=== PATIENT | female | born 1960 | race Caucasian/White ===

== ENCOUNTER 2018-05-05 14:32 | Emergency (ER) | payer OTHER, SELFPAY ==
[2018-05-05] MEDS ORDERED: Bacitracin Zinc 1 Packet ONE (14:53)
== END 2018-05-05 15:02 | disposition home or self-care (01) ==
LOC: SCSER 14:32
DX: T23.222A Burn of second degree of single left finger (nail) except thumb, initial encounter (principal); F17.210 Nicotine dependence, cigarettes, uncomplicated; X15.8XXA Contact with other hot household appliances, initial encounter
CPT/HCPCS: 16020

== ENCOUNTER 2018-07-17 22:34 | Inpatient (IN) | payer SELFPAY ==
[2018-07-17] MEDS ORDERED: Ketorolac Tromethamine 30 MG/ML VIAL ONE (23:26)
[2018-07-17 23:51] LABS: #Basophils 0.2 thou/uL (0.0-0.2); #Eosinphils 0.2 thou/uL (0.0-0.7); #Lymphocytes 5.1 thou/uL (1.20-3.40); #Monocytes 0.6 thou/uL (0.11-0.59); %Basophils 1.1 % (0.0-1.0); %Eosinophils 1.4 % (0.0-10.0); %Lymphocytes 33.7 % (21.0-51.0); %Neutrophils 59.8 % (42.0-75.0); Hemoglobin 13.2 g/dL (12.0-16.0); Mean Corpuscular HGB CONC 33.7 g/dL (32.0-36.0); Mean Corpuscular Hemoglobin 30.3 pg (27.0-31.0); Mean Corpuscular Volume 89.8 fL (78.0-98.0); Mean Platelet Volume 5.6 fL (7.4-10.4); Platelet Count 516 thou/uL (130-400); RBC Distribution Width 12.9 % (11.5-14.5); Red Blood Cell (RBC) Count 4.37 mill/uL (4.20-5.40); White Blood Cell (WBC) Count 15.1 thou/uL (4.8-10.8)
[2018-07-18 00:01] LABS: ALT (SGPT) 22 U/L (8-55); AST (SGOT) 19 U/L (5-34); Albumin 4.2 g/dL (3.5-5.0); Alkaline Phosphatase 151 U/L (40-150); Anion Gap 15 mmol/L (10-20); BUN (Urea Nitrogen) 18 mg/dL (9.8-20.1); Bilirubin, Total 0.3 mg/dL (0.2-1.2); Calc. Creatinine Clearance 0 mL/min (70-130); Calcium 9.6 mg/dL (7.8-10.44); Carbon Dioxide 24 mmol/L (22-29); Chloride 107 mmol/L (98-107); Estimated GFR-MDRD 68; Globulin 3.2 g/dL (2.4-3.5); Glucose 129 mg/dL (70-105); Potassium 3.8 mmol/L (3.5-5.1); Protein, Total 7.4 g/dL (6.0-8.3); Sodium 142 mmol/L (136-145)
[2018-07-18] MEDS ORDERED: Morphine 4 MG/ML Carpuject ONE (01:09)
[2018-07-18] MEDS ORDERED: Nicotine 21 MG PATCH TOP SCH (03:15)
[2018-07-18 04:41] VITALS: BMI 33.1
[2018-07-18] MEDS ORDERED: Acetaminophen 325 MG TAB PO PRN (07:07)
[2018-07-18] MEDS ORDERED: Loperamide HCl 2 MG CAP PO PRN (07:07)
[2018-07-18] MEDS ORDERED: Milk Of Magnesia 30 ML UDCUP PO PRN (07:07)
[2018-07-18] MEDS ORDERED: Ondansetron ODT 4 MG TAB PO PRN (07:07)
[2018-07-18] MEDS ORDERED: Senokot 8.6 MG TAB PO PRN (07:07)
[2018-07-18] MEDS ORDERED: Ondansetron HCl/PF 4 MG/2 ML Vial IVP PRN (07:07)
[2018-07-18] MEDS ORDERED: Mag-Al 1200 mg/1200 mg/30 ML UDCUP PO PRN (07:07)
--- NOTE | 2018-07-18 07:11 | PDOC.EVN ---
Event Note - Event Note Event Note: Patient seen and examined. will dictate H & P later left index finger cellulitis see orders
--- NOTE | 2018-07-18 07:33 | RAD ---
3 VIEWS SECOND DIGIT LEFT HAND: Date: 07/17/18 HISTORY: Patient with left finger infection, swelling for several days. FINDINGS: AP, lateral, and oblique views second digit left hand obtained. No evidence of acute fractures, sublu xations, or bony lesions seen. IMPRESSION: Normal 3 views second digit left hand. POS: [facility]
[2018-07-18] MEDS: cefTRIAXone\\ROCEPHIN 2 GM in Sodium Chloride 0.9% 100 ML IVPB SCH (08:00)
[2018-07-18] MEDS: Famotidine 20 MG TAB PO SCH ×2 (09:26→20:28)
[2018-07-18] MEDS: Enoxaparin Sodium 40 MG/0.4 ML SYRINGE SC SCH (09:26)
[2018-07-18] MEDS: Saccharomyces boulardii 250 MG CAP PO SCH (09:26)
[2018-07-18] MEDS ORDERED: Vancomycin HCl 0.75 GM in Sodium Chloride 0.9% 250 ML 250 ML IVPB SCH (12:00)
[2018-07-18] MEDS: HYDROcodone/Acetaminophen 10/325 mg Tablet PO PRN ×2 (12:04→21:15)
[2018-07-18] MEDS: Vancomycin HCl 750 MG in Sodium Chloride 0.9% 250 ML 250 ML IVPB SCH ×2 (12:26→23:56)
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
[2018-07-18] MEDS: Ketorolac Tromethamine 30 MG/ML VIAL IVP PRN ×2 (16:39→23:56)
[2018-07-18] MEDS: Zolpidem Tartrate 5 MG TAB PO PRN (23:57)
[2018-07-19] MEDS: HYDROcodone/Acetaminophen 10/325 mg Tablet PO PRN (05:11)
[2018-07-19 05:13] LABS: #Basophils 0.1 thou/uL (0.0-0.2); #Eosinphils 0.2 thou/uL (0.0-0.7); #Lymphocytes 3.6 thou/uL (1.20-3.40); #Monocytes 0.8 thou/uL (0.11-0.59); #Neutrophils 6.9 thou/uL (1.40-6.50); %Basophils 0.9 % (0.0-1.0); %Eosinophils 1.9 % (0.0-10.0); %Lymphocytes 30.7 % (21.0-51.0); %Monocytes 6.7 % (0.0-10.0); %Neutrophils 59.7 % (42.0-75.0); Hemoglobin 12.8 g/dL (12.0-16.0); Mean Corpuscular HGB CONC 33.5 g/dL (32.0-36.0); Mean Corpuscular Hemoglobin 32.3 pg (27.0-31.0); Mean Corpuscular Volume 96.4 fL (78.0-98.0); Platelet Count 508 thou/uL (130-400); RBC Distribution Width 13.1 % (11.5-14.5); Red Blood Cell (RBC) Count 3.97 mill/uL (4.20-5.40); White Blood Cell (WBC) Count 11.6 thou/uL (4.8-10.8)
[2018-07-19 05:41] LABS: Anion Gap 15 mmol/L (10-20); BUN (Urea Nitrogen) 16 mg/dL (9.8-20.1); Calc. Creatinine Clearance 101 mL/min (70-130); Calcium 9.1 mg/dL (7.8-10.44); Carbon Dioxide 20 mmol/L (22-29); Chloride 108 mmol/L (98-107); Estimated GFR-MDRD 81; Glucose 114 mg/dL (70-105); Potassium 4.1 mmol/L (3.5-5.1); Sodium 139 mmol/L (136-145)
[2018-07-19] MEDS: cefTRIAXone\\ROCEPHIN 2 GM in Sodium Chloride 0.9% 100 ML IVPB SCH (06:42)
[2018-07-19] MEDS: Enoxaparin Sodium 40 MG/0.4 ML SYRINGE SC SCH (08:57)
[2018-07-19] MEDS: Famotidine 20 MG TAB PO SCH ×2 (08:57→20:15)
[2018-07-19] MEDS: Saccharomyces boulardii 250 MG CAP PO SCH (08:57)
[2018-07-19] MEDS: Ketorolac Tromethamine 30 MG/ML VIAL IVP PRN ×2 (08:58→16:59)
--- NOTE | 2018-07-19 11:20 | PDOC.PN ---
- Subjective Encounter Start Date: 07/19/18 Encounter Start Time: 07:00 Patient seen and examined. No new complaints. No overnight events still has left index finger pain - Objective Resuscitation Status: Resuscitation Status FULL:Full Resuscitation MAR Reviewed: Yes Vital Signs & Weight: Vital Signs (12 hours) Temp Pulse Resp BP Pulse Ox 07/19/18 07:32 98.2 F 90 18 124/74 94 L 07/19/18 05:10 94 L 07/19/18 00:03 98.1 F Weight Weight 169 lb 14.211 oz Result Diagrams: 07/19/18 04:55 07/19/18 04:55 Phys Exam - Physical Examination Constitutional: NAD HEENT: PERRLA, moist MMs, sclera anicteric Neck: no JVD, supple Respiratory: no wheezing, no rales, no rhonchi Cardiovascular: RRR, no rub SM+ Gastrointestinal: soft, non-tender, no distention, positive bowel sounds Musculoskeletal: no edema, pulses present left index finger tenderness, erythema noted Neurological: non-focal, normal sensation, moves all 4 limbs Psychiatric: normal affect, A&O x 3 Skin: no rash, normal turgor Dx/Plan (1) Cellulitis of left index finger Code(s): L03.012 - CELLULITIS OF LEFT FINGER Status: Acute (2) COPD (chronic obstructive pulmonary disease) Status: Chronic Qualifiers: (3) Chronic systolic heart failure, ACC/AHA stage C Code(s): I50.22 - CHRONIC SYSTOLIC (CONGESTIVE) HEART FAILURE Status: Chronic (4) HTN (hypertension) Code(s): I10 - ESSENTIAL (PRIMARY) HYPERTENSION Status: Chronic Qualifiers: (5) Non-ischemic cardiomyopathy Code(s): I42.8 - OTHER CARDIOMYOPATHIES Status: Chronic (6) Obesity (BMI 30.0-34.9) Code(s): E66.9 - OBESITY, UNSPECIFIED Status: Chronic (7) Severe mitral regurgitation by prior echocardiogram Code(s): I34.0 - NONRHEUMATIC MITRAL (VALVE) INSUFFICIENCY Status: Chronic (8) Severe tricuspid regurgitation by prior echocardiogram Code(s): I07.1 - RHEUMATIC TRICUSPID INSUFFICIENCY Status: Chronic (9) Tobacco abuse Code(s): Z72.0 - TOBACCO USE Status: Chronic - Plan cont current plan of care, continue antibiotics * continue vancomycmycin and rocephin as below * pain is controlled * tomorrow surgeon will decide if any surgical intervention needed or not, will keep NPO after midnight * medication reviewed as below * symptomatic treatment. Review of Systems - Review of Systems Eyes: negative: Pain, Vision Change, Conjunctivae Inflammation, Eyelid Inflammation, Redness, Other ENT: negative: Ear Pain, Ear Discharge, Nose Pain, Nose Discharge, Nose Congestion, Mouth Pain, Mouth Swelling, Throat Pain, Throat Swelling, Other Respiratory: negative: Cough, Dry, Shortness of Breath, Hemoptysis, SOB with Excertion, Pleuritic Pain, Sputum, Wheezing Cardiovascular: negative: chest pain, palpitations, orthopnea, paroxysmal nocturnal dyspnea, edema, light headedness, other Gastrointestinal: negative: Nausea, Vomiting, Abdominal Pain, Diarrhea, Constipation, Melena, Hematochezia, Other Genitourinary: negative: Dysuria, Frequency, Incontinence, Hematuria, Retention , Other Musculoskeletal: Hand Pain. negative: Neck Pain, Shoulder Pain, Arm Pain, Back Pain, Leg Pain, Foot Pain, Other Skin: negative: Rash, Lesions, Emanuel, Bruising, Other - Medications/Allergies Allergies/Adverse Reactions: Allergies Allergy/AdvReac Type Severity Reaction Status Date / Time No Known Allergies Allergy Verified 07/18/18 02:46 Medications: Current Medications Acetaminophen (Tylenol) 650 mg PO Q4H PRN PRN Reason: Headache/Fever or Pain Hydrocodone Bitart/Acetaminophen ([place] 10/325) 1 tab PO Q4H PRN PRN Reason: Moderate Pain (4-6) Last Admin: 07/19/18 05:11 Dose: 1 tab Al Hydroxide/Mg Hydroxide (Maalox) 30 ml PO Q6H PRN PRN Reason: Heartburn or Indigestion Enoxaparin Sodium (Lovenox) 40 mg SC 0900 [facility] Last Admin: 07/19/18 08:57 Dose: 40 mg Famotidine (Pepcid) 20 mg PO BID [facility] Last Admin: 07/19/18 08:57 Dose: 20 mg Ceftriaxone Sodium 2 gm/ (Sodium Chloride) 100 mls @ 200 mls/hr IVPB Q24HR [facility] Last Admin: 07/19/18 06:42 Dose: 100 mls Vancomycin HCl 750 mg/ Sodium (Chloride) 250 mls @ 250 mls/hr IVPB 1200,2359 [facility] Last Admin: 07/18/18 23:56 Dose: 250 mls Ketorolac Tromethamine (Toradol) 15 mg IVP Q6H PRN PRN Reason: Pain Stop: 07/23/18 07:10 Last Admin: 07/19/18 08:58 Dose: 15 mg Loperamide HCl (Imodium) 2 mg PO PRN PRN PRN Reason: Diarrhea/Loose Stools Magnesium Hydroxide (Milk Of Magnesium) 30 ml PO DAILYPRN PRN PRN Reason: Constipation Morphine Sulfate (Morphine) 2 mg SLOW IVP Q4H PRN PRN Reason: FINGER PAIN Last Admin: 07/18/18 19:22 Dose: 2 mg Ondansetron HCl (Zofran Odt) 4 mg PO Q6H PRN PRN Reason: Nausea/Vomiting Ondansetron HCl (Zofran) 4 mg IVP Q6H PRN PRN Reason: Nausea/Vomiting Saccharomyces Boulardii (Florastor) 250 mg PO DAILY [facility] Last Admin: 07/19/18 08:57 Dose: 250 mg Senna (Senokot) 2 tab PO HSPRN PRN PRN Reason: Constipation Zolpidem Tartrate (Ambien) 5 mg PO HSPRN PRN PRN Reason: Insomnia Last Admin: 07/18/18 23:57 Dose: 5 mg
[2018-07-19] MEDS: Vancomycin HCl 750 MG in Sodium Chloride 0.9% 250 ML 250 ML IVPB SCH ×2 (11:40→23:54)
[2018-07-19 12:28] LABS: Vancomycin, Trough 20.1 ug/mL
[2018-07-19] MEDS: Zolpidem Tartrate 5 MG TAB PO PRN (20:15)
[2018-07-20] MEDS: Ketorolac Tromethamine 30 MG/ML VIAL IVP PRN ×3 (01:31→20:46)
[2018-07-20] MEDS: cefTRIAXone\\ROCEPHIN 2 GM in Sodium Chloride 0.9% 100 ML IVPB SCH (07:54)
[2018-07-20] MEDS: Enoxaparin Sodium 40 MG/0.4 ML SYRINGE SC SCH (08:05)
[2018-07-20] MEDS: Famotidine 20 MG TAB PO SCH ×2 (08:38→20:28)
[2018-07-20] MEDS: Saccharomyces boulardii 250 MG CAP PO SCH (08:38)
[2018-07-20] MEDS: Nicotine 21 MG PATCH TOP SCH (08:39)
[2018-07-20 11:17] LABS: Vancomycin, Trough 12.2 ug/mL
[2018-07-20] MEDS: Vancomycin HCl 1 GM in Premix Bag 1 BAG IVPB SCH ×2 (11:37→23:35)
[2018-07-20] MEDS ORDERED: PROPOFOL 200 MG/20 ML VIAL ONE (12:08)
[2018-07-20] MEDS ORDERED: PHENYLEPHRINE-NS 100 MCG/ML 10 ML SYRINGE ONE (12:08)
[2018-07-20] MEDS ORDERED: Lidocaine 1% PF 5 ML VIAL ONE (12:08)
--- NOTE | 2018-07-20 12:34 | PDOC.PN ---
- Subjective Encounter Start Date: 07/20/18 Encounter Start Time: 09:00 Patient seen and examined. No new complaints. No overnight events does not have any improvement in swelling of left index finger - Objective Resuscitation Status: Resuscitation Status FULL:Full Resuscitation MAR Reviewed: Yes Vital Signs & Weight: Vital Signs (12 hours) Temp Pulse Resp BP Pulse Ox 07/20/18 08:07 89 L 07/20/18 07:45 97.3 F L 101 H 18 137/83 93 L 07/20/18 05:13 91 L Weight Weight 169 lb 14.211 oz I&O: 07/19/18 07/20/18 07/21/18 06:59 06:59 06:59 Intake Total 480 Balance 480 Result Diagrams: 07/19/18 04:55 07/19/18 04:55 Phys Exam - Physical Examination Constitutional: NAD HEENT: PERRLA, moist MMs, sclera anicteric Neck: no JVD, supple Respiratory: no wheezing, no rales, no rhonchi Cardiovascular: RRR, no significant murmur, no rub Gastrointestinal: soft, non-tender, no distention, positive bowel sounds Musculoskeletal: no edema, pulses present left index finger is swollon and tender Neurological: non-focal, normal sensation, moves all 4 limbs Lymphatic: no nodes Psychiatric: normal affect, A&O x 3 Skin: no rash, normal turgor Dx/Plan (1) Cellulitis of left index finger Code(s): L03.012 - CELLULITIS OF LEFT FINGER Status: Acute (2) COPD (chronic obstructive pulmonary disease) Status: Chronic Qualifiers: (3) Chronic systolic heart failure, ACC/AHA stage C Code(s): I50.22 - CHRONIC SYSTOLIC (CONGESTIVE) HEART FAILURE Status: Chronic (4) HTN (hypertension) Code(s): I10 - ESSENTIAL (PRIMARY) HYPERTENSION Status: Chronic Qualifiers: (5) Non-ischemic cardiomyopathy Code(s): I42.8 - OTHER CARDIOMYOPATHIES Status: Chronic (6) Obesity (BMI 30.0-34.9) Code(s): E66.9 - OBESITY, UNSPECIFIED Status: Chronic (7) Severe mitral regurgitation by prior echocardiogram Code(s): I34.0 - NONRHEUMATIC MITRAL (VALVE) INSUFFICIENCY Status: Chronic (8) Severe tricuspid regurgitation by prior echocardiogram Code(s): I07.1 - RHEUMATIC TRICUSPID INSUFFICIENCY Status: Chronic (9) Tobacco abuse Code(s): Z72.0 - TOBACCO USE Status: Chronic - Plan cont current plan of care, continue antibiotics * continue vancomycin and rocephin * today plan for I & D * pain controlled * nicotin patch added * medication reviewed as below * symptomatic treatment. Review of Systems - Review of Systems Constitutional: negative: fever, chills, sweats, weakness, malaise, other Eyes: negative: Pain, Vision Change, Conjunctivae Inflammation, Eyelid Inflammation, Redness, Other ENT: negative: Ear Pain, Ear Discharge, Nose Pain, Nose Discharge, Nose Congestion, Mouth Pain, Mouth Swelling, Throat Pain, Throat Swelling, Other Respiratory: negative: Cough, Dry, Shortness of Breath, Hemoptysis, SOB with Excertion, Pleuritic Pain, Sputum, Wheezing Cardiovascular: negative: chest pain, palpitations, orthopnea, paroxysmal nocturnal dyspnea, edema, light headedness, other Gastrointestinal: negative: Nausea, Vomiting, Abdominal Pain, Diarrhea, Constipation, Melena, Hematochezia, Other Genitourinary: negative: Dysuria, Frequency, Incontinence, Hematuria, Retention , Other Musculoskeletal: Hand Pain. negative: Neck Pain, Shoulder Pain, Arm Pain, Back Pain, Leg Pain, Foot Pain, Other - Medications/Allergies Allergies/Adverse Reactions: Allergies Allergy/AdvReac Type Severity Reaction Status Date / Time No Known Allergies Allergy Verified 07/18/18 02:46 Medications: Current Medications Acetaminophen (Tylenol) 650 mg PO Q4H PRN PRN Reason: Headache/Fever or Pain Hydrocodone Bitart/Acetaminophen ([place] 10/325) 1 tab PO Q4H PRN PRN Reason: Moderate Pain (4-6) Last Admin: 07/19/18 05:11 Dose: 1 tab Al Hydroxide/Mg Hydroxide (Maalox) 30 ml PO Q6H PRN PRN Reason: Heartburn or Indigestion Enoxaparin Sodium (Lovenox) 40 mg SC 0900 [facility] Last Admin: 07/20/18 08:05 Dose: Not Given Famotidine (Pepcid) 20 mg PO BID [facility] Last Admin: 07/20/18 08:38 Dose: 20 mg Ceftriaxone Sodium 2 gm/ (Sodium Chloride) 100 mls @ 200 mls/hr IVPB Q24HR [facility] Last Admin: 07/20/18 07:54 Dose: 100 mls Vancomycin HCl 1 gm/ Device 200 mls @ 200 mls/hr IVPB 1200,2359 [facility] Last Admin: 07/20/18 11:37 Dose: 200 mls Ketorolac Tromethamine (Toradol) 15 mg IVP Q6H PRN PRN Reason: Pain Stop: 07/23/18 07:10 Last Admin: 07/20/18 07:53 Dose: 15 mg Loperamide HCl (Imodium) 2 mg PO PRN PRN PRN Reason: Diarrhea/Loose Stools Magnesium Hydroxide (Milk Of Magnesium) 30 ml PO DAILYPRN PRN PRN Reason: Constipation Morphine Sulfate (Morphine) 2 mg SLOW IVP Q4H PRN PRN Reason: FINGER PAIN Last Admin: 07/20/18 11:22 Dose: 2 mg Nicotine (Nicoderm Patch) 21 mg TOP Q24HR [facility] Last Admin: 07/20/18 08:39 Dose: 21 mg Ondansetron HCl (Zofran Odt) 4 mg PO Q6H PRN PRN Reason: Nausea/Vomiting Ondansetron HCl (Zofran) 4 mg IVP Q6H PRN PRN Reason: Nausea/Vomiting Saccharomyces Boulardii (Florastor) 250 mg PO DAILY [facility] Last Admin: 07/20/18 08:38 Dose: 250 mg Senna (Senokot) 2 tab PO HSPRN PRN PRN Reason: Constipation Zolpidem Tartrate (Ambien) 5 mg PO HSPRN PRN PRN Reason: Insomnia Last Admin: 07/19/18 20:15 Dose: 5 mg
[2018-07-20] MEDS ORDERED: Fentanyl 100 MCG/2 ML VIAL ONE ×3 (16:43→19:52)
[2018-07-20] MEDS ORDERED: Sodium Chloride 0.9% 10 ML ONE (17:57)
[2018-07-20] MEDS ORDERED: Bupivacaine PF 0.5% 30 ML VIAL ONE (17:57)
[2018-07-20] MEDS ORDERED: Promethazine HCl 25 MG/ML VIAL SLOW IVP PRN (19:36)
[2018-07-20] MEDS ORDERED: Ondansetron HCl/PF 4 MG/2 ML Vial IVP PRN (19:36)
[2018-07-20] MEDS ORDERED: Promethazine HCl 25 MG/ML VIAL IM PRN (19:36)
[2018-07-21] MEDS: Ketorolac Tromethamine 30 MG/ML VIAL IVP PRN ×2 (03:47→15:07)
[2018-07-21] MEDS: cefTRIAXone\\ROCEPHIN 2 GM in Sodium Chloride 0.9% 100 ML IVPB SCH (08:25)
[2018-07-21 08:58] LABS: #Basophils 0.1 thou/uL (0.0-0.2); #Eosinphils 0.3 thou/uL (0.0-0.7); #Lymphocytes 3.9 thou/uL (1.20-3.40); #Monocytes 1.1 thou/uL (0.11-0.59); #Neutrophils 7.6 thou/uL (1.40-6.50); %Basophils 0.4 % (0.0-1.0); %Eosinophils 2.2 % (0.0-10.0); %Lymphocytes 29.9 % (21.0-51.0); %Monocytes 8.2 % (0.0-10.0); %Neutrophils 59.3 % (42.0-75.0); Hemoglobin 12.6 g/dL (12.0-16.0); Mean Corpuscular HGB CONC 32.8 g/dL (32.0-36.0); Mean Corpuscular Hemoglobin 30.9 pg (27.0-31.0); Mean Corpuscular Volume 94.1 fL (78.0-98.0); Mean Platelet Volume 6.5 fL (7.4-10.4); Platelet Count 484 thou/uL (130-400); RBC Distribution Width 12.9 % (11.5-14.5); Red Blood Cell (RBC) Count 4.07 mill/uL (4.20-5.40); White Blood Cell (WBC) Count 12.9 thou/uL (4.8-10.8)
[2018-07-21 09:21] LABS: Anion Gap 15 mmol/L (10-20); BUN (Urea Nitrogen) 16 mg/dL (9.8-20.1); CRP (Inflammatory) 3.25 mg/dL (= or < 0.5); Calc. Creatinine Clearance 104 mL/min (70-130); Carbon Dioxide 21 mmol/L (22-29); Chloride 107 mmol/L (98-107); Estimated GFR-MDRD 83; Glucose 96 mg/dL (70-105); Sodium 139 mmol/L (136-145)
[2018-07-21] MEDS: Saccharomyces boulardii 250 MG CAP PO SCH (09:22)
[2018-07-21] MEDS: Enoxaparin Sodium 40 MG/0.4 ML SYRINGE SC SCH (09:22)
[2018-07-21] MEDS: Famotidine 20 MG TAB PO SCH ×2 (09:22→20:01)
[2018-07-21] MEDS: Nicotine 21 MG PATCH TOP SCH (09:23)
--- NOTE | 2018-07-21 12:14 | PDOC.PN ---
- Subjective Encounter Start Date: 07/21/18 Encounter Start Time: 07:00 pt had I & D yesterday, her pain is ok with current pain meds, no fever - Objective Resuscitation Status: Resuscitation Status FULL:Full Resuscitation MAR Reviewed: Yes Vital Signs & Weight: Vital Signs (12 hours) Temp Pulse Resp BP BP Pulse Ox 07/21/18 08:45 98.1 F 95 20 93 L 07/21/18 07:50 98.1 F 95 20 137/75 93 L 07/21/18 03:00 98.6 F 92 18 139/69 96 07/21/18 02:00 101 H 20 152/75 H 96 07/21/18 01:00 104 H 16 148/70 H Weight Weight 169 lb 14.211 oz I&O: 07/20/18 07/21/18 07/22/18 06:59 06:59 06:59 Intake Total 1000 Balance 1000 Result Diagrams: 07/21/18 08:20 07/21/18 08:20 Phys Exam - Physical Examination Constitutional: NAD HEENT: PERRLA, moist MMs, sclera anicteric Neck: no JVD, supple Respiratory: no wheezing, no rales, no rhonchi Cardiovascular: RRR, no significant murmur, no rub Gastrointestinal: soft, non-tender, no distention, positive bowel sounds Musculoskeletal: no edema, pulses present left hand with dressing Neurological: non-focal, normal sensation, moves all 4 limbs Psychiatric: normal affect, A&O x 3 Skin: no rash, normal turgor Dx/Plan (1) Cellulitis of left index finger Code(s): L03.012 - CELLULITIS OF LEFT FINGER Status: Acute (2) COPD (chronic obstructive pulmonary disease) Status: Chronic Qualifiers: (3) Chronic systolic heart failure, ACC/AHA stage C Code(s): I50.22 - CHRONIC SYSTOLIC (CONGESTIVE) HEART FAILURE Status: Chronic (4) HTN (hypertension) Code(s): I10 - ESSENTIAL (PRIMARY) HYPERTENSION Status: Chronic Qualifiers: (5) Non-ischemic cardiomyopathy Code(s): I42.8 - OTHER CARDIOMYOPATHIES Status: Chronic (6) Obesity (BMI 30.0-34.9) Code(s): E66.9 - OBESITY, UNSPECIFIED Status: Chronic (7) Severe mitral regurgitation by prior echocardiogram Code(s): I34.0 - NONRHEUMATIC MITRAL (VALVE) INSUFFICIENCY Status: Chronic (8) Severe tricuspid regurgitation by prior echocardiogram Code(s): I07.1 - RHEUMATIC TRICUSPID INSUFFICIENCY Status: Chronic (9) Tobacco abuse Code(s): Z72.0 - TOBACCO USE Status: Chronic - Plan cont current plan of care, continue antibiotics * pain control with morphin, toradol, norco as needed * continue vancomycin and rocephin * medication reviewed as below * symptomatic treatment. * post surgical wound care * follow culture Review of Systems - Review of Systems Constitutional: negative: fever, chills, sweats, weakness, malaise, other Eyes: negative: Pain, Vision Change, Conjunctivae Inflammation, Eyelid Inflammation, Redness, Other ENT: negative: Ear Pain, Ear Discharge, Nose Pain, Nose Discharge, Nose Congestion, Mouth Pain, Mouth Swelling, Throat Pain, Throat Swelling, Other Respiratory: negative: Cough, Dry, Shortness of Breath, Hemoptysis, SOB with Excertion, Pleuritic Pain, Sputum, Wheezing Cardiovascular: negative: chest pain, palpitations, orthopnea, paroxysmal nocturnal dyspnea, edema, light headedness, other Gastrointestinal: negative: Nausea, Vomiting, Abdominal Pain, Diarrhea, Constipation, Melena, Hematochezia, Other Genitourinary: negative: Dysuria, Frequency, Incontinence, Hematuria, Retention , Other Musculoskeletal: Hand Pain. negative: Neck Pain, Shoulder Pain, Arm Pain, Back Pain, Leg Pain, Foot Pain, Other Skin: negative: Rash, Lesions, Emanuel, Bruising, Other - Medications/Allergies Allergies/Adverse Reactions: Allergies Allergy/AdvReac Type Severity Reaction Status Date / Time No Known Allergies Allergy Verified 07/18/18 02:46 Medications: Current Medications Acetaminophen (Tylenol) 650 mg PO Q4H PRN PRN Reason: Headache/Fever or Pain Hydrocodone Bitart/Acetaminophen ([place] 10/325) 1 tab PO Q4H PRN PRN Reason: Moderate Pain (4-6) Last Admin: 07/19/18 05:11 Dose: 1 tab Al Hydroxide/Mg Hydroxide (Maalox) 30 ml PO Q6H PRN PRN Reason: Heartburn or Indigestion Enoxaparin Sodium (Lovenox) 40 mg SC 0900 [facility] Last Admin: 07/21/18 09:22 Dose: 40 mg Famotidine (Pepcid) 20 mg PO BID [facility] Last Admin: 07/21/18 09:22 Dose: 20 mg Ceftriaxone Sodium 2 gm/ (Sodium Chloride) 100 mls @ 200 mls/hr IVPB Q24HR [facility] Last Admin: 07/21/18 08:25 Dose: 100 mls Vancomycin HCl 1 gm/ Device 200 mls @ 200 mls/hr IVPB 1200,2359 [facility] Last Admin: 07/20/18 23:35 Dose: 200 mls Ketorolac Tromethamine (Toradol) 15 mg IVP Q6H PRN PRN Reason: Pain Stop: 07/23/18 07:10 Last Admin: 07/21/18 03:47 Dose: 15 mg Loperamide HCl (Imodium) 2 mg PO PRN PRN PRN Reason: Diarrhea/Loose Stools Magnesium Hydroxide (Milk Of Magnesium) 30 ml PO DAILYPRN PRN PRN Reason: Constipation Morphine Sulfate (Morphine) 2 mg SLOW IVP Q4H PRN PRN Reason: FINGER PAIN Last Admin: 07/21/18 08:21 Dose: 2 mg Nicotine (Nicoderm Patch) 21 mg TOP Q24HR [facility] Last Admin: 07/21/18 09:23 Dose: 21 mg Ondansetron HCl (Zofran Odt) 4 mg PO Q6H PRN PRN Reason: Nausea/Vomiting Ondansetron HCl (Zofran) 4 mg IVP Q6H PRN PRN Reason: Nausea/Vomiting Saccharomyces Boulardii (Florastor) 250 mg PO DAILY [facility] Last Admin: 07/21/18 09:22 Dose: 250 mg Senna (Senokot) 2 tab PO HSPRN PRN PRN Reason: Constipation Sodium Chloride (Flush - Normal Saline) 10 ml IVF PRN PRN PRN Reason: Saline Flush Last Admin: 07/21/18 08:21 Dose: 10 ml Zolpidem Tartrate (Ambien) 5 mg PO HSPRN PRN PRN Reason: Insomnia Last Admin: 07/19/18 20:15 Dose: 5 mg
[2018-07-21] MEDS: Vancomycin HCl 1 GM in Premix Bag 1 BAG IVPB SCH (12:45)
[2018-07-21] MEDS: HYDROcodone/Acetaminophen 10/325 mg Tablet PO PRN (20:00)
[2018-07-21 23:33] LABS: Vancomycin, Trough 13.9 ug/mL
[2018-07-22] MEDS: HYDROcodone/Acetaminophen 10/325 mg Tablet PO PRN ×6 (00:04→22:00)
[2018-07-22] MEDS: Vancomycin HCl 1 GM in Premix Bag 1 BAG IVPB SCH ×2 (00:07→14:13)
[2018-07-22] MEDS: Ketorolac Tromethamine 30 MG/ML VIAL IVP PRN ×3 (02:46→20:02)
--- NOTE | 2018-07-22 08:19 | OP ---
DATE OF SURGERY: 07/20/2018 PREOPERATIVE DIAGNOSES: Left index finger dorsal, proximal, distal interphalangeal joint abscess. FINDINGS: 1. Distal interphalangeal joint abscess. 2. Flexor sheath and dorsal middle and distal phalanx abscess with propagation to the level between A3 and A2 radha, but not further proximally and not into the sheath proximal to the A1 or into the o ther digits. PROCEDURES PERFORMED: 1. Arthrotomy via midlateral approach, distal interphalangeal joint for drainage of infection/mucopu rulent abscess, left index finger distal interphalangeal joint. 2. Left index finger flexor sheath abscess debridement and drainage, purulence found to the level of the interspace between A3 and A2 pulleys, but not proximal to A1. COMPLICATIONS: None. ESTIMATED BLOOD LOSS: 10 mL. ANESTHESIA: General LMA technique augmented by 15 mL of 0.5% Marcaine block in metacarpophalangeal j oint level; 5 given before the procedure and 10 afterwards. INDICATIONS: The patient was admitted to the hospital with elevated white count, edema in the dorsal digits of the distal interphalangeal and proximal interphalangeal joint region, but no palm abnormal ity. DESCRIPTION OF PROCEDURE: After successful general LMA technique, limb was prepped and draped. The patient had the limb exsanguinated, tourniquet inflated to 250 mmHg pressure. Initial 5 mL of 0.5% M arcaine was given. 10 more will be given after the debridement process is was done. Then, we perfor med time-out appropriately, exsanguinated the limb, inflated the tourniquet to 250 mmHg pressure. We then were able to establish mid lateral position going slightly dorsal from the distal one-third of the distal interphalangeal joint to just proximal to the nail bed itself in the ulnar plane. Then, w e opened the joint from the midlateral plane ulnarly and we found that there was marked mucopurulence from the joint and escaping proximally along the tendon sheath, which we opened in the midlateral pl ane in ulnar aspect just at the distal interphalangeal joint distally. We then felt that the flexor sheath might be compromised, so we made an incision 1 cm over it in Mike fashion to expose the flex or sheath, and there were some mucopurulence escaping just at the level of A3, but none proximal enou gh to reach A2. Final incision was then made proximal to the A1 radha, lifted up the radha, no purulence seen with 12 cycles of index finger flexion, but we did also irrigate this area as well. This was done with th e same catheter. The patient then had the open wound over the joint irrigated with 1 liter normal saline under Pulsava c pressure with antibiotics inside. Tourniquet was deflated. Hemostasis was obtained. Digit was pi nk. All 3 incisions had normal saline soaked 4 x 4 sterilely applied underneath a Kerlix, underneath 2 Timur wraps. The patient left the operating room without evidence of anesthetic or operative compli cation.
[2018-07-22] MEDS: Enoxaparin Sodium 40 MG/0.4 ML SYRINGE SC SCH (08:46)
[2018-07-22] MEDS: Famotidine 20 MG TAB PO SCH ×2 (08:46→20:02)
[2018-07-22] MEDS: Saccharomyces boulardii 250 MG CAP PO SCH (08:46)
[2018-07-22] MEDS: Nicotine 21 MG PATCH TOP SCH (08:47)
[2018-07-22] MEDS: cefTRIAXone\\ROCEPHIN 2 GM in Sodium Chloride 0.9% 100 ML IVPB SCH (08:51)
--- NOTE | 2018-07-22 10:30 | CON ---
DATE OF CONSULTATION: 07/22/2018 REASON FOR CONSULTATION: Left hand infection. HISTORY OF PRESENT ILLNESS: This is a 57-year-old patient, who has a history of chronic smoking and a recent episode of dyspnea, for which she was admitted last year in July. The evaluation demonstr ated a nonischemic cardiomyopathy with CHF and an EF around 10%-15%. She had cardiac catheterization , which showed minimal coronary disease at that time. CT angio showed no evidence of pulmonary embol ism. She had evidence of fatty liver, but blood cultures were negative. Urine drug screen was posit [place] for methamphetamine. Patient was discharged on lisinopril, spironolactone, Coreg. She has not h ad a followup since. Has not had problems with dyspnea, but developed inflammatory process, left rob d index finger. She ended up with surgical debridement day before yesterday by Dr. Crook. The op erative report was reviewed and it showed distal interphalangeal joint infection with mucopurulence n oted. There was propagation to the level between A3 and A2 radha, but not proximally. There was so me mucopurulence noted in the flexor tendon sheath as well. The patient is currently on Rocephin and vancomycin. REVIEW OF SYSTEMS: Denies any headaches, visual symptoms, sore throat, odynophagia, dysphagia, no ch est pain, no back pain, no joint symptoms outside the area of involvement. No abdominal pain or diar joaquin. No genitourinary symptoms. PAST MEDICAL HISTORY: Nonischemic cardiomyopathy with normal angiogram, 2017; history of methampheta mine use; chronic smoking. ALLERGY HISTORY: Negative. FAMILY HISTORY: Noncontributory. 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 She is disabled. Chronic smoking. Paulina iniguez occasionally. She has a history of methamphetamine use in the past, although she did not acknowle dge that this is from the previous H and P notes in the record. CURRENT MEDICATIONS: Include the antibiotics, Rocephin, vancomycin, and p.r.n. medications. She is on enoxaparin prophylaxis and Nicoderm. PHYSICAL EXAMINATION: VITAL SIGNS: With a T-max 99.1, blood pressure 130/70, pulse 95, respirations 20, O2 sat 92%. SKIN EXAM: Shows the area of surgical intervention, left hand. I did not remove the dressing at thi s time. The patient does not have Munoz catheter, has a peripheral IV access. No lymphadenopathy. HEENT EXAM: Remarkable for absence of [place] teeth. Oral mucosa normal. NECK: Supple, no jugular vein distention. LUNGS: With symmetric clear breath sounds. HEART: S1 and S2, regular rate without murmurs. ABDOMEN: Soft, not distended or tender. No ascites. No bladder distention. EXTREMITIES: No joint inflammatory activity outside the involved area. Pulses 1+ in dorsalis pedis. NEUROLOGIC EXAMINATION: Nonfocal including cognitive function. LABORATORY DATA: White cell count is 15,000, down to 12.9; hemoglobin 12, MCV 94, platelets 44 with a normal differential. Creatinine 0.72. Liver profile, elevated alkaline phosphatase. Albumin 4.2. Hepatitis C serology negative last year. Microbiology with pending cultures. Gram stain did not s how any organisms. Blood culture negative 48 hours. ASSESSMENT: History of nonischemic cardiomyopathy in 2017, now with distal interphalangeal joint inf lammatory arthropathy, left hand, presumably infectious in nature, although noninfectious inflammator y arthropathy is also conceivable Wait on culture results and then determine the need for antimicrob ial therapy and the type and duration. Most likely, she will have to be treated with antimicrobials, and hopefully, we will be able to transition to oral regimen for discharge planning. If Staphylococ cus aureus or methicillin-resistant Staphylococcus aureus is retrieved or resistant gram-negative margarito , then we will have to place a PICC line and treat with IV therapy for 3-4 weeks. The possibility of dissemination from a another source or site such as endocardium is also possible, but we will follow up blood cultures; if negative, then this possibility would be less likely.
--- NOTE | 2018-07-22 11:42 | PDOC.PN ---
- Subjective Encounter Start Date: 07/22/18 Encounter Start Time: 07:00 Patient seen and examined. No new complaints. No overnight events - Objective Resuscitation Status: Resuscitation Status FULL:Full Resuscitation MAR Reviewed: Yes Vital Signs & Weight: Vital Signs (12 hours) Temp Pulse Resp BP Pulse Ox 07/22/18 08:00 98.8 F 89 20 96 07/22/18 07:05 98.8 F 89 20 131/70 96 Weight Weight 169 lb 14.211 oz I&O: 07/21/18 07/22/18 07/23/18 06:59 06:59 06:59 Intake Total 1000 3010 300 Balance 1000 3010 300 Result Diagrams: 07/21/18 08:20 07/21/18 08:20 Phys Exam - Physical Examination Constitutional: NAD HEENT: PERRLA, moist MMs, sclera anicteric Neck: no JVD, supple Respiratory: no wheezing, no rales, no rhonchi Cardiovascular: RRR, no significant murmur, no rub Gastrointestinal: soft, non-tender, no distention, positive bowel sounds Musculoskeletal: no edema, pulses present right hand is with dressing Neurological: non-focal, normal sensation, moves all 4 limbs Psychiatric: normal affect, A&O x 3 Skin: no rash, normal turgor Dx/Plan (1) Cellulitis of left index finger Code(s): L03.012 - CELLULITIS OF LEFT FINGER Status: Acute (2) COPD (chronic obstructive pulmonary disease) Status: Chronic Qualifiers: (3) Chronic systolic heart failure, ACC/AHA stage C Code(s): I50.22 - CHRONIC SYSTOLIC (CONGESTIVE) HEART FAILURE Status: Chronic (4) HTN (hypertension) Code(s): I10 - ESSENTIAL (PRIMARY) HYPERTENSION Status: Chronic Qualifiers: (5) Non-ischemic cardiomyopathy Code(s): I42.8 - OTHER CARDIOMYOPATHIES Status: Chronic (6) Obesity (BMI 30.0-34.9) Code(s): E66.9 - OBESITY, UNSPECIFIED Status: Chronic (7) Severe mitral regurgitation by prior echocardiogram Code(s): I34.0 - NONRHEUMATIC MITRAL (VALVE) INSUFFICIENCY Status: Chronic (8) Severe tricuspid regurgitation by prior echocardiogram Code(s): I07.1 - RHEUMATIC TRICUSPID INSUFFICIENCY Status: Chronic (9) Tobacco abuse Code(s): Z72.0 - TOBACCO USE Status: Chronic - Plan cont current plan of care, continue antibiotics * dr wilson consulted and his recommendation noted, * today wound culture grew staph aureus, will wait for sensitivity result * if MRSA, then pt will need IV antibiotics and will need picc line * meanwhile will continue vancomycin and rocephin * medication reviewed as below * symptomatic treatment * pain controlled * expecting discharge tomorrow Review of Systems - Review of Systems Eyes: negative: Pain, Vision Change, Conjunctivae Inflammation, Eyelid Inflammation, Redness, Other ENT: negative: Ear Pain, Ear Discharge, Nose Pain, Nose Discharge, Nose Congestion, Mouth Pain, Mouth Swelling, Throat Pain, Throat Swelling, Other Respiratory: negative: Cough, Dry, Shortness of Breath, Hemoptysis, SOB with Excertion, Pleuritic Pain, Sputum, Wheezing Cardiovascular: negative: chest pain, palpitations, orthopnea, paroxysmal nocturnal dyspnea, edema, light headedness, other Gastrointestinal: negative: Nausea, Vomiting, Abdominal Pain, Diarrhea, Constipation, Melena, Hematochezia, Other Genitourinary: negative: Dysuria, Frequency, Incontinence, Hematuria, Retention , Other Musculoskeletal: Hand Pain. negative: Neck Pain, Shoulder Pain, Arm Pain, Back Pain, Leg Pain, Foot Pain, Other Skin: negative: Rash, Lesions, Emanuel, Bruising, Other - Medications/Allergies Allergies/Adverse Reactions: Allergies Allergy/AdvReac Type Severity Reaction Status Date / Time No Known Allergies Allergy Verified 07/18/18 02:46 Medications: Current Medications Acetaminophen (Tylenol) 650 mg PO Q4H PRN PRN Reason: Headache/Fever or Pain Hydrocodone Bitart/Acetaminophen ([place] 10/325) 1 tab PO Q4H PRN PRN Reason: Moderate Pain (4-6) Last Admin: 07/22/18 09:19 Dose: 1 tab Al Hydroxide/Mg Hydroxide (Maalox) 30 ml PO Q6H PRN PRN Reason: Heartburn or Indigestion Enoxaparin Sodium (Lovenox) 40 mg SC 0900 [facility] Last Admin: 07/22/18 08:46 Dose: 40 mg Famotidine (Pepcid) 20 mg PO BID [facility] Last Admin: 07/22/18 08:46 Dose: 20 mg Vancomycin HCl 1 gm/ Device 200 mls @ 200 mls/hr IVPB 1200,2359 [facility] Last Admin: 07/22/18 00:07 Dose: 200 mls Ceftriaxone Sodium 2 gm/ (Sodium Chloride) 100 mls @ 200 mls/hr IVPB Q24HR [facility] Last Admin: 07/22/18 08:51 Dose: 100 mls Ketorolac Tromethamine (Toradol) 15 mg IVP Q6H PRN PRN Reason: Pain Stop: 07/23/18 07:10 Last Admin: 07/22/18 02:46 Dose: 15 mg Loperamide HCl (Imodium) 2 mg PO PRN PRN PRN Reason: Diarrhea/Loose Stools Magnesium Hydroxide (Milk Of Magnesium) 30 ml PO DAILYPRN PRN PRN Reason: Constipation Morphine Sulfate (Morphine) 2 mg SLOW IVP Q4H PRN PRN Reason: FINGER PAIN Last Admin: 07/21/18 18:10 Dose: 2 mg Nicotine (Nicoderm Patch) 21 mg TOP Q24HR [facility] Last Admin: 07/22/18 08:47 Dose: 21 mg Ondansetron HCl (Zofran Odt) 4 mg PO Q6H PRN PRN Reason: Nausea/Vomiting Ondansetron HCl (Zofran) 4 mg IVP Q6H PRN PRN Reason: Nausea/Vomiting Saccharomyces Boulardii (Florastor) 250 mg PO DAILY [facility] Last Admin: 07/22/18 08:46 Dose: 250 mg Senna (Senokot) 2 tab PO HSPRN PRN PRN Reason: Constipation Sodium Chloride (Flush - Normal Saline) 10 ml IVF PRN PRN PRN Reason: Saline Flush Last Admin: 07/22/18 08:52 Dose: 10 ml Zolpidem Tartrate (Ambien) 5 mg PO HSPRN PRN PRN Reason: Insomnia Last Admin: 07/19/18 20:15 Dose: 5 mg
[2018-07-23 00:32] LABS: Vancomycin, Trough 18.1 ug/mL
[2018-07-23] MEDS: Vancomycin HCl 1 GM in Premix Bag 1 BAG IVPB SCH ×2 (00:35→12:33)
[2018-07-23] MEDS: HYDROcodone/Acetaminophen 10/325 mg Tablet PO PRN ×5 (02:12→20:38)
[2018-07-23] MEDS: Ketorolac Tromethamine 30 MG/ML VIAL IVP PRN (05:41)
[2018-07-23] MEDS: Enoxaparin Sodium 40 MG/0.4 ML SYRINGE SC SCH (08:36)
[2018-07-23] MEDS: Nicotine 21 MG PATCH TOP SCH (08:36)
[2018-07-23] MEDS: cefTRIAXone\\ROCEPHIN 2 GM in Sodium Chloride 0.9% 100 ML IVPB SCH (08:36)
[2018-07-23] MEDS: Famotidine 20 MG TAB PO SCH ×2 (08:36→20:40)
[2018-07-23] MEDS: Saccharomyces boulardii 250 MG CAP PO SCH (08:36)
--- NOTE | 2018-07-23 09:59 | PDOC.PN ---
- Subjective Encounter Start Date: 07/23/18 Encounter Start Time: 07:00 Patient seen and examined. No new complaints. No overnight events - Objective Resuscitation Status: Resuscitation Status FULL:Full Resuscitation MAR Reviewed: Yes Vital Signs & Weight: Vital Signs (12 hours) Temp Pulse Resp BP Pulse Ox 07/23/18 07:33 98.4 F 82 20 127/75 93 L Weight Weight 169 lb 14.211 oz I&O: 07/22/18 07/23/18 07/24/18 06:59 06:59 06:59 Intake Total 3010 1400 240 Balance 3010 1400 240 Result Diagrams: 07/21/18 08:20 07/21/18 08:20 Phys Exam - Physical Examination Constitutional: NAD HEENT: PERRLA, moist MMs, sclera anicteric Neck: no JVD, supple Respiratory: no wheezing, no rales, no rhonchi Cardiovascular: RRR, no significant murmur, no rub Gastrointestinal: soft, non-tender, no distention, positive bowel sounds Musculoskeletal: no edema, pulses present right hand with dressing Neurological: non-focal, normal sensation, moves all 4 limbs Psychiatric: normal affect, A&O x 3 Skin: no rash, normal turgor Dx/Plan (1) Cellulitis of left index finger Code(s): L03.012 - CELLULITIS OF LEFT FINGER Status: Acute (2) COPD (chronic obstructive pulmonary disease) Status: Chronic Qualifiers: (3) Chronic systolic heart failure, ACC/AHA stage C Code(s): I50.22 - CHRONIC SYSTOLIC (CONGESTIVE) HEART FAILURE Status: Chronic (4) HTN (hypertension) Code(s): I10 - ESSENTIAL (PRIMARY) HYPERTENSION Status: Chronic Qualifiers: (5) Non-ischemic cardiomyopathy Code(s): I42.8 - OTHER CARDIOMYOPATHIES Status: Chronic (6) Obesity (BMI 30.0-34.9) Code(s): E66.9 - OBESITY, UNSPECIFIED Status: Chronic (7) Severe mitral regurgitation by prior echocardiogram Code(s): I34.0 - NONRHEUMATIC MITRAL (VALVE) INSUFFICIENCY Status: Chronic (8) Severe tricuspid regurgitation by prior echocardiogram Code(s): I07.1 - RHEUMATIC TRICUSPID INSUFFICIENCY Status: Chronic (9) Tobacco abuse Code(s): Z72.0 - TOBACCO USE Status: Chronic - Plan cont current plan of care, continue antibiotics * continue vancomycin and rocephin * will wait for sensitivity result to decide final antibiotics as per dr wilson recommendation * medication reviewed as below * symptomatic treatment. Review of Systems - Review of Systems Eyes: negative: Pain, Vision Change, Conjunctivae Inflammation, Eyelid Inflammation, Redness, Other ENT: negative: Ear Pain, Ear Discharge, Nose Pain, Nose Discharge, Nose Congestion, Mouth Pain, Mouth Swelling, Throat Pain, Throat Swelling, Other Respiratory: negative: Cough, Dry, Shortness of Breath, Hemoptysis, SOB with Excertion, Pleuritic Pain, Sputum, Wheezing Cardiovascular: negative: chest pain, palpitations, orthopnea, paroxysmal nocturnal dyspnea, edema, light headedness, other Gastrointestinal: negative: Nausea, Vomiting, Abdominal Pain, Diarrhea, Constipation, Melena, Hematochezia, Other Genitourinary: negative: Dysuria, Frequency, Incontinence, Hematuria, Retention , Other Musculoskeletal: negative: Neck Pain, Shoulder Pain, Arm Pain, Back Pain, Hand Pain, Leg Pain, Foot Pain, Other Skin: negative: Rash, Lesions, Emanuel, Bruising, Other - Medications/Allergies Allergies/Adverse Reactions: Allergies Allergy/AdvReac Type Severity Reaction Status Date / Time No Known Allergies Allergy Verified 07/18/18 02:46 Medications: Current Medications Acetaminophen (Tylenol) 650 mg PO Q4H PRN PRN Reason: Headache/Fever or Pain Hydrocodone Bitart/Acetaminophen ([place] 10/325) 1 tab PO Q4H PRN PRN Reason: Moderate Pain (4-6) Last Admin: 07/23/18 07:38 Dose: 1 tab Al Hydroxide/Mg Hydroxide (Maalox) 30 ml PO Q6H PRN PRN Reason: Heartburn or Indigestion Enoxaparin Sodium (Lovenox) 40 mg SC 0900 [facility] Last Admin: 07/23/18 08:36 Dose: 40 mg Famotidine (Pepcid) 20 mg PO BID [facility] Last Admin: 07/23/18 08:36 Dose: 20 mg Vancomycin HCl 1 gm/ Device 200 mls @ 200 mls/hr IVPB 1200,2359 [facility] Last Admin: 07/23/18 00:35 Dose: 200 mls Ceftriaxone Sodium 2 gm/ (Sodium Chloride) 100 mls @ 200 mls/hr IVPB Q24HR [facility] Last Admin: 07/23/18 08:36 Dose: 100 mls Loperamide HCl (Imodium) 2 mg PO PRN PRN PRN Reason: Diarrhea/Loose Stools Magnesium Hydroxide (Milk Of Magnesium) 30 ml PO DAILYPRN PRN PRN Reason: Constipation Morphine Sulfate (Morphine) 2 mg SLOW IVP Q4H PRN PRN Reason: FINGER PAIN Last Admin: 07/21/18 18:10 Dose: 2 mg Nicotine (Nicoderm Patch) 21 mg TOP Q24HR [facility] Last Admin: 07/23/18 08:36 Dose: 21 mg Ondansetron HCl (Zofran Odt) 4 mg PO Q6H PRN PRN Reason: Nausea/Vomiting Ondansetron HCl (Zofran) 4 mg IVP Q6H PRN PRN Reason: Nausea/Vomiting Saccharomyces Boulardii (Florastor) 250 mg PO DAILY [facility] Last Admin: 07/23/18 08:36 Dose: 250 mg Senna (Senokot) 2 tab PO HSPRN PRN PRN Reason: Constipation Sodium Chloride (Flush - Normal Saline) 10 ml IVF PRN PRN PRN Reason: Saline Flush Last Admin: 07/23/18 08:37 Dose: 10 ml Zolpidem Tartrate (Ambien) 5 mg PO HSPRN PRN PRN Reason: Insomnia Last Admin: 07/19/18 20:15 Dose: 5 mg
[2018-07-23] MEDS: Zolpidem Tartrate 5 MG TAB PO PRN (20:40)
[2018-07-23] MEDS: Linezolid 600 MG TAB PO SCH (20:40)
--- NOTE | 2018-07-23 22:30 | PRG ---
DATE OF SERVICE: 07/23/2018 SUBJECTIVE: Still with moderate pain in the left hand. No headaches. No sore throat, odynophagia, or dysphagia. No dyspnea, no abdominal pain or diarrhea. PHYSICAL EXAMINATION: VITAL SIGNS: Temperature normal. LUNGS: Clear. CARDIOVASCULAR: S1, S2, regular rate. EXTREMITIES: Left hand with a splint. LABORATORY DATA: White cell count 12.9, hemoglobin 12.6. Microbiology with Staph aureus with pending susceptibility results. PLAN: Our plan will be to switch her to oral Zyvox, looks like she lost IV access, other than that the only option would be to place a PICC line, since she is unfunded she would have to come to the hospital once a day. She cannot come to the hospital after 7:00 in the morning and 5:00 in the evening, so that would pretty much rule out that possibility. So we will try the Zyvox option twice daily for at least 3 weeks, patient will need a weekly CBC to monitor for toxicity from the Zyvox. GI side effects is also a potential complication. She will need weekly fu in the clinic to verify resolution of process. [email or web address]
--- NOTE | 2018-07-23 22:30 | PRG ---
DATE OF SERVICE: 07/23/2018 SUBJECTIVE: Ms. Anguiano is having mild pain at the site. No respiratory symptoms or abdominal pain. No diarrhea. PHYSICAL EXAMINATION: VITAL SIGNS: Normal. LUNGS: Clear. HEART: S1, S2, regular rate. ABDOMEN: Soft. MUSCULOSKELETAL: Index finger dressed. Dressing not removed. LABORATORY DATA: White cell count 12.9, hemoglobin 12.6, platelets 484,000, this is from two days ago. Microbiology with Staph aureus with pending susceptibility studies. ASSESSMENT AND DISCUSSION: Nonischemic cardiomyopathy in 2017 now with DIP infection of left hand index finger secondary to Staphylococcus aureus with pending susceptibilities. Patient had some element of tenosynovitis as well. We will need IV therapy. We will wait for the final results and order PICC line placement. Probably will be either vancomycin, daptomycin or Rocephin depending on susceptibility results.An alternate approach would be PO Zyvox in view of her difficulty in coming to the infusion area daily for treatment. The problem with Zyvox is the likelihood of GI and bone marrow adverse reactions and she will have to be monitored weekly with CBC and close clinical follow up. ANGEL
[2018-07-24] MEDS: HYDROcodone/Acetaminophen 10/325 mg Tablet PO PRN ×4 (01:07→17:36)
[2018-07-24 07:05] VITALS: BP 129/79; TEMP 98.1
[2018-07-24] MEDS: Linezolid 600 MG TAB PO SCH ×2 (08:09→18:48)
[2018-07-24] MEDS: Famotidine 20 MG TAB PO SCH (08:09)
[2018-07-24] MEDS: Saccharomyces boulardii 250 MG CAP PO SCH (08:09)
[2018-07-24] MEDS: Enoxaparin Sodium 40 MG/0.4 ML SYRINGE SC SCH (08:11)
[2018-07-24] MEDS: Nicotine 21 MG PATCH TOP SCH (08:12)
--- NOTE | 2018-07-24 11:18 | PDOC.PN ---
- Subjective Encounter Start Date: 07/24/18 Encounter Start Time: 11:16 Ms. Anguiano was seen today in follow-up. She does not have any new complaints. - Objective Resuscitation Status: Resuscitation Status FULL:Full Resuscitation MAR Reviewed: Yes Vital Signs & Weight: Vital Signs (12 hours) Temp Pulse Resp BP Pulse Ox 07/24/18 07:02 98.1 F 88 16 129/79 95 Weight Weight 169 lb 14.211 oz I&O: 07/23/18 07/24/18 07/25/18 06:59 06:59 06:59 Intake Total 1400 1910 Balance 1400 1910 Result Diagrams: 07/21/18 08:20 07/21/18 08:20 Phys Exam - Physical Examination HEENT: PERRLA Respiratory: no wheezing, no rales, no rhonchi, clear to auscultation bilateral Cardiovascular: RRR, no significant murmur, no rub Gastrointestinal: soft, non-tender, positive bowel sounds Musculoskeletal: no edema Dx/Plan (1) Cellulitis of left index finger Code(s): L03.012 - CELLULITIS OF LEFT FINGER Status: Acute (2) COPD (chronic obstructive pulmonary disease) Status: Chronic Qualifiers: (3) HTN (hypertension) Code(s): I10 - ESSENTIAL (PRIMARY) HYPERTENSION Status: Chronic Qualifiers: (4) Obesity (BMI 30.0-34.9) Code(s): E66.9 - OBESITY, UNSPECIFIED Status: Chronic - Plan * Cellulitis of the left index finger- she will be discharged home on Zyvox for 4 weeks * Outpatient arrangements are being made * HTN- blood pressure. * COPD- stable
--- NOTE | 2018-07-24 12:46 | DIS ---
PRIMARY CARE PHYSICIAN: The patient does not have a primary care physician. DATE OF ADMISSION: 07/18/2018 DATE OF DISHCHARGE: 07/24/2018 DISCHARGE DISPOSITION: Home. PRIMARY DISCHARGE DIAGNOSES: 1. Cellulitis of the left index finger due to Staph aureus, which was methicillin sensitive. 2. Obesity with a BMI of 33.2. DISCHARGE MEDICATIONS: Zyvox 600 mg twice a day for 4 weeks as well as Ultracet 2 tablets q.6h. as n eeded for pain. CODE STATUS: Full code. ALLERGIES: No known drug allergies. HOSPITAL COURSE: Ms. Anguiano is a pleasant 57-year-old female that presented to the emergency room complaining of severe pain of the left index finger. She was found to have cellulitis and abscess f ormation of the finger. She was seen by both Orthopedic Surgery and Hand Surgery and ultimately unde rwent debridement of the finger by Dr. Crook. She was also seen by Dr. Mora, who recommended Zyv ox after the culture results were obtained. The patient was growing Staph aureus from the finger abs cess and he originally wanted to place her on IV antibiotics; however, due to financial constraints, she decided on the second option which would be to place her on [facility]. [facility] and also follow up will be arranged with Dr. Mora in his office. She is to follow up with Dr. Crook as instructed. Otherwise, the patient will be discharged home today in a stabl e condition on 07/24/2018.
[2018-07-24 17:14] LABS: Fungus Stain Final report (.)
[2018-07-24 17:14] LABS: Fungus Stain Final report (.)
--- NOTE | 2018-07-29 13:07 | EKG ---
Test Reason : TACHY Blood Pressure : / mmHG Vent. Rate : 106 BPM Atrial Rate : 106 BPM P-R Int : 156 ms QRS Dur : 078 ms QT Int : 370 ms P-R-T Axes : 067 017 058 degrees QTc Int : 491 ms Sinus tachycardia Otherwise normal ECG Confirmed by MICHEL HERNÁNDEZ DO ([id number]), editor farm journal KELVIN MEDRANO ([id number]) on 07/29/2018 1:07:14 PM Referred By: Confirmed By:MICHEL HERNÁNDEZ DO
== END 2018-07-24 20:01 | disposition home or self-care (01) | DRG 506 ==
LOC: SCSER 22:34 → ONC 07-18 02:18
PROVIDERS: ADMIT Hospitalist; ATTEND Hospitalist
PROC: 0R9X0ZZ Drainage of Left Finger Phalangeal Joint, Open Approach (ICD-10-PCS; principal; 2018-07-20)
PROC: 0L980ZZ Drainage of Left Hand Tendon, Open Approach (ICD-10-PCS; 2018-07-20)
DX: M00.9 Pyogenic arthritis, unspecified (principal); I42.9 Cardiomyopathy, unspecified; I50.22 Chronic systolic (congestive) heart failure; L03.012 Cellulitis of left finger; M65.042 Abscess of tendon sheath, left hand; B95.61 Methicillin susceptible Staphylococcus aureus infection as the cause of diseases classified elsewhere; E66.9 Obesity, unspecified; Z68.32 Body mass index [BMI] 32.0-32.9, adult; J44.9 Chronic obstructive pulmonary disease, unspecified; I11.0 Hypertensive heart disease with heart failure; I08.1 Rheumatic disorders of both mitral and tricuspid valves; F17.210 Nicotine dependence, cigarettes, uncomplicated
CPT/HCPCS: 36415; 80048; 80053; 80202; 83605; 85025; 86140; 87040; 87070; 87077; 87102; 87186; 87205; 87206; 93005; 96365; 96375; A4216; C1758; J0696; J1650; J1885; J2001; J2270; J2704; J3010; J3370; J3490; J7050; S0020

== ENCOUNTER 2019-12-26 15:39 | Inpatient (IN) | payer MEDICARE, SELFPAY ==
[~2019-12-26 15:39] MED LIST: Iopamidol-370 76% 500 ML 1 ML ONE
--- NOTE | 2019-12-26 16:14 | RAD ---
EXAM: Single view of the chest HISTORY: Shortness of breath COMPARISON: 07/07/2017 FINDINGS: Single view of the chest shows an enlarged but stable cardiomediastinal silhouette. There i s no evidence of consolidation, mass, or pleural effusion. The bones are unremarkable. IMPRESSION: No evidence of acute cardiopulmonary disease
[2019-12-26 16:25] LABS: Hemoglobin 13.5 g/dL (12.0-16.0); Mean Corpuscular HGB CONC 31.9 g/dL (32.0-36.0); Mean Corpuscular Hemoglobin 30.1 pg (27.0-31.0); Mean Corpuscular Volume 94.2 fL (78.0-98.0); Mean Platelet Volume 7.7 fL (7.4-10.4); Platelet Count 580 thou/uL (130-400); RBC Distribution Width 13.9 % (11.5-14.5); White Blood Cell (WBC) Count 16.9 thou/uL (4.8-10.8)
[2019-12-26 16:43] LABS: ALT (SGPT) 88 U/L (8-55); AST (SGOT) 68 U/L (5-34); Alkaline Phosphatase 234 U/L (40-110); Anion Gap 18 mmol/L (10-20); BUN (Urea Nitrogen) 35 mg/dL (9.8-20.1); Bilirubin, Total 1.7 mg/dL (0.2-1.2); Calc. Creatinine Clearance 0 mL/min (70-130); Carbon Dioxide 18 mmol/L (22-29); Chloride 103 mmol/L (98-107); Estimated GFR-MDRD 55; Glucose 157 mg/dL (70-105); Potassium 4.4 mmol/L (3.5-5.1); Sodium 135 mmol/L (136-145)
[2019-12-26 16:48] LABS: Band 4 % (5-11); Lymphocytes 28 % (21-51); MDiff Complete? YES; Monocytes 3 % (0-10); Neutrophil 64 % (42-75); Platelet Morphology Comment Appears Increased; Polychromasia SLIGHT = 2-3 cells (100X) (0-2/hpf)
[2019-12-26] MEDS ORDERED: cefTRIAXone\\ROCEPHIN 2 GM VIAL ONE (16:54)
[2019-12-26 18:06] LABS: CKMB 3.2 ng/mL (0-6.6)
--- NOTE | 2019-12-26 18:46 | CT ---
CT ANGIOGRAM THORAX WITH IV CONTRAST AND 3D RECONSTRUCTIONS: HISTORY: Shortness of breath with onset of symptoms one week ago, which have gotten worse. COMPARISON: 07/07/2017 FINDINGS: The pulmonary arteries are well opacified. There are no filling defects seen in the pulmonary arterie s to suggest a pulmonary embolus. The thoracic aorta is not opacified on this exam, as this study was tailored for evaluation of the pu lmonary arteries, however the thoracic aorta is normal in caliber. Vascular calcifications are seen i n the thoracic aorta as well as in the visualized upper abdominal aorta. Small right and tiny left pleural effusions are seen with associated passive atelectasis. Emphysematous changes are again seen within the lungs bilaterally, also noted on prior exam. No conso lidation, pulmonary nodule or mass is seen in the lungs bilaterally. The heart is enlarged. Mildly prominent mediastinal lymph nodes are seen but these lymph nodes do jj ear overall stable when compared to the prior study in 2017. The upper abdomen demonstrates a grossly normal nonenhanced CT appearance. Mild degenerative changes are noted in the spine. IMPRESSION: 1. No CT evidence of pulmonary embolus. 2. Small right and tiny left pleural effusions. 3. Mild cardiomegaly. 4. Evidence of chronic obstructive pulmonary disease. 5. Remote right sided rib fractures. POS: [facility]
[2019-12-26 19:01] LABS: Bacteria/HPF None Seen HPF (None Seen); Bilirubin Negative (Negative); Blood, Urine Negative (Negative); Clarity Clear (Clear); Glucose, Urine (Dipstick) Normal (Negative); Leukocyte Negative Leu/uL (Negative); Nitrite Negative (Negative); Protein, Urine (Dipstick) 30 mg/dL (Neg-Trace); Squamous Epithelial 0-3 HPF (0-3); Urobilinogen 3 mg/dL (Less than 2); WBC/HPF 0-3 HPF (0-3)
[2019-12-26 19:28] LABS: Lactic Acid 2.3 mmol/L (0.5-2.2)
[2019-12-26] MEDS ORDERED: Furosemide 40 MG/4 ML VIAL ONE (19:34)
[2019-12-26] MEDS ORDERED: methylPREDNISolone Sod Succ/PF 125 MG/2 ML VIAL ONE (19:39)
[2019-12-26] MEDS ORDERED: Aspirin Chewable 81 MG TAB ONE (19:39)
[2019-12-26] MEDS ORDERED: Nicotine 14 MG PATCH TOP SCH (19:45)
[2019-12-26 21:40] LABS: Troponin I 0.039 ng/mL (< 0.028)
[2019-12-26] MEDS ORDERED: Nicotine 14 MG PATCH ONE (22:24)
[2019-12-27] MEDS ORDERED: Furosemide 40 MG/4 ML VIAL SLOW IVP SCH ×2 (09:00→14:00)
[2019-12-27] MEDS ORDERED: Acetaminophen 325 MG TAB PO PRN (09:38)
[2019-12-27] MEDS ORDERED: Bisacodyl 5 MG TAB PO PRN (09:38)
[2019-12-27] MEDS ORDERED: traMADol HCl 50 MG TAB PO PRN (09:45)
[2019-12-27] MEDS ORDERED: Nicotine 14 MG PATCH TD SCH (10:00)
[2019-12-27] MEDS: traMADol HCl 50 MG TAB PO PRN ×2 (10:41→16:58)
[2019-12-27] MEDS ORDERED: Azithromycin 500 MG in Sodium Chloride 0.9% 250 ML 250 ML IVPB SCH (11:00)
[2019-12-27] MEDS ORDERED: methylPREDNISolone Sod Succ 40 MG VIAL IVP SCH ×3 (12:00→18:00)
[2019-12-27] MEDS ORDERED: Pantoprazole 40 MG VIAL IVP SCH (12:45)
--- NOTE | 2019-12-27 13:03 | HP ---
PRIMARY CARE PROVIDER: None. CHIEF COMPLAINT: Shortness of breath. HISTORY OF PRESENT ILLNESS: Ms. Anguiano is a pleasant 59-year-old lady, who was seen at [facility] on December 27, 2019. She reports that she was diagnosed with COPD and congestive heart failure in the past. She does not take any medications at home. She reports having flu-like symptoms approximately a week ago. She did not seek medical attention at that time. She vomited once four days ago. She has been short of breath over the last week. She reports shortness of breath on exertion. She denies any leg swelling. She also reports generalized weakness. She denies any chest pain. She denies any fevers. She denies any weight gain or leg swelling. REVIEW OF SYSTEMS: All systems were reviewed and found to be negative except for the pertinent positives mentioned above. PAST MEDICAL HISTORY: chronic obstructive pulmonary disease and suspected congestive heart failure. PAST SURGICAL HISTORY: Ovarian surgery for cyst removal. SOCIAL HISTORY: The patient smokes half pack of cigarettes a day. She denies any recreational drug use. She reports rare alcohol use. FAMILY HISTORY: Significant for diabetes mellitus. ALLERGIES: NO KNOWN DRUG ALLERGIES. CURRENT MEDICATIONS: None. PHYSICAL EXAMINATION: GENERAL: On examination, Ms. Anguiano is awake and alert, not in acute distress. VITAL SIGNS: She is afebrile. Pulse is 107, respiratory rate 24, and oxygen saturation 99% on room air. Blood pressure is 167/95. EYES: Scleral icterus, no conjunctival pallor. ENT: Moist mucosal membranes. No oropharyngeal erythema or exudates. NECK: Supple, nontender, trachea is midline. RESPIRATORY: Accessory muscles of breathing are not active. Chest wall movements are symmetric bilaterally. She has occasional expiratory wheeze. CARDIOVASCULAR: S1 and S2 are heard, tachycardic and regular. ABDOMEN: Soft, nontender, and bowel sounds are heard. NEUROLOGIC: Cranial nerves II through XII are intact. MUSCULOSKELETAL: Power is 5/5 in all 4 extremities. SKIN: No rashes or subcutaneous nodules. LYMPHATIC: No cervical lymphadenopathy. PSYCHIATRIC: Normal mood, normal affect, the patient is oriented to person, place, and time. LABORATORY DATA: Ms. Anguiano' labs and investigations were reviewed. I reviewed her electrocardiogram, which shows sinus tachycardia, no ST changes to suggest an acute coronary syndrome. I also reviewed her chest x-ray, which does not show any pulmonary infiltrates. She also had CT angiogram of the chest, which did not show any evidence of pulmonary embolism. She had small right and tiny left pleural effusions, mild cardiomegaly, evidence of chronic obstructive pulmonary disease and remote right-sided rib fractures. She has leukocytosis with 16,900 white cells, of which 64% are neutrophils. Hemoglobin is normal. Platelet count is elevated at 580,000. D-dimer is elevated at 1.64. Sodium is decreased at 135. Potassium is normal. Creatinine is normal. Blood urea nitrogen is elevated at 35. Lactic acid is elevated at 2.3. Total bilirubin is elevated at 1.7, AST elevated at 68, ALT elevated at 88, and alkaline phosphatase elevated at 234. Troponin I is indeterminate at 0.040. BNP is elevated at 2800. Urinalysis is negative for nitrite and leukocyte esterase. ASSESSMENT AND PLAN: Ms. Anguiano is a pleasant 59-year-old lady, who was seen at [facility] on December 27, 2019. Her problem list includes: 1. Chronic obstructive pulmonary disease exacerbation: Ms. Anguiano is presenting with chronic obstructive pulmonary disease exacerbation. Her presentation actually is positive for systemic inflammatory response syndrome, but there is no suspected source of infection. She will be admitted to the hospital and treated for chronic obstructive pulmonary disease exacerbation with antibiotics, bronchodilators, and steroids. 2. Congestive heart failure exacerbation: Her shortness of breath also appears to have a component of congestive heart failure exacerbation. She will be treated with diuretics. We will check 2D echocardiogram. It is unclear if she actually had a history of congestive heart failure. We will consult Cardiology Service for opinion and help with management. 3. Hyponatremia: Mild, likely asymptomatic, we will recheck. 4. Abnormal LFTs: She had abnormal LFTs in the past as well. We will trend LFTs and if worsening, will investigate further. Abnormal LFTs could be secondary to hepatic congestion from congestive heart failure as well. 5. Tobacco abuse: The patient has been counseled regarding tobacco cessation. We will start her on nicotine replacement therapy. 6. Thrombocythemia: She had thrombocythemia in 2018 as well. We will need workup as outpatient. LEVEL OF COMPLEXITY: High. LEVEL OF COMPLEXITY: High. Job ID: [id number]
[2019-12-27] MEDS ORDERED: Morphine 4 MG/ML VIAL SLOW IVP SCH (13:15)
[2019-12-27] MEDS ORDERED: Iopamidol-370 76% 500 ML 1 ML ONE (13:24)
[2019-12-27] MEDS ORDERED: cefTRIAXone\\ROCEPHIN 1 GM in Sodium Chloride 0.9% 100 ML IVPB SCH (15:00)
[2019-12-27] MEDS: Piperacillin/Tazobactam 4.5 GM in Sodium Chloride 0.9% 100 ML IVPB SCH ×2 (15:24→21:47)
[2019-12-27 15:26] LABS: Hemoglobin 13.8 g/dL (12.0-16.0); Mean Corpuscular HGB CONC 30.4 g/dL (32.0-36.0); Mean Corpuscular Hemoglobin 29.1 pg (27.0-31.0); Mean Corpuscular Volume 95.7 fL (78.0-98.0); Mean Platelet Volume 7.4 fL (7.4-10.4); Platelet Count 516 thou/uL (130-400); Red Blood Cell (RBC) Count 4.73 mill/uL (4.20-5.40); White Blood Cell (WBC) Count 23.1 thou/uL (4.8-10.8)
[2019-12-27 15:33] LABS: ALT (SGPT) 95 U/L (8-55); AST (SGOT) 66 U/L (5-34); Albumin 3.9 g/dL (3.5-5.0); Alkaline Phosphatase 279 U/L (40-110); Anion Gap 21 mmol/L (10-20); BUN (Urea Nitrogen) 34 mg/dL (9.8-20.1); Bilirubin, Total 1.4 mg/dL (0.2-1.2); Calc. Creatinine Clearance 46 mL/min (70-130); Calcium 8.8 mg/dL (7.8-10.44); Carbon Dioxide 16 mmol/L (22-29); Chloride 103 mmol/L (98-107); Estimated GFR-MDRD 39; Globulin 2.8 g/dL (2.4-3.5); Glucose 302 mg/dL (70-105); Lipase 23 U/L (8-78); Potassium 4.3 mmol/L (3.5-5.1); Protein, Total 6.7 g/dL (6.0-8.3); Sodium 136 mmol/L (136-145)
[2019-12-27 15:54] LABS: Band 10 % (5-11); Lymphocytes 14 % (21-51); MDiff Complete? YES; Monocytes 6 % (0-10); Neutrophil 70 % (42-75); Platelet Morphology Comment Appears Adequate; RBC Morphology Normal
[2019-12-27] MEDS: Vancomycin HCl 1 GM in Premix Bag 1 BAG IVPB SCH (16:54)
[2019-12-27] MEDS: Nicotine 14 MG PATCH TD SCH (16:54)
[2019-12-27] MEDS: Morphine 2 MG/ML SYRINGE SLOW IVP PRN (19:09)
--- NOTE | 2019-12-27 19:21 | PDOC.EVN ---
Event Note - Event Note Event Note: Pt seen at various times today re: abdo pain. c/o severe epigastric pain. Had this pain on and off in the recent past. Unable to tolerate oral intake. Pt is in distress, afebrile, VSS. Dry mucosae. S1, S2, reg. Lungs CTA. Epigastric tenderness+ but no guarding or rigiditry. Pt awaiting CT abdo/pelvis to r/o intraabdominal pathology. Is on empiric vanc/ Zosyn. Pt not having significant oral intake, will give gentle hydration.
[2019-12-27] MEDS ORDERED: Sodium Chloride 0.9% 1,000 ML IV SCH (19:30)
--- NOTE | 2019-12-27 20:13 | CT ---
CT OF ABDOMEN AND PELVIS PERFORMED WITH CONTRAST ENHANCEMENT: History: Sudden severe abdominal pain, more severe to the lower abdomen. Comparison: CT angio of the chest performed yesterday. FINDINGS: The lung bases show some ground glass opacity which could indicate some element of edema. There is al so evidence for airtrapping. The effusions noted on the prior exam have resolved. There is now a smal l amount of ascites noted along the liver margin tracking slightly into the right paracolic gutter re gion. The visualized liver parenchyma shows no focal findings. The liver measures 17 cm in length. Th e spleen is small. There is some fat stranding around the pancreas. Changes are fairly minimal and in volve more of the pancreatic head region. There is fluid tracking into the left pericolic gutter. The re is ascites adjacent to the liver and extending slightly into the right pericolic gutter region. Th ere is some fluid in the region of the gallbladder fossa but there is suggestion that there may also be some gallbladder wall thickening. Right and left adrenal glands and right and left kidneys are normal in size. Kidneys are not obstruct ed. No significant periaortic or mesenteric adenopathy. There is a small amount of fluid within some of the more distal small bowel loops with moderate amount of stool within the right colon. Fairly pro nounced diverticulosis of the descending and sigmoid colon. There is some free fluid seen within the pelvis. The appendix is normal. IMPRESSION: 1. Suggestion of some gallbladder wall thickening. Consideration for ultrasound. 2. Some ascites is now noted, more along the liver and right pericolic gutter region. 3. Some mild peripancreatic fat stranding raises the possibility of early pancreatitis fat change. Cl inical correlation would be recommended. 4. Moderate diverticulosis of the descending and sigmoid colon without any definite signs of divertic ulitis. 5.Some fluid within the region of the gallbladder is difficult to assess. There may be some gallbladd er wall thickening. If patient has gallbladder type symptoms, then ultrasound would be suggested. POS: [facility]
[2019-12-27] MEDS ORDERED: HYDROcodone/Acetaminophen 5/325 mg Tablet PO PRN (21:29)
[2019-12-27] MEDS: HYDROcodone/Acetaminophen 5/325 mg Tablet PO PRN (21:52)
--- NOTE | 2019-12-27 22:12 | RAD ---
XR Chest 1 View Portable HISTORY: Epigastric pain. COMPARISON: 12/26/2019 exam. FINDINGS: Heart size appears enlarged pulmonary vessels and interstitial lung changes are slightly mo re prominent than the prior exam. IMPRESSION: Cardiomegaly with findings suggesting some developing pulmonary edema changes superimpose d on chronic lung change.
[2019-12-27 22:13] LABS: Lactic Acid 4.9 mmol/L (0.5-2.2)
[2019-12-27 23:21] LABS: Anion Gap 23 mmol/L (10-20); Calcium 8.7 mg/dL (7.8-10.44); Chloride 107 mmol/L (98-107); Potassium 5.3 mmol/L (3.5-5.1); Sodium 134 mmol/L (136-145)
[2019-12-27 23:24] LABS: Carbon Dioxide 8 mmol/L (22-29)
[2019-12-27 23:25] LABS: Glucose 115 mg/dL (70-105)
[2019-12-27 23:28] LABS: Calc. Creatinine Clearance 49 mL/min (70-130); Estimated GFR-MDRD 41
[2019-12-27 23:29] LABS: BUN (Urea Nitrogen) 40 mg/dL (9.8-20.1)
[2019-12-27] MEDS ORDERED: Dextrose 5% in Water 1,000 ML IV SCH (23:45)
[2019-12-27] MEDS ORDERED: Sodium Bicarb 50 MEQ/50 ML VIAL IVP SCH (23:45)
--- NOTE | 2019-12-28 | ULT ---
US Gallbladder RUQ HISTORY: Right upper quadrant pain. COMPARISON: CT examination done earlier today. FINDINGS: Real-time imaging of the right upper quadrant shows a thickened gallbladder wall with eithe r edema within the wall or some adjacent pericholecystic fluid. A nonshadowing 5 mm echogenic focus along the gallbladder wall appears to represent a polyp. The visualized liver parenchyma shows no foc al findings. Right kidney is normal in size and not obstructed. The pancreas is obscured. IMPRESSION: Thickened gallbladder wall with possible gallbladder wall edema versus pericholecystic fl uid. Small gallbladder polyp incidentally noted.
[2019-12-28] MEDS ORDERED: Ondansetron PF 4 MG/2 ML Vial IVP SCH (00:15)
[2019-12-28] MEDS: Sodium Bicarbonate 150 MEQ in Dextrose 5% in Water 1,000 ML IV SCH ×2 (00:28→17:21)
[2019-12-28] MEDS: HYDROcodone/Acetaminophen 5/325 mg Tablet PO PRN ×2 (02:02→06:42)
[2019-12-28] MEDS: Vancomycin HCl 1 GM in Premix Bag 1 BAG IVPB SCH (02:34)
[2019-12-28 04:17] LABS: Lactic Acid 3.5 mmol/L (0.5-2.2)
[2019-12-28 04:24] LABS: ALT (SGPT) 133 U/L (8-55); AST (SGOT) 121 U/L (5-34); Albumin 3.6 g/dL (3.5-5.0); Alkaline Phosphatase 238 U/L (40-110); Anion Gap 21 mmol/L (10-20); BUN (Urea Nitrogen) 42 mg/dL (9.8-20.1); Bilirubin, Total 1.5 mg/dL (0.2-1.2); Calc. Creatinine Clearance 43 mL/min (70-130); Calcium 8.1 mg/dL (7.8-10.44); Carbon Dioxide 17 mmol/L (22-29); Chloride 99 mmol/L (98-107); Estimated GFR-MDRD 36; Globulin 2.6 g/dL (2.4-3.5); Glucose 171 mg/dL (70-105); Lipase 30 U/L (8-78); Magnesium 2.1 mg/dL (1.6-2.6); Potassium 4.1 mmol/L (3.5-5.1); Protein, Total 6.2 g/dL (6.0-8.3); Sodium 133 mmol/L (136-145)
[2019-12-28 04:38] LABS: Band 4 % (5-11); Hemoglobin 13.8 g/dL (12.0-16.0); Lymphocytes 8 % (21-51); MDiff Complete? YES; Mean Corpuscular HGB CONC 30.9 g/dL (32.0-36.0); Mean Corpuscular Hemoglobin 29.2 pg (27.0-31.0); Mean Corpuscular Volume 94.5 fL (78.0-98.0); Mean Platelet Volume 7.7 fL (7.4-10.4); Monocytes 1 % (0-10); Neutrophil 87 % (42-75); Platelet Count 504 thou/uL (130-400); Platelet Morphology Comment Appears Increased; RBC Morphology Normal; Red Blood Cell (RBC) Count 4.73 mill/uL (4.20-5.40); White Blood Cell (WBC) Count 21.8 thou/uL (4.8-10.8)
[2019-12-28] MEDS: Piperacillin/Tazobactam 4.5 GM in Sodium Chloride 0.9% 100 ML IVPB SCH ×3 (05:17→21:43)
[2019-12-28] MEDS: Budesonide 0.5 MG/2 ML NEB INH SCH ×2 (07:41→18:31)
[2019-12-28] MEDS ORDERED: Acetaminophen 500 MG TAB PO SCH (08:45)
[2019-12-28] MEDS ORDERED: Magnesium Citrate 300 ML BOT PO SCH (08:45)
[2019-12-28] MEDS ORDERED: Enoxaparin Sodium 40 MG/0.4 ML SYRINGE SC SCH (09:00)
[2019-12-28] MEDS: Pantoprazole 40 MG VIAL IVP SCH (09:15)
[2019-12-28] MEDS: Nicotine 14 MG PATCH TD SCH (09:47)
--- NOTE | 2019-12-28 09:47 | PDOC.HOSPP ---
- Subjective Encounter Date: 12/28/19 Encounter Time: 09:46 Subjective: Ms. Anguiano was seen today in follow-up of COPD exacerbation and abdominal pain. She says the pain is better today, she notes it in the right lower quadrant. She does not abdominal pain after eating for the past few weeks. - Objective Vital Signs & Weight: Vital Signs (12 hours) Temp Pulse Resp BP Pulse Ox 12/28/19 08:00 97 12/28/19 07:40 92 19 12/28/19 07:21 96.2 F L 12/28/19 04:00 109 H 18 155/100 H 97 12/28/19 03:44 97.2 F L 12/28/19 00:30 108 H 22 H 12/28/19 00:00 97.5 F L 110 H 20 130/61 93 L 12/27/19 23:30 93 L 12/27/19 23:10 96.8 F L 108 H 20 135/94 H 93 L 12/27/19 22:30 108 H 28 H 142/97 H Weight Weight 154 lb 1.6 oz Most Recent Monitor Data Heart Rate from ECG 103 NIBP 131/88 NIBP BP-Mean 102 Respiration from ECG 18 SpO2 99 I&O: 12/27/19 12/28/19 12/29/19 06:59 06:59 06:59 Intake Total 950 Output Total 790 Balance 160 Result Diagrams: 12/28/19 03:42 12/28/19 03:42 Hospitalist ROS - Medication Medications: Active Medications Generic Name Dose Route Start Last Admin Trade Name Freq PRN Reason Stop Dose Admin Acetaminophen 1,000 mg 12/28/19 08:45 12/28/19 09:15 Tylenol PO 12/28/19 10:45 1,000 mg NOW FRANNY Administration Albuterol/Ipratropium 3 ml 12/27/19 13:00 12/28/19 07:40 Duoneb NEB 3 ml [id number] FRANNY Administration Budesonide 0.5 mg 12/28/19 06:30 12/28/19 07:41 Pulmicort Neb Solution INH 0.5 mg BID-RT FRANNY Administration Vancomycin HCl 1 gm/ Device 200 mls @ 200 mls/hr 12/27/19 14:00 12/28/19 02: 34 IVPB 200 mls Q12H FRANNY Administration Piperacillin Sod/Tazobactam 100 mls @ 200 mls/hr 12/27/19 13:00 12/28/19 05: 17 Sod 4.5 gm/ Sodium Chloride IVPB 100 mls Q8H FRANNY Administration Sodium Bicarbonate 150 meq/ 1,150 mls @ 75 mls/hr 12/27/19 23:58 12/28/19 00: 28 Dextrose/Water IV 1,150 mls .[id number] FRANNY Administration Morphine Sulfate 2 mg 12/27/19 18:52 12/27/19 19:09 Morphine SLOW IVP 2 mg Q4H PRN Administration Severe Pain (7-10) Nicotine 14 mg 12/27/19 18:00 12/27/19 16:54 Nicoderm Patch TD 14 mg 1800 FRANNY Administration Pantoprazole Sodium 40 mg 12/28/19 09:00 12/28/19 09:15 Protonix IVP 40 mg DAILY FRANNY Administration Sodium Chloride 10 ml 12/27/19 21:00 12/28/19 09:15 Flush - Normal Saline IVF 10 ml Q12HR FRANNY Administration Sodium Chloride 10 ml 12/27/19 09:25 12/28/19 05:17 Flush - Normal Saline IVF 10 ml PRN PRN Administration Saline Flush - Exam Eye: PERRL Heart: RRR, no murmur, no gallops, no rubs, normal peripheral pulses Respiratory: rhonchi, wheezes Gastrointestinal: soft, non-distended, normal bowel sounds, tender to palpation (+ mild tenderness in the right lower quadrant, no rebound or guarding) Extremities: no cyanosis (+ livedo reticularis of the abdomen), no clubbing, no edema Hosp A/P (1) Acute on chronic respiratory failure with hypoxemia Code(s): J96.21 - ACUTE AND CHRONIC RESPIRATORY FAILURE WITH HYPOXIA Status: Acute (2) COPD exacerbation Code(s): J44.1 - CHRONIC OBSTRUCTIVE PULMONARY DISEASE W (ACUTE) EXACERBATION Status: Acute (3) Abdominal pain, RLQ Code(s): R10.31 - RIGHT LOWER QUADRANT PAIN Status: Acute (4) Tobacco abuse Code(s): Z72.0 - TOBACCO USE Status: Chronic (5) Chronic systolic heart failure, ACC/AHA stage C Code(s): I50.22 - CHRONIC SYSTOLIC (CONGESTIVE) HEART FAILURE Status: Chronic (6) Non-ischemic cardiomyopathy Code(s): I42.8 - OTHER CARDIOMYOPATHIES Status: Chronic (7) Acute kidney injury Code(s): N17.9 - ACUTE KIDNEY FAILURE, UNSPECIFIED Status: Acute - Plan * Acute on chronic respiratory failure- due to COPD exacerbation- Continue Duonebs * Abdominal pain- ? etiology- she notes it after eating for the past few weeks. She had considerable acidosis, especially yesterday. She also has risk factors for vascular disease, ( she is at risk for ischemic bowel) will consult GI for evaluation. * HIDA scan is pending * Chronic systolic heart failure- compensated * Sepsis- ? etiology- ? GI source- will discontinue Vancomycin, but continue Zosyn for now * Acute kidney injury- this may be related to sepsis, or antibiotic related- will monitor, and if it worsens consider Nephrology evaluation
--- NOTE | 2019-12-28 09:54 | CON ---
DATE OF CONSULTATION: HISTORY OF PRESENT ILLNESS: Sophia Anguiano is a 59-year-old female, admitted by the hospitalist on 12/26/2019 for complaints of dyspnea. The patient smokes a pack a day. She does not take any medications at home, but has been in the past, diagnosed with COPD and congestive heart failure. She saw manager of drilling in [facility] two years ago. Reports having had an echocardiogram there, told she had congestive heart failure, but did not have financial means to follow up and did not follow up with them. She denies any chest pain. She has never had a colonoscopy. She was admitted to the hospital, was felt to have a COPD exacerbation and congestive heart failure. Echocardiogram here revealed 15% to 20% ejection fraction. Cardiology consult has been ordered, but not yet delivered. On admission, her bilirubin was 1.4, it is 1.5 this morning. Transaminases elevated, alkaline phosphatase was elevated, and lipase was normal. The patient reports acute onset of lower abdominal pain yesterday. Since being admitted, she underwent from the emergency room a CT scan of chest and abdomen. CTA, negative PE and negative dissection. 12/27/2019, CAT scan of the abdomen and pelvis at 12:55 p.m. was obtained for abdominal pain. There was some suggestion of gallbladder wall thickening, some ascites along the liver and in the gutters and some fat stranding. Personal review of this CAT scan reveals significant amount of constipation in the right colon and sigmoid colon. As noted above, she complained of lower abdominal pain. At 2241 hours last night, ultrasound of the gallbladder obtained, revealing absence of any stones or sludge. There was some question of a thickened gallbladder wall with possible gallbladder wall edema versus pericholecystic fluid, but again as noted on the CAT scan, she does have ascites, which makes this determination useless. Again, the patient complained of lower abdominal pain, not upper abdominal pain. Of note is that on admission, her CO2 was 16 and last night during the severe episode of abdominal pain at 2300 hours, her CO2 was 8 and this morning, it is 17. Her BUN and creatinine are slightly deteriorated at 34 and 1.39 on admission and 42 and 1.47 this morning. ALLERGIES: NONE. SOCIAL HISTORY: Tobacco, a pack or more a day. Alcohol, none. The patient is , lives with her son. MEDICATIONS: None on admission. Currently on: 1. Hydrocodone, which I will discontinue due to her constipation. 2. P.R.N. morphine. 3. Nicoderm patch. 4. Protonix. 5. Zosyn. 6. Bicarbonate. 7. Doubt be on vancomycin. PAST SURGICAL HISTORY: She had an ovarian cystectomy for a baseball size ovarian cyst that was benign. Otherwise, no surgery. She has never had a colonoscopy. PAST MEDICAL HISTORY: Congestive heart failure, COPD, and tobacco abuse. REVIEW OF SYSTEMS: Ten-point noncontributory. She has not had any past history of biliary colic or pain, though she has suggest chronic gallbladder disease. PHYSICAL EXAMINATION: VITAL SIGNS: Height 5 feet tall, 154 pounds, and 30 BMI. 96.2, 131/88, and respiratory rate 18. LUNGS: Clear to auscultation. No wheezing. No rhonchi. CARDIAC: Regular rate and rhythm. ABDOMEN: Soft, mild tenderness without peritoneal signs. Bowel sounds present. EXTREMITIES: Unremarkable. GENERAL: The patient appears older than stated age. LABORATORY DATA: Sodium 133, potassium 4.1, carbon dioxide 17, BUN 42, creatinine 1.47, bilirubin 1.5, AST and ALT 121 and 133 respectively, alkaline phosphatase 238, and lipase 30. White count 21,000 and hemoglobin 13. ASSESSMENT AND PLAN: 1. Abdominal pain. She did have significant amount of constipation, right colon stool and sigmoid stool. She feels better since having bowel movements. She has never had a colonoscopy. I am not sure that is indicated at this time, but should be considered in the future as an outpatient. At this point, her abdominal pain is improved after bowel movements. I would give her laxatives, Mag citrate one dose, MiraLAX twice daily, and follow her basic metabolic, CO2, and white count for leukocytosis. I would discontinue her oral narcotics as this will aggravate her constipation. I would start her on full liquids at this time. The patient has not experienced weight loss and does not have postprandial pain on routine basis and there is no past history of intestinal angina. She is at risk for arteriosclerotic complications from tobacco abuse. We will follow her serially on exam and clinically and further recommendations based on future studies. Considering her elevated liver function tests and the findings on ultrasound, we will obtain a HIDA scan without ejection fraction. Most likely, her elevated liver function test is due to hepatic congestion and uncompensated congestive heart failure. 2. Tobacco abuse. 3. Constipation. 4. Congestive heart failure, previously seen at [facility] manager of drilling, but not followed up. 5. The patient states she will be on Medicare as she has recently obtained disability from her chronic lumbar pain. She has never had injections or imaging of her lumbar spine, but has been told that she has a chronic disk problem with nerve impingement. She denies radicular pain, just chronic low back pain. She states her disability will take effect in January. I have encouraged her to stay in the hospital to have these above problems evaluated, worked up, and medically addressed. I will start her on full liquids and see how she does clinically. 6. The patient is on vancomycin, azithromycin, and Zosyn. I am not sure what we are treating, probably sepsis protocol, but in my opinion, these antibiotics can be discontinued. Especially, in light of her acute kidney injury and her congestive heart failure, I would recommend discontinuing the vancomycin. It is probably not indicated for any intra-abdominal pathology. Job ID: [id number]
[2019-12-28] MEDS: Acetaminophen 500 MG TAB PO PRN (14:55)
[2019-12-28] MEDS: hydrALAZINE 25 MG TAB PO SCH ×2 (14:55→21:38)
[2019-12-28] MEDS: Isosorbide Dinitrate 5 MG TAB PO SCH ×2 (14:55→21:37)
[2019-12-28 15:06] LABS: Anion Gap 22 mmol/L (10-20); BUN (Urea Nitrogen) 41 mg/dL (9.8-20.1); Calc. Creatinine Clearance 45 mL/min (70-130); Calcium 8.1 mg/dL (7.8-10.44); Carbon Dioxide 22 mmol/L (22-29); Chloride 95 mmol/L (98-107); Estimated GFR-MDRD 36; Glucose 124 mg/dL (70-105); Potassium 4.5 mmol/L (3.5-5.1); Sodium 134 mmol/L (136-145)
--- NOTE | 2019-12-28 15:10 | CON ---
DATE OF CONSULTATION: 12/28/2019 HISTORY OF PRESENT ILLNESS: Sophia Anguiano is a 59-year-old, unemployed, female, who has no primary care physician. Smokes a pack a day. She has been sick off and on for the last week. Shortness of breath, cough, eventually got some GI issues, nausea, vomiting, and abdominal pain, could not go to the bathroom, came to the ER. The patient has been here since the , consulted today on the regarding her pulmonary status. She is in the MICU area. She says about a month ago, she could walk a mile with the dogs. She takes no chronic medication, anything she takes is [id number] medication. PAST MEDICAL HISTORY: Apparently, chronic lung disease and COPD. PAST SURGICAL HISTORY: Previous surgeries, cyst removed. MEDICATIONS: Chronic medication none. SOCIAL HISTORY: Alcohol, minimal. Tobacco, pack a day. ALLERGIES: NONE. SOCIAL AND FAMILY HISTORY: Otherwise unremarkable. She is to be readdressed at one time. PHYSICAL EXAMINATION: GENERAL: On examination, she is awake, alert, and responsive, no distress. VITAL SIGNS: Temperature 97, , saturations are 98% on room air, , blood pressure 130/80. CHEST: Decreased breath sounds. No wheezing. CARDIAC: Normal S1 and S2. No gallops. ABDOMEN: No masses. LABORATORY DATA: White count 21,000, H and H 13 and 41, and platelet count is 504. Creatinine is 1.4 and BUN is 42. BNP abnormal. Liver function abnormal. Ultrasound shows she has presence of gallstones. CT abdomen and pelvis is noted. Chest x-ray shows otherwise no acute changes, some chronic changes. IMPRESSION: Congestive heart failure, echo 30%. Tobacco abuse, chronic obstructive pulmonary disease, abnormal liver function, and cholecystitis. Agree with neb treatments. She is on Zosyn, antibiotic, and vancomycin. Input from Cardiology. Pulmonary follow while in the MICU. She is told to refrain from smoking. Consultation note, 70 minutes, 50% direct patient care. Job ID: [id number]
--- NOTE | 2019-12-28 15:53 | CON ---
DATE OF CONSULTATION: HISTORY OF PRESENT ILLNESS: The patient is a 59-year-old woman, who presents with increasing dyspnea. The patient has a long history of nonischemic cardiomyopathy. She was seen in July of 2017 with congestive heart failure. She underwent a cardiac catheterization. She was found to have a severe decrease in left ventricular systolic function with an estimated ejection fraction of 25% to 30% . The left anterior descending and left circumflex artery were free of significant disease. The right coronary artery had a 30% proximal stenosis and a 20% mid stenosis. The patient has not seen anyone for followup and not been taking any medications, who presented with increasing dyspnea. The patient denies having any chest discomfort. PAST MEDICAL HISTORY: 1. Congestive heart failure. 2. Atrial fibrillation. PAST SURGICAL HISTORY: ovarian surgery. SOCIAL HISTORY: Long history of continued tobacco abuse. FAMILY HISTORY: No strong family history of heart disease. ALLERGIES: NO KNOWN DRUG ALLERGIES. MEDICATIONS: None. REVIEW OF SYSTEMS: Ten-point system is otherwise unremarkable. PHYSICAL EXAMINATION: GENERAL: Ill-appearing woman, in mild distress. VITAL SIGNS: Blood pressure 139/102. NECK: Showed no jugular venous distention. LUNGS: Clear to auscultation. HEART: Regular rate and rhythm. Normal S1 and S2. 2/6 holosystolic murmur ABDOMEN: Nondistended. EXTREMITIES: Show no edema. LABORATORY DATA: Sodium 133, potassium 4.1, chloride 99, bicarbonate 21, BUN 42 , creatinine 1.47, and her ALT was 233. Her white blood count 21.8, hemoglobin 13.8, hematocrit 44.7, and platelets 504. EKG revealed sinus tachycardia with occasional premature ventricular contractions. Chest x-ray revealed cardiomegaly with small possible effusions. Echocardiogram severe decreased left ventricular systolic function with severe mitral regurgitation. IMPRESSION AND PLAN: 1. Congestive heart failure. 2. Severe cardiomyopathy. 3. Severe mitral regurgitation. 4. Chronic obstructive pulmonary disease. 5. Hypertension. This patient presents with CHF and has a history of nonischemic cardiomyopathy. She has been noncompliant with her followup and medications. From a cardiac standpoint, she should be on aspirin. We would try the patient on low-dose Coreg after she recovers from her chronic obstructive pulmonary disease exacerbation. We will start the patient on IV diuretics. The patient has renal insufficiency as well as evidence of shock liver. We will start the patient on afterload reduction with hydralazine and Isordil. We will follow this patient with you through her hospitalization. Job ID: [id number] [facility]
--- NOTE | 2019-12-28 16:32 | NM ---
EXAM: Nuclear medicine hepatobiliary scan HISTORY: Right upper quadrant abdominal pain and elevated LFTs TECHNIQUE: A nuclear medicine hepatobiliary scan was performed after administration of 4.5 mCi of josé miguel hnetium 99m mebrofenin. COMPARISON: None FINDINGS: Prompt uptake of the radiopharmaceutical by the liver is seen. No photopenic liver defects are seen. Biliary activity is seen within 21 minutes. Gallbladder activity is seen within 23 minutes. Bowel activity is seen within 4 hours. A gallbladder ejection fraction was not performed. IMPRESSION: No evidence of acute cholecystitis
[2019-12-28] MEDS: Polyethylene Glycol 3350 17 GM Packet PO SCH ×2 (17:20→21:39)
[2019-12-28] MEDS: Morphine 2 MG/ML SYRINGE SLOW IVP PRN ×2 (17:21→22:56)
[2019-12-28 20:08] LABS: Lactic Acid 3.8 mmol/L (0.5-2.2)
--- NOTE | 2019-12-29 01:15 | CON ---
DATE OF CONSULTATION: 12/28/2019 REASON FOR CONSULTATION: Abdominal pain, elevated LFTs. CONSULTING PROVIDER: Дмитрий Otero MD HISTORY OF PRESENT ILLNESS: The patient is a 59-year-old female with past medical history of COPD, congestive heart failure, chronic lower back pain, on narcotics, atrial fibrillation, and hypertension, presenting with complaints of shortness of breath. Initially, the patient presented to the hospital with increased shortness of breath that she experienced both at exertion and at rest. This significantly limited her ability to carry out activities of daily living with worsening of her shortness of breath that then prompted her to seek healthcare assistance at the [facility] ER for further evaluation. During the course of this evaluation, she was felt to have a COPD exacerbation in addition to an acute on chronic exacerbation of her congestive heart failure with an echocardiogram obtained here showing any ejection fraction of 15% to 20%. She was ultimately admitted to the hospital for further evaluation and management for this particular condition. However, the patient also states that she had been having increased suprapubic abdominal pain that has been present for years. However, over the last 3 to 4 days that had increased in severity and characterized as a contraction/cramping type pain, was nonradiating, intermittent, with periods of pain relief in between and reaching a severity of 10/10. She stated the pain was worse with eating (no specific foods) with the onset of pain approximately 30 minutes after she ate and not having a bowel movement. The pain was significantly better with having a bowel movement. Prior to admission, she was having approximately 1 bowel movement daily, but was considered small volume with only some "rocks and rocío" and was associated with increased straining in order to facilitate defecation. As part of workup for this particular abdominal pain, the patient did undergo a CT scan of the abdomen and pelvis, a right upper quadrant ultrasound and a HIDA scan, which showed a moderate amount of stool contained within the right colon as well as diverticulosis of the descending and sigmoid colons; however, it also noted thickening of the gallbladder wall and possible pericholecystic fluid on the right upper quadrant ultrasound that was then refuted by a negative HIDA scan. With the higher likelihood of constipation, the patient was placed on a bowel regimen including MiraLAX and senna and after having a larger bowel movement, her abdominal pain has significantly improved. Currently, she denies any fevers, chills, hematemesis, melena, hematochezia, dysphagia, odynophagia, or weight loss. REVIEW OF SYSTEMS: A 10-category review of systems was obtained with all responses negative except for the pertinent positives as listed in HPI. PAST MEDICAL HISTORY: As per HPI. PAST SURGICAL HISTORY: Ovarian cystectomy. FAMILY HISTORY: Denies any GI malignancies. SOCIAL HISTORY: Smokes approximately 1.5 packs per day (tobacco). Denies any alcohol or illicit drug use. OUTPATIENT MEDICATIONS: None. ALLERGIES: NO KNOWN DRUG ALLERGIES. PHYSICAL EXAMINATION: VITAL SIGNS: Temperature 98.3, pulse 94, blood pressure 131/92, respiratory rate 25, saturating 97% on 2 L nasal cannula. GENERAL: The patient was lying in bed, in no acute distress. Alert and oriented x4. HEENT: Normocephalic, atraumatic. NECK: Supple. No scleral icterus noted. CARDIOVASCULAR: Irregularly irregular rhythm with no discernible murmurs, gallops, or rubs. RESPIRATORY: Clear to auscultation bilaterally in the upper lung daniel, but did exhibit some mild resistance to air flow in the lower lung daniel and possible crackles. ABDOMEN: Normoactive bowel sounds, soft, nondistended, tenderness to palpation in all four abdominal quadrants and most especially in the right upper quadrant and right lower quadrant. EXTREMITIES: No cyanosis, clubbing, or edema. LABORATORY DATA: CBC with a white blood cell count of 21.8, hemoglobin 13.8, hematocrit 44.7, platelets 504. Chemistry with a sodium of 134, potassium 4.5, chloride 95, CO2 of 22, BUN 41, creatinine 1.47, glucose 124. AST 121, ALT 133, alkaline phosphatase 238, total bilirubin 1.5. CRP 3.15, lipase 30. Of note, the patient had a CHF exacerbation in July 2017 that showed a similar elevation in her LFTs at that time as well. IMAGING DATA: CT of the abdomen and pelvis was obtained on December 27, 2019, which showed a small amount of perihepatic ascites, but did show a normal size liver with normal liver contour, small spleen, possible fat stranding around the pancreas, a moderate amount of stool contained within the right colon as well as significant diverticulosis of the descending and sigmoid colons. Right upper quadrant ultrasound obtained on December 27, 2019, showed thickened gallbladder wall with possible pericholecystic fluid as well as incidental finding of a small gallbladder polyp. Lastly, a HIDA scan was obtained on December 27, 2019, which showed no evidence of acute or chronic cholecystitis. ASSESSMENT AND PLAN: The patient is a 59-year-old female with past medical history of chronic obstructive pulmonary disease, congestive heart failure, chronic lower back pain, atrial fibrillation, and hypertension, presenting with an acute on chronic exacerbation of her congestive heart failure, transaminitis, and lower abdominal pain, most likely secondary to constipation. Constipation/abdominal pain. The patient is presenting with a history of having approximately 1 bowel movement per day, but with smaller volume and harder consistency, characterized as a [place] stool 1-2 with increased straining in order to facilitate defecation. On CT scan during this admission, she was noted to have a significant amount of retained stool within the right colon again consistent with constipation. Lastly, with placing the patient on an aggressive bowel regimen and having further bowel movements, she has had a significant reduction in her abdominal pain, making retained colonic contents/stool, the most likely etiology for her abdominal pain; however, differential diagnosis could include stercoral colitis, diverticular disease, IBS and/or GI neoplasm (less likely). Recommendations: 1. I would continue with the aggressive bowel regimen as you are doing with both MiraLAX twice daily and Bisacodyl twice daily. However, the use of prokinetic's might generate some increased abdominal pain in the meantime and should be used more sparingly. 2. We would avoid any narcotic administration given the worsening of constipation with administration. 3. We would ultimately place the patient on a higher fiber diet to facilitate influx of water into stool form. 4. Pain control per primary team. Transaminitis/elevated LFTs. The patient is presenting with increased shortness of breath and what appears to be an exacerbation of either chronic obstructive pulmonary disease, or congestive heart failure, or both. At this time, she has been evaluated by Cardiology and was noted to have a significantly reduced ejection fraction, making the likelihood of a congestive heart failure exacerbation more likely. Upon review of her records, she did have a congestive heart failure exacerbation in July 2017 and during that admission showed a very similar pattern of elevated transaminitis compared to now. At this point, the most likely reason for her elevated LFTs would be congestive hepatopathy related to the acute exacerbation of her congestive heart failure. With the CT scan and the right upper quadrant ultrasound, neither mentioned anything about dilation of either the intra or extrahepatic biliary tree that might suggest an obstructive process contributing to the current elevation. Recommendations: 1. We would continue to optimize cardiac status with diuretic management. 2. We would continue to trend her LFTs daily to monitor progress as part of treatment. If she continues to have up trending LFTs despite adequate treatment of her CHF, I would then consider magnetic resonance cholangiopancreatography for further evaluation. 3. We would avoid any potentially hepatotoxic medications. 4. If the LFTs continue to rise, I would then perform a full liver workup for further evaluation. We will continue to follow. Please call with any questions. Job ID: [id number]
[2019-12-29 04:31] LABS: ALT (SGPT) 123 U/L (8-55); AST (SGOT) 74 U/L (5-34); Albumin 3.3 g/dL (3.5-5.0); Alkaline Phosphatase 168 U/L (40-110); Anion Gap 17 mmol/L (10-20); BUN (Urea Nitrogen) 37 mg/dL (9.8-20.1); Bilirubin, Total 1.1 mg/dL (0.2-1.2); Calc. Creatinine Clearance 46 mL/min (70-130); Calcium 8.3 mg/dL (7.8-10.44); Carbon Dioxide 30 mmol/L (22-29); Chloride 92 mmol/L (98-107); Estimated GFR-MDRD 37; Globulin 2.6 g/dL (2.4-3.5); Glucose 127 mg/dL (70-105); Potassium 3.8 mmol/L (3.5-5.1); Protein, Total 5.9 g/dL (6.0-8.3); Sodium 135 mmol/L (136-145)
[2019-12-29 04:32] LABS: Band 2 % (5-11); Hemoglobin 12.5 g/dL (12.0-16.0); Lymphocytes 15 % (21-51); MDiff Complete? YES; Mean Corpuscular HGB CONC 30.5 g/dL (32.0-36.0); Mean Corpuscular Hemoglobin 28.9 pg (27.0-31.0); Mean Corpuscular Volume 94.6 fL (78.0-98.0); Mean Platelet Volume 7.6 fL (7.4-10.4); Monocytes 7 % (0-10); Neutrophil 76 % (42-75); Platelet Count 423 thou/uL (130-400); Platelet Morphology Comment Appears Increased; RBC Distribution Width 13.9 % (11.5-14.5); Red Blood Cell (RBC) Count 4.33 mill/uL (4.20-5.40); White Blood Cell (WBC) Count 17.8 thou/uL (4.8-10.8)
[2019-12-29] MEDS: Sodium Bicarbonate 150 MEQ in Dextrose 5% in Water 1,000 ML IV SCH (05:48)
[2019-12-29] MEDS: Piperacillin/Tazobactam 4.5 GM in Sodium Chloride 0.9% 100 ML IVPB SCH ×3 (05:48→20:20)
[2019-12-29] MEDS: Budesonide 0.5 MG/2 ML NEB INH SCH ×2 (06:38→18:29)
[2019-12-29] MEDS: Morphine 2 MG/ML SYRINGE SLOW IVP PRN (07:13)
[2019-12-29] MEDS: Aspirin 81 mg Enteric Coated Tablet PO SCH (08:40)
[2019-12-29] MEDS: hydrALAZINE 25 MG TAB PO SCH ×3 (08:40→20:19)
[2019-12-29] MEDS: Isosorbide Dinitrate 5 MG TAB PO SCH ×3 (08:40→20:19)
[2019-12-29] MEDS: Pantoprazole 40 MG VIAL IVP SCH (08:40)
[2019-12-29] MEDS: Polyethylene Glycol 3350 17 GM Packet PO SCH (08:40)
--- NOTE | 2019-12-29 10:32 | PRG ---
DATE OF SERVICE: 12/29/2019 SUBJECTIVE: Sophia Anguiano is a 59-year-old female. This morning, she is awake, alert, and responsive. Less short of breath. OBJECTIVE: VITAL SIGNS: Temperature 97, saturations are 97% on 2 L, blood pressure 112/74, and respiratory rate 18. CHEST: No wheezing or crackles. CARDIAC: Normal S1 and S2. No gallops. ABDOMEN: No masses. LABORATORY DATA: Creatinine is 1.45. White count 17,000. BNP is 1585. AST is elevated 123. IMPRESSION: 1. Abnormal liver profile. Negative HIDA scan. Though, she did have gallstones. 2. Congestive heart failure, ejection fraction 30%. 3. Chronic obstructive pulmonary disease. 4. Tobacco abuse. At this stage, she wants a nicotine patch, which she has. Continue neb treatment and supportive care. We will follow. Job ID: [id number]
--- NOTE | 2019-12-29 11:06 | RAD ---
KUB INDICATION: Abdominal pain COMPARISON: None FINDINGS: Bowel gas: r There are mildly dilated gas-filled loops of small bowel within the right upper quadrant of the abdomen and the central abdomen. This appears similar to the comparison CT dated 12/27/2019. Gas is present within the region of the rectum. Lung bases: Not visualized Additional findings: No suspicious calcification demonstrated. Osseous structures: No acute osseous abnormality is demonstrated. IMPRESSION: 1. Persistent mildly dilated gas-filled loops of small bowel within the right upper quadrant abdomen and right central abdomen raises suspicion for ileus or mild partial small bowel obstruction. This appears similar to the comparison CT dated 12/27/2019. Supine and upright views of the abdomen may be helpful for further characterization.
[2019-12-29] MEDS ORDERED: Furosemide 40 MG/4 ML VIAL SLOW IVP SCH ×2 (11:15→12:45)
[2019-12-29] MEDS ORDERED: Spironolactone 25 MG TAB PO SCH ×2 (11:15→12:45)
[2019-12-29] MEDS ORDERED: Magnesium Citrate 300 ML BOT PO SCH (12:00)
[2019-12-29] MEDS: Nicotine 14 MG PATCH TD SCH (12:43)
[2019-12-29] MEDS: Digoxin 0.25 MG TAB PO SCH ×3 (12:43→19:52)
[2019-12-29] MEDS: Ondansetron PF 4 MG/2 ML Vial IVP PRN (17:29)
--- NOTE | 2019-12-29 18:16 | PRG ---
DATE OF SERVICE: 12/29/2019 SUBJECTIVE: Sophia Anguiano is doing well today. She is having less pain, but still has persistent lower abdominal pain. HIDA scan was normal with normal visualization of the gallbladder into the GI tract. The patient felt much better yesterday after having bowel movements. She was given more laxatives yesterday, but has not had another bowel movement since. I will order plain abdominal x-rays today to see if there is any degree of constipation that account for her pain. Single-view abdominal x-ray reveals some gas in the sigmoid colon. She does not have a significant amount of retained stool. I do not think laxatives are worthwhile or are accounting for her pain at this point. OBJECTIVE: VITAL SIGNS: Temperature 97.4 degrees, heart rate 98, blood pressure 124/89. LABORATORY DATA: The patient wants . White count has fallen to 17.8, hemoglobin 12.5. There is no left shift. Mild neutrophilia present. Her CO2 has risen from 8 to 22 yesterday and 30 today. Sodium 135, BUN and creatinine improved to 37 and 1.45. ASSESSMENT AND PLAN: Abdominal pain of uncertain etiology. At this point, I do not think surgery is indicated. She has decompensated congestive heart failure, noncompliant on medications. The patient has had a cardiac cath and has a nonischemic cardiomyopathy. She is followed by Cardiology and medically being treated for congestive heart failure. Her liver functions testing has improved. Her liver function test elevated probably because of liver congestion and congestive failure. At this point, we will continue to follow, but no surgical intervention is warranted at this time. She has never had a colonoscopy, probably would benefit from a colonoscopy in the future when she is more stable. We will leave that to Dr. Cortes and Dr. Oh, GI, who has seen her. Job ID: [id number]
--- NOTE | 2019-12-29 18:47 | PRG ---
DATE OF SERVICE: 12/29/2019 REASON FOR CONSULTATION: Abdominal pain, elevated LFTs. SUBJECTIVE: The patient continued to have the administration of MiraLAX and bisacodyl this morning, but developed sudden onset of nausea and vomiting with bilious emesis with the administration of MiraLAX. Since yesterday, she has not had any further bowel movements and states that she continues to have lower abdominal soreness. This seems to be worsening during the course of today. Otherwise, the patient denies any fevers, chills, hematemesis, melena, hematochezia, dysphagia, or odynophagia. OBJECTIVE: VITAL SIGNS: Temperature 97.4, pulse 98, blood pressure 124/89, respiratory rate 14, saturating 92% on room air. GENERAL: The patient was lying in bed, in no acute distress. Alert and oriented x4. CARDIOVASCULAR: Irregularly irregular rhythm. RESPIRATORY: Clear to auscultation bilaterally in the upper lung daniel, but some mild resistance air flow in the bilateral lower lung daniel. ABDOMEN: Normoactive bowel sounds. Soft, nondistended. Tenderness to palpation in all abdominal quadrants with continued pain on the right side of her abdomen and left lower quadrant. EXTREMITIES: No cyanosis, clubbing, or edema. LABORATORY DATA: CBC with a white blood cell count of 17.8, hemoglobin 12.5, hematocrit 41, platelets 423. Chemistry with a sodium of 135, potassium 3.8, chloride 92, CO2 is 30, BUN 37, creatinine 1.45, glucose 127. AST 74, ALT 123, alkaline phosphatase 168, total bilirubin 1.1. IMAGING DATA: Abdominal x-ray was obtained on December 29, 2019, which showed persistent mildly dilated gas-filled loops of small bowel within the right upper quadrant and right central abdomen raising concern for possible ileus or mild partial small-bowel obstruction. This is unchanged when compared to CT obtained on December 27, 2019. ASSESSMENT AND PLAN: The patient is a 59-year-old female with past medical history of chronic obstructive pulmonary disease, congestive heart failure, chronic lower back pain, atrial fibrillation, and hypertension, presenting with an [id number] exacerbation of her congestive heart failure, transaminitis, and lower abdominal pain most likely secondary to constipation. 1. Constipation/abdominal pain. The patient is presenting with a history of having approximately 1 bowel movement per day, but with small volume and harder consistencies prior to admission. On CT scan during this admission, she was also noted to have a significant amount of retained stool within the right colon consistent with constipation. With the administration of MiraLAX and magnesium citrate on December 28, 2019, she had a large bowel movement with a significant reduction in her abdominal pain, making intraluminal pressure/constipation more likely diagnosis. Recommendations;. a. We will continue with the aggressive bowel regimen including bisacodyl and magnesium citrate. However, I would hold the MiraLAX for now, given increased nausea and vomiting associated with administration of this medication. b. We will attempt to avoid any narcotic administration due to exacerbation of constipation with administration. c. We will ultimately place the patient on a higher fiber diet to facilitate influx of water to her stool. d. Pain control per primary team. 2. Transaminitis/elevated LFTs. The patient initially presented with increased shortness of breath, and initial imaging and laboratory studies are more consistent with exacerbation of her congestive heart failure. With this worsening of her heart failure and decreased cardiac output, it seems to have generated mild ischemic injury within the liver related to congestive hepatopathy. However, with diuretic management thus far, her LFTs are currently downtrending, again lending credence toward a congestive hepatopathy picture. Recommendations;. a. We will continue to optimize cardiac status with diuretic management. b. We will continue to trend her LFTs daily. c. We will avoid any potentially hepatotoxic medications. We will continue to follow. Please call with any questions. Job ID: [id number]
[2019-12-29] MEDS: Acetaminophen 500 MG TAB PO PRN (20:19)
[2019-12-30] MEDS: Ondansetron PF 4 MG/2 ML Vial IVP PRN (01:59)
[2019-12-30] MEDS ORDERED: Promethazine HCl 12.5 MG in Sodium Chloride 0.9% 50 ML IVPB PRN (03:31)
[2019-12-30 03:51] LABS: #Lymphocytes 2.3 thou/uL (1.20-3.40); #Monocytes 1.1 thou/uL (0.11-0.59); #Neutrophils 13.2 thou/uL (1.40-6.50); %Basophils 0.2 % (0.0-1.0); %Eosinophils 0.1 % (0.0-10.0); %Lymphocytes 13.7 % (21.0-51.0); %Monocytes 6.6 % (0.0-10.0); %Neutrophils 79.4 % (42.0-75.0); Hemoglobin 13.9 g/dL (12.0-16.0); Mean Corpuscular HGB CONC 31.4 g/dL (32.0-36.0); Mean Corpuscular Hemoglobin 29.7 pg (27.0-31.0); Mean Corpuscular Volume 94.6 fL (78.0-98.0); Mean Platelet Volume 7.5 fL (7.4-10.4); Platelet Count 456 thou/uL (130-400); RBC Distribution Width 13.7 % (11.5-14.5); Red Blood Cell (RBC) Count 4.66 mill/uL (4.20-5.40); White Blood Cell (WBC) Count 16.6 thou/uL (4.8-10.8)
[2019-12-30 04:21] LABS: ALT (SGPT) 92 U/L (8-55); AST (SGOT) 41 U/L (5-34); Albumin 3.5 g/dL (3.5-5.0); Alkaline Phosphatase 154 U/L (40-110); Anion Gap 15 mmol/L (10-20); BUN (Urea Nitrogen) 23 mg/dL (9.8-20.1); Bilirubin, Total 1.3 mg/dL (0.2-1.2); Calc. Creatinine Clearance 50 mL/min (70-130); Calcium 8.4 mg/dL (7.8-10.44); Carbon Dioxide 36 mmol/L (22-29); Chloride 88 mmol/L (98-107); Estimated GFR-MDRD 40; Globulin 2.7 g/dL (2.4-3.5); Glucose 96 mg/dL (70-105); Potassium 3.5 mmol/L (3.5-5.1); Protein, Total 6.2 g/dL (6.0-8.3); Sodium 135 mmol/L (136-145)
[2019-12-30] MEDS: Piperacillin/Tazobactam 4.5 GM in Sodium Chloride 0.9% 100 ML IVPB SCH ×3 (05:57→22:20)
[2019-12-30] MEDS: Budesonide 0.5 MG/2 ML NEB INH SCH ×2 (07:42→18:46)
[2019-12-30] MEDS ORDERED: Citrucel 500 MG TAB PO SCH (09:00)
--- NOTE | 2019-12-30 09:29 | PRG ---
DATE OF SERVICE: 12/30/2019 OBJECTIVE: VITAL SIGNS: Temperature 97, pulse 78,, respiratory rate20 _BP 120\76 . GENERAL: She is awake, alert, and responsive. Denies pain or discomfort. CHEST: Crackles. CARDIAC: Normal S1, S2. No gallops. ABDOMEN: No masses. IMPRESSION: Congestive cardiomyopathy, renal failure, nausea, vomiting, gallstones. Pulmonary [place], continue present neb treatments, supportive care. She is a smoker, probably has underlying COPD. We will follow on the MICU. Job ID: [id number] MTDD
[2019-12-30] MEDS: Digoxin 0.25 MG TAB PO SCH (10:15)
[2019-12-30] MEDS: Spironolactone 25 MG TAB PO SCH (10:15)
[2019-12-30] MEDS: Aspirin 81 mg Enteric Coated Tablet PO SCH (10:15)
[2019-12-30] MEDS: Isosorbide Dinitrate 5 MG TAB PO SCH ×3 (10:16→22:23)
[2019-12-30] MEDS: Furosemide 40 MG/4 ML VIAL SLOW IVP SCH (10:16)
[2019-12-30] MEDS: hydrALAZINE 25 MG TAB PO SCH ×3 (10:16→22:21)
[2019-12-30] MEDS: Pantoprazole 40 MG VIAL IVP SCH (10:16)
--- NOTE | 2019-12-30 12:07 | PDOC.HOSPP ---
- Subjective Encounter Date: 12/30/19 Encounter Time: 12:05 Subjective: Ms. Anguiano was seen today in follow-up of abdominal pain and COPD exacerbation, and CHF exacerbation. She appears more comfortable, and she says her breathing is better. - Objective Vital Signs & Weight: Vital Signs (12 hours) Temp Pulse Resp Pulse Ox 12/30/19 12:00 98.7 F 12/30/19 10:16 103 H 12/30/19 10:15 103 H 12/30/19 07:42 102 H 22 H 100 12/30/19 07:35 97.1 F L 12/30/19 07:27 100 12/30/19 03:26 98.2 F Weight Weight 149 lb 14.4 oz Most Recent Monitor Data Heart Rate from ECG 100 NIBP 119/86 NIBP BP-Mean 97 Respiration from ECG 18 SpO2 90 I&O: 12/29/19 12/30/19 12/31/19 06:59 06:59 06:59 Intake Total 2775 1750 Output Total 1100 4600 Balance 1675 -2850 Result Diagrams: 12/30/19 03:26 12/30/19 03:26 Hospitalist ROS - Medication Medications: Active Medications Generic Name Dose Route Start Last Admin Trade Name Freq PRN Reason Stop Dose Admin Acetaminophen 1,000 mg 12/28/19 14:30 12/29/19 20:19 Tylenol PO 1,000 mg Q6H PRN Administration Moderate to Severe Pain (6-10) Albuterol/Ipratropium 3 ml 12/27/19 13:00 12/30/19 07:42 Duoneb NEB 3 ml [id number] FRANNY Administration Aspirin 81 mg 12/29/19 09:00 12/30/19 10:15 Ecotrin PO 81 mg DAILY FRANNY Administration Bisacodyl 10 mg 12/27/19 09:38 12/29/19 08:51 Dulcolax PO 10 mg DAILYPRN PRN Administration Constipation Budesonide 0.5 mg 12/28/19 06:30 12/30/19 07:42 Pulmicort Neb Solution INH 0.5 mg BID-RT FRANNY Administration Digoxin 0.25 mg 12/30/19 09:00 12/30/19 10:15 Lanoxin PO 0.25 mg QAM FRANNY Administration Furosemide 40 mg 12/30/19 09:00 12/30/19 10:16 Lasix SLOW IVP 40 mg QAM FRANNY Administration Hydralazine HCl 25 mg 12/28/19 15:00 12/30/19 10:16 Apresoline PO 25 mg TID FRANNY Administration Piperacillin Sod/Tazobactam 100 mls @ 200 mls/hr 12/27/19 13:00 12/30/19 05: 57 Sod 4.5 gm/ Sodium Chloride IVPB 100 mls Q8H FRANNY Administration Isosorbide Dinitrate 10 mg 12/28/19 15:00 12/30/19 10:16 Isordil PO 10 mg TID FRANNY Administration Methylcellulose 500 mg 12/30/19 09:00 12/30/19 10:40 Citrucel PO Not Given BID [facility] Morphine Sulfate 2 mg 12/27/19 18:52 12/29/19 07:13 Morphine SLOW IVP 2 mg Q4H PRN Administration Severe Pain (7-10) Nicotine 14 mg 12/27/19 18:00 12/29/19 12:43 Nicoderm Patch TD 14 mg 1800 FRANNY Administration Ondansetron HCl 4 mg 12/29/19 16:35 12/30/19 01:59 Zofran IVP 4 mg Q6H PRN Administration Nausea/Vomiting Pantoprazole Sodium 40 mg 12/28/19 09:00 12/30/19 10:16 Protonix IVP 40 mg DAILY FRANNY Administration Sodium Chloride 10 ml 12/27/19 21:00 12/30/19 10:16 Flush - Normal Saline IVF 10 ml Q12HR FRANNY Administration Sodium Chloride 10 ml 12/27/19 09:25 12/28/19 05:17 Flush - Normal Saline IVF 10 ml PRN PRN Administration Saline Flush Spironolactone 25 mg 12/30/19 08:00 12/30/19 10:15 Aldactone PO 25 mg QAM-WM FRANNY Administration - Exam Eye: PERRL Heart: RRR, no murmur, no gallops, no rubs, normal peripheral pulses Respiratory: CTAB (+ occasional wheeze and coarse breath sounds) Gastrointestinal: soft, non-tender, non-distended, normal bowel sounds, no palpable masses Extremities: 1+ LE edema Hosp A/P (1) Acute on chronic respiratory failure with hypoxemia Code(s): J96.21 - ACUTE AND CHRONIC RESPIRATORY FAILURE WITH HYPOXIA Status: Acute (2) COPD exacerbation Code(s): J44.1 - CHRONIC OBSTRUCTIVE PULMONARY DISEASE W (ACUTE) EXACERBATION Status: Acute (3) Abdominal pain, RLQ Code(s): R10.31 - RIGHT LOWER QUADRANT PAIN Status: Acute (4) Tobacco abuse Code(s): Z72.0 - TOBACCO USE Status: Chronic (5) Chronic systolic heart failure, ACC/AHA stage C Code(s): I50.22 - CHRONIC SYSTOLIC (CONGESTIVE) HEART FAILURE Status: Chronic (6) Non-ischemic cardiomyopathy Code(s): I42.8 - OTHER CARDIOMYOPATHIES Status: Chronic (7) Acute kidney injury Code(s): N17.9 - ACUTE KIDNEY FAILURE, UNSPECIFIED Status: Acute - Plan * Acute on chronic respiratory failure- due to COPD exacerbation- Continue Duonebs * Abdominal pain- GI and General Surgeon evaluations noted- pain is likely from constipation- continue bowel regimen to relieve this. She also has NG tube placed for decompression * Elevated LFT's- due to passive congestion of the liver from CHF- continue to monage her heart failure * Chronic systolic heart failure- she may be a bit decompensated- will continue IV lasix * Sepsis?- blood cultures are negative, will consider scaling back his antibiotics * Acute kidney injury- renal function has stabilized
[2019-12-30] MEDS ORDERED: Iopamidol 370 76% 50 ML VIAL FS ONE (14:49)
--- NOTE | 2019-12-30 17:20 | PRG ---
DATE OF SERVICE: 12/30/2019 SUBJECTIVE: Sophia Anguiano is doing well. She reports diminished abdominal pain. However, yesterday evening she was having nausea and vomiting. NG tube was placed this morning and she has had more than 600 mL of feculent output by the time I saw her this afternoon. OBJECTIVE: VITAL SIGNS: Temperature 97.4 degrees, blood pressure 127/71, heart rate 103. LUNGS: Clear to auscultation. CARDIAC: Regular rate and rhythm without murmur or gallop. ABDOMEN: Soft, mild tympany, much less tender than yesterday. No peritoneal signs. LABORATORY DATA: White count down to 16,000, hemoglobin 13.9. Basic metabolic profile; sodium 135, carbon dioxide 36, bilirubin is 1.3. The patient is having stools. Abdominal x-ray yesterday did not reveal any significant stool or constipation, but she did have some dilated fluid-filled loops of bowel in the right upper quadrant. ASSESSMENT AND PLAN: Abdominal pain of uncertain etiology. She had an episode of severe acidosis and pain. I was concerned at that time about ischemic bowel, however, this pain improved rapidly and her acidosis improved rapidly, which is inconsistent with ischemic bowel and her pain is improved. She has had an operation in the past for oophorectomy. I cannot assure that she does not have a bowel obstruction, although she is having liquid stool. At this point, she is having feculent output from NG tube. I would recommend repeating her CAT scan with oral contrast per NG tube tonight. I would avoid IV contrast due to her kidney disease. We will await the studies. Job ID: [id number]
[2019-12-30] MEDS: Nicotine 14 MG PATCH TD SCH (17:40)
--- NOTE | 2019-12-30 20:33 | PRG ---
DATE OF SERVICE: 12/30/2019 REASON FOR CONSULTATION: Abdominal pain, elevated LFTs. Overnight, the patient exhibits increased nausea and vomiting and subsequently had an NG tube placed. With the placement of the NG tube, she has had approximately 1 L to 1.5 L of darker-colored material returned. However, with the suction of all this material, she has had significant improvement in her abdominal pain with no further episodes of nausea and vomiting. With the administration of bowel regimen, she is also continued to have smaller volume semi-solid liquid bowel movements. Otherwise, the patient denies any fevers, chills, hematemesis, melena, hematochezia, dysphagia, or odynophagia. OBJECTIVE: VITAL SIGNS: Temperature 97.4, pulse 106, blood pressure 127/76, respiratory rate 16, and saturating 100% on 2 L nasal cannula. GENERAL: The patient was lying in bed, in no acute distress. Alert and oriented x4. CARDIOVASCULAR: Irregularly irregular rhythm. RESPIRATORY: Clear to auscultation bilaterally with some mild resistance to air flow in the bilateral lower lung daniel. ABDOMEN: Normoactive bowel sounds. Soft, nondistended, mild tenderness to palpation in the left lower quadrant only. EXTREMITIES: No cyanosis, clubbing, or edema. LABORATORY DATA: CBC with a white blood cell count of 16.6, hemoglobin 13.9, hematocrit 44.1, platelets 456. Chemistry with a sodium of 135, potassium 3.5, chloride 88, CO2 of 36, BUN 23, creatinine 1.35, glucose 96. AST 41, ALT 92, alkaline phosphatase 154, and total bilirubin 1.3. IMAGING DATA: No current GI imaging is available for review. ASSESSMENT AND PLAN: The patient is a 59-year-old female with past medical history of chronic obstructive pulmonary disease, congestive heart failure, chronic lower back pain, atrial fibrillation, and hypertension, presenting with an acute on chronic exacerbation of her heart failure, transaminitis, and increased lower abdominal pain. Lower abdominal pain. The patient initially presented with a history of having approximately 1 bowel movement per day characterized with the passage of smaller volume and harder stools prior to admission. However, on admission, the patient was noted to have significantly elevated lactic acid as well as acidosis indicated by a profoundly decreased bicarb, which was concerning for the presence of bowel ischemia. Subsequently, she responded very quickly to more conservative management with imaging not consistent with this diagnosis, but showing dilated loops of small bowel in a nonspecific pattern. Initially with the administration of MiraLAX and magnesium citrate, she had a significant reduction in her abdominal pain, but slowly recurred over the next 24 to 48 hours. However, with placement of an NG tube and obtaining approximately 1 to 1.5 L of feculent appearing material, the patient has had almost complete resolution of her abdominal pain. At this point, it is unclear if the patient experience a transient ischemic episode of the small bowel, which generated the initial labs in addition to what appears to be an ileus at this point, but currently responding with more conservative management for an ileus type picture. Differential could include a possible small-bowel obstruction, but less likely given the current imaging available (although, a repeat CT scan is planned for later tonight). Recommendations: 1. Agree with obtaining a repeat CT scan with oral contrast for further delineation of the small and large bowels. 2. Continue with the current bowel regimen. 3. We would attempt to avoid any narcotic administration due to exacerbation of constipation or ileus. 4. We would continue to maintain normal electrolytes. 5. Pain control per primary team. Transaminitis/elevated LFTs. The patient initially presented with increased shortness of breath in association with imaging and laboratory studies consistent with an exacerbation of her congestive heart failure. She also had some mildly elevated AST, ALT, and alkaline phosphatase without evidence of biliary obstruction. However, given her worsening heart failure and the current LFT pattern, it seems more indicative of congestive hepatopathy and with optimization of her cardiac function during this admission, her LFTs have been downtrending ever since. Recommendations: 1. Continue to optimize cardiac status with diuretic management. 2. We would continue to trend her LFTs daily until close to resolution. 3. We would avoid any potentially hepatotoxic medications. Given the patient's ileus and concern for ischemic colitis as well as downtrending LFTs, there is nothing further we can offer recommend. We will continue to follow peripherally for now. Please call with any questions. Job ID: [id number]
--- NOTE | 2019-12-30 21:35 | CT ---
CT ABDOMEN AND PELVIS PERFORMED WITHOUT CONTRAST ENHANCEMENT: 12/30/19 HISTORY: Abdominal pain. Evaluation for small bowel obstruction. COMPARISON: A 12/29/19 KUB and 12/27/19 CT examination which was performed with contrast enhancement. There is worsening bibasilar atelectatic lung changes seen. An NG tube is present within the stomach. The liver and spleen show no focal abnormalities. Pancreas is somewhat atrophic. There is suggestio n of some fat stranding around the pancreas on the prior exam. No longer seen on this study. The gall bladder is contracted. Right and left adrenal glands and right and left kidneys are normal in appeara nce. There is no significant periaortic or mesenteric adenopathy. Oral contrast is only passed into t he jejunum at the time of this study. There is increased distention to some fluid filled distended sm all bowel loops as compared to the prior exam. The transition area is at the level of the very distal ileum with only a short segment of nondilated terminal ileum. The colon is less distended than on e prior exam. I do not see a cause for the distention or for the dilatation. There is some minimal fa t stranding within the mesenteric fat in the region of the distal ileum. The appendix appears unremar kable. Diverticulosis of the colon is again demonstrated. In addition to the fluid adjacent to liver, there is also free fluid within the pelvis slightly increased as compared to the prior exam. IMPRESSION: 1. Worsening bibasilar atelectasis. 2. Increasing small bowel distention. There is a transition to a nondilated segment of the very distal ileum. I do not see a cause for the obstruction, but changes would suggest that this represent s an obstructive process rather than an ileus given the nondistention of the distal ileum. There is a lso decreased fat. Stool and air are present within the colon. There is some ascites noted. No pneuma tosis is demonstrated. Some minimal fat stranding seen in the mesenteric fat. 3. Contracted gallbladder. POS: [facility]
[2019-12-31] MEDS ORDERED: Lidocaine 5% Patch TD SCH (01:45)
[2019-12-31] MEDS: Piperacillin/Tazobactam 4.5 GM in Sodium Chloride 0.9% 100 ML IVPB SCH ×3 (05:40→22:16)
[2019-12-31] MEDS: Budesonide 0.5 MG/2 ML NEB INH SCH ×2 (07:50→18:31)
[2019-12-31 08:42] LABS: Anion Gap 14 mmol/L (10-20); BUN (Urea Nitrogen) 14 mg/dL (9.8-20.1); Calc. Creatinine Clearance 53 mL/min (70-130); Calcium 8.1 mg/dL (7.8-10.44); Carbon Dioxide 34 mmol/L (22-29); Chloride 92 mmol/L (98-107); Estimated GFR-MDRD 48; Glucose 78 mg/dL (70-105); Potassium 3.4 mmol/L (3.5-5.1); Sodium 137 mmol/L (136-145)
--- NOTE | 2019-12-31 09:05 | PRG ---
DATE OF SERVICE: 12/31/2019 SUBJECTIVE: This morning, she is awake, alert, and responsive. OBJECTIVE: VITAL SIGNS: Temperature 97, pulse 102, respirations 17, saturations 97% on room air, blood pressure 120/80. GENERAL: Denies any pain or discomfort. I's and O's are negative. CHEST: Decreased breath sounds. No wheezing. CARDIAC: Normal S1 and S2. No gallops. ABDOMEN: No masses. ASSESSMENT: Abnormal LFT, congestive heart failure, and chronic obstructive pulmonary disease. PLAN: If her cultures are negative, I may consider discontinuing antibiotics. Discontinue NG tube. PT and supportive care. Continue neb treatments. Job ID: [id number]
[2019-12-31] MEDS: Isosorbide Dinitrate 5 MG TAB PO SCH ×3 (09:17→22:14)
[2019-12-31] MEDS: Aspirin 81 mg Enteric Coated Tablet PO SCH (09:17)
[2019-12-31] MEDS: Digoxin 0.25 MG TAB PO SCH (09:17)
[2019-12-31] MEDS: Furosemide 40 MG/4 ML VIAL SLOW IVP SCH (09:17)
[2019-12-31] MEDS: hydrALAZINE 25 MG TAB PO SCH ×3 (09:18→22:13)
[2019-12-31] MEDS: Spironolactone 25 MG TAB PO SCH (09:18)
[2019-12-31] MEDS: Pantoprazole 40 MG VIAL IVP SCH (09:18)
[2019-12-31 09:19] LABS: Band 13 % (5-11); Eosinophils 1 % (0-10); Hemoglobin 14.2 g/dL (12.0-16.0); Lymphocytes 21 % (21-51); MDiff Complete? YES; Mean Corpuscular HGB CONC 31.3 g/dL (32.0-36.0); Mean Corpuscular Hemoglobin 29.7 pg (27.0-31.0); Mean Corpuscular Volume 94.9 fL (78.0-98.0); Mean Platelet Volume 7.1 fL (7.4-10.4); Monocytes 5 % (0-10); Neutrophil 60 % (42-75); Platelet Count 493 thou/uL (130-400); Platelet Morphology Comment Appears Adequate; RBC Distribution Width 13.6 % (11.5-14.5); RBC Morphology Normal; Red Blood Cell (RBC) Count 4.78 mill/uL (4.20-5.40); White Blood Cell (WBC) Count 12.1 thou/uL (4.8-10.8)
[2019-12-31] MEDS ORDERED: PROPOFOL 200 MG/20 ML VIAL ONE (09:39)
[2019-12-31] MEDS ORDERED: Succinylcholine Chloride 20 MG/ML 10 ml SYRINGE FS ONE (09:39)
[2019-12-31] MEDS ORDERED: Dexamethasone 20 MG/5 ML VIAL ONE (09:39)
[2019-12-31] MEDS ORDERED: Bupivacaine HCl 0.5%/Epinephrine 1:200,000/PF 30 ml Vial ONE (09:39)
[2019-12-31] MEDS ORDERED: Rocuronium Bromide 10 MG/ML (10ML VIAL) ONE (09:39)
[2019-12-31] MEDS ORDERED: Ketorolac Tromethamine 30 MG/ML VIAL ONE (09:39)
[2019-12-31] MEDS ORDERED: Midazolam HCl 2 mg/2 ml Vial ONE ×2 (11:05→11:39)
[2019-12-31] MEDS ORDERED: Fentanyl 100 MCG/2 ML VIAL ONE (11:05)
[2019-12-31] MEDS ORDERED: Lidocaine 1% w/Epinephrine 1:100K 20 ML VIAL ONE (11:20)
[2019-12-31] MEDS ORDERED: Bupivacaine PF 0.5% 30 ML VIAL ONE (11:20)
[2019-12-31] MEDS ORDERED: Sodium Chloride 0.9% 20 ML ONE (11:25)
[2019-12-31] MEDS ORDERED: Fentanyl 250 MCG/5 ML VIAL ONE (11:39)
[2019-12-31] MEDS ORDERED: SUGAMMADEX SODIUM 200 MG/2 ML VIAL ONE (12:26)
--- NOTE | 2019-12-31 12:33 | PDOC.HOSPP ---
- Subjective Encounter Date: 12/31/19 Encounter Time: 12:30 Subjective: Ms. Anguiano was seen today in follow-up of abdominal pain and COPD. Today she does not have much in the way of complaints. She denies abdominal pain, but admits to some nausea. It is noted that she has some dark fecal material in the NG tube. - Objective Vital Signs & Weight: Vital Signs (12 hours) Temp Pulse Resp BP Pulse Ox 12/31/19 09:18 102 H 151/77 H 12/31/19 09:17 102 H 12/31/19 07:50 102 H 17 96 12/31/19 07:26 97.5 F L 12/31/19 04:00 97.9 F Weight Weight 144 lb 8 oz Most Recent Monitor Data Heart Rate from ECG 99 NIBP 128/80 NIBP BP-Mean 96 Respiration from ECG 17 SpO2 93 I&O: 12/30/19 12/31/19 01/01/20 06:59 06:59 06:59 Intake Total 1750 890 Output Total 4600 1900 400 Balance -2850 -1010 -400 Result Diagrams: 12/31/19 08:04 12/31/19 08:04 Hospitalist ROS - Medication Medications: Active Medications Generic Name Dose Route Start Last Admin Trade Name Freq PRN Reason Stop Dose Admin Albuterol/Ipratropium 3 ml 12/27/19 13:00 12/31/19 07:50 Duoneb NEB 3 ml [id number] FRANNY Administration Aspirin 81 mg 12/29/19 09:00 12/31/19 09:17 Ecotrin PO 81 mg DAILY FRANNY Administration Budesonide 0.5 mg 12/28/19 06:30 12/31/19 07:50 Pulmicort Neb Solution INH 0.5 mg BID-RT FRANNY Administration Digoxin 0.25 mg 12/30/19 09:00 12/31/19 09:17 Lanoxin PO 0.25 mg QAM FRANNY Administration Furosemide 40 mg 12/30/19 09:00 12/31/19 09:17 Lasix SLOW IVP 40 mg QAM FRANNY Administration Hydralazine HCl 25 mg 12/28/19 15:00 12/31/19 09:18 Apresoline PO 25 mg TID FRANNY Administration Piperacillin Sod/Tazobactam 100 mls @ 200 mls/hr 12/27/19 13:00 12/31/19 05: 40 Sod 4.5 gm/ Sodium Chloride IVPB 100 mls Q8H FRANNY Administration Isosorbide Dinitrate 10 mg 12/28/19 15:00 12/31/19 09:17 Isordil PO 10 mg TID FRANNY Administration Morphine Sulfate 2 mg 12/27/19 18:52 12/29/19 07:13 Morphine SLOW IVP 2 mg Q4H PRN Administration Severe Pain (7-10) Nicotine 14 mg 12/27/19 18:00 12/30/19 17:40 Nicoderm Patch TD 14 mg 1800 FRANNY Administration Ondansetron HCl 4 mg 12/29/19 16:35 12/30/19 01:59 Zofran IVP 4 mg Q6H PRN Administration Nausea/Vomiting Pantoprazole Sodium 40 mg 12/28/19 09:00 12/31/19 09:18 Protonix IVP 40 mg DAILY FRANNY Administration Sodium Chloride 10 ml 12/27/19 21:00 12/31/19 09:17 Flush - Normal Saline IVF 10 ml Q12HR FRANNY Administration Sodium Chloride 10 ml 12/27/19 09:25 12/28/19 05:17 Flush - Normal Saline IVF 10 ml PRN PRN Administration Saline Flush Spironolactone 25 mg 12/30/19 08:00 12/31/19 09:18 Aldactone PO 25 mg QAM-WM FRANNY Administration - Exam Eye: PERRL Heart: RRR, no murmur, no gallops, no rubs, normal peripheral pulses Respiratory: CTAB, no wheezes, no rales, no ronchi, normal chest expansion Gastrointestinal: soft, non-distended (bowel sounds are a bit hypoactive) Extremities: no cyanosis, no clubbing, no edema Hosp A/P (1) Acute on chronic respiratory failure with hypoxemia Code(s): J96.21 - ACUTE AND CHRONIC RESPIRATORY FAILURE WITH HYPOXIA Status: Acute (2) COPD exacerbation Code(s): J44.1 - CHRONIC OBSTRUCTIVE PULMONARY DISEASE W (ACUTE) EXACERBATION Status: Acute (3) Abdominal pain, RLQ Code(s): R10.31 - RIGHT LOWER QUADRANT PAIN Status: Acute (4) Tobacco abuse Code(s): Z72.0 - TOBACCO USE Status: Chronic (5) Chronic systolic heart failure, ACC/AHA stage C Code(s): I50.22 - CHRONIC SYSTOLIC (CONGESTIVE) HEART FAILURE Status: Chronic (6) Non-ischemic cardiomyopathy Code(s): I42.8 - OTHER CARDIOMYOPATHIES Status: Chronic (7) Acute kidney injury Code(s): N17.9 - ACUTE KIDNEY FAILURE, UNSPECIFIED Status: Acute - Plan * Acute on chronic respiratory failure- due to COPD exacerbation- Continue Duonebs * Abdominal pain- GI and General Surgeon evaluations noted- CT scan results notes, there is evidence for a possible bowel obstruction- Discussed with Dr. Beltran- plan is for exploratory lap today * Elevated LFT's- due to passive congestion of the liver from CHF- * Chronic systolic heart failure- continue Lasix IV and management as per Cardiology * Sepsis?- blood cultures are negative, will consider scaling back the antibiotics depending on the exploratory lap findings * Acute kidney injury- improved
[2019-12-31] MEDS ORDERED: hydrALAZINE 20 MG/ML VIAL ONE (12:39)
[2019-12-31] MEDS ORDERED: Promethazine HCl 25 MG/ML VIAL IM PRN (12:54)
[2019-12-31] MEDS ORDERED: Promethazine HCl 25 MG/ML VIAL SLOW IVP PRN (12:54)
[2019-12-31] MEDS ORDERED: Ondansetron HCl/PF 4 MG/2 ML Vial IVP PRN (12:54)
[2019-12-31] MEDS ORDERED: Ondansetron PF 4 MG/2 ML Vial ONE (12:55)
[2019-12-31] MEDS ORDERED: Lidocaine Patch Removal TOP SCH (13:00)
--- NOTE | 2019-12-31 13:23 | PRG ---
DATE OF SERVICE: 12/31/2019 SUBJECTIVE: Sophia Anguiano has had NG tube placed. She is having copious output thickened in appearance. CAT scan suggests an obstruction last night. Abdominal films have not been obtained. She is having a few loose stools. OBJECTIVE: LUNGS: Clear to auscultation. CARDIAC: Regular rate and rhythm without murmur or gallop. ABDOMEN: Slightly protuberant, obese, slightly tympanitic and minimal tenderness without significant guarding. EXTREMITIES: Unremarkable. LABORATORY DATA: As noted. 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 Otero. Plan is for diagnostic laparoscopy, possible open. She understands risks, benefits, and consents. Job ID: [id number]
[2019-12-31] MEDS ORDERED: Ondansetron ODT 4 MG TAB SL PRN (13:33)
--- NOTE | 2019-12-31 13:42 | RAD ---
Portable frontal chest radiograph: 12/31/2019 COMPARISON: 12/27/2019 HISTORY: Central line placement FINDINGS: Left-sided vascular catheter present with distal tip overlying the region of the cavoatrial junction. Nasogastric tube extends into the left upper quadrant. No pneumothorax or pleural fluid. No focal consolidation or alveolar edema. Mild increased linear density in the lung bases noted which may signify scar, volume loss, or less likely, infiltrate. IMPRESSION: Left-sided vascular catheter with no evidence for pneumothorax. Mild linear density in th e lung bases.
--- NOTE | 2019-12-31 14:25 | OP ---
DATE OF PROCEDURE: 12/31/2019 PREOPERATIVE DIAGNOSES: Abdominal pain, chronic obstructive pulmonary disease , congestive heart failure, episodes of acidosis. CAT scan suggested bowel obstruction. History of prior left oophorectomy, salpingectomy for benign ovarian tumor, large. POSTOPERATIVE DIAGNOSES: Abdominal pain, chronic obstructive pulmonary disease , congestive heart failure, episodes of acidosis. CAT scan suggested bowel obstruction. History of prior left oophorectomy, salpingectomy for benign ovarian tumor, large. Adhesions of omentum to the abdominal wall, adhesions of liver and gallbladder to the abdominal wall, but no evidence of bowel obstruction. Entire bowel run. PROCEDURE: Diagnostic laparoscopy, adhesiolysis. ANESTHESIA: General, tap block, left subclavian vein central line placed. DESCRIPTION OF PROCEDURE: The patient was taken to the operating room where under general anesthesia, Seldinger technique, used to place a left subclavian vein central line using ChloraPrep and securing the line with 3-0 nylon and sterile dressing applied. Each port aspirated of blood and flushed with saline solution. Abdomen prepared with ChloraPrep and draped in routine fashion. Munoz catheter placed at the beginning of the procedure, removed at the end. Left lateral subcostal incision made, pneumoperitoneum to 15 mmHg obtained with a Veress needle, replaced with a 5 port. Laparoscope inserted. Left lateral mid abdominal incision made, left lower quadrant lateral incision made, and 5 ports placed. The patient had omental adhesions to the anterior abdominal wall, taken down with LigaSure, freeing the omentum and reflecting it cephalad. There were no adhesions to the small bowel. Small bowel was dilated and there were some ascites fluid. Cecum, right colon identified. Terminal ileum identified. It was relatively decompressed. Evaluated the bowel from the ileocecal valve to the ligament of Treitz and there was no mechanical obstruction and no evidence of ischemic bowel. There was a moderate amount of ascites reflective of patient's congestive heart failure and mild renal dysfunction. Abdominal cavity irrigated. Right colon, transverse colon, left colon inspected grossly and no obvious abnormalities noted. Liver appeared to be normal. Pelvis appeared to be normal. Sigmoid colon appeared to be normal. Irrigant and pneumoperitoneum evacuated. All instruments were removed, and all skin incisions were approximated with interrupted subdermal 4-0 Monocryl and Elverta glue applied. Job ID: [id number]
[2019-12-31] MEDS: Nicotine 14 MG PATCH TD SCH (17:05)
[2019-12-31] MEDS: Lidocaine 5% Patch TD SCH (22:14)
[2020-01-01] MEDS ORDERED: Melatonin 3 MG TAB PO SCH (03:00)
[2020-01-01 04:14] LABS: #Lymphocytes 1.1 thou/uL (1.20-3.40); #Neutrophils 10.9 thou/uL (1.40-6.50); %Basophils 0.3 % (0.0-1.0); %Eosinophils 0.2 % (0.0-10.0); %Lymphocytes 8.2 % (21.0-51.0); %Neutrophils 83.4 % (42.0-75.0); Hemoglobin 12.8 g/dL (12.0-16.0); Mean Corpuscular HGB CONC 31.5 g/dL (32.0-36.0); Mean Corpuscular Volume 95.1 fL (78.0-98.0); Platelet Count 477 thou/uL (130-400); RBC Distribution Width 13.6 % (11.5-14.5); Red Blood Cell (RBC) Count 4.27 mill/uL (4.20-5.40); White Blood Cell (WBC) Count 13.1 thou/uL (4.8-10.8)
[2020-01-01 04:35] LABS: ALT (SGPT) 46 U/L (8-55); AST (SGOT) 24 U/L (5-34); Albumin 3.4 g/dL (3.5-5.0); Alkaline Phosphatase 133 U/L (40-110); Anion Gap 16 mmol/L (10-20); BUN (Urea Nitrogen) 16 mg/dL (9.8-20.1); Calc. Creatinine Clearance 48 mL/min (70-130); Calcium 8.1 mg/dL (7.8-10.44); Carbon Dioxide 33 mmol/L (22-29); Chloride 93 mmol/L (98-107); Estimated GFR-MDRD 42; Globulin 2.6 g/dL (2.4-3.5); Glucose 77 mg/dL (70-105); Potassium 3.4 mmol/L (3.5-5.1); Sodium 139 mmol/L (136-145)
[2020-01-01] MEDS: Piperacillin/Tazobactam 4.5 GM in Sodium Chloride 0.9% 100 ML IVPB SCH ×3 (05:48→21:15)
[2020-01-01] MEDS: Budesonide 0.5 MG/2 ML NEB INH SCH ×2 (07:25→18:52)
[2020-01-01] MEDS: Digoxin 0.25 MG TAB PO SCH (08:39)
[2020-01-01] MEDS: hydrALAZINE 25 MG TAB PO SCH ×3 (08:40→21:13)
[2020-01-01] MEDS: Furosemide 40 MG/4 ML VIAL SLOW IVP SCH (08:40)
[2020-01-01] MEDS: Aspirin 81 mg Enteric Coated Tablet PO SCH (08:40)
[2020-01-01] MEDS: Spironolactone 25 MG TAB PO SCH (08:40)
[2020-01-01] MEDS: Pantoprazole 40 MG VIAL IVP SCH (08:41)
[2020-01-01] MEDS: Isosorbide Dinitrate 5 MG TAB PO SCH ×3 (08:44→22:39)
[2020-01-01] MEDS ORDERED: Potassium Chloride 20 MEQ TAB PO SCH ×2 (08:45→16:45)
[2020-01-01] MEDS: Lidocaine Patch Removal TOP SCH (09:07)
[2020-01-01] MEDS: Morphine 2 MG/ML SYRINGE SLOW IVP PRN (09:56)
--- NOTE | 2020-01-01 10:08 | RAD ---
CHEST ONE VIEW: ABDOMEN TWO VIEWS: HISTORY: Follow up ileus. COMPARISON: CT abdomen from 12/30/2019. FINDINGS: Monitor leads overly and somewhat obscure the chest. NG tube in place. Left central line in place. Mi ld bilateral increased vascular markings with some subsegmental atelectasis in the basis but no confl uent pneumonia or overt edema. In the abdomen there are persistently dilated loops of small bowel with air-fluid levels with some sc attered colon gas and fluid. IMPRESSION: 1. Minimal bibasilar parenchymal changes in the lung bases, probably subsegmental atelectasis. 2. Persistent abnormally dilated small bowel loop with air and fluid with little change from the 12/03 study. POS: BRENDON
[2020-01-01] MEDS: Ketorolac Tromethamine 30 MG/ML VIAL IVP PRN ×2 (10:49→21:14)
[2020-01-01] MEDS: Morphine 4 MG/ML VIAL SLOW IVP PRN (12:52)
--- NOTE | 2020-01-01 16:40 | PDOC.GSPN ---
Surgery Progress Note: Subj - Subjective Patient reports: no new complaints (Seems to be doing well. Denies abdominal pain or nausea. Endorses BM and flatus.) Surgery Progress Note: Obj - Vital signs Vital signs: Vital Signs - Most Recent Temp Pulse Resp BP Pulse Ox 97.4 F L 93 23 H 117/69 100 01/01/20 16:00 01/01/20 14:39 01/01/20 12:54 01/01/20 14:39 01/01/20 12:54 - Physical Exam General: no distress ENT: other (NGT in place with minimal bilious output) Cardiovascular: regular rate and rhythm Respiratory: normal expansion, normal respiratory effort Abdomen: soft, non tender, nondistended Surgery Progress Note: Results - Labs Result Diagrams: 01/01/20 03:28 01/01/20 03:28 Surgery Progress Note: A/P - Problem (1) Abdominal pain, RLQ Current Visit: Yes Code(s): R10.31 - RIGHT LOWER QUADRANT PAIN Status: Acute - Plan Plan: Minimal NGT output overnight (175cc), but remains bilious. NGT clamped. Continue clamped NGT and remove if patient continues to pass flatus and BM without emesis. Okay to initiate clears. Will follow.
--- NOTE | 2020-01-01 16:59 | PRG ---
DATE OF SERVICE: 01/01/2020 SERVICE: Pulmonary Medicine. INTERVAL HISTORY: The patient is doing fine from respiratory standpoint. She is currently on room air. No complaints of chest discomfort, nausea, or vomiting. Otherwise, there has been no interval change to her condition. PHYSICAL EXAMINATION: VITAL SIGNS: Afebrile, pulse 93, blood pressure 117/69, respirations 19, and saturation 96% on room air. GENERAL: The patient is awake and alert, in no apparent distress. LUNGS: Good air entry bilaterally. No prolonged expiratory phase or wheezing appreciated. HEART: Normal rate, regular. ABDOMEN: Soft, nontender, and nondistended. Bowel sounds are positive. MUSCULOSKELETAL: No cyanosis or clubbing. No pitting edema. There is minimal skin tenting. NEUROLOGIC: Grossly nonfocal. LABORATORY DATA: WBC 13.1, hemoglobin 12.8, and platelets 477,000. INR 1.64. Creatinine 1.29 and gently uptrending, bicarb 33, and potassium 3.4. Liver function studies are otherwise unremarkable. Respiratory virus panel is unremarkable. Urine culture, blood cultures x2, and influenza A and B are all negative. IMAGING STUDIES: 1. Acute abdominal series demonstrates minimal bibasilar parenchymal changes of the lung bases, consistent with atelectasis. Persistent minimally dilated small bowel loops and air-fluid levels with no significant interval change compared to prior. 2. Chest x-ray demonstrates left-sided subclavian central venous catheter terminates in good position. The left diaphragm is elevated relative to the right. This probably accentuates her cardiac silhouette. Bibasilar atelectasis is noted. ASSESSMENT: 1. Chronic obstructive pulmonary disease without current exacerbation. 2. Chronic systolic heart failure, currently euvolemic. 3. Mitral regurgitation, severe. 4. Small-bowel obstruction, status post laparoscopic lysis of adhesions, postoperative day #1. DISCUSSION AND PLAN: The patient is doing fine from respiratory standpoint. If anything, I find her to be on the dry side. She has been without significant fluids for the last 2 days. Lasix will be interrupted, and I will introduce a very low dose of half-normal saline until she can better tolerate p.o. Critical Care will follow. Job ID: [id number] [facility]
[2020-01-01] MEDS: Nicotine 14 MG PATCH TD SCH (17:38)
[2020-01-01] MEDS: Sodium Chloride 0.45% 1,000 ML IV SCH (17:42)
--- NOTE | 2020-01-01 20:13 | PDOC.HOSPP ---
- Subjective Encounter Date: 01/01/20 Encounter Time: 09:30 Subjective: The patient states she had three bowel movements today but did not pass much gas. No abdominal pain, nausea or vomiting. SHe wants her diet to be advanced, hasn't eaten in three days. Abd Xray unchanged She had laparotomy yesterday with some adhesiolysis. She also complains of cough that started this morning - Objective Vital Signs & Weight: Vital Signs (12 hours) Temp Pulse Resp BP Pulse Ox 01/01/20 19:22 98.2 F 01/01/20 18:51 97 18 95 01/01/20 16:00 97.4 F L 01/01/20 14:39 93 117/69 01/01/20 12:54 93 23 H 100 01/01/20 11:12 98.3 F 01/01/20 09:36 100 01/01/20 08:40 95 128/72 01/01/20 08:39 95 Weight Weight 144 lb 14.4 oz Most Recent Monitor Data Heart Rate from ECG 95 NIBP 118/60 NIBP BP-Mean 79 Respiration from ECG 12 SpO2 100 I&O: 12/31/19 01/01/20 01/02/20 06:59 06:59 06:59 Intake Total 285 190 1585 Output Total 1900 1075 1125 Balance -1010 -186 375 Result Diagrams: 01/01/20 03:28 01/01/20 03:28 Hospitalist ROS - Review of Systems Constitutional: denies: fever, chills - Medication Medications: Active Medications Generic Name Dose Route Start Last Admin Trade Name Freq PRN Reason Stop Dose Admin Albuterol/Ipratropium 3 ml 12/27/19 13:00 01/01/20 18:51 Duoneb NEB 3 ml [id number] FRANNY Administration Aspirin 81 mg 12/29/19 09:00 01/01/20 08:40 Ecotrin PO 81 mg DAILY FRANNY Administration Budesonide 0.5 mg 12/28/19 06:30 01/01/20 18:52 Pulmicort Neb Solution INH 0.5 mg BID-RT FRANNY Administration Digoxin 0.25 mg 12/30/19 09:00 01/01/20 08:39 Lanoxin PO 0.25 mg QAM FRANNY Administration Hydralazine HCl 25 mg 12/28/19 15:00 01/01/20 14:39 Apresoline PO 25 mg TID FRANNY Administration Piperacillin Sod/Tazobactam 100 mls @ 200 mls/hr 12/27/19 13:00 01/01/20 12: 51 Sod 4.5 gm/ Sodium Chloride IVPB 100 mls Q8H FRANNY Administration Sodium Chloride 1,000 mls @ 50 mls/hr 01/01/20 17:00 01/01/20 17:42 1/2 Normal Saline IV 1,000 mls .Q20H FRANNY Administration Isosorbide Dinitrate 10 mg 12/28/19 15:00 01/01/20 14:40 Isordil PO 10 mg TID FRANNY Administration Ketorolac Tromethamine 15 mg 12/31/19 13:33 01/01/20 10:49 Toradol IVP 01/05/20 13:34 15 mg Q6H PRN Administration Pain Lidocaine 1 patch 12/31/19 21:00 12/31/19 22:14 Lidoderm 5% Patch TD 1 patch 2100 FRANNY Administration Miscellaneous Medication 1 each 01/01/20 09:00 01/01/20 09:07 Lidocaine Patch Removal TOP 1 each 0900 FRANNY Administration Morphine Sulfate 4 mg 12/31/19 13:32 01/01/20 12:52 Morphine SLOW IVP 4 mg Q2H PRN Administration Pain Morphine Sulfate 2 mg 12/31/19 13:35 01/01/20 09:56 Morphine SLOW IVP 2 mg Q2H PRN Administration Severe Pain (7-10) Nicotine 14 mg 12/27/19 18:00 01/01/20 17:38 Nicoderm Patch TD 14 mg 1800 FRANNY Administration Ondansetron HCl 4 mg 12/29/19 16:35 12/30/19 01:59 Zofran IVP 4 mg Q6H PRN Administration Nausea/Vomiting Pantoprazole Sodium 40 mg 12/28/19 09:00 01/01/20 08:41 Protonix IVP 40 mg DAILY FRANNY Administration Sodium Chloride 10 ml 12/27/19 21:00 01/01/20 08:41 Flush - Normal Saline IVF 10 ml Q12HR FRANNY Administration Sodium Chloride 10 ml 12/27/19 09:25 12/28/19 05:17 Flush - Normal Saline IVF 10 ml PRN PRN Administration Saline Flush Spironolactone 25 mg 12/30/19 08:00 01/01/20 08:40 Aldactone PO 25 mg QAM-WM FRANNY Administration - Exam General Appearance: NAD, awake alert Eye: PERRL, anicteric sclera ENT: normocephalic atraumatic, no oropharyngeal lesions Neck: supple, symmetric, no JVD, no carotid bruit Heart: RRR, no murmur, no gallops, no rubs Respiratory - other findings: diffuse rhonchi Gastrointestinal: soft Gastrointestinal - other findings: mild distension but bowel sounds heard Extremities: no cyanosis, no clubbing, no edema Hosp A/P - Plan CXR 12/27: cardiomegaly with pulmonary edema CTA thorax 12/27: mild cardiomegaly, small right and tiny left pleural effusions. Right sided rib fractures, remote RUQ US 12/27: thickened GB wall with GB wall edema versus pericholecystic fluid. GB polyp noted CT abdomen 12/27: ascites, mild peripancreatic fat stranding with early pancreatitis. Moderate diverticulosis. GB wall thickening Abd X ray 12/30: minimal bibasilar parenchymal changes in lung bases. Persistently abnormal dilated SBO with air and fluid with little change from prior dstudy. HIDA 12/28: no acute cholecystitis Abdominal X ray 12/29: dilated gas filled loops of small bowel within the right upper quadrant abdomen suspicious for ileus or partial SBO CT abdomen 12/30: increasing small bowel distension. Contracted GB. Worsening atelectasis Abd pain secondary to ileus - had 175 overnight. Started clears due to patient request and NGT was clamped. Surgery following. S/p laparoxospmy - had GB wall edema on ultrasound, ascites and possibly pancreatitis on CT. - laparoscopy 12/31 unremarkable except for some small adhesions. Continue zosyn empirically post op for few more days Systolic CHF- - ECHo showed EF 25-30% with severe MR and moderate AR - held lasix due to decreased urine output today. Was give nfor pulmonary edema - continue digoxin - continue spironolactone Cough - will repeat chest X ray today. CTA thorax on 12/27 showed some cardiomegaly with pleural effusions COPD - continue pulmicort - duoneb prn
--- NOTE | 2020-01-01 20:28 | RAD ---
Chest AP view INDICATION: 59-year-old female with cough COMPARISON: 01/01/2028 acute abdominal series FINDINGS: Lungs:Stable mild left basilar atelectasis. Cardiac silhouette:Stable mild cardiomegaly. Stable left subclavian central venous catheter. Pulmonary vasculature:Normal Pleural spaces:No pleural effusion or pneumothorax is demonstrated. Upper abdomen:Stable gastric catheter. Osseous structures: No acute osseous abnormality. Additional findings:None. IMPRESSION: Stable mild left basilar atelectasis. Stable tubes and lines.
[2020-01-01] MEDS: Lidocaine 5% Patch TD SCH (21:14)
[2020-01-02] MEDS: Piperacillin/Tazobactam 4.5 GM in Sodium Chloride 0.9% 100 ML IVPB SCH ×3 (05:18→20:47)
[2020-01-02 06:04] LABS: ALT (SGPT) 34 U/L (8-55); AST (SGOT) 23 U/L (5-34); Albumin 3.3 g/dL (3.5-5.0); Alkaline Phosphatase 118 U/L (40-110); Anion Gap 10 mmol/L (10-20); BUN (Urea Nitrogen) 13 mg/dL (9.8-20.1); Bilirubin, Total 0.9 mg/dL (0.2-1.2); Calc. Creatinine Clearance 49 mL/min (70-130); Calcium 8.1 mg/dL (7.8-10.44); Carbon Dioxide 35 mmol/L (22-29); Chloride 94 mmol/L (98-107); Estimated GFR-MDRD 43; Globulin 2.3 g/dL (2.4-3.5); Glucose 86 mg/dL (70-105); Potassium 3.8 mmol/L (3.5-5.1); Protein, Total 5.6 g/dL (6.0-8.3); Sodium 135 mmol/L (136-145)
[2020-01-02 06:21] LABS: Band 13 % (5-11); Eosinophils 1 % (0-10); Hemoglobin 12.8 g/dL (12.0-16.0); Lymphocytes 24 % (21-51); MDiff Complete? YES; Mean Corpuscular HGB CONC 30.2 g/dL (32.0-36.0); Mean Corpuscular Hemoglobin 28.6 pg (27.0-31.0); Mean Corpuscular Volume 94.9 fL (78.0-98.0); Mean Platelet Volume 6.9 fL (7.4-10.4); Monocytes 17 % (0-10); Myelocyte 1 % (0-0); Neutrophil 39 % (42-75); Platelet Count 472 thou/uL (130-400); Platelet Morphology Comment Appears Increased; RBC Distribution Width 13.7 % (11.5-14.5); Reactive Lymphocytes 5 % (0-10); Red Blood Cell (RBC) Count 4.47 mill/uL (4.20-5.40); White Blood Cell (WBC) Count 12.1 thou/uL (4.8-10.8)
[2020-01-02] MEDS: Budesonide 0.5 MG/2 ML NEB INH SCH ×2 (07:10→18:18)
[2020-01-02] MEDS: Spironolactone 25 MG TAB PO SCH (08:09)
[2020-01-02] MEDS: Aspirin 81 mg Enteric Coated Tablet PO SCH (08:09)
[2020-01-02] MEDS: hydrALAZINE 25 MG TAB PO SCH ×3 (08:10→20:43)
[2020-01-02] MEDS: Pantoprazole 40 MG VIAL IVP SCH (08:10)
[2020-01-02] MEDS: Digoxin 0.25 MG TAB PO SCH (08:10)
[2020-01-02] MEDS: Isosorbide Dinitrate 5 MG TAB PO SCH ×3 (08:10→20:42)
[2020-01-02] MEDS ORDERED: Furosemide 20 MG TAB PO SCH (09:00)
[2020-01-02] MEDS: Ketorolac Tromethamine 30 MG/ML VIAL IVP PRN (10:19)
[2020-01-02] MEDS: Lidocaine Patch Removal TOP SCH (11:04)
--- NOTE | 2020-01-02 13:03 | PDOC.BPN ---
- Brief Progress Note States she is feeling better. Denies N/V with clears and clamped NGT. Multiple small bowel movements and endorses flatus. EXAM: A/O, NAD Normal Respirations ABD S/NT/ND. Incisions clean without evidence of infection. Minimal NGT output yesterday Vital Signs (12 hours) Temp Pulse Resp BP 01/02/20 12:39 99 15 01/02/20 11:30 98.6 F 01/02/20 10:17 118/63 01/02/20 08:10 105 H 01/02/20 07:37 96.8 F L 01/02/20 03:57 98.8 F Weight Weight 144 lb Most Recent Monitor Data Heart Rate from ECG 96 NIBP 118/63 NIBP BP-Mean 81 Respiration from ECG 20 SpO2 96 Laboratory Results - last 24 hr 01/02/20 05:22: WBC 12.1 H, RBC 4.47, Hgb 12.8, Hct 42.4, MCV 94.9, MCH 28.6, MCHC 30.2 L, RDW 13.7, Plt Count 472 H, MPV 6.9 L, Neutrophils % (Manual) 39 L, Band Neuts % (Manual) 13 H, Lymphocytes % (Manual) 24, Reactive Lymphs % 5, Monocytes % (Manual) 17 H, Eosinophils % (Manual) 1, Myelocytes % 1 H, Plt Morphology Comment Appears Increased H 01/02/20 05:22: Sodium 135 L, Potassium 3.8, Chloride 94 L, Carbon Dioxide 35 H , Anion Gap 10, BUN 13, Creatinine 1.26 H, Estimated GFR (MDRD) 43, Glucose 86, Calcium 8.1, Total Bilirubin 0.9, AST 23, ALT 34, Alkaline Phosphatase 118 H, Serum Total Protein 5.6 L, Albumin 3.3 L, Globulin 2.3 L, Albumin/Globulin Ratio 1.4 Plan: Recommend d/c NGT and advance diet as tolerated. Consider scheduled Miralax or other bowel regimen
[2020-01-02] MEDS: Sodium Chloride 0.45% 1,000 ML IV SCH (15:03)
--- NOTE | 2020-01-02 17:09 | PDOC.HOSPP ---
- Subjective Encounter Date: 01/02/20 Encounter Time: 17:08 Subjective: The patient has no abdominal pain today. SHe had three bowel movements. She is passing gas. No nausea or vomiting. No cough. She was advanced to full liquid this afternoon. Per nurse she tolerated two ice creams. Patient is demanding solid food. However per nurse patient seems to have poor insight and in previous days was asking for solid food even when she was vomiting. - Objective Vital Signs & Weight: Vital Signs (12 hours) Temp Pulse Resp BP 01/02/20 15:54 96.6 F L 01/02/20 15:03 99 01/02/20 12:39 99 15 01/02/20 11:30 98.6 F 01/02/20 10:17 118/63 01/02/20 08:10 105 H 01/02/20 07:37 96.8 F L Weight Weight 144 lb Most Recent Monitor Data Heart Rate from ECG 93 NIBP 136/63 NIBP BP-Mean 87 Respiration from ECG 20 SpO2 96 I&O: 01/01/20 01/02/20 01/03/20 06:59 06:59 06:59 Intake Total 440 2633 Output Total 1072 3185 600 Balance -635 958 -600 Result Diagrams: 01/02/20 05:22 01/02/20 05:22 Hospitalist ROS - Review of Systems Constitutional: denies: fever, chills - Medication Medications: Active Medications Generic Name Dose Route Start Last Admin Trade Name Freq PRN Reason Stop Dose Admin Albuterol/Ipratropium 3 ml 12/27/19 13:00 01/02/20 12:39 Duoneb NEB 3 ml [id number] FRANNY Administration Aspirin 81 mg 12/29/19 09:00 01/02/20 08:09 Ecotrin PO 81 mg DAILY FRANNY Administration Budesonide 0.5 mg 12/28/19 06:30 01/02/20 07:10 Pulmicort Neb Solution INH 0.5 mg BID-RT FRANNY Administration Digoxin 0.25 mg 12/30/19 09:00 01/02/20 08:10 Lanoxin PO 0.25 mg QAM FRANNY Administration Hydralazine HCl 25 mg 12/28/19 15:00 01/02/20 15:03 Apresoline PO 25 mg TID FRANNY Administration Piperacillin Sod/Tazobactam 100 mls @ 200 mls/hr 12/27/19 13:00 01/02/20 15: 02 Sod 4.5 gm/ Sodium Chloride IVPB 100 mls Q8H FRANNY Administration Sodium Chloride 1,000 mls @ 50 mls/hr 01/01/20 17:00 01/02/20 15:03 1/2 Normal Saline IV 1,000 mls .Q20H FRANNY Administration Isosorbide Dinitrate 10 mg 12/28/19 15:00 01/02/20 15:03 Isordil PO 10 mg TID FRANNY Administration Ketorolac Tromethamine 15 mg 12/31/19 13:33 01/02/20 10:19 Toradol IVP 01/05/20 13:34 15 mg Q6H PRN Administration Pain Lidocaine 1 patch 12/31/19 21:00 01/01/20 21:14 Lidoderm 5% Patch TD 1 patch 2100 FRNANY Administration Miscellaneous Medication 1 each 01/01/20 09:00 01/02/20 11:04 Lidocaine Patch Removal TOP Not Given 0900 FRANNY Morphine Sulfate 4 mg 12/31/19 13:32 01/01/20 12:52 Morphine SLOW IVP 4 mg Q2H PRN Administration Pain Morphine Sulfate 2 mg 12/31/19 13:35 01/01/20 09:56 Morphine SLOW IVP 2 mg Q2H PRN Administration Severe Pain (7-10) Nicotine 14 mg 12/27/19 18:00 01/01/20 17:38 Nicoderm Patch TD 14 mg 1800 FRANNY Administration Ondansetron HCl 4 mg 12/29/19 16:35 12/30/19 01:59 Zofran IVP 4 mg Q6H PRN Administration Nausea/Vomiting Pantoprazole Sodium 40 mg 12/28/19 09:00 01/02/20 08:10 Protonix IVP 40 mg DAILY FRANNY Administration Sodium Chloride 10 ml 12/27/19 21:00 01/02/20 08:19 Flush - Normal Saline IVF 10 ml Q12HR FRANNY Administration Sodium Chloride 10 ml 12/27/19 09:25 12/28/19 05:17 Flush - Normal Saline IVF 10 ml PRN PRN Administration Saline Flush Spironolactone 25 mg 12/30/19 08:00 01/02/20 08:09 Aldactone PO 25 mg QAM-WM FRANNY Administration - Exam General Appearance: NAD, awake alert Eye: PERRL, anicteric sclera ENT: normocephalic atraumatic, no oropharyngeal lesions Neck: supple, symmetric, no JVD Heart: RRR, no murmur, no gallops, no rubs Respiratory: CTAB, no wheezes, no rales, no ronchi Gastrointestinal: soft, non-tender, non-distended, normal bowel sounds Extremities: no cyanosis, no clubbing, no edema Hosp A/P - Plan CXR 12/27: cardiomegaly with pulmonary edema CTA thorax 12/27: mild cardiomegaly, small right and tiny left pleural effusions. Right sided rib fractures, remote RUQ US 12/27: thickened GB wall with GB wall edema versus pericholecystic fluid. GB polyp noted CT abdomen 12/27: ascites, mild peripancreatic fat stranding with early pancreatitis. Moderate diverticulosis. GB wall thickening Abd X ray 12/30: minimal bibasilar parenchymal changes in lung bases. Persistently abnormal dilated SBO with air and fluid with little change from prior dstudy. HIDA 12/28: no acute cholecystitis Abdominal X ray 12/29: dilated gas filled loops of small bowel within the right upper quadrant abdomen suspicious for ileus or partial SBO CT abdomen 12/30: increasing small bowel distension. Contracted GB. Worsening atelectasis This is a 59 year old female who presented to the emergency room with abdominal pain, admitted for ileus vs partial SBO s/p laparotomy Abd pain secondary to ileus -NG tube removed. Patient tolerated clears yesterday, will advance to full liquid. - had GB wall edema on ultrasound, ascites and possibly pancreatitis on CT. HIDA scan showed no acute alicja - laparoscopy 12/31 unremarkable except for some small adhesions. Continue zosyn empirically post op for few more days Systolic CHF- - ECHo showed EF 25-30% with severe MR and moderate AR - held lasix due to decreased urine output today. Was give nfor pulmonary edema - continue digoxin - continue spironolactone Cough- likely from atelectasis - chest X ray unremarkable - needs to get out of bed COPD - continue pulmicort - duoneb prn Disposition: will transfer to the floor
[2020-01-02] MEDS: Nicotine 14 MG PATCH TD SCH (17:53)
[2020-01-02] MEDS: Lidocaine 5% Patch TD SCH (20:42)
[2020-01-03] MEDS: Piperacillin/Tazobactam 4.5 GM in Sodium Chloride 0.9% 100 ML IVPB SCH ×3 (04:21→20:41)
[2020-01-03 06:26] LABS: ALT (SGPT) 30 U/L (8-55); AST (SGOT) 23 U/L (5-34); Albumin 3.3 g/dL (3.5-5.0); Alkaline Phosphatase 134 U/L (40-110); Anion Gap 16 mmol/L (10-20); BUN (Urea Nitrogen) 8 mg/dL (9.8-20.1); Bilirubin, Total 0.9 mg/dL (0.2-1.2); Calc. Creatinine Clearance 64 mL/min (70-130); Calcium 8.5 mg/dL (7.8-10.44); Carbon Dioxide 21 mmol/L (22-29); Chloride 101 mmol/L (98-107); Estimated GFR-MDRD 57; Globulin 2.7 g/dL (2.4-3.5); Glucose 91 mg/dL (70-105); Potassium 4.1 mmol/L (3.5-5.1); Sodium 134 mmol/L (136-145)
[2020-01-03 06:48] LABS: Band 34 % (5-11); Eosinophils 1 % (0-10); Hemoglobin 13.8 g/dL (12.0-16.0); Lymphocytes 30 % (21-51); MDiff Complete? YES; Mean Corpuscular HGB CONC 30.4 g/dL (32.0-36.0); Mean Corpuscular Hemoglobin 28.2 pg (27.0-31.0); Mean Corpuscular Volume 92.9 fL (78.0-98.0); Mean Platelet Volume 6.9 fL (7.4-10.4); Monocytes 15 % (0-10); Neutrophil 19 % (42-75); Platelet Count 491 thou/uL (130-400); RBC Distribution Width 13.8 % (11.5-14.5); Reactive Lymphocytes 1 % (0-10)
[2020-01-03] MEDS: Budesonide 0.5 MG/2 ML NEB INH SCH ×2 (07:33→19:40)
[2020-01-03] MEDS: Aspirin 81 mg Enteric Coated Tablet PO SCH (08:36)
[2020-01-03] MEDS: hydrALAZINE 25 MG TAB PO SCH (08:36)
[2020-01-03] MEDS: Spironolactone 25 MG TAB PO SCH (08:36)
[2020-01-03] MEDS: Isosorbide Dinitrate 5 MG TAB PO SCH (08:36)
[2020-01-03] MEDS: Digoxin 0.25 MG TAB PO SCH (08:36)
[2020-01-03] MEDS: Lidocaine Patch Removal TOP SCH (08:37)
[2020-01-03] MEDS: Pantoprazole 40 MG VIAL IVP SCH (08:37)
--- NOTE | 2020-01-03 09:31 | PRG ---
DATE OF SERVICE: 01/03/2020 SUBJECTIVE: Ms. Anguiano is postoperative day #3 from exploratory laparoscopy per Dr. Beltran. He performed this for evaluation of potential obstructive issue. There was none found. The patient apparently had an unremarkable weekend. Her nasogastric tube was clamped and subsequently removed. She has been in a foul mood according to the staff here and she is quite rude upon initial visit with myself as well. She is demanding solid food. She apparently had one episode of emesis yesterday, but she tells me this was a gagging response to a bad smells from a bowel movement and tells me that she has had no problems with nausea and that she has been having bowel movements. She denies abdominal pain other than incisional issues. PHYSICAL EXAMINATION: VITAL SIGNS: She is afebrile with a temperature of 98.0. Her pulse is 106, blood pressure 115/70. LUNGS: Clear to auscultation anteriorly. CARDIAC: Regular rate and rhythm. ABDOMEN: Soft and nondistended. She has substantial bruising around her incisions, but tenderness. Bowel sounds are present, but appear to be quite hypoactive this morning. LABORATORY EVALUATION: Reveals that her CO2 has dropped from yesterday when it was 35 down to 21 today. Her renal function is normal with a creatinine of 0.99. Her bilirubin, which had been elevated somewhat previously is back down to normal at 0.9. Her CBC shows an elevation of her white blood cell count from 12 yesterday up to 14 today and she has a bandemia of 34%. ASSESSMENT: Her examination is entirely unremarkable and she tells me she is hungry and is demanding solid food. A regular diet has already been written for by hospitalist, but I agree with this. She needs to increase her activity and ambulate on the floor several times per day. We will continue to follow her to make sure that there is no problem that is foreshadowed by her laboratory abnormalities. As of now, I cannot discern any significant abnormality, however. Dr. Beltran will return to resume her care tomorrow. Job ID: [id number]
--- NOTE | 2020-01-03 10:54 | PRG ---
DATE OF SERVICE: 01/03/2020 SUBJECTIVE: Sophia Anguiano is day 4 postop exploratory laparoscopy with Dr. Beltran, bowel obstruction. This morning, she is better, less short of breath. Pulmonary was seeing her for COPD issues. OBJECTIVE: VITAL SIGNS: Temperature 98, pulse 106, blood pressure 150/70, and respiratory rate 18. CHEST: Decreased breath sounds. No wheezing. CARDIAC: Normal S1 and S2. No gallops. ABDOMEN: No masses. LABORATORY DATA: Lytes are normal. ASSESSMENT: Chronic obstructive pulmonary disease, stable. congestive heart failure, stable. Status post lap. PLAN: Continue PT and supportive care. Disposition as per Surgery. Job ID: [id number]
[2020-01-03] MEDS: Sodium Chloride 0.45% 1,000 ML IV SCH (11:52)
[2020-01-03] MEDS: Nicotine 14 MG PATCH TD SCH (17:46)
--- NOTE | 2020-01-03 18:28 | PDOC.HOSPP ---
- Subjective Encounter Date: 01/03/20 Encounter Time: 10:30 Subjective: The patient is doing well today. She had no abdominal pain, nausea or vomiting. She ambulated yesterday with no difficulty. Demanding on eating solid food. She is scheduled for life vest placement today by cardiology. She has no cough - Objective Vital Signs & Weight: Vital Signs (12 hours) Temp Pulse Resp BP BP BP Pulse Ox 01/03/20 17:53 95 01/03/20 16:02 98.7 F 104 H 16 106/52 L 95 01/03/20 12:29 111 H 20 97 01/03/20 11:46 99.0 F 104 H 20 110/68 96 01/03/20 08:36 106 H 115/70 01/03/20 08:35 92 L 01/03/20 08:00 98.0 F 106 H 20 115/70 92 L 01/03/20 07:34 96 01/03/20 07:30 102 H 20 96 Weight Weight 147 lb 6.4 oz Most Recent Monitor Data Heart Rate from ECG 97 NIBP 125/61 NIBP BP-Mean 82 Respiration from ECG 21 SpO2 95 I&O: 01/02/20 01/03/20 01/04/20 06:59 06:59 06:59 Intake Total 2633 1500 Output Total 1675 1200 Balance 958 300 Result Diagrams: 01/03/20 05:14 01/03/20 05:14 Additional Labs: Accuchecks 12/31/19 12:11 POC Glucose 94 Hospitalist ROS - Review of Systems Constitutional: denies: fever, chills - Medication Medications: Active Medications Generic Name Dose Route Start Last Admin Trade Name Viviane PRN Reason Stop Dose Admin Albuterol/Ipratropium 3 ml 12/27/19 13:00 01/03/20 12:29 Duoneb NEB 3 ml [id number] FRANNY Administration Aspirin 81 mg 12/29/19 09:00 01/03/20 08:36 Ecotrin PO 81 mg DAILY FRANNY Administration Budesonide 0.5 mg 12/28/19 06:30 01/03/20 07:33 Pulmicort Neb Solution INH 0.5 mg BID-RT FRANNY Administration Digoxin 0.25 mg 12/30/19 09:00 01/03/20 08:36 Lanoxin PO 0.25 mg QAM FRANNY Administration Piperacillin Sod/Tazobactam 100 mls @ 200 mls/hr 12/27/19 13:00 01/03/20 12: 29 Sod 4.5 gm/ Sodium Chloride IVPB 100 mls Q8H FRANNY Administration Sodium Chloride 1,000 mls @ 50 mls/hr 01/01/20 17:00 01/03/20 11:52 1/2 Normal Saline IV 1,000 mls .Q20H FRANNY Administration Ketorolac Tromethamine 15 mg 12/31/19 13:33 01/02/20 10:19 Toradol IVP 01/05/20 13:34 15 mg Q6H PRN Administration Pain Lidocaine 1 patch 12/31/19 21:00 01/02/20 20:42 Lidoderm 5% Patch TD 1 patch 2100 FRANNY Administration Miscellaneous Medication 1 each 01/01/20 09:00 01/03/20 08:37 Lidocaine Patch Removal TOP Not Given 0900 FRANNY Morphine Sulfate 4 mg 12/31/19 13:32 01/01/20 12:52 Morphine SLOW IVP 4 mg Q2H PRN Administration Pain Morphine Sulfate 2 mg 12/31/19 13:35 01/01/20 09:56 Morphine SLOW IVP 2 mg Q2H PRN Administration Severe Pain (7-10) Nicotine 14 mg 12/27/19 18:00 01/03/20 17:46 Nicoderm Patch TD 14 mg 1800 FRANNY Administration Ondansetron HCl 4 mg 12/29/19 16:35 12/30/19 01:59 Zofran IVP 4 mg Q6H PRN Administration Nausea/Vomiting Pantoprazole Sodium 40 mg 12/28/19 09:00 01/03/20 08:37 Protonix IVP 40 mg DAILY FRANNY Administration Sodium Chloride 10 ml 12/27/19 21:00 01/03/20 11:51 Flush - Normal Saline IVF 10 ml Q12HR FRANNY Administration Sodium Chloride 10 ml 12/27/19 09:25 12/28/19 05:17 Flush - Normal Saline IVF 10 ml PRN PRN Administration Saline Flush Spironolactone 25 mg 12/30/19 08:00 01/03/20 08:36 Aldactone PO 25 mg QAM-WM FRANNY Administration - Exam General Appearance: NAD, awake alert Heart: RRR, no murmur, no gallops, no rubs Respiratory: CTAB, no wheezes, no rales Gastrointestinal: soft, non-tender, non-distended, normal bowel sounds Extremities: no cyanosis, no clubbing, no edema Hosp A/P - Plan CXR 12/27: cardiomegaly with pulmonary edema CTA thorax 12/27: mild cardiomegaly, small right and tiny left pleural effusions. Right sided rib fractures, remote RUQ US 12/27: thickened GB wall with GB wall edema versus pericholecystic fluid. GB polyp noted CT abdomen 12/27: ascites, mild peripancreatic fat stranding with early pancreatitis. Moderate diverticulosis. GB wall thickening Abd X ray 12/30: minimal bibasilar parenchymal changes in lung bases. Persistently abnormal dilated SBO with air and fluid with little change from prior dstudy. HIDA 12/28: no acute cholecystitis Abdominal X ray 12/29: dilated gas filled loops of small bowel within the right upper quadrant abdomen suspicious for ileus or partial SBO CT abdomen 12/30: increasing small bowel distension. Contracted GB. Worsening atelectasis This is a 59 year old female who presented to the emergency room with abdominal pain, admitted for ileus vs partial SBO s/p laparotomy Abd pain secondary to ileus -NG tube removed. Advanced to regular diet - had GB wall edema on ultrasound, ascites and possibly pancreatitis on CT. HIDA scan showed no acute alicja - laparoscopy 12/31 unremarkable except for some small adhesions. Continue zosyn empirically post op for few more days Systolic CHF- - ECHo showed EF 25-30% with severe MR and moderate AR - lasix on hold due to decreased oral intake. Cardiology plans to do a life= vest - continue digoxin - continue spironolactone Cough- likely from atelectasis - chest X ray unremarkable - needs to get out of bed COPD - continue pulmicort - duoneb prn Disposition: will transfer to telemetry
[2020-01-03] MEDS: Lidocaine 5% Patch TD SCH (20:40)
[2020-01-04 04:31] LABS: #Basophils 0.1 thou/uL (0.0-0.2); #Eosinphils 0.1 thou/uL (0.0-0.7); #Lymphocytes 3.5 thou/uL (1.20-3.40); #Monocytes 1.3 thou/uL (0.11-0.59); #Neutrophils 9.1 thou/uL (1.40-6.50); %Basophils 0.4 % (0.0-1.0); %Lymphocytes 24.6 % (21.0-51.0); %Monocytes 9.5 % (0.0-10.0); %Neutrophils 64.6 % (42.0-75.0); Hemoglobin 13.2 g/dL (12.0-16.0); Mean Corpuscular HGB CONC 31.4 g/dL (32.0-36.0); Mean Corpuscular Hemoglobin 29.3 pg (27.0-31.0); Mean Corpuscular Volume 93.4 fL (78.0-98.0); Mean Platelet Volume 6.8 fL (7.4-10.4); Platelet Count 499 thou/uL (130-400); RBC Distribution Width 13.9 % (11.5-14.5); White Blood Cell (WBC) Count 14.1 thou/uL (4.8-10.8)
[2020-01-04 04:34] LABS: ALT (SGPT) 23 U/L (8-55); AST (SGOT) 14 U/L (5-34); Albumin 3.1 g/dL (3.5-5.0); Alkaline Phosphatase 113 U/L (40-110); Anion Gap 14 mmol/L (10-20); BUN (Urea Nitrogen) 8 mg/dL (9.8-20.1); Bilirubin, Total 0.6 mg/dL (0.2-1.2); Calc. Creatinine Clearance 73 mL/min (70-130); Calcium 8.1 mg/dL (7.8-10.44); Carbon Dioxide 19 mmol/L (22-29); Chloride 105 mmol/L (98-107); Estimated GFR-MDRD 67; Globulin 2.6 g/dL (2.4-3.5); Glucose 111 mg/dL (70-105); Potassium 3.8 mmol/L (3.5-5.1); Protein, Total 5.7 g/dL (6.0-8.3); Sodium 134 mmol/L (136-145)
[2020-01-04] MEDS: Piperacillin/Tazobactam 4.5 GM in Sodium Chloride 0.9% 100 ML IVPB SCH ×3 (05:27→19:58)
[2020-01-04] MEDS: Budesonide 0.5 MG/2 ML NEB INH SCH ×2 (07:30→19:11)
[2020-01-04] MEDS: Morphine 2 MG/ML SYRINGE SLOW IVP PRN ×2 (07:36→13:13)
[2020-01-04] MEDS: Sodium Chloride 0.45% 1,000 ML IV SCH (07:44)
--- NOTE | 2020-01-04 09:49 | PRG ---
DATE OF SERVICE: 01/04/2020 SUBJECTIVE: This morning, she is having a little discomfort, abdominal pain, but no shortness of breath. OBJECTIVE: VITAL SIGNS: Temperature 97, respiratory rate 20, o2 sats 94%, blood pressure 108/70. CHEST: No wheezing or crackles. CARDIAC: Normal S1 and S2. No gallops. ABDOMEN: No masses. LABORATORY DATA: Labs are unremarkable. Lytes are normal. IMPRESSION AND PLAN: Status post exploratory laparotomy for adhesions, congestive heart failure, chronic obstructive pulmonary disease, and deconditioning. Pulmonary [place], she is stable enough for transfer to rehab. Job ID: [id number] [facility]
[2020-01-04] MEDS: Ketorolac Tromethamine 30 MG/ML VIAL IVP PRN (10:10)
[2020-01-04] MEDS: Aspirin 81 mg Enteric Coated Tablet PO SCH (10:11)
[2020-01-04] MEDS: Digoxin 0.25 MG TAB PO SCH (10:11)
[2020-01-04] MEDS: Lidocaine Patch Removal TOP SCH (10:12)
[2020-01-04] MEDS: Pantoprazole 40 MG VIAL IVP SCH (10:12)
[2020-01-04] MEDS: Spironolactone 25 MG TAB PO SCH (10:12)
[2020-01-04] MEDS ORDERED: Fentanyl 100 MCG/2 ML VIAL SLOW IVP PRN (11:21)
[2020-01-04] MEDS ORDERED: Iopamidol 370 76% 100 ML VIAL ONE (14:46)
--- NOTE | 2020-01-04 14:54 | ULT ---
TRANSABDOMINAL PELVIC ULTRASOUND: HISTORY: Severe lower abdominal pain. Vaginal pain. TECHNIQUE: Transabdominal imaging of the pelvis is performed. Right ovary is interrogated with grayscale, color flow, Doppler imaging and spectral waveform analysis. FINDINGS: Uterus is identified, measuring 6.5 x 2.2 x 3.8 cm. Suboptimal evaluation of the endometrium. Visualized endometrium is 0.3 cm. Left ovary is not appreciated and has been reported by alterations supervisor to have been surgically removed. T here is no free fluid in the left adnexa. Right ovary has a normal echotexture, measuring 2.8 x 1.5 x 1.8 cm. No free fluid in the right adnexa . Ovarian Doppler: Vascular flow to the right ovary. IMPRESSION: Unremarkable pelvic ultrasound, which is limited due to patient's age and patient's refusal to underg o endovaginal imaging. Transcribed Date/Time: 01/04/2020 2:59 PM
--- NOTE | 2020-01-04 15:01 | CT ---
CT ABDOMEN AND PELVIS WITH IV CONTRAST 01/04/2020 CLINICAL INFORMATION: Severe abdominal pain post laparotomy bruising to left side of abdomen. COMPARISON: 12/27/2019 and 12/30/2019 Technique: Multiple contiguous axial CT images are obtained through the abdomen and pelvis with IV contrast. Cor onal reformatted images are provided. FINDINGS: Lower Chest: Bibasilar atelectasis. Vessels: Vascular calcifications in the abdominal aorta and involving the iliac arteries. Abdomen: Portal vein:Patent Gallbladder: Within normal limits for CT imaging. Liver: within normal limits. Spleen: within normal limits. Pancreas: within normal limits. Adrenals: within normal limits. Kidneys: within normal limits. Bowel: Again noted are dilated loops of small bowel seen throughout the abdomen measuring up to 3.5 c m in diameter with normal caliber distal ileum. These findings were also seen on study of 12/30/2019. Normal caliber distal ileum with dilated loops of small bowel more proximally suggests a p artial small bowel obstruction. Appendix: The appendix is visualized and normal in caliber. Peritoneum: There is free intraperitoneal gas seen within the abdomen and pelvis with small amount of free fluid seen within the central mesentery and in the paracolic gutters as well as in the pelvis. Free intraperitoneal gas within the abdomen could be related to recent surgery. No fluid pushpa ection is seen to suggest an abscess. Mesentery and Retroperitoneum: No enlarged mesenteric or retroperitoneal lymph nodes. Abdominal Wall: There is mild subcutaneous edema seen involving the left anterolateral abdomen. No adam bcutaneous fluid collection is identified. There is a soft tissue defect seen in the left lower quadrant as well as in the left upper quadrant which may be sites of prior port placement. Pelvis: Reproductive Organs: No pelvic masses. Pelvis within normal limits. Bladder: within normal limits. Bones: Degenerative changes are again seen in the spine. IMPRESSION: 1. Findings again worrisome for a partial small bowel obstruction with transition to more normal phong larry distal ileum. Exact etiology for partial small bowel obstruction is uncertain based on this exam. Findings are overall similar to the study on 12/30/2019. 2. Free intraperitoneal gas as well as small amount of free fluid and minimal mesenteric edema in the abdomen and pelvis which may be related to recent surgery. Clinical correlation is recommended. 3. Above findings discussed with Cortney, nurse in charge of the patient's hospital care on the [facility] floor on 01/04/2020 at 1449 hours.
[2020-01-04] MEDS: Morphine 4 MG/ML VIAL SLOW IVP PRN ×3 (15:22→19:57)
[2020-01-04] MEDS: Nicotine 14 MG PATCH TD SCH (17:47)
--- NOTE | 2020-01-04 18:04 | PDOC.HOSPP ---
- Subjective Encounter Date: 01/04/20 Encounter Time: 18:03 Subjective: The patient reports 10/10 pain that started this morning. Started in vaginal area and radiated upwards. No relief with morphine and toradol. Patient is asking for something to put her to sleep because she can't stand the pain. Patient did not get her life-vest yesterday - Objective Vital Signs & Weight: Vital Signs (12 hours) Temp Pulse Resp BP Pulse Ox 01/04/20 16:00 98.8 F 110 H 20 101/57 L 95 01/04/20 12:32 97.7 F 01/04/20 12:00 96.7 F L 109 H 24 H 108/59 L 94 L 01/04/20 10:11 109 H 01/04/20 08:00 97.9 F 99 20 118/70 94 L Weight Weight 147 lb 6.4 oz Most Recent Monitor Data Heart Rate from ECG 97 NIBP 125/61 NIBP BP-Mean 82 Respiration from ECG 21 SpO2 95 I&O: 01/03/20 01/04/20 01/05/20 06:59 06:59 06:59 Intake Total 1500 1600 1193 Output Total 1200 1200 300 Balance 300 400 893 Result Diagrams: 01/04/20 03:36 01/04/20 03:36 Hospitalist ROS - Review of Systems Constitutional: denies: fever, chills Gastrointestinal: denies: nausea, vomiting - Medication Medications: Active Medications Generic Name Dose Route Start Last Admin Trade Name Freq PRN Reason Stop Dose Admin Albuterol/Ipratropium 3 ml 12/27/19 13:00 01/04/20 13:54 Duoneb NEB Not Given [id number] FRANNY Aspirin 81 mg 12/29/19 09:00 01/04/20 10:11 Ecotrin PO 81 mg DAILY FRANNY Administration Budesonide 0.5 mg 12/28/19 06:30 01/04/20 07:30 Pulmicort Neb Solution INH Not Given BID-RT FRANNY Digoxin 0.25 mg 12/30/19 09:00 01/04/20 10:11 Lanoxin PO 0.25 mg QAM FRANNY Administration Fentanyl 25 mcg 01/04/20 11:21 01/04/20 11:42 Sublimaze SLOW IVP 01/04/20 23:00 25 mcg ONE PRN Administration Moderate to Severe Pain (6-10) Piperacillin Sod/Tazobactam 100 mls @ 200 mls/hr 12/27/19 13:00 01/04/20 15: 08 Sod 4.5 gm/ Sodium Chloride IVPB 100 mls Q8H FRANNY Administration Sodium Chloride 1,000 mls @ 50 mls/hr 01/01/20 17:00 01/04/20 07:44 1/2 Normal Saline IV 1,000 mls .Q20H FRANNY Administration Ketorolac Tromethamine 15 mg 12/31/19 13:33 01/04/20 10:10 Toradol IVP 01/05/20 13:34 15 mg Q6H PRN Administration Pain Lidocaine 1 patch 12/31/19 21:00 01/03/20 20:40 Lidoderm 5% Patch TD 1 patch 2100 FRANNY Administration Miscellaneous Medication 1 each 01/01/20 09:00 01/04/20 10:12 Lidocaine Patch Removal TOP Not Given 0900 FRANNY Morphine Sulfate 4 mg 12/31/19 13:32 01/04/20 17:43 Morphine SLOW IVP 4 mg Q2H PRN Administration Pain Morphine Sulfate 2 mg 12/31/19 13:35 01/04/20 13:13 Morphine SLOW IVP 2 mg Q2H PRN Administration Severe Pain (7-10) Nicotine 14 mg 12/27/19 18:00 01/04/20 17:47 Nicoderm Patch TD 14 mg 1800 FRANNY Administration Ondansetron HCl 4 mg 12/29/19 16:35 12/30/19 01:59 Zofran IVP 4 mg Q6H PRN Administration Nausea/Vomiting Pantoprazole Sodium 40 mg 12/28/19 09:00 01/04/20 10:12 Protonix IVP 40 mg DAILY FRANNY Administration Sacubitril/Valsartan 1 tab 01/03/20 21:00 01/04/20 10:27 Entresto 24 Mg-26 Mg Tablet PO 1 tab BID FRANNY Administration Sodium Chloride 10 ml 12/27/19 21:00 01/04/20 10:12 Flush - Normal Saline IVF Not Given Q12HR FRANNY Sodium Chloride 10 ml 12/27/19 09:25 12/28/19 05:17 Flush - Normal Saline IVF 10 ml PRN PRN Administration Saline Flush Spironolactone 25 mg 12/30/19 08:00 01/04/20 10:12 Aldactone PO 25 mg QAM-WM FRANNY Administration - Exam General Appearance: NAD, awake alert Eye: PERRL, anicteric sclera ENT: normocephalic atraumatic, no oropharyngeal lesions Neck: no JVD Heart: RRR, no murmur, no gallops, no rubs Respiratory: CTAB, no wheezes, no rales, no ronchi Gastrointestinal: soft Gastrointestinal - other findings: abdomen distended with hypoactive bowel sounds. Diffuse tenderness Extremities: no cyanosis, no clubbing, no edema Skin: normal turgor, no lesions, no rashes Hosp A/P - Plan CXR 12/27: cardiomegaly with pulmonary edema CTA thorax 12/27: mild cardiomegaly, small right and tiny left pleural effusions. Right sided rib fractures, remote RUQ US 12/27: thickened GB wall with GB wall edema versus pericholecystic fluid. GB polyp noted CT abdomen 12/27: ascites, mild peripancreatic fat stranding with early pancreatitis. Moderate diverticulosis. GB wall thickening Abd X ray 12/30: minimal bibasilar parenchymal changes in lung bases. Persistently abnormal dilated SBO with air and fluid with little change from prior dstudy. HIDA 12/28: no acute cholecystitis Abdominal X ray 12/29: dilated gas filled loops of small bowel within the right upper quadrant abdomen suspicious for ileus or partial SBO CT abdomen 12/30: increasing small bowel distension. Contracted GB. Worsening atelectasis CT abdomen 01/04: partial small bowel obstruction with intraperitoneal gas and mesenteric edema in the abdomen Pelvic Ultrasound: unremarkable This is a 59 year old female who presented to the emergency room with abdominal pain, admitted for ileus vs partial SBO s/p laparotomy Abd pain secondary to ileus -NG tube removed. Advanced to regular diet - had GB wall edema on ultrasound, ascites and possibly pancreatitis on CT. HIDA scan showed no acute alicja - laparoscopy 12/31 unremarkable except for some small adhesions. Continue zosyn - CT abdomen today shows partial SBO. Discussed CT with Dr. Beltran who thinks it is an ileus - pelvic ultrasound unremarkable but limited due to patient's refusal - fentany IV prn Systolic CHF- - ECHo showed EF 25-30% with severe MR and moderate AR - lasix on hold due to decreased oral intake. Cardiology plans to do a life- vest - continue digoxin - continue spironolactone COPD - continue pulmicort - duoneb prn Disposition: will transfer to telemetry
[2020-01-04] MEDS: Lidocaine 5% Patch TD SCH (19:58)
--- NOTE | 2020-01-04 21:14 | PRG ---
DATE OF SERVICE: 01/04/2020 SUBJECTIVE: Temperature 98.8 degrees, heart rate 112, respiratory rate 20, and blood pressure 101/57. Heart rate has been mostly elevated at 95 to 110 since admission. She is 5 days status post laparoscopy for suspected bowel obstruction, finding absence of any adhesions and without mechanical obstruction. Diet has been advanced, and discharge held yesterday for cardiology medication adjustments. Today, the patient was complaining of increased abdominal pain. Her white count was 14 and hemoglobin 13. She had 34 bands yesterday, 13 bands day before, but no left shift today. Sodium 134, potassium 3.8, creatinine 0.86. CAT scan of the abdomen and pelvis was ordered today as well as a pelvic ultrasound. The patient refused vaginal approach, and pelvic ultrasound was unrewarding. No abnormalities were noted. CAT scan of the abdomen and pelvis revealed dilated loops of small bowel seen throughout the abdomen, measuring up to 3.5 cm, suggestive of transition zone as it did preoperatively. Postoperative changes noted from the trocar sites. Free air noted in the abdomen related to recent surgery. Most likely, no significant fluid collection. No definite abnormalities noted. The patient since this morning has complained of decreased pain. She is however receiving morphine. OBJECTIVE: LUNGS: Clear to auscultation. CARDIAC: Regular rate and rhythm without murmur or gallop. ABDOMEN: Soft. Bowel sounds present. Slightly distended. EXTREMITIES: Unremarkable. Note: Hepatobiliary scan was normal, EF not obtained. Abdominal ultrasound on 12/20/2019. Some thickened gallbladder wall, small gallbladder polyp noted, insignificant value. ASSESSMENT AND PLAN: Abdominal pain. This is related to her small bowel distention. Laparoscopy performed 5 days ago, did not reveal mechanical obstruction. At this point, her abdomen is slightly distended, protuberant, tympanitic, and slightly tender, but peritoneal signs are not present. She does have bowel sounds. At this point, we will repeat abdominal x-rays in the morning and pending the results. Consider small-bowel follow-through. Continue clear liquids and minimize intake tonight. Continue observation. Job ID: [id number]
[2020-01-05] MEDS: Morphine 4 MG/ML VIAL SLOW IVP PRN ×4 (01:56→22:25)
[2020-01-05 04:31] LABS: ALT (SGPT) 17 U/L (8-55); AST (SGOT) 12 U/L (5-34); Albumin 3.1 g/dL (3.5-5.0); Alkaline Phosphatase 116 U/L (40-110); Anion Gap 13 mmol/L (10-20); BUN (Urea Nitrogen) 13 mg/dL (9.8-20.1); Bilirubin, Total 0.8 mg/dL (0.2-1.2); Calc. Creatinine Clearance 73 mL/min (70-130); Calcium 8.4 mg/dL (7.8-10.44); Carbon Dioxide 17 mmol/L (22-29); Chloride 103 mmol/L (98-107); Estimated GFR-MDRD 66; Globulin 2.8 g/dL (2.4-3.5); Glucose 107 mg/dL (70-105); Potassium 4.1 mmol/L (3.5-5.1); Protein, Total 5.9 g/dL (6.0-8.3); Sodium 129 mmol/L (136-145)
[2020-01-05] MEDS: Piperacillin/Tazobactam 4.5 GM in Sodium Chloride 0.9% 100 ML IVPB SCH (05:00)
[2020-01-05 05:05] LABS: Band 47 % (5-11); Hemoglobin 14.8 g/dL (12.0-16.0); Lymphocytes 17 % (21-51); MDiff Complete? YES; Mean Corpuscular Hemoglobin 28.6 pg (27.0-31.0); Mean Corpuscular Volume 92.3 fL (78.0-98.0); Mean Platelet Volume 6.7 fL (7.4-10.4); Monocytes 7 % (0-10); Neutrophil 29 % (42-75); Platelet Count 574 thou/uL (130-400); RBC Distribution Width 14.1 % (11.5-14.5); Red Blood Cell (RBC) Count 5.18 mill/uL (4.20-5.40); White Blood Cell (WBC) Count 23.1 thou/uL (4.8-10.8)
[2020-01-05] MEDS: Sodium Chloride 0.45% 1,000 ML IV SCH (05:34)
--- NOTE | 2020-01-05 05:58 | PDOC.EVN ---
Event Note - Event Note Event Note: Notified by RN patient with hyponatremia, Na+ 129, was 134 yesterday. Reviewed and discussed with Dr. Alvarado who agrees with plan to d/c IV fluids. She is currently on 1/2 NS IV at 50 cc/hr. In light of kidney function improvement and low Na+, will d/c IV fluids.
[2020-01-05] MEDS: Budesonide 0.5 MG/2 ML NEB INH SCH ×2 (07:45→19:34)
--- NOTE | 2020-01-05 08:38 | RAD ---
Chest one view Abdomen 2 views HISTORY: Abdominal pain. Ileus. Recent surgery. COMPARISON: CT 01/04/2020. FINDINGS: Cardiac silhouette and pulmonary vasculature are unremarkable. Mediastinum is midline. Line ar parenchymal opacity at the lung bases, left greater than right, has the appearance of linear atelectasis. Free subdiaphragmatic gas is again demonstrated consistent with pneumoperitoneum from recent surgery. Left subclavian central venous catheter remains in place. Gaseous distention of the small bowel with differential air-fluid levels is similar to CT from 01/04/20 20. Relatively little gas evident within the colon. There are degenerative changes of the lumbar spine and hips. IMPRESSION: Gaseous distention of the small bowel, air-fluid levels, and pneumoperitoneum, and other findings are stable compared to most recent CT. Mild atelectasis at the lung bases.
[2020-01-05] MEDS: Digoxin 0.25 MG TAB PO SCH (08:47)
[2020-01-05] MEDS: Spironolactone 25 MG TAB PO SCH (08:47)
[2020-01-05] MEDS: Aspirin 81 mg Enteric Coated Tablet PO SCH (08:47)
[2020-01-05] MEDS: Lidocaine Patch Removal TOP SCH (08:48)
[2020-01-05] MEDS: Pantoprazole 40 MG VIAL IVP SCH (08:48)
--- NOTE | 2020-01-05 09:27 | PRG ---
DATE OF SERVICE: 01/05/2020 SUBJECTIVE: A 59-year-old female, status post lap. She had an x-ray taken last night, which showed pneumoperitoneum, but otherwise no other acute infiltrate is seen on a chest x-ray. She may still have some ileus. She has laparoscopically correction of adhesions. OBJECTIVE: VITAL SIGNS: Temperature 98, pulse 108, respiratory rate 20, saturations 98% on room air, blood pressure 115/55. CHEST: Decreased breath sounds. No wheezing. CARDIAC: Normal S1 and S2. No gallops. ABDOMEN: No masses. LABORATORY DATA: White count 23,000. H and H are unremarkable. Significant bandemia. Sodium 129. IMPRESSION: Status post exploratory laparotomy, respiratory failure, chronic obstructive pulmonary disease, cardiomyopathy. Concern about leukocytosis. Continue antibiotics as per Surgery. Continue PT. Continue neb treatments. We will follow. Job ID: [id number]
[2020-01-05] MEDS ORDERED: cefTRIAXone\\ROCEPHIN 1 GM in Sodium Chloride 0.9% 100 ML IVPB SCH (11:00)
[2020-01-05] MEDS: Morphine 2 MG/ML SYRINGE SLOW IVP PRN ×4 (12:03→20:19)
[2020-01-05] MEDS: Sodium Chloride 0.9% 1,000 ML IV SCH (13:09)
--- NOTE | 2020-01-05 13:21 | PQF ---
RANDY MICHEL LOUISE, [facility] [id number] CLINICAL DOCUMENTATION IMPROVEMENT CLARIFICATION FORM: ICD-10 Updated PLEASE DO AN ADDENDUM TO THE PROGRESS NOTE WITH ANY DOCUMENTATION UPDATES OR ADDITIONS AND CARRY THROUGH TO DC SUMMARY. THANK YOU. DATE: 01/05/2020 , 01/06/2020 ATTN: DR. LUCAS Please exercise your independent, professional judgment in responding to the clarification form. Clinical indicators are provided on the bottom of this form for your review. Please check appropriate box(es): [ X ] Sepsis due to: (Pna, UTI, gangrenous gall bladder, etc.) __intra- abdominal infection possibly [ ] SIRS due to non-infectious process (please specify etiology) [ ] with organ dysfunction [ ] without organ dysfunction [ ] Severe sepsis with acute organ dysfunction of: (Examples: respiratory failure, encephalopathy, acute kidney failure, other) [ ] Septic Shock [ ] Localized infection without sepsis [ ] Other diagnosis [ ] Unable to determine In addition, please specify: Present on Admission (POA): [X ] Yes [ ] No [ ] Unable to determine For continuity of documentation, please document condition throughout progress notes and discharge summary. Thank You. CLINICAL INDICATORS - SIGNS / SYMPTOMS / LABS / RESULTS AND LOCATION IN MR WBC 16.9 > 23.1 > 21.8 > 17.8> 16.6> 12.1> 13.1> 12.1> 14.0> 14.1 > 23.1 BANDS 4 > 4 > 2 > 13 > 13 > 34 > 47 12/26 ED REPORT : RESP , PULSE 101-110 12/26 H&P (MORENO) A/P : 1). HER PRESENTATION IS POSITIVE FOR SYSTEMIC INFLAMMATORY RESPONSE SYNDROME, BUT THERE IS NO SOURCE OF INFECTION. 12/28 PN (JOSE CRUZ) PLAN: SEPSIS? ETIOLOGY- ? GI SOURCE- WILL DISCONTINUE VANCOMYCIN, BUT CONTINUE ZOSYN FOR NOW, 12/30 PN (JOSE CRUZ) PLAN: SEPSIS? BLOOD CULTURES ARE NEGATIVE, WILL CONSIDER SCALING BACK HIS ANTIBIOTICS 12/31 PN (JOSE CRUZ) PLAN :SEPSIS? BLOOD CULTURES ARE NEGATIVE, WILL CONSIDER SCALING BACK HIS ANTIBIOTICS DEPENDING ON THE EXPLORATORY LAP FINDINGS. RISK: DX SIRS, ABD PAIN/ (H&P/MORENO) 12/27, SMALL BOWEL OBSTRUCTION (PN/LOUISE) 01/06 TREATMENTS: SERIAL LABS (12/26 - PRESENT) BLOOD CULTURE X 2 (12/26) ZOSYN IV ( 12/27- PRESENT) THANK YOU! BACILIO (This form is maintained as a part of the permanent medical record) 2014 [employer] [facility] All Rights Reserved AMAURY [email or web address] [phone] [email or web address]
[2020-01-05] MEDS: Meropenem 2 GM, Admixture Fee 1 EACH in Sodium Chloride 0.9% 100 ML IVPB SCH ×2 (14:32→22:25)
[2020-01-05] MEDS: Nicotine 14 MG PATCH TD SCH (16:32)
--- NOTE | 2020-01-05 17:17 | PDOC.HOSPP ---
- Subjective Encounter Date: 01/05/20 Encounter Time: 11:30 Subjective: The patient continues to have some abdominal pain. She states it is in her RLQ. She has some relief with morphine but is pretty restless. CT yesterday shows partial SBO, per surgery they think it is ileus. She is passing gas - Objective Vital Signs & Weight: Vital Signs (12 hours) Temp Pulse Resp BP Pulse Ox 01/05/20 15:12 98.2 F 104 H 20 89/57 L 95 01/05/20 11:54 98 F 113 H 18 103/57 L 95 01/05/20 08:47 110 H 01/05/20 07:40 98.2 F 108 H 20 115/55 L 95 Weight Weight 144 lb 9.6 oz Most Recent Monitor Data Heart Rate from ECG 97 NIBP 125/61 NIBP BP-Mean 82 Respiration from ECG 21 SpO2 95 I&O: 01/04/20 01/05/20 01/06/20 06:59 06:59 06:59 Intake Total 1600 2693 Output Total 1200 400 Balance 400 2293 Result Diagrams: 01/05/20 03:58 01/05/20 03:58 Hospitalist ROS - Review of Systems Constitutional: denies: fever, chills - Medication Medications: Active Medications Generic Name Dose Route Start Last Admin Trade Name Levyq PRN Reason Stop Dose Admin Albuterol/Ipratropium 3 ml 12/27/19 13:00 01/05/20 13:40 Duoneb NEB Not Given [id number] FRANNY Aspirin 81 mg 12/29/19 09:00 01/05/20 08:47 Ecotrin PO 81 mg DAILY FRANNY Administration Budesonide 0.5 mg 12/28/19 06:30 01/05/20 07:45 Pulmicort Neb Solution INH Not Given BID-RT FRANNY Digoxin 0.25 mg 12/30/19 09:00 01/05/20 08:47 Lanoxin PO 0.25 mg QAM FRANNY Administration Meropenem 2 gm/ Miscellaneous 100 mls @ 200 mls/hr 01/05/20 14:00 01/05/20 14 :32 Medication 1 each/ Sodium IVPB 100 mls Chloride Q8HR FRANNY Administration Sodium Chloride 1,000 mls @ 75 mls/hr 01/05/20 13:00 01/05/20 13:09 Normal Saline 0.9% IV 1,000 mls .[id number] FRANNY Administration Lidocaine 1 patch 12/31/19 21:00 01/04/20 19:58 Lidoderm 5% Patch TD 1 patch 2100 FRANNY Administration Miscellaneous Medication 1 each 01/01/20 09:00 01/05/20 08:48 Lidocaine Patch Removal TOP Not Given 0900 FRANNY Morphine Sulfate 4 mg 12/31/19 13:32 01/05/20 08:46 Morphine SLOW IVP 4 mg Q2H PRN Administration Pain Morphine Sulfate 2 mg 12/31/19 13:35 01/05/20 16:32 Morphine SLOW IVP 2 mg Q2H PRN Administration Severe Pain (7-10) Nicotine 14 mg 12/27/19 18:00 01/05/20 16:32 Nicoderm Patch TD 14 mg 1800 FRANNY Administration Ondansetron HCl 4 mg 12/29/19 16:35 12/30/19 01:59 Zofran IVP 4 mg Q6H PRN Administration Nausea/Vomiting Pantoprazole Sodium 40 mg 12/28/19 09:00 01/05/20 08:48 Protonix IVP 40 mg DAILY FRANNY Administration Sacubitril/Valsartan 1 tab 01/03/20 21:00 01/05/20 08:55 Entresto 24 Mg-26 Mg Tablet PO 1 tab BID FRANNY Administration Sodium Chloride 10 ml 12/27/19 21:00 01/05/20 09:21 Flush - Normal Saline IVF 10 ml Q12HR FRANNY Administration Sodium Chloride 10 ml 12/27/19 09:25 12/28/19 05:17 Flush - Normal Saline IVF 10 ml PRN PRN Administration Saline Flush Spironolactone 25 mg 12/30/19 08:00 01/05/20 08:47 Aldactone PO 25 mg QAM-WM FRANNY Administration - Exam General Appearance: NAD, awake alert Eye: PERRL, anicteric sclera ENT: normocephalic atraumatic, no oropharyngeal lesions Neck: no JVD Heart: RRR, no murmur, no gallops, no rubs Respiratory: CTAB, no wheezes, no rales, no ronchi Gastrointestinal: soft Gastrointestinal - other findings: mild distension and diffuse mild tenderness Extremities: no edema Hosp A/P - Plan CXR 12/27: cardiomegaly with pulmonary edema CTA thorax 12/27: mild cardiomegaly, small right and tiny left pleural effusions. Right sided rib fractures, remote RUQ US 12/27: thickened GB wall with GB wall edema versus pericholecystic fluid. GB polyp noted CT abdomen 12/27: ascites, mild peripancreatic fat stranding with early pancreatitis. Moderate diverticulosis. GB wall thickening Abd X ray 12/30: minimal bibasilar parenchymal changes in lung bases. Persistently abnormal dilated SBO with air and fluid with little change from prior dstudy. HIDA 12/28: no acute cholecystitis Abdominal X ray 12/29: dilated gas filled loops of small bowel within the right upper quadrant abdomen suspicious for ileus or partial SBO CT abdomen 12/30: increasing small bowel distension. Contracted GB. Worsening atelectasis CT abdomen 01/04: partial small bowel obstruction with intraperitoneal gas and mesenteric edema in the abdomen Pelvic Ultrasound: unremarkable This is a 59 year old female who presented to the emergency room with abdominal pain, admitted for ileus vs partial SBO s/p laparotomy Abd pain secondary to ileus -NG tube removed. Advanced to regular diet - had GB wall edema on ultrasound, ascites and possibly pancreatitis on CT. HIDA scan showed no acute alicja - laparoscopy 12/31 unremarkable except for some small adhesions. - CT abdomen 01/04 for recurrent abdominal pain shows partial SBO. Small bowel follow through ordered by Dr. Beltran - pelvic ultrasound unremarkable but limited due to patient's refusal - WBC has increased with increase in bands, will switch to IV meropenem Systolic CHF- - ECHo showed EF 25-30% with severe MR and moderate AR - Cardiology plans to do a life-vest - continue digoxin - continue spironolactone COPD - continue pulmicort - duoneb prn Disposition: will transfer to telemetry
--- NOTE | 2020-01-05 19:23 | PRG ---
DATE OF SERVICE: 01/05/2020 SUBJECTIVE: Ms. Anguiano today is complaining of back pain. She denies have any abdominal pain. She states that her abdomen is normal size. Abdominal x-rays reveal distended air fluid levels and distended loops of small bowel. A Gastrografin small bowel follow-through was initiated today. Contrast administered and we are awaiting progress and results. The patient has abdominal x-rays ordered in the morning. The patient reports she has had several stools and passed flatus. About 6 days ago, she underwent a laparoscopy. There was no evidence of mechanical obstruction. The patient's main problem is that she was having a back pain, which is chronic for her. OBJECTIVE: VITAL SIGNS: Temperature 98.2, heart rate 104, and blood pressure 99/57. LUNGS: Clear to auscultation. No wheezing. CARDIAC: Regular rate and rhythm. Slightly tachycardic. ABDOMEN: Soft and protuberant. Bowel sounds present. Minimal guarding. No peritoneal signs. LABORATORY DATA: White count 23, hemoglobin 14. She has 47% bands. Chest x-ray does reveal atelectasis, but no obvious pneumonia. She has not had a fever. She is not coughing. Again, her main complaint is her lower back pain. She is taking narcotics for that. ASSESSMENT AND PLAN: Leukocytosis, left shift of uncertain etiology. She is on meropenem and we will probably do not know what we are treating. There is nothing intra-abdominally that I can identify that is responsible for the patient's leukocytosis. Dr. Obando is following her and there is nothing pulmonary obvious. Plan is to repeat her CBC, labs and x-rays in the morning. Continue small-bowel follow-through and observe her. Job ID: [id number]
[2020-01-05] MEDS: Lidocaine 5% Patch TD SCH (22:24)
--- NOTE | 2020-01-05 23:41 | RAD ---
XR Small Bowel STANDARD History: Small bowel obstruction Comparison: CT exam prior day Findings: Contrast does not extend into the large bowel after 7 hours. Impression: Evidence for small bowel obstruction versus high-grade ileus as there is no contrast with in the colon after 7 hours.. A follow-up KUB in the morning recommended.
[2020-01-06] MEDS ORDERED: diphenhydrAMINE 25 MG CAP PO PRN (01:51)
[2020-01-06] MEDS: Sodium Chloride 0.9% 1,000 ML IV SCH ×2 (02:11→14:01)
[2020-01-06] MEDS: Morphine 4 MG/ML VIAL SLOW IVP PRN ×5 (03:44→19:33)
[2020-01-06 05:16] LABS: Band 55 % (5-11); Lymphocytes 9 % (21-51); MDiff Complete? YES; Mean Corpuscular HGB CONC 30.8 g/dL (32.0-36.0); Mean Corpuscular Hemoglobin 28.5 pg (27.0-31.0); Mean Corpuscular Volume 92.7 fL (78.0-98.0); Mean Platelet Volume 6.7 fL (7.4-10.4); Monocytes 9 % (0-10); Neutrophil 27 % (42-75); Platelet Count 546 thou/uL (130-400); Platelet Morphology Comment Appears Increased; RBC Distribution Width 14.2 % (11.5-14.5); Red Blood Cell (RBC) Count 4.89 mill/uL (4.20-5.40); White Blood Cell (WBC) Count 25.4 thou/uL (4.8-10.8)
[2020-01-06 05:22] LABS: ALT (SGPT) 15 U/L (8-55); AST (SGOT) 10 U/L (5-34); Alkaline Phosphatase 135 U/L (40-110); Anion Gap 19 mmol/L (10-20); BUN (Urea Nitrogen) 25 mg/dL (9.8-20.1); Bilirubin, Total 0.7 mg/dL (0.2-1.2); Calc. Creatinine Clearance 36 mL/min (70-130); Calcium 8.7 mg/dL (7.8-10.44); Carbon Dioxide 19 mmol/L (22-29); Chloride 98 mmol/L (98-107); Estimated GFR-MDRD 31; Globulin 3.2 g/dL (2.4-3.5); Glucose 95 mg/dL (70-105); Potassium 3.9 mmol/L (3.5-5.1); Protein, Total 6.2 g/dL (6.0-8.3); Sodium 132 mmol/L (136-145)
[2020-01-06] MEDS: Meropenem 2 GM, Admixture Fee 1 EACH in Sodium Chloride 0.9% 100 ML IVPB SCH ×3 (05:58→22:07)
[2020-01-06] MEDS: Budesonide 0.5 MG/2 ML NEB INH SCH ×2 (07:42→19:25)
[2020-01-06] MEDS: Digoxin 0.25 MG TAB PO SCH (08:23)
[2020-01-06] MEDS: Pantoprazole 40 MG VIAL IVP SCH (08:24)
[2020-01-06] MEDS: Aspirin 81 mg Enteric Coated Tablet PO SCH (08:24)
[2020-01-06] MEDS: Spironolactone 25 MG TAB PO SCH (08:24)
[2020-01-06] MEDS: Lidocaine Patch Removal TOP SCH (09:16)
--- NOTE | 2020-01-06 10:23 | RAD ---
PA AND LATERAL CHEST: Date: 01/06/2020 HISTORY: Patient had exploratory laparotomy at the end of December. Persistent bowel distention. COMPARISON: KUB done today and a CT abdomen and pelvis done 01/04/2020. FINDINGS: Heart size within normal limits. There are atelectatic changes in the left lower lobe. There is free air still visualized under the right hemidiaphragm. This was noted on the previous CT of 01/04/2020. IMPRESSION: 1. Left-sided subclavian line catheter tip overlying the superior vena cava. 2. Subsegmental atelectasis in the left base. 3. Free intraperitoneal air is still demonstrated, similar to the previous 01/04/2020 examination. POS: [facility]
--- NOTE | 2020-01-06 10:25 | RAD ---
KUB AND UPRIGHT: Date: 01/06/2020 HISTORY: Follow-up of small bowel follow-through. COMPARISON: Small bowel follow-through examination dated 01/05/[address] examination of 01/04/2020. FINDINGS: There are persistent dilated small bowel loops with a large amount of contrast still within the small bowel; however, there is also contrast seen within the colon down to the level of the rectum. Colon appears relatively decompressed. IMPRESSION: 1. Persistent free intraperitoneal air. 2. The contrast has progressed to the colon on this examination, but small bowel loops are still dil ated with oral contrast still remaining in the small bowel. The free air appears similar to the previ ous CT examination of 01/04/2020. POS: [facility]
--- NOTE | 2020-01-06 10:25 | PRG ---
DATE OF SERVICE: 01/06/2020 SUBJECTIVE: This morning, no respiratory distress. Still having significant issues with GI tract. Multiple bowel movements. OBJECTIVE: VITAL SIGNS: Temperature 97, pulse 107, respiratory rate 18, saturations 99%, blood pressure 150/64. CHEST: No wheezing or crackles. CARDIAC: Normal S1 and S2. No gallops. ABDOMEN: No masses. LABORATORY DATA: Creatinine 1.70. Slightly elevated white count is 24,000. ASSESSMENT AND PLAN: 1. Status post ileus. 2. Status post lap. 3. Chronic obstructive pulmonary disease. 4. Congestive heart failure. Pulmonary [place], continue supportive care, neb treatments. Ileus, disposition as per Surgery. We will follow. Job ID: [id number]
--- NOTE | 2020-01-06 10:35 | PDOC.HOSPP ---
- Subjective Encounter Date: 01/06/20 Encounter Time: 10:33 Subjective: Patient feels much better. She had a large bowel movement yesterday after which her pain almost disappeared. She has had diarrhea since then with yellow cloudy stools. She has chronic back pain which is controlled with lidocaine patch and tylenol. She is not interested in surgery - Objective Vital Signs & Weight: Vital Signs (12 hours) Temp Pulse Resp BP BP Pulse Ox 01/06/20 08:25 115/64 01/06/20 08:23 107 H 01/06/20 07:42 18 100 01/06/20 07:13 97.9 F 107 H 18 93/52 L 98 01/06/20 04:00 97.6 F 101 H 18 106/69 99 01/06/20 03:00 110/70 01/06/20 00:18 105 H 16 97 01/06/20 00:00 104 H 19 90/51 L 99 Weight Weight 147 lb Most Recent Monitor Data Heart Rate from ECG 97 NIBP 125/61 NIBP BP-Mean 82 Respiration from ECG 21 SpO2 95 I&O: 01/05/20 01/06/20 01/07/20 06:59 06:59 06:59 Intake Total 2693 1875 Output Total 400 Balance 2293 1875 Result Diagrams: 01/06/20 04:23 01/06/20 04:23 Hospitalist ROS - Review of Systems Constitutional: denies: fever, chills - Medication Medications: Active Medications Generic Name Dose Route Start Last Admin Trade Name Freq PRN Reason Stop Dose Admin Albuterol/Ipratropium 3 ml 12/27/19 13:00 01/06/20 07:54 Duoneb NEB 3 ml [id number] FRANNY Administration Aspirin 81 mg 12/29/19 09:00 01/06/20 08:24 Ecotrin PO 81 mg DAILY FRANNY Administration Budesonide 0.5 mg 12/28/19 06:30 01/06/20 07:42 Pulmicort Neb Solution INH 0.5 mg BID-RT FRANNY Administration Diphenhydramine HCl 25 mg 01/06/20 01:51 01/06/20 02:10 Benadryl PO 25 mg HSPRN PRN Administration Itching & Insomnia Meropenem 2 gm/ Miscellaneous 100 mls @ 200 mls/hr 01/05/20 14:00 01/06/20 05 :58 Medication 1 each/ Sodium IVPB 100 mls Chloride Q8HR FRANNY Administration Sodium Chloride 1,000 mls @ 75 mls/hr 01/05/20 13:00 01/06/20 02:11 Normal Saline 0.9% IV 1,000 mls .[id number] FRANNY Administration Lidocaine 1 patch 12/31/19 21:00 01/05/20 22:24 Lidoderm 5% Patch TD 1 patch 2100 FRANNY Administration Miscellaneous Medication 1 each 01/01/20 09:00 01/06/20 09:16 Lidocaine Patch Removal TOP Not Given 0900 FRANNY Morphine Sulfate 4 mg 12/31/19 13:32 01/06/20 08:24 Morphine SLOW IVP 4 mg Q2H PRN Administration Pain Morphine Sulfate 2 mg 12/31/19 13:35 01/05/20 20:19 Morphine SLOW IVP 2 mg Q2H PRN Administration Severe Pain (7-10) Nicotine 14 mg 12/27/19 18:00 01/05/20 16:32 Nicoderm Patch TD 14 mg 1800 FRANNY Administration Ondansetron HCl 4 mg 12/29/19 16:35 12/30/19 01:59 Zofran IVP 4 mg Q6H PRN Administration Nausea/Vomiting Pantoprazole Sodium 40 mg 12/28/19 09:00 01/06/20 08:24 Protonix IVP 40 mg DAILY FRANNY Administration Sodium Chloride 10 ml 12/27/19 21:00 01/06/20 09:16 Flush - Normal Saline IVF 10 ml Q12HR FRANNY Administration Sodium Chloride 10 ml 12/27/19 09:25 12/28/19 05:17 Flush - Normal Saline IVF 10 ml PRN PRN Administration Saline Flush - Exam General Appearance: NAD, awake alert Eye: PERRL, anicteric sclera ENT: normocephalic atraumatic, no oropharyngeal lesions Neck: supple, no JVD Heart: RRR, no murmur, no gallops, no rubs Respiratory: CTAB, no wheezes, no rales, no ronchi Gastrointestinal: soft, tender to palpation Gastrointestinal - other findings: firm to palpation in the epigastric area. Hypoactive bowel sounds. Extremities: no edema Skin: normal turgor, no lesions, no rashes Hosp A/P - Plan CXR 12/27: cardiomegaly with pulmonary edema CTA thorax 12/27: mild cardiomegaly, small right and tiny left pleural effusions. Right sided rib fractures, remote RUQ US 12/27: thickened GB wall with GB wall edema versus pericholecystic fluid. GB polyp noted CT abdomen 12/27: ascites, mild peripancreatic fat stranding with early pancreatitis. Moderate diverticulosis. GB wall thickening Abd X ray 12/30: minimal bibasilar parenchymal changes in lung bases. Persistently abnormal dilated SBO with air and fluid with little change from prior dstudy. HIDA 12/28: no acute cholecystitis Abdominal X ray 12/29: dilated gas filled loops of small bowel within the right upper quadrant abdomen suspicious for ileus or partial SBO CT abdomen 12/30: increasing small bowel distension. Contracted GB. Worsening atelectasis CT abdomen 01/04: partial small bowel obstruction with intraperitoneal gas and mesenteric edema in the abdomen Pelvic Ultrasound: unremarkable Chest X ray 01/06: atelectasis at the left base Abdominal Xray 01/06: contrast has progressed through to the colon but small bowel still dilated with oral contrast still remaining in the small bowel This is a 59 year old female who presented to the emergency room with abdominal pain, admitted for ileus vs partial SBO s/p laparotomy Abd pain secondary to ileus - improving. Will advance to clear liquid diet. SBFT 01/05 showed partial SBO yesterday however patient's abdominal pain has resolved - KUB done today shows contrast has progressed through to the colon - had GB wall edema on ultrasound, ascites and possibly pancreatitis on CT. HIDA scan showed no acute alicja - laparoscopy 12/31 unremarkable except for some small adhesions. - CT abdomen 01/04 for recurrent abdominal pain shows partial SBO. - pelvic ultrasound unremarkable but limited due to patient's refusal -continue IV meropenem and repeat CBC tomorrow Systolic CHF- - ECHo showed EF 25-30% with severe MR and moderate AR - Cardiology plans to do a life-vest, patient has not received it yet - continue digoxin - continue spironolactone COPD - continue pulmicort - duoneb prn Disposition: will transfer to telemetry
[2020-01-06] MEDS: Nicotine 14 MG PATCH TD SCH (17:12)
--- NOTE | 2020-01-06 17:39 | MRI ---
MRI LUMBAR SPINE WITHOUT CONTRAST: Date: 01/06/2020 INDICATION: Low back pain. FINDINGS: Lumbar vertebra maintain normal height and alignment. Disc spaces are preserved. Vertebral body signa l is normal. At L1-2, mild diffuse disc bulge flattens the anterior thecal sac. Mild to moderate facet and ligamen tous hypertrophy. Minimal central canal stenosis. At L2-3, broad based disc bulge flattens the thecal sac. Moderate facet and ligamentous hypertrophy. Posterior epidural fat. Mild to moderate central canal stenosis at this level. No significant foramin al stenosis. At L3-4, mild diffuse disc bulge. Prominent facet and ligamentous hypertrophy with posterior epidural fat. These changes compress the thecal sac resulting in moderate central canal stenosis. No signific ant foraminal stenosis. At L4-5, broad based disc protrusion. Prominent facet and ligamentous hypertrophy. Severe central can al stenosis. Bilateral foraminal stenosis more severe on the left. At L5-S1, central disc protrusion. Congenitally smaller thecal sac. This disc protrusion abuts both t raversing S1 nerve roots and appears to slightly displace the traversing left S1 nerve root. There is facet hypertrophy with moderate central canal stenosis. Left foraminal stenosis due to disc bulge an d facet hypertrophy. IMPRESSION: Central canal stenosis at multiple levels as noted above. Findings are most severe at L4-5 and L3-4. There is a central protrusion at L5-S1 contacting both traversing S1 nerve roots as discussed above. POS: [facility]
--- NOTE | 2020-01-06 18:57 | PRG ---
DATE OF SERVICE: 01/06/2020 SUBJECTIVE: Sophia Anguiano is a 59-year-old female, postoperative day #6 after laparoscopy. She denies any abdominal pain this morning. Small bowel follow-through initiated yesterday afternoon. She just had ileus with no contrast in the colon after 7 hours, but repeat abdominal x-rays this morning in followup of her small-bowel follow-through reveal contrast throughout the colon and evacuation of small bowel loops. There was some stagnant contrast within the small bowel loops. There was persistent pneumoperitoneum after her laparoscopy. She complains of back pain, but not abdominal pain. There are significant air fluid levels in the small bowel. PA and lateral chest x-ray this morning reveals subsegmental atelectasis left base with subdiaphragmatic gas on the right. Temperature 97.5 degrees, heart rate 110, respiratory rate 18, blood pressure 110/56. White count this morning is 25,000 with 55% bands, hemoglobin 14. Because of the patient's persistent back pain which seems to be worse than usual, although chronic, lumbar MRI scan obtained reveals central canal stenosis, multiple levels, more severe at L4-L5 and L5-S1 with nerve root compression. OBJECTIVE: LUNGS: Clear to auscultation. Diminished at bases. No wheezing. CARDIAC: Regular rate and rhythm without murmur or gallop. ABDOMEN: Soft. Mild protuberance with minimal guarding. Laparoscopic wounds are well healed. ASSESSMENT/PLAN: Persistent pneumoperitoneum. This is little unusual after laparoscopy 6 days ago. We will repeat abdominal x-rays to see if this resolves or improves. However, the CT scan did not reveal any free fluid. I am concerned about leukocytosis left shift. However, by physical exam, there appears to be improvement. The patient presented with abdominal distention and air-fluid levels in the small bowel and this is what we were seeing on followup films. This is more of an ileus, may be related to her narcotic use for her back pain. Her immobility making it persistent small-bowel follow-through did demonstrate . We will repeat her studies tomorrow and await Neurosurgery input. Job ID: [id number]
[2020-01-06] MEDS: Lidocaine 5% Patch TD SCH (22:07)
[2020-01-07] MEDS: Morphine 4 MG/ML VIAL SLOW IVP PRN ×4 (00:23→11:49)
[2020-01-07 04:21] LABS: Hemoglobin 12.5 g/dL (12.0-16.0); Mean Corpuscular HGB CONC 30.6 g/dL (32.0-36.0); Mean Corpuscular Volume 91.6 fL (78.0-98.0); Mean Platelet Volume 7.3 fL (7.4-10.4); Platelet Count 489 thou/uL (130-400); RBC Distribution Width 14.4 % (11.5-14.5); Red Blood Cell (RBC) Count 4.45 mill/uL (4.20-5.40); White Blood Cell (WBC) Count 18.4 thou/uL (4.8-10.8)
[2020-01-07 04:41] LABS: Anion Gap 17 mmol/L (10-20); BUN (Urea Nitrogen) 31 mg/dL (9.8-20.1); Calc. Creatinine Clearance 39 mL/min (70-130); Calcium 8.2 mg/dL (7.8-10.44); Carbon Dioxide 14 mmol/L (22-29); Chloride 99 mmol/L (98-107); Estimated GFR-MDRD 32; Glucose 72 mg/dL (70-105); Potassium 4.4 mmol/L (3.5-5.1); Sodium 126 mmol/L (136-145)
[2020-01-07] MEDS: Meropenem 2 GM, Admixture Fee 1 EACH in Sodium Chloride 0.9% 100 ML IVPB SCH ×3 (05:26→20:51)
[2020-01-07] MEDS: Sodium Chloride 0.9% 1,000 ML IV SCH ×3 (05:27→23:03)
--- NOTE | 2020-01-07 07:08 | PRG ---
DATE OF SERVICE: 01/07/2020 The full consultation H and P will be dictated by Marcus Sorenson PA-C. I personally examined Ms. Anguiano and I agreed with the notes to follow. Briefly, Sophia Anguiano is a 59-year-old woman with disability for 6 years of back pain. She was told 6 years ago she had some significant lumbar stenosis, especially in the last 2 segments of her spine and she refused surgery at the time. It has gradually gotten worse since then. She was admitted to the hospital with breathing difficulty and a urinary obstruction, both of which are improving. I talked to her about an MRI scan of her lumbar spine yesterday. She tells me that her mother had 6-7 back surgeries and that she during the course of treating her spine. She refuses to have any back surgery. I offered that we could help her with some of the leg discomfort that she has from her severe lumbar stenosis and she still refuses surgery. I discussed with her the possibility of losing strength and sensation or control of her bowel or bladder and she refused surgery nonetheless. She understands the ramifications of her refusal. Because of Ms. Anguiano wishes, I will leave her to the capable management by the Inpatient Medicine Service. Pain Management and Physical Therapy can be used and when she decides surgery as an option, she can make an appointment to see me. Job ID: [id number] MTDD
--- NOTE | 2020-01-07 07:42 | CON ---
DATE OF CONSULTATION: 01/06/2020 REASON FOR CONSULTATION: Worsening neutrophilia with a left shift. HISTORY OF PRESENT ILLNESS: This is a 59-year-old patient with a history of nonischemic cardiomyopathy with a normal angiogram in 2016, prior methamphetamine use, chronic smoking, whom I had treated in July 2018 for left hand infection secondary to methicillin-sensitive Staphylococcus aureus. She has not been in the hospital until now. She was admitted on December 26, brought to the emergency room by her because of worsening dyspnea. For the past few weeks, she had noticed difficulty with bowel movements, but no abdominal pain. She also related a severe lower back pain, which had been getting worse over the past few months, for which she had been taken aspirin sometimes up to 12 tablets per day. On arrival , the patient was tachycardic with a pulse of 110, respirations of 28, O2 sat of 94% on room air, and BP of 150/107. She remained afebrile in the emergency room, did not appear toxic. The exam is remarkable for tachycardia. The chest examination is not fully described in emergency room physician's note. The abdomen is described as nontender. Bowel sounds are normal. There was no evidence of distention present. Initial laboratory results included white cell count 16.9, hemoglobin 13.5, platelets 580 with 64% neutrophils and 4% bands. Initial chemistry results with sodium of 135, creatinine of 1.02, bilirubin of 1.7, AST of 68, ALT of 88, alkaline phosphatase of 234 with albumin of 4.0. Lactic acid was 2.9. Urinalysis with 0 to 3 wbc's. The patient had abdomen and pelvis CT scan on admission or the day after, which demonstrated some gallbladder wall thickening, some ascites, mild peripancreatic fat stranding, diverticulosis, some fluid within the region of the gallbladder. Influenza was negative. Blood cultures, no growth after 5 days. The initial impression of the hospitalist admitting the patient included COPD exacerbation with systemic inflammatory response syndrome, possible CHF, hyponatremia, abnormal liver function tests, and thrombocytosis. The next day or two, she noticed some element of right lower quadrant abdominal pain. On the , she said the pain had improved. The impression was acute on chronic respiratory failure due to COPD and CHF, abdominal pain of unclear etiology after eating. HIDA scan was normal. She was continued on Zosyn and vancomycin was discontinued. GI and general surgeon evaluations were obtained and they felt that constipation was the cause of the abdominal symptoms. NG tube was placed for decompression. The liver function test abnormalities were felt to be due to congestive changes from CHF. On December 31, the pain had resolved. Consideration was given to discontinue antimicrobial therapy. The patient had bowel movements the next day and the patient had a laparoscopy done by Dr. Beltran on the , which was not remarkable except for a few nonsignificant adhesions. Echocardiogram demonstrated EF of 25% to 30% with severe MR, moderate aortic regurgitation. On January 04, the patient reported severe pain, which she describes in the vaginal area. A repeat CT showed a partial SBO. Dr. Beltran felt it was an ileus. The next two days she improved and started having bowel movements again, and there was resolution of pain except for the back pain, which she has not mentioned at all in any of the progress notes, but the patient clearly states that she has severe 10 /10 lower back pain, which has been there for quite a while, and she takes many aspirins at home for it up to 12 aspirins, it has been getting worse for the past few months. Denies any headaches. No visual symptoms, sore throat, odynophagia or dysphagia. Dyspnea has improved. No chest pain. No abdominal pain. No genitourinary symptoms. No other joint symptoms. No neurological symptoms. MEDICAL HISTORY: Nonischemic cardiomyopathy with negative coronary angiogram, chronic low back pain of unclear etiology, chronic smoking, and COPD. SURGICAL HISTORY: Ovarian cyst removal. SOCIAL HISTORY: Current smoker, lives in [place], does not drink alcoholic beverages. FAMILY HISTORY: Type 2 diabetes. ALLERGIES: NONE. CURRENT MEDICATIONS: 1. DuoNeb. 2. Ecotrin. 3. Pulmicort. 4. Lanoxin. 5. Benadryl. 6. Lidoderm. 7. Meropenem. 8. Morphine. 9. Nicoderm. 10. Zofran. 11. Protonix. PHYSICAL EXAMINATION: VITAL SIGNS: T-max 98.8, blood pressure 95/63, pulse 102, respiratory rate 18, and O2 saturation 98. SKIN: Peripheral IV access. She is voiding in the bedside commode. No lymphadenopathy. HEENT: Ocular movements conjugate. Sclerae white. Pupils are equal. Oral cavity with no inaja teeth remaining in place. Oral mucosa normal otherwise. NECK: Supple with some jugular vein distention. No thyromegaly. LUNGS: Symmetric, clear breath sounds. HEART: S1 and S2, regular rate without murmurs or S3. ABDOMEN: Soft, not tender or distended. No bladder distention. No organomegaly or ascites. BACK: She has some back tenderness in the lumbosacral spine area. EXTREMITIES: Pulses are diminished, dorsalis pedis. No edema. She moves extremities equally. NEUROLOGIC: She is awake, oriented, follows commands. Recollection is somewhat limited. Speech appears to be normal. LABORATORY DATA: White cell count is up to 21.8 and then down to 12 and now is up to 25.4, hemoglobin 14, platelets up to 546 with 55% bands. Creatinine is up to 1.7. Liver profile has normalized. Alkaline phosphatase slightly high at 135. Albumin is down to 3.0. Lipase was normal twice. Urinalysis, 0 to 3 wbc's. ASSESSMENT: 1. Nonischemic cardiomyopathy with clear coronary arteries in the past. 2. Chronic obstructive pulmonary disease. 3. Chronic smoking. 4. Worsening dyspnea. 5. Chronic progressive lumbosacral spine pain, which now she gauges at 10/10. 6. Recurrent abdominal symptoms with extensive workup including laparoscopy, which did not identify any discrete pathology although radiology studies demonstrated area of intestinal obstruction. She has been having bowel movements and the pain seems to have resolved. 7. Worsening neutrophilia with bandemia. DISCUSSION: The differential diagnosis includes infection in lumbosacral spine with diskitis and osteomyelitis versus an alternate intraabdominal inflammatory process, which appears to be less likely in view of the multiple evaluations that have been carried out including laparoscopy. A pulmonary process appears unlikely. Autoimmune process/vasculitis is not likely. Has been restarted on broad- spectrum antimicrobial coverage. We will go ahead and image her lumbosacral spine with MRI without contrast due to her renal function. If the MRI does not show inflamm changes then she probably had small bowel obstruction which resolved. During that process temporary intestinal ischemia led to the clinical and laboratory changes with likely translocation and transient bacteremia. If MRI demonstrates inflamm tory changes then will address them accordingly. Job ID: [id number] MTDD
[2020-01-07] MEDS: Budesonide 0.5 MG/2 ML NEB INH SCH ×2 (08:03→18:30)
[2020-01-07] MEDS: Pantoprazole 40 MG VIAL IVP SCH (08:17)
[2020-01-07] MEDS: Aspirin 81 mg Enteric Coated Tablet PO SCH (08:17)
[2020-01-07] MEDS: Digoxin 0.125 MG TAB PO SCH (08:18)
[2020-01-07] MEDS: Ivabradine 5 MG TAB PO SCH ×2 (09:59→21:01)
[2020-01-07] MEDS: Lidocaine Patch Removal TOP SCH (10:24)
--- NOTE | 2020-01-07 10:24 | RAD ---
CHEST 1 VIEW WITH ABDOMEN 2 VIEWS: Date: 01/07/2020 HISTORY: Follow-up small bowel obstruction. Ileus. Pneumoperitoneum. COMPARISON: 01/06/2020. FINDINGS: Persistent free intraperitoneal air, particularly beneath the right hemidiaphragm region. There are a gain noted to be scattered air fluid levels in moderately dilated small bowel loops. Compared to mary walter's study, there has been a moderate amount of clearance of the oral contrast from the small audie l and colon, although there is some minimal persistent dilute contrast still present. IMPRESSION: 1. Stable appearing dilated small bowel. 2. Persistent pneumoperitoneum. 3. Minimal linear and parenchymal changes in the left lower lobe of the chest, probably subsegmental atelectasis. POS: TPC
--- NOTE | 2020-01-07 10:51 | PRG ---
DATE OF SERVICE: 01/07/2020 SUBJECTIVE: Sophia Anguiano has no shortness of breath, less abdominal pain. OBJECTIVE: VITAL SIGNS: Temperature 98, pulse 115, respirations 20, saturations on room air, blood pressure 94/52. CHEST: Decreased breath sounds. No wheezing. CARDIAC: Normal S1 and S2. No gallops. ABDOMEN: No masses. Soft. LABORATORY DATA: Creatinine 1.62, sodium 124. White count 18,000. Status post laparoscopic surgery, persistent pneumoperitoneum. Chest otherwise reveals no wheezing or crackles. IMPRESSION: Chronic obstructive pulmonary disease, congestive heart failure, status post lap, persistent pneumoperitoneum. Disposition as per Surgery. Pulmonary will follow. Continue neb treatments. Job ID: [id number]
[2020-01-07 13:48] VITALS: BMI 29.9
--- NOTE | 2020-01-07 13:51 | CON ---
DATE OF CONSULTATION: 01/07/2020 ATTENDING PHYSICIAN: Thiago Cobos MD REASON FOR CONSULTATION: Lower back pain. HISTORY OF PRESENT ILLNESS: Mrs. Anguiano is a 59-year-old woman postop laparoscopy. She has had lower back pain for the past 10 years. Since then it has been gradually getting worse. REVIEW OF SYSTEMS: CONSTITUTIONAL: She denies fever or chills. ENT: Denies hearing loss. CARDIAC: She denies chest pain. She says she has some shortness of breath but it is improving with neb treatments. PULMONARY: She says she has little cough but is improving with neb treatments. Denies hemoptysis. GI: She has some abdominal pain due to her recent laparoscopy. No nausea, vomiting, diarrhea, change in stool formation, or consistency. : She says she has improving urinary obstruction. SKIN: Denies skin rash, bruising, or bleeding. MUSCULOSKELETAL: As per the history of present illness. NEUROLOGICAL: As per the history of present illness. PSYCHOLOGICAL: As per the history of present illness. PHYSICAL EXAMINATION: MUSCULOSKELETAL: 4/5 iliopsoas, quadriceps, hamstring, anterior tib, EHL, and gastrocnemius. There is no area of dermatomal sensory loss. The reflexes are symmetric. The toes are downgoing. RADIOLOGY: MRI from 01/06/2020 showing L3-5 stenosis. Central protrusion at L5-S1 affecting S1 nerve root. IMPRESSION: Since Ms. Anguiano has been having increased lower back pain, we recommended surgery for her lumbar stenosis at L3-5, and disc protrusion at L5- S1. Currently taking aspirin and Tylenol for her pain. She states she does not want back surgery because one surgery will lead to another. States her mother had 6 or 7 back surgeries and has had complications from those surgeries and . PLAN: The patient is refusing surgery, the patient is also refusing injections. She says she would like to start physical therapy. If the patient changes her mind and would like surgery, she may contact the office. Job ID: [id number] [facility]
[2020-01-07] MEDS: Morphine 2 MG/ML SYRINGE SLOW IVP PRN ×3 (15:06→20:50)
[2020-01-07] MEDS: Nicotine 14 MG PATCH TD SCH (17:03)
--- NOTE | 2020-01-07 18:51 | PDOC.HOSPP ---
- Subjective Encounter Date: 01/07/20 Encounter Time: 18:50 Subjective: The patient appears sad but can't give clear reason why. She does complain of back pain but stated again not interested in surgery She had a bowel movement this morning. No abdominal pain today - Objective Vital Signs & Weight: Vital Signs (12 hours) Temp Pulse Resp BP Pulse Ox 01/07/20 18:28 111 H 16 01/07/20 15:10 98.2 F 108 H 18 110/51 L 98 01/07/20 13:41 114 H 18 100 01/07/20 11:46 97.4 F L 112 H 18 130/57 L 97 01/07/20 08:03 115 H 20 96 01/07/20 07:02 98.2 F 115 H 18 94/52 L 96 Weight Admit Weight 149 lb Weight 153 lb Most Recent Monitor Data Heart Rate from ECG 97 NIBP 125/61 NIBP BP-Mean 82 Respiration from ECG 21 SpO2 95 I&O: 01/06/20 01/07/20 01/08/20 06:59 06:59 06:59 Intake Total 1875 2100 1620 Balance 1875 2100 1620 Result Diagrams: 01/07/20 04:11 01/07/20 04:11 Hospitalist ROS - Review of Systems Constitutional: denies: fever, chills - Medication Medications: Active Medications Generic Name Dose Route Start Last Admin Trade Name Freq PRN Reason Stop Dose Admin Albuterol/Ipratropium 3 ml 12/27/19 13:00 01/07/20 18:28 Duoneb NEB 3 ml [id number] FRANNY Administration Aspirin 81 mg 12/29/19 09:00 01/07/20 08:17 Ecotrin PO 81 mg DAILY FRANNY Administration Budesonide 0.5 mg 12/28/19 06:30 01/07/20 18:30 Pulmicort Neb Solution INH 0.5 mg BID-RT FRANNY Administration Digoxin 0.125 mg 01/06/20 09:16 01/07/20 08:18 Lanoxin PO 0.125 mg QAM FRANNY Administration Diphenhydramine HCl 25 mg 01/06/20 01:51 01/06/20 02:10 Benadryl PO 25 mg HSPRN PRN Administration Itching & Insomnia Meropenem 2 gm/ Miscellaneous 100 mls @ 200 mls/hr 01/05/20 14:00 01/07/20 14 :16 Medication 1 each/ Sodium IVPB 100 mls Chloride Q8HR FRANNY Administration Sodium Chloride 1,000 mls @ 75 mls/hr 01/05/20 13:00 01/07/20 08:19 Normal Saline 0.9% IV 1,000 mls .[id number] FRANNY Administration Ivabradine 5 mg 01/07/20 09:00 01/07/20 09:59 Corlanor PO 5 mg BID FRANNY Administration Lidocaine 1 patch 12/31/19 21:00 01/06/20 22:07 Lidoderm 5% Patch TD 1 patch 2100 FRANNY Administration Miscellaneous Medication 1 each 01/01/20 09:00 01/07/20 10:24 Lidocaine Patch Removal TOP Not Given 0900 FRANNY Morphine Sulfate 4 mg 12/31/19 13:32 01/07/20 11:49 Morphine SLOW IVP 4 mg Q2H PRN Administration Pain Morphine Sulfate 2 mg 12/31/19 13:35 01/07/20 17:02 Morphine SLOW IVP 2 mg Q2H PRN Administration Severe Pain (7-10) Nicotine 14 mg 12/27/19 18:00 01/07/20 17:03 Nicoderm Patch TD 14 mg 1800 FRANNY Administration Ondansetron HCl 4 mg 12/29/19 16:35 12/30/19 01:59 Zofran IVP 4 mg Q6H PRN Administration Nausea/Vomiting Pantoprazole Sodium 40 mg 12/28/19 09:00 01/07/20 08:17 Protonix IVP 40 mg DAILY FRANNY Administration Sodium Chloride 10 ml 12/27/19 21:00 01/07/20 08:18 Flush - Normal Saline IVF 10 ml Q12HR FRANNY Administration Sodium Chloride 10 ml 12/27/19 09:25 12/28/19 05:17 Flush - Normal Saline IVF 10 ml PRN PRN Administration Saline Flush - Exam General Appearance: NAD, awake alert Eye: PERRL, anicteric sclera ENT: normocephalic atraumatic, no oropharyngeal lesions Neck: no JVD Heart: RRR, no murmur, no gallops, no rubs Respiratory: CTAB, no wheezes, no rales, no ronchi Gastrointestinal: soft, non-tender, non-distended, normal bowel sounds Extremities: no cyanosis, no clubbing, no edema Skin: normal turgor, no lesions, no rashes Neurological: cranial nerve grossly intact, normal sensation to touch, no focal deficits, no new deficit Musculoskeletal: normal tone, normal strength, no muscle wasting Psychiatric: normal affect, normal behavior, A&O x 3 Hosp A/P - Plan CXR 12/27: cardiomegaly with pulmonary edema CTA thorax 12/27: mild cardiomegaly, small right and tiny left pleural effusions. Right sided rib fractures, remote RUQ US 12/27: thickened GB wall with GB wall edema versus pericholecystic fluid. GB polyp noted CT abdomen 12/27: ascites, mild peripancreatic fat stranding with early pancreatitis. Moderate diverticulosis. GB wall thickening Abd X ray 12/30: minimal bibasilar parenchymal changes in lung bases. Persistently abnormal dilated SBO with air and fluid with little change from prior dstudy. HIDA 12/28: no acute cholecystitis Abdominal X ray 12/29: dilated gas filled loops of small bowel within the right upper quadrant abdomen suspicious for ileus or partial SBO CT abdomen 12/30: increasing small bowel distension. Contracted GB. Worsening atelectasis CT abdomen 01/04: partial small bowel obstruction with intraperitoneal gas and mesenteric edema in the abdomen Pelvic Ultrasound: unremarkable Chest X ray 01/06: atelectasis at the left base Abdominal Xray 01/06: contrast has progressed through to the colon but small bowel still dilated with oral contrast still remaining in the small bowel This is a 59 year old female who presented to the emergency room with abdominal pain, admitted for ileus vs partial SBO s/p laparotomy Abd pain secondary to ileus - resolved - had GB wall edema on ultrasound, ascites and possibly pancreatitis on CT. HIDA scan showed no acute alicja - laparoscopy 12/31 unremarkable except for some small adhesions. - CT abdomen 01/04 for recurrent abdominal pain shows partial SBO. - pelvic ultrasound unremarkable but limited due to patient's refusal -. SBFT 01/05 showed partial SBO. KUB done 01/06 shows contrast has progressed through to the colon - pain resolved. Advanced to low fiber diet today. Will advance to regular diet in evening -continue IV meropenem since leukocytosis has improved. Trend CBC in the morning , continue d/c tomorrow Systolic CHF- - ECHo showed EF 25-30% with severe MR and moderate AR - Cardiology plans to do a life-vest, patient has not received it yet - continue digoxin - continue spironolactone COPD - continue pulmicort - duoneb prn
--- NOTE | 2020-01-07 19:29 | PRG ---
DATE OF SERVICE: 01/07/2020 SUBJECTIVE: Sophia Anguiano is doing well today. She denies having any abdominal pain. She has been having bowel movements. She is tolerating her diet. OBJECTIVE: VITAL SIGNS: Temperature 98.2 degrees, heart rate 111, respiratory rate 16, blood pressure 110/51. LUNGS: Clear to auscultation. Rhonchi at base. CARDIAC: Regular rate and rhythm without murmur or gallop. ABDOMEN: Soft, nondistended, and nontender. Good bowel sounds. Multiple bowel movements. Laparoscopic wounds well healed. LABORATORY DATA: The patient's white count has fallen from 25 to 18, hemoglobin 12. She does not have a left shift on today's CBC. Her basic metabolic profile is normal with mild elevation of her creatinine, which is baseline for her, slightly better than yesterday. BUN is 31, slightly greater than its 25 yesterday. ASSESSMENT AND PLAN: Doing well. No indication of intra-abdominal pathology. At this point, I will see her as needed, and she is ready for discharge any time fit per Medical. I believe her leukocytosis is due to atelectasis and immobility, and as she has increased her mobility, this will help. She has chronic back pain, and Neurosurgery has seen her, and the patient has emphatically denied any interest in surgery. She does not want operation, no matter what would happen neurologically. This has been well defined by Dr. Cobos's consultation. At this point, I will see her as needed. She will see me in my office as needed. Diet and activity as tolerated. I have no restrictions post laparoscopic surgery. Please call if necessary. Dr. Wagner is covering the weekend. Dr. Bartlett is covering next week. Job ID: [id number]
[2020-01-07] MEDS: Lidocaine 5% Patch TD SCH (20:51)
[2020-01-08] MEDS: Morphine 2 MG/ML SYRINGE SLOW IVP PRN ×5 (00:29→23:45)
[2020-01-08] MEDS: Morphine 4 MG/ML VIAL SLOW IVP PRN ×3 (02:36→09:01)
[2020-01-08] MEDS: Meropenem 2 GM, Admixture Fee 1 EACH in Sodium Chloride 0.9% 100 ML IVPB SCH ×3 (04:50→21:41)
[2020-01-08] MEDS: Budesonide 0.5 MG/2 ML NEB INH SCH ×2 (07:12→18:40)
[2020-01-08] MEDS: Aspirin 81 mg Enteric Coated Tablet PO SCH (09:59)
[2020-01-08] MEDS: Pantoprazole 40 MG VIAL IVP SCH (10:01)
[2020-01-08] MEDS: Digoxin 0.125 MG TAB PO SCH (10:06)
[2020-01-08] MEDS: Ivabradine 5 MG TAB PO SCH ×2 (10:52→21:17)
[2020-01-08] MEDS: Lidocaine Patch Removal TOP SCH (10:54)
--- NOTE | 2020-01-08 11:40 | PDOC.HOSPP ---
- Subjective Encounter Date: 01/08/20 Subjective: Feels ok. No complaints. Had education regarding the lifevest. Required some IV pain medication this morning for back pain. Says she was on vicodin 10 mg in the past. Will be going home at discharge. Lives with her and son. - Objective Vital Signs & Weight: Vital Signs (12 hours) Temp Pulse Resp BP Pulse Ox 01/08/20 10:06 104 H 01/08/20 08:00 99.9 F H 104 H 20 125/59 L 96 01/08/20 07:13 100 01/08/20 07:12 111 H 20 01/08/20 03:29 99.7 F H 107 H 20 93 L 01/08/20 01:26 107 H 16 Weight Admit Weight 149 lb Weight 152 lb 9.6 oz Most Recent Monitor Data Heart Rate from ECG 97 NIBP 125/61 NIBP BP-Mean 82 Respiration from ECG 21 SpO2 95 I&O: 01/07/20 01/08/20 01/09/20 06:59 06:59 06:59 Intake Total 2100 1620 Balance 2100 1620 Result Diagrams: 01/07/20 04:11 01/07/20 04:11 Hospitalist ROS - Medication Medications: Active Medications Generic Name Dose Route Start Last Admin Trade Name Freq PRN Reason Stop Dose Admin Albuterol/Ipratropium 3 ml 12/27/19 13:00 01/08/20 07:12 Duoneb NEB 3 ml [id number] FRANNY Administration Aspirin 81 mg 12/29/19 09:00 01/08/20 09:59 Ecotrin PO 81 mg DAILY FRANNY Administration Budesonide 0.5 mg 12/28/19 06:30 01/08/20 07:12 Pulmicort Neb Solution INH 0.5 mg BID-RT FRANNY Administration Digoxin 0.125 mg 01/06/20 09:16 01/08/20 10:06 Lanoxin PO 0.125 mg QAM FRANNY Administration Diphenhydramine HCl 25 mg 01/06/20 01:51 01/06/20 02:10 Benadryl PO 25 mg HSPRN PRN Administration Itching & Insomnia Meropenem 2 gm/ Miscellaneous 100 mls @ 200 mls/hr 01/05/20 14:00 01/08/20 04 :50 Medication 1 each/ Sodium IVPB 100 mls Chloride Q8HR FRANNY Administration Sodium Chloride 1,000 mls @ 75 mls/hr 01/05/20 13:00 01/07/20 23:03 Normal Saline 0.9% IV 1,000 mls .[id number] FRANNY Administration Ivabradine 5 mg 01/07/20 09:00 01/08/20 10:52 Corlanor PO 5 mg BID FRANNY Administration Lidocaine 1 patch 12/31/19 21:00 01/07/20 20:51 Lidoderm 5% Patch TD 1 patch 2100 FRANNY Administration Miscellaneous Medication 1 each 01/01/20 09:00 01/08/20 10:54 Lidocaine Patch Removal TOP 1 each 0900 FRANNY Administration Morphine Sulfate 4 mg 12/31/19 13:32 01/08/20 09:01 Morphine SLOW IVP 4 mg Q2H PRN Administration Pain Morphine Sulfate 2 mg 12/31/19 13:35 01/08/20 00:29 Morphine SLOW IVP 2 mg Q2H PRN Administration Severe Pain (7-10) Nicotine 14 mg 12/27/19 18:00 01/07/20 17:03 Nicoderm Patch TD 14 mg 1800 FRANNY Administration Ondansetron HCl 4 mg 12/29/19 16:35 12/30/19 01:59 Zofran IVP 4 mg Q6H PRN Administration Nausea/Vomiting Pantoprazole Sodium 40 mg 12/28/19 09:00 01/08/20 10:01 Protonix IVP 40 mg DAILY FRANNY Administration Sodium Chloride 10 ml 12/27/19 21:00 01/08/20 10:54 Flush - Normal Saline IVF Not Given Q12HR FRANNY Sodium Chloride 10 ml 12/27/19 09:25 12/28/19 05:17 Flush - Normal Saline IVF 10 ml PRN PRN Administration Saline Flush - Exam General Appearance: NAD, awake alert Heart: irregular, II/IV Respiratory: CTAB, no wheezes, no rales, no ronchi, normal chest expansion, no tachypnea, normal percussion Gastrointestinal: soft, non-tender, non-distended, normal bowel sounds, no palpable masses, no hepatomegaly, no splenomegaly, no bruit Extremities: no cyanosis, no clubbing, no edema Skin: normal turgor Psychiatric: normal affect, normal behavior, A&O x 3 Hosp A/P (1) Ileus Code(s): K56.7 - ILEUS, UNSPECIFIED Status: Acute (2) CKD (chronic kidney disease), stage III Code(s): N18.3 - CHRONIC KIDNEY DISEASE, STAGE 3 (MODERATE) Status: Acute (3) Acute on chronic renal failure Code(s): N17.9 - ACUTE KIDNEY FAILURE, UNSPECIFIED; N18.9 - CHRONIC KIDNEY DISEASE, UNSPECIFIED Status: Acute (4) Hyponatremia Code(s): E87.1 - HYPO-OSMOLALITY AND HYPONATREMIA Status: Acute (5) COPD exacerbation Code(s): J44.1 - CHRONIC OBSTRUCTIVE PULMONARY DISEASE W (ACUTE) EXACERBATION Status: Acute (6) Chronic systolic heart failure, ACC/AHA stage C Code(s): I50.22 - CHRONIC SYSTOLIC (CONGESTIVE) HEART FAILURE Status: Chronic (7) HTN (hypertension) Code(s): I10 - ESSENTIAL (PRIMARY) HYPERTENSION Status: Chronic Qualifiers: (8) Non-ischemic cardiomyopathy Code(s): I42.8 - OTHER CARDIOMYOPATHIES Status: Chronic (9) Obesity (BMI 30.0-34.9) Code(s): E66.9 - OBESITY, UNSPECIFIED Status: Chronic (10) Severe mitral regurgitation by prior echocardiogram Code(s): I34.0 - NONRHEUMATIC MITRAL (VALVE) INSUFFICIENCY Status: Chronic (11) Severe tricuspid regurgitation by prior echocardiogram Code(s): I07.1 - RHEUMATIC TRICUSPID INSUFFICIENCY Status: Chronic - Plan Had life vest placed today. Has worsening hyponatremia yesterday. Worsening GFR yesterday. Repeat labs today. Currently not receiving diuretics. Add T#3 for pain to get her prepared for a home regimen. Does not desire surgery for back issues. Will get PT.
[2020-01-08 11:46] LABS: #Basophils 0.1 thou/uL (0.0-0.2); #Lymphocytes 1.6 thou/uL (1.20-3.40); #Monocytes 1.3 thou/uL (0.11-0.59); #Neutrophils 10.5 thou/uL (1.40-6.50); %Basophils 0.6 % (0.0-1.0); %Eosinophils 0.3 % (0.0-10.0); %Lymphocytes 11.8 % (21.0-51.0); %Monocytes 9.4 % (0.0-10.0); %Neutrophils 77.9 % (42.0-75.0); Hemoglobin 11.9 g/dL (12.0-16.0); Mean Corpuscular HGB CONC 30.6 g/dL (32.0-36.0); Mean Corpuscular Hemoglobin 29.6 pg (27.0-31.0); Mean Corpuscular Volume 96.7 fL (78.0-98.0); Mean Platelet Volume 7.6 fL (7.4-10.4); Platelet Count 463 thou/uL (130-400); RBC Distribution Width 14.3 % (11.5-14.5); Red Blood Cell (RBC) Count 4.01 mill/uL (4.20-5.40); White Blood Cell (WBC) Count 13.5 thou/uL (4.8-10.8)
[2020-01-08 12:14] LABS: Anion Gap 14 mmol/L (10-20); BUN (Urea Nitrogen) 19 mg/dL (9.8-20.1); Calc. Creatinine Clearance 80 mL/min (70-130); Calcium 7.9 mg/dL (7.8-10.44); Carbon Dioxide 15 mmol/L (22-29); Chloride 103 mmol/L (98-107); Estimated GFR-MDRD 71; Glucose 82 mg/dL (70-105); Potassium 4.4 mmol/L (3.5-5.1); Sodium 128 mmol/L (136-145)
--- NOTE | 2020-01-08 12:42 | PRG ---
DATE OF SERVICE: 01/08/2020 SUBJECTIVE: This morning, she is better. She denies difficulty breathing. OBJECTIVE: VITAL SIGNS: Temperature 99, pulse 104, respiratory rate 20, saturations 96%, and blood pressure 125/79. CHEST: Decreased breath sounds. No wheezing. CARDIAC: Normal S1 and S2. No gallops. ABDOMEN: No masses. IMPRESSION: 1. Status post lap. 2. Chronic obstructive pulmonary disease. 3. Congestive heart failure. PLAN: Continue present treatment, supportive care, PT, antibiotics as per Surgery. We will follow. Job ID: [id number]
[2020-01-08] MEDS: Sodium Chloride 0.9% 1,000 ML IV SCH (13:18)
--- NOTE | 2020-01-08 14:17 | PDOC.CPN ---
- Subjective Date: 01/08/20 Time: 11:50 Interval history: Ms. Anguiano is awake, sitting on the bedside eating her lunch. Only complaint is back pain, was medicated for this earlier today with some relief. Denies SOB, chest pain. Denies N/V/D. Wearing LifeVest, was fitted earlier this morning. - Review of Systems General: denies: fever/chills, weight/appetite/sleep changes, night sweats, fatigue Respiratory: denies: cough, congestion, shortness of breath, exercise intolerance Cardiovascular: denies: chest pain, palpitation, edema, paroxysmal nocturnal dyspnea, orthopnea Gastrointestinal: denies: nausea, vomiting, diarrhea, constipation, abd pain, GI bleeding Musculoskeletal: reports: pain (back) Neurological: denies: numbness, syncope, seizure, weakness - Objective Allergies/Adverse Reactions: Allergies Allergy/AdvReac Type Severity Reaction Status Date / Time No Known Allergies Allergy Verified 12/27/19 09:23 Visit Medications: Current Medications Albuterol/Ipratropium (Duoneb) 3 ml NEB [id number] [facility] Last Admin: 01/08/20 14:02 Dose: 3 ml Albuterol/Ipratropium (Duoneb) 3 ml NEB [id number] PRN PRN Reason: SOB &/or Wheezing Aspirin (Ecotrin) 81 mg PO DAILY [facility] Last Admin: 01/08/20 09:59 Dose: 81 mg Budesonide (Pulmicort Neb Solution) 0.5 mg INH BID-RT [facility] Last Admin: 01/08/20 07:12 Dose: 0.5 mg Digoxin (Lanoxin) 0.125 mg PO QAM [facility] Last Admin: 01/08/20 10:06 Dose: 0.125 mg Diphenhydramine HCl (Benadryl) 25 mg PO HSPRN PRN PRN Reason: Itching & Insomnia Last Admin: 01/06/20 02:10 Dose: 25 mg Meropenem 2 gm/ Miscellaneous Medication 1 each/ Sodium Chloride 100 mls @ 200 mls/hr IVPB Q8HR [facility] Last Admin: 01/08/20 04:50 Dose: 100 mls Sodium Chloride (Normal Saline 0.9%) 1,000 mls @ 75 mls/hr IV .[id number] [facility] Last Admin: 01/08/20 13:18 Dose: 1,000 mls Ivabradine (Corlanor) 5 mg PO BID [facility] Last Admin: 01/08/20 10:52 Dose: 5 mg Lidocaine (Lidoderm 5% Patch) 1 patch TD 2100 [facility] Last Admin: 01/07/20 20:51 Dose: 1 patch Miscellaneous Medication (Lidocaine Patch Removal) 1 each TOP 0900 [facility] Last Admin: 01/08/20 10:54 Dose: 1 each Morphine Sulfate (Morphine) 4 mg SLOW IVP Q2H PRN PRN Reason: Pain Last Admin: 01/08/20 09:01 Dose: 4 mg Morphine Sulfate (Morphine) 2 mg SLOW IVP Q2H PRN PRN Reason: Severe Pain (7-10) Last Admin: 01/08/20 13:32 Dose: 2 mg Nicotine (Nicoderm Patch) 14 mg TD 1800 [facility] Last Admin: 01/07/20 17:03 Dose: 14 mg Ondansetron HCl (Zofran) 4 mg IVP Q6H PRN PRN Reason: Nausea/Vomiting Last Admin: 12/30/19 01:59 Dose: 4 mg Ondansetron HCl (Zofran Odt) 8 mg SL BID PRN PRN Reason: Nausea/Vomiting Pantoprazole Sodium (Protonix) 40 mg IVP DAILY [facility] Last Admin: 01/08/20 10:01 Dose: 40 mg Sodium Chloride (Flush - Normal Saline) 10 ml IVF Q12HR [facility] Last Admin: 01/08/20 10:54 Dose: Not Given Sodium Chloride (Flush - Normal Saline) 10 ml IVF PRN PRN PRN Reason: Saline Flush Last Admin: 12/28/19 05:17 Dose: 10 ml Vital Signs & Weight: Vital Signs Temp Pulse Resp BP Pulse Ox 01/08/20 14:02 75 16 01/08/20 11:51 97.5 F L 75 15 100/55 L 95 01/08/20 10:06 104 H 01/08/20 08:00 99.9 F H 104 H 20 125/59 L 96 01/08/20 07:13 100 01/08/20 07:12 111 H 20 01/08/20 03:29 99.7 F H 107 H 20 93 L Admit Weight 149 lb Weight 152 lb 9.6 oz - Quality Measures Condition: Coronary Artery Disease, Heart Failure CV meds: Beta Lidia: No, CHAPARRO/ARB: No (CKD), Statin: Yes, ASA: Yes, Plavix/ Effient/Brilinta: No, Anticoagulant: No - Physical Exam General: no apparent distress Neck: midline trachea, no JVD/HJR, no bruit Cardiac: regular rate and rhythm, systolic murmur (2/6 CURT) Lungs: normal breath sounds, no wheeze, rales, rhonchi Neuro: grossly intact Abdomen: soft, non-tender Extremities: no edema - Labs Result Diagrams: 01/08/20 11:27 01/08/20 11:27 Troponin/CKMB CK-MB (CK-2) 3.2 ng/mL (0-6.6) 12/26/19 16:08 Troponin I 0.040 ng/mL (< 0.028) H 12/26/19 23:52 - Telemetry Sinus rhythms and dysrhythmias: sinus tachycardia (PVCs, PACs) - Assessment/Plan Assessment/Plan: 1. Acute on chronic Systolic HF-appears euvolemic, EF 25-30. 2. Nonischemic CMY 3. Severe MR 4. Severe TR 5. COPD exacerbation-continue pulmonary toilet 6. CKD Stage III-improving, ACEi/ARB on hold 7. HTN- stable, adequately controlled 8. Hyponatremia- Na+ 128 9. Tachycardia-improved with addition of Corlanor, titrate up as tolerated LifeVest fitted this morning. Chronic back pain. RG-No new issues. Pt with lifevest. On corlanor. Documented non-complinace in the past. Unsure if she will continue with corlanor ($$$) and complinat with lifevest.
[2020-01-08] MEDS: Nicotine 14 MG PATCH TD SCH (17:20)
[2020-01-08] MEDS: Lidocaine 5% Patch TD SCH (21:17)
[2020-01-09] MEDS: Sodium Chloride 0.9% 1,000 ML IV SCH (05:05)
[2020-01-09] MEDS: Morphine 2 MG/ML SYRINGE SLOW IVP PRN ×2 (05:05→09:29)
[2020-01-09 05:13] LABS: Anion Gap 12 mmol/L (10-20); BUN (Urea Nitrogen) 13 mg/dL (9.8-20.1); Calc. Creatinine Clearance 92 mL/min (70-130); Calcium 8.2 mg/dL (7.8-10.44); Carbon Dioxide 19 mmol/L (22-29); Chloride 105 mmol/L (98-107); Estimated GFR-MDRD 85; Glucose 88 mg/dL (70-105); Potassium 3.1 mmol/L (3.5-5.1); Sodium 133 mmol/L (136-145)
[2020-01-09 05:27] LABS: Band 43 % (5-11); Eosinophils 1 % (0-10); Hemoglobin 12.1 g/dL (12.0-16.0); Lymphocytes 15 % (21-51); MDiff Complete? YES; Mean Corpuscular HGB CONC 32.9 g/dL (32.0-36.0); Mean Corpuscular Hemoglobin 29.8 pg (27.0-31.0); Mean Corpuscular Volume 90.7 fL (78.0-98.0); Mean Platelet Volume 7.3 fL (7.4-10.4); Metamyelocyte 2 % (0-0); Monocytes 5 % (0-10); Neutrophil 33 % (42-75); Platelet Count 426 thou/uL (130-400); Platelet Morphology Comment Appears Increased; RBC Distribution Width 14.1 % (11.5-14.5); RBC Morphology Normal; Reactive Lymphocytes 1 % (0-10); Red Blood Cell (RBC) Count 4.06 mill/uL (4.20-5.40); Vacuoles SLIGHT; White Blood Cell (WBC) Count 11.5 thou/uL (4.8-10.8)
[2020-01-09] MEDS: Meropenem 2 GM, Admixture Fee 1 EACH in Sodium Chloride 0.9% 100 ML IVPB SCH (05:29)
[2020-01-09] MEDS: Budesonide 0.5 MG/2 ML NEB INH SCH (06:38)
[2020-01-09] MEDS ORDERED: Potassium Chloride 20 MEQ TAB PO SCH (08:00)
[2020-01-09] MEDS: Ivabradine 5 MG TAB PO SCH (09:28)
[2020-01-09] MEDS: Digoxin 0.125 MG TAB PO SCH (09:28)
[2020-01-09] MEDS: Aspirin 81 mg Enteric Coated Tablet PO SCH (09:29)
[2020-01-09] MEDS: Lidocaine Patch Removal TOP SCH (09:46)
[2020-01-09 12:06] VITALS: BP 103/59; TEMP 98.5
--- NOTE | 2020-01-10 14:37 | DIS ---
DATE OF ADMISSION: 12/26/2019 DATE OF DISCHARGE: 01/09/2020 DISCHARGE DIAGNOSES: 1. Chronic obstructive pulmonary disease exacerbation. 2. Systemic inflammatory response syndrome. 3. Congestive heart failure, acute on chronic systolic exacerbation. 4. Hyponatremia. 5. Elevated liver enzymes, likely due to passive congestion. 6. Tobacco abuse. 7. Thrombocytopenia. 8. Severe mitral regurgitation with moderate AR and moderate TR. 9. Diverticulosis. 10. Abdominal pain. 11. Gallbladder wall thickening with negative HIDA scan. 12. Constipation. 13. Intraabdominal adhesions. 14. Severe lumbar stenosis. 15. Atrial fibrillation. 16. Cardiomyopathy with ejection fraction 25% to 30%. HISTORY OF PRESENT ILLNESS: The patient is a 59-year-old female with a known history of cardiomyopathy, which was apparently nonischemic due to prior catheterization, but no occlusive coronary artery disease noted. She also had underlying COPD and presented to the hospital with increasing dyspnea. She initially appeared to have exacerbation of congestive heart failure and COPD. HOSPITAL COURSE: The patient had negative CTA of the chest other than evidence of COPD. She was admitted to the hospital , where she was seen in consultation by Pulmonary and Cardiology. She had aggressive nebulizer treatments, supplemental oxygen as needed. She underwent an echocardiogram, which revealed an ejection fraction of 25% to 30%. She had severe MR, moderate TR, moderate AR with mildly elevated pulmonary pressures. She received some diuresis through Cardiology. She subsequently had developed significant abdominal pain. She had a CT scan of the abdomen, which showed some constipation, diverticulosis, and thickened gallbladder wall. Subsequent abdominal ultrasound again confirmed thickened gallbladder wall without particular stones or fluid collection. Hepatobiliary scan was subsequently obtained which was negative. She was seen in consultation by Surgery who did not feel initially the patient had gallbladder disease, but aggressively treated her constipation. GI saw the patient as well for elevated liver enzymes, which was felt to likely be related to passive liver congestion from heart failure and again, the constipation was addressed. The patient did have some improvement, but then subsequently had worsening abdominal pain. Again at that time, a repeat CT scan of her abdomen showed small bowel distention and it appeared to be more of a mechanical type of blockage; therefore, the patient subsequently underwent surgery by Dr. Beltran on 12/31/2019. At that time, the patient had adhesions noted with the gallbladder and liver and had adhesiolysis; however, there was no evidence of specific small-bowel adhesions or obstructions. The patient was subsequently returned back to the medical unit, where over the following day, she was able to have NG tube removed, go back to a higher fiber diet in order to continue to manage constipation issues. She subsequently had progressive back pain. The patient had a known history of significant lumbar stenosis; however, her mother had a bad experience with multiple back surgeries and the patient had previously been opposed to any surgical intervention. She had an MRI of the spine obtained from the lumbar region, which showed central canal stenosis at multiple levels, most severe at L4-L5 and L3-L4 with central protrusion at L5-S1 containing both traversing S1 nerve roots. Neurosurgery was consulted. The patient had full explanation regarding potential risk of worsening neurologic function, however, she was opposed to pursuing any surgical interventions. Again at that time, given the cardiomyopathy, the patient had a LifeVest placed prior to her discharge. She had developed some mild hyponatremia, likely related to IV fluids and these were discontinued and once that was accomplished, her sodium levels improved again. Ultimately, she was felt to be stable for discharge to home. PHYSICAL EXAMINATION: VITAL SIGNS: On the day of discharge, temperature is 98.5, pulse was 106, which was consistent throughout her stay. O2 saturation was 94% on room air. BP was 103/59 up to 126/57. GENERAL: She was awake and alert. HEART: Regular with a 2/6 murmur. LUNGS: Diminished, but clear. ABDOMEN: Soft, nontender. EXTREMITIES: Had no edema. DISPOSITION: The patient is discharged to home. ACTIVITY: Activity level is as tolerated. DIET: She is to be on a 2 L daily fluid restriction and a heart healthy diet. HOME MEDICATIONS: Will include: 1. Aspirin 81 mg daily. 2. Pulmicort 0.5 mg inhaled daily. 3. Hydralazine 25 mg p.o. t.i.d. 4. DuoNeb q.6 hours p.r.n. 5. Isosorbide 20 mg t.i.d. 6. Lidocaine patch. 7. Nicotine patch. 8. Zofran ODT p.r.n. 9. Aldactone 25 mg daily. 10. Lasix 20 mg daily p.r.n. fluid retention. 11. Digoxin 0.125 mg p.o. daily. 12. Corlanor 5 mg b.i.d. 13. Tylenol No.3 one q.6 hours p.r.n. FOLLOWUP: She is to follow up with [facility] in [place]. She is to follow up with the [facility] failure Clinic. She will see Dr. Beltran in 2 to [address] Obando in [address] Chiara Molina on 01/10 at 2 p.m., Dr. Damion Benjamin in 2 to 3 weeks, and Dr. Juan Pablo Oh in 2 to 3 weeks. She can return to the hospital at anytime should she have the need to do so. TIME SPENT: Total time in discharge activities was 41 minutes. Job ID: [id number]
--- NOTE | 2020-01-13 05:13 | PQF ---
[employer] Clinical Application Consultant Crystal Reports Winform ViewerHUMPHRRACQUEL,RITO MARCANO MD [id number] [id number] CLINICAL DOCUMENTATION CLARIFICATION FORM: POST DISCHARGE Addendum to original discharge summary date: ____ Late entry note date: __ DATE: 01/13/20 ATTN: Rito Jackson Please exercise your independent, professional judgment in responding to the clarification form. Clinical indicators are provided on the bottom of this form for your review Can you please further clarify the diagnosis occasioning inpatient admission? Please check appropriate box(s): [ ] Sepsis [ ] Acute CHF exacerbation [ x ] Other diagnosis please specify COPD exac [ ] Unable to determine In addition, please specify: Present on Admission (POA): [x ] Yes [ ] No [ ] Unable to determine For continuity of documentation, please document condition throughout progress notes and discharge summary. Thank You. CLINICAL INDICATORS - SIGNS / SYMPTOMS / LABS Physician Documentation- "Sepsis due to intra abdominal possibly- POA" H and P pg.1- "Chief complaint shortness of breath" H and P pg.3- "Congestive heart failure" Event Note- "Pt seen at various times today re: abdo pain c/o severe epigastric pain" DS pg.1- "Congestive heart failure, acute on chronic systolic exacerbation" RISK FACTORS smoke pack of cigarettes- H and P pg.1 COPD exacerbation- Hand P pg.2 CHF- H and P pg.1 Diverticulosis- DS pg.1 Intraabdominal adhesion- DS pg.1 Acute respiratory failure- DS pg.1 TREATMENTS: Chest X ray 12/26 Chest/ thorax CTA 12/[address] pelvis 12/27 Abdomen Ultrasound 12/27 TTE- Echocardiogram Adhesiolysis- OP report 12/31 pg.1 Cardiology Consult- Dr. Benjamin 12/[address] Oh 12/28 IV fluids- MAR IV lasix- MAR IV antibiotics- MAR (This form is maintained as a part of the permanent medical record) 2014 [employer] All Rights Reserved [email or web address]
--- NOTE | 2020-01-15 16:29 | EKG ---
Test Reason : ER INDICATION Blood Pressure : / mmHG Vent. Rate : 106 BPM Atrial Rate : 106 BPM P-R Int : 138 ms QRS Dur : 088 ms QT Int : 372 ms P-R-T Axes : 078 046 063 degrees QTc Int : 494 ms Sinus tachycardia with occasional Premature ventricular complexes Possible Left atrial enlargement Nonspecific T wave abnormality Abnormal ECG Confirmed by DEYVI MORAES ([id number]), video editor SHIRA FRENCH ([id number]) on 01/15/2020 4:29:22 PM Referred By: Confirmed By:DEYVI MORAES
== END 2020-01-09 12:15 | disposition home or self-care (01) | DRG 981 ==
LOC: ERS 15:39 → ERHOLD 23:05 → 2SW 12-27 09:00 → IMCU/EMU 12-27 23:18 → T4-B 01-02 22:49 → 2NO 01-03 14:38
PROVIDERS: ADMIT Hospitalist; ATTEND Hospitalist
PROC: 0DNW4ZZ Release Peritoneum, Percutaneous Endoscopic Approach (ICD-10-PCS; principal; 2019-12-31)
DX: J44.1 Chronic obstructive pulmonary disease with (acute) exacerbation (principal); A41.9 Sepsis, unspecified organism; I50.23 Acute on chronic systolic (congestive) heart failure; J96.21 Acute and chronic respiratory failure with hypoxia; I13.0 Hypertensive heart and chronic kidney disease with heart failure and stage 1 through stage 4 chronic kidney disease, or unspecified chronic kidney disease; K56.690 Other partial intestinal obstruction; E87.1 Hypo-osmolality and hyponatremia; N17.9 Acute kidney failure, unspecified; E87.2 Acidosis; J98.11 Atelectasis; I42.8 Other cardiomyopathies; F17.210 Nicotine dependence, cigarettes, uncomplicated; D47.3 Essential (hemorrhagic) thrombocythemia; K59.00 Constipation, unspecified; I48.91 Unspecified atrial fibrillation; G89.29 Other chronic pain; E66.9 Obesity, unspecified; I08.1 Rheumatic disorders of both mitral and tricuspid valves; N18.3 Chronic kidney disease, stage 3 (moderate); D72.829 Elevated white blood cell count, unspecified; K66.8 Other specified disorders of peritoneum; Z68.29 Body mass index [BMI] 29.0-29.9, adult; Z90.721 Acquired absence of ovaries, unilateral; Z91.14 Patient's other noncompliance with medication regimen; M48.061 Spinal stenosis, lumbar region without neurogenic claudication
CPT/HCPCS: 36415; 36416; 71045; 71046; 71275; 72148; 74018; 74019; 74022; 74176; 74177; 74250; 76705; 76856; 78226; 80048; 80053; 81003; 81015; 82553; 83605; 83690; 83735; 83880; 84145; 84484; 85025; 85027; 85379; 86140; 87040; 87086; 87633; 87804; 93005; 93010; 93306; 93798; 93976; 94640; 96361; 96365; 96375; A9537; C9113; J0360; J0456; J0670; J0696; J1100; J1642; J1885; J1940; J2185; J2250; J2270; J2405; J2543; J2704; J2920; J2930; J3010; J3370; J3490; J7050; J7070; J7620; J7626; Q0163; Q9967; S0020

== ENCOUNTER 2020-01-27 16:00 | Observation (INO) | payer MEDICARE ==
[2020-01-27] MEDS ORDERED: Ketorolac Tromethamine 30 MG/ML VIAL ONE (16:46)
[2020-01-27 16:49] LABS: #Basophils 0.2 thou/uL (0.0-0.2); #Eosinphils 0.2 thou/uL (0.0-0.7); #Lymphocytes 4.3 thou/uL (1.20-3.40); #Neutrophils 10.3 thou/uL (1.40-6.50); %Eosinophils 1.1 % (0.0-10.0); %Lymphocytes 26.8 % (21.0-51.0); %Monocytes 6.5 % (0.0-10.0); %Neutrophils 64.6 % (42.0-75.0); Mean Corpuscular HGB CONC 32.4 g/dL (32.0-36.0); Mean Corpuscular Volume 89.3 fL (78.0-98.0); Platelet Count 818 thou/uL (130-400); RBC Distribution Width 14.5 % (11.5-14.5); Red Blood Cell (RBC) Count 4.13 mill/uL (4.20-5.40); White Blood Cell (WBC) Count 15.9 thou/uL (4.8-10.8)
[2020-01-27 17:12] LABS: ALT (SGPT) 29 U/L (8-55); AST (SGOT) 21 U/L (5-34); Albumin 3.5 g/dL (3.5-5.0); Alkaline Phosphatase 239 U/L (40-110); Anion Gap 18 mmol/L (10-20); BUN (Urea Nitrogen) 21 mg/dL (9.8-20.1); Bilirubin, Total 0.3 mg/dL (0.2-1.2); CK (CPK) 11 U/L (29-168); Calc. Creatinine Clearance 0 mL/min (70-130); Calcium 9.2 mg/dL (7.8-10.44); Carbon Dioxide 19 mmol/L (22-29); Chloride 98 mmol/L (98-107); Estimated GFR-MDRD 81; Globulin 3.8 g/dL (2.4-3.5); Glucose 85 mg/dL (70-105); Potassium 4.5 mmol/L (3.5-5.1); Protein, Total 7.3 g/dL (6.0-8.3); Sodium 130 mmol/L (136-145)
[2020-01-27 18:44] LABS: Bacteria/HPF None Seen HPF (None Seen); Bilirubin Negative (Negative); Blood, Urine Trace (Negative); Clarity Clear (Clear); Glucose, Urine (Dipstick) Normal (Negative); Leukocyte Negative Leu/uL (Negative); Nitrite Negative (Negative); Protein, Urine (Dipstick) 10 mg/dL (Neg-Trace); RBC/HPF 0-3 HPF (0-3); Squamous Epithelial 0-3 HPF (0-3); Urobilinogen Normal mg/dL (Less than 2); WBC/HPF 0-3 HPF (0-3)
--- NOTE | 2020-01-27 18:51 | CT ---
Neck CT with IV contrast: 01/27/2020 COMPARISON: None HISTORY: Weakness with sore throat and fever TECHNIQUE: Axial CT imaging at 2.5 mm intervals from the skull base through the lung apices with IV c ontrast. Coronal and sagittal reformatted imaging obtained. FINDINGS: Imaged paranasal sinuses and mastoid air cells are well aerated. The retroantral fat and th e parapharyngeal fat is clear bilaterally. The parotid glands and submandibular glands appear grossly unremarkable. No evidence for a mass in the region of the epiglottis, or preepiglottic fat. Thyroid gland, level of glottis, hyoid bone, thyroid cartilage, and cricoid cartilage appear unremarkable. No abscess or prevertebral soft tissue swelling. The visualized lung apices demonstrate emphysematous change. Apposition of mucosal structures limits detailed assessment in the region of the glossotonsillar sulcus on the left. Underlying mild mucosal thickening cannot be fully excluded. No lymphadenopathy is noted within the neck. There is atherosclerotic calcification of the aortic arch and proximal great vessels. There is prominent degenerative change within the cervical spine at C3-4, C4-5, and C5-6. No acute osseous abnormality is noted. IMPRESSION: No evidence for lymphadenopathy, retropharyngeal fluid, or abscess.
[2020-01-27 20:48] VITALS: BMI 26.7
[2020-01-27] MEDS ORDERED: Ondansetron ODT 4 MG TAB SL PRN (20:55)
[2020-01-27] MEDS ORDERED: Acetaminophen 325 MG TAB PO PRN (20:55)
[2020-01-27] MEDS ORDERED: Ondansetron PF 4 MG/2 ML Vial IVP PRN ×2 (20:55→22:06)
[2020-01-27 21:06] LABS: Troponin I 0.015 ng/mL (< 0.028)
[2020-01-27] MEDS ORDERED: hydrALAZINE 20 MG/ML VIAL SLOW IVP PRN (22:06)
[2020-01-27] MEDS ORDERED: Ondansetron ODT 4 MG TAB PO PRN (22:06)
[2020-01-27] MEDS: traMADol HCl 50 MG TAB PO PRN (22:30)
[2020-01-27] MEDS: Acetaminophen 325 MG TAB PO PRN (22:30)
--- NOTE | 2020-01-27 22:58 | HP ---
PRIMARY CARE: [facility]. CHIEF COMPLAINT: Sore throat and trouble swallowing. HISTORY OF PRESENT ILLNESS: Ms. Anguiano is a pleasant 59-year-old female, who has a history of chronic systolic heart failure as well as COPD. She says that about a week and a half ago, she started having soreness in her throat. She says it hurts to swallow and she says that she can eat soft foods, but nothing hard. She is able to eat stuff like chicken noodle soup, but she cannot eat something like toast. She denies any cough. She denies any fever. She has had some mild nasal drainage, but no significant cough. However, she does admit to some sweating at night. She has a history of heartburn off and on, but it has not been worse than usual. She believes her pain in her throat started after she had an NG tube placed on a prior admission, where she had a concern for partial bowel obstruction. It is also noted that she is a smoker and has smoked for 40 years and quit about a month ago. She also believes she lost about 30 pounds in the last month and a half and she says that this is because she has not been able to eat much. Otherwise, no other complaints other than back pain, which is chronic. REVIEW OF SYSTEMS: All systems were reviewed and are negative except for that mentioned in the history of present illness. PAST MEDICAL HISTORY: Significant for COPD, chronic systolic heart failure. She is currently wearing a LifeVest. Chronic lumbar disk disease. PAST SURGICAL HISTORY: She has had an ovarian cyst removed, as well as laparotomy. ALLERGIES: NO KNOWN DRUG ALLERGIES. SOCIAL HISTORY: She is , has 2 children. She would like to be a full code. Her is her surrogate decision maker. She smokes. She quit smoking a month ago and smokes about a pack a day for the last 40 years. She denies any alcohol use. FAMILY HISTORY: Significant for diabetes mellitus. CURRENT MEDICATIONS: Include: 1. Corlanor 5 mg twice daily. 2. Albuterol nebs p.r.n. 3. Pulmicort p.r.n. 4. Aspirin 81 mg daily. 5. Lipitor 10 mg at bedtime. PHYSICAL EXAMINATION: GENERAL: She is alert and oriented. She appears to be in no acute distress. She is well developed and well nourished. VITAL SIGNS: Blood pressure was 108/59, heart rate 97, respiratory rate of 16, temperature is 98.1, O2 saturation is 94% on room air. HEENT: Pupils are equal, round, and reactive to light. Extraocular muscles are intact. Her sclerae anicteric. Throat, she is edentulous, but there is no erythema, no exudates. NECK: No adenopathy. No bruits. LUNGS: Clear to auscultation. There is no wheezing, no rales, no rhonchi. CARDIOVASCULAR: She has a normal S1 and S2. There is no S3 or S4. No murmurs, clicks, or rubs. ABDOMEN: Soft, nontender, and nondistended. Positive for bowel sounds. No rebound. No guarding. No organomegaly. EXTREMITIES: There is no clubbing or cyanosis. No edema. No calf tenderness. No joint effusions. NEUROLOGIC: Her muscle strength is 5/5 in both her upper and lower extremities. SKIN AND INTEGUMENT: No skin changes. No rash. LABORATORY RESULTS: White blood cell count is 15.9, hemoglobin is 12, hematocrit is 36.9, and platelet count is 808. Sodium 130, potassium 4.5, chloride is 98, CO2 is 19, BUN of 28, creatinine 0.73, glucose is 85. Troponin is 0.011. Urinalysis is essentially negative. She had a CT scan of the neck, which was negative for any acute process. ASSESSMENT: This is a pleasant 59-year-old female, who presents with difficulty swallowing and what sounds like mild odynophagia, the etiology of which is unclear. She has an elevated white blood cell count. However, her white count in review of her records is consistently elevated, likely due to smoking. She does have a slightly elevated CRP. However, I do not suspect that she has a septic picture. She most likely would benefit from an ENT or GI evaluation. Concerning is her long-standing history of smoking, which puts her at risk for head and neck malignancy, specifically. We will place her in observation, restart her home medications and consult ENT in the a.m. 1. Chronic obstructive pulmonary disease. This appears to be clinically stable. We will reconcile and restart her home medications, as well as DuoNeb p.r.n. and chronic systolic heart failure. She is currently wearing her LifeVest. Clinically, she is compensated. We will restart her home medications. 2. Hyponatremia. This again appears to be intermittent and chronic. It is also very mild. We will recheck in the a.m. and monitor the trend. Job ID: [id number]
[2020-01-27] MEDS ORDERED: Nicotine 14 MG PATCH TD SCH (23:00)
[2020-01-27 23:17] LABS: Troponin I 0.014 ng/mL (< 0.028)
[2020-01-28] MEDS: Acetaminophen 325 MG TAB PO PRN (03:28)
[2020-01-28] MEDS: traMADol HCl 50 MG TAB PO PRN ×2 (03:28→13:36)
[2020-01-28 05:02] LABS: #Basophils 0.1 thou/uL (0.0-0.2); #Eosinphils 0.2 thou/uL (0.0-0.7); #Lymphocytes 4.1 thou/uL (1.20-3.40); #Monocytes 0.9 thou/uL (0.11-0.59); #Neutrophils 7.9 thou/uL (1.40-6.50); %Basophils 0.7 % (0.0-1.0); %Eosinophils 1.7 % (0.0-10.0); %Monocytes 6.7 % (0.0-10.0); %Neutrophils 59.9 % (42.0-75.0); Hemoglobin 10.7 g/dL (12.0-16.0); Mean Corpuscular HGB CONC 33.5 g/dL (32.0-36.0); Mean Corpuscular Hemoglobin 29.6 pg (27.0-31.0); Mean Corpuscular Volume 88.5 fL (78.0-98.0); Mean Platelet Volume 5.9 fL (7.4-10.4); Platelet Count 766 thou/uL (130-400); RBC Distribution Width 14.3 % (11.5-14.5); Red Blood Cell (RBC) Count 3.61 mill/uL (4.20-5.40); White Blood Cell (WBC) Count 13.2 thou/uL (4.8-10.8)
[2020-01-28 05:54] LABS: Anion Gap 14 mmol/L (10-20); BUN (Urea Nitrogen) 23 mg/dL (9.8-20.1); Calc. Creatinine Clearance 79 mL/min (70-130); Calcium 8.6 mg/dL (7.8-10.44); Carbon Dioxide 20 mmol/L (22-29); Chloride 103 mmol/L (98-107); Estimated GFR-MDRD 78; Glucose 88 mg/dL (70-105); Potassium 4.4 mmol/L (3.5-5.1); Sodium 133 mmol/L (136-145)
[2020-01-28] MEDS ORDERED: Budesonide 0.5 MG/2 ML NEB NEB SCH (06:30)
[2020-01-28] MEDS ORDERED: Zolpidem Tartrate 5 MG TAB PO PRN (07:48)
[2020-01-28] MEDS ORDERED: Artificial Tears 18 DROP/0.9 ML EA EYE PRN (07:48)
[2020-01-28] MEDS ORDERED: Sodium Chloride 0.65% Nasal 44 ML BOT EA NARE PRN (07:48)
[2020-01-28] MEDS ORDERED: Loratadine 10 MG TAB PO PRN (07:48)
[2020-01-28] MEDS ORDERED: Benzonatate 100 MG CAP PO PRN (07:48)
[2020-01-28] MEDS ORDERED: Calcium Carbonate 500 MG ChewTAB PO PRN (07:48)
[2020-01-28] MEDS ORDERED: Diabetic Tussin 200 MG/10 ML UDCUP PO PRN (07:48)
[2020-01-28] MEDS ORDERED: Loperamide HCl 2 MG CAP PO PRN (07:48)
[2020-01-28] MEDS ORDERED: Cepastat Lozenges 1 LOZ PO PRN (07:48)
[2020-01-28] MEDS ORDERED: Senokot S 8.6-50 MG TAB PO PRN (07:48)
[2020-01-28] MEDS ORDERED: Bisacodyl 10 MG SUPP PR PRN (07:48)
[2020-01-28] MEDS ORDERED: HYDROcodone/Acetaminophen 5/325 mg Tablet PO PRN (07:48)
[2020-01-28] MEDS ORDERED: Ivabradine 5 MG TAB PO SCH (09:00)
[2020-01-28] MEDS ORDERED: Enoxaparin Sodium 40 MG/0.4 ML SYRINGE SC SCH (09:00)
[2020-01-28] MEDS ORDERED: Aspirin 81 mg Enteric Coated Tablet PO SCH (09:00)
[2020-01-28 11:47] VITALS: BP 118/56; TEMP 97.3
--- NOTE | 2020-01-28 13:48 | DIS ---
DATE OF ADMISSION: 01/27/2020 DATE OF DISCHARGE: 01/28/2020 PRIMARY CARE PHYSICIAN: Dr. Jesse Guadarrama. DISCHARGE DISPOSITION: Home. PRIMARY DISCHARGE DIAGNOSIS: Odynophagia, suspecting from acid reflux. SECONDARY DISCHARGE DIAGNOSES: Chronic obstructive pulmonary disease, dyslipidemia, chronic systolic heart failure, and chronic lumbar disk disease. PRIMARY PROCEDURE/OPERATION: None. RADIOLOGICAL INVESTIGATION: Neck CT negative. SIGNIFICANT LABORATORY DATA: WBC 13.2, hemoglobin 10.7, and platelet 766. Sodium 133 and creatinine 0.76. LFT normal. Cardiac enzyme negative. Urinalysis normal. Strep test negative. DISCHARGE MEDICATIONS: 1. Lipitor 10 mg p.o. at bedtime. 2. Aspirin 81 mg daily. 3. Pulmicort nebulization b.i.d. 4. DuoNeb q.6 hourly. 5. Corlanor 5 mg p.o. b.i.d. 6. Protonix 40 mg p.o. daily. CONTRAINDICATION: The patient is not on CHAPARRO inhibitor, ARB because of low blood pressure and the patient is not tolerating this medication and the patient is on Corlanor and that is why the patient is not on beta-heladio therapy, because the patient is not tolerating this medication. CODE STATUS: Full code. INPATIENT LEARNING AND DEVELOPMENT DIRECTOR: Dr. Glenn Truong, ENT doctor saw this patient. TEST RESULT PENDING ON DISCHARGE: None. ALLERGIES: NO KNOWN DRUG ALLERGIES. DISCHARGE PLAN: Posthospital, the patient will follow up with primary care physician and primary care physician refer her to Gastroenterology if needed. HOSPITAL COURSE: A 59-year-old female, who was admitted by Dr. Otero. Please see her H and P for further details. The patient was having sore throat and difficulty swallowing. The patient had rapid strep test, which was negative. CT soft tissue was negative. The patient was evaluated by ENT doctor and they recommended to start Protonix therapy for possible odynophagia secondary to acid reflux. We have prescribed her medication. The patient has chronic pain and she is instructed to follow up with primary care physician or pain specialist. The patient will continue all her previous medication for her chronic systolic heart failure. At this point, the patient is not on beta heladio, CHAPARRO inhibitor, ARB because of her blood pressure is not tolerated by those medication. The patient is medically stable for discharge. PHYSICAL EXAMINATION: GENERAL: The patient is seen and examined. The patient is currently alert, awake, no acute distress. VITAL SIGNS: Currently, temperature 97.3, pulse 90, respiratory rate 18, saturation 94%, and blood pressure 118/56. HEAD: Normocephalic and atraumatic. NECK: Supple. No JVD. No thyromegaly. No carotid bruit. LUNGS: Clear to auscultation without any rhonchi or rales. CARDIAC: S1 and S2 regular. No murmur. No gallop. No rub. ABDOMEN: Soft and benign without any tenderness. EXTREMITIES: No edema. NEUROLOGIC: Nonfocal examination. The patient is medically stable for discharge. Job ID: [id number]
[2020-01-28] MEDS ORDERED: Atorvastatin Calcium 10 MG TAB PO SCH (21:00)
== END 2020-01-28 14:28 | disposition home or self-care (01) ==
LOC: ERS 16:00 → 2SW 19:38
PROVIDERS: ADMIT Internal Medicine; ATTEND Internal Medicine
DX: R13.10 Dysphagia, unspecified (principal); I50.9 Heart failure, unspecified; E78.5 Hyperlipidemia, unspecified; M51.36 Other intervertebral disc degeneration, lumbar region; Z79.82 Long term (current) use of aspirin; Z79.899 Other long term (current) drug therapy; Z87.891 Personal history of nicotine dependence
CPT/HCPCS: 70492; 80048; 80053; 82550; 84484 ×2; 85025 ×2; 85652; 86140; 87081; 87430; 93005; 94640; 96361; 96374; 99285; G0378 ×3; 36415; 81003; 81015; J1885; J7626; Q9967

== ENCOUNTER 2020-11-01 15:49 | Inpatient (IN) | payer MEDICARE ==
--- NOTE | 2020-11-01 16:34 | RAD ---
EXAM: Two views chest PROVIDED CLINICAL HISTORY: Shortness of breath for 2 weeks. COMPARISON: 01/06/2020 FINDINGS: Cardiac silhouette is enlarged on today's exam. Pulmonary vasculature is within normal limits. Linear patchy airspace opacities on prior exam have resolved. Free intraperitoneal gas on the prior study is also no longer visualized. The lungs are clear on today's exam. Vascular calcifications are seen i n the thoracic aorta. No other interval change. IMPRESSION: 1. Cardiomegaly which was not appreciated on prior exam. 2. No acute cardiopulmonary process.
[2020-11-01 17:42] LABS: Hemoglobin 13.2 g/dL (12.0-16.0); Mean Corpuscular HGB CONC 31.9 g/dL (32.0-36.0); Mean Corpuscular Hemoglobin 29.4 pg (27.0-31.0); Mean Corpuscular Volume 92.1 fL (78.0-98.0); Mean Platelet Volume 7.4 fL (7.4-10.4); Platelet Count 513 thou/uL (130-400); RBC Distribution Width 14.3 % (11.5-14.5); Red Blood Cell (RBC) Count 4.48 mill/uL (4.20-5.40); White Blood Cell (WBC) Count 16.8 thou/uL (4.8-10.8)
[2020-11-01 17:51] LABS: ALT (SGPT) 455 U/L (8-55); AST (SGOT) 270 U/L (5-34); Albumin 3.8 g/dL (3.5-5.0); Alkaline Phosphatase 337 U/L (40-110); Anion Gap 16 mmol/L (10-20); BUN (Urea Nitrogen) 33 mg/dL (9.8-20.1); Bilirubin, Total 1.5 mg/dL (0.2-1.2); Calc. Creatinine Clearance 0 mL/min (70-130); Calcium 8.8 mg/dL (7.8-10.44); Carbon Dioxide 19 mmol/L (22-29); Chloride 102 mmol/L (98-107); Globulin 3.2 g/dL (2.4-3.5); Glucose 101 mg/dL (70-105); Potassium 4.2 mmol/L (3.5-5.1); Sodium 133 mmol/L (136-145)
[2020-11-01 18:02] LABS: #Basophils 0.1 thou/uL (0.0-0.2); #Eosinphils 0.1 thou/uL (0.0-0.7); #Lymphocytes 4.9 thou/uL (1.20-3.40); #Monocytes 1.2 thou/uL (0.11-0.59); #Neutrophils 8.3 thou/uL (1.40-6.50); %Basophils 0.8 % (0.0-1.0); %Eosinophils 0.4 % (0.0-10.0); %Lymphocytes 33.8 % (21.0-51.0); %Neutrophils 56.9 % (42.0-75.0); Band 2 % (5-11); Eosinophils 2 % (0-10); Lymphocytes 37 % (21-51); MDiff Complete? YES; Monocytes 9 % (0-10); Neutrophil 50 % (42-75); Platelet Morphology Comment Appears Increased; Polychromasia SLIGHT = 2-3 cells (100X) (0-2/hpf)
[2020-11-01] MEDS ORDERED: methylPREDNISolone Sod Succ/PF 125 MG/2 ML VIAL ONE (18:02)
[2020-11-01] MEDS ORDERED: Albuterol 200 PUFF (6.7GM INHALER) ONE (18:02)
[2020-11-01 18:12] LABS: CKMB 6.4 ng/mL (0-6.6)
[2020-11-01] MEDS ORDERED: Aspirin 325 MG TAB ONE (18:51)
[2020-11-01] MEDS ORDERED: Furosemide 40 MG/4 ML VIAL ONE (19:38)
--- NOTE | 2020-11-01 19:42 | CT ---
CTA OF THE CHEST WITH CONTRAST: 11/01/20 COMPARISON: None. HISTORY: Shortness of breath with exertion and while lying supine. History of CHF and COPD. TECHNIQUE: Multiple contiguous axial images were obtained in a CTA of the chest with contrast per pulmonary embo lism protocol. 3D oblique MIP reformats and direct coronal reformats were performed. FINDINGS: The pulmonary arteries are well opacified without filling defects to suggest pulmonary emboli. Bivent ricular cardiomegaly is seen. No hilar or mediastinal lymphadenopathy are appreciated. There are calc ifications in the coronary arteries. There is a small right pleural effusion. Bilateral dependent atelectasis is seen. Emphysematous estrada es are seen in the lungs. This is more prominent in the lung apices. No focal infiltrates are seen. N o suspicious pulmonary nodules are seen. Degenerative changes are seen in the spine. The chest wall soft tissues are unremarkable. The visuali zed subdiaphragmatic structures are unremarkable. IMPRESSION: 1. No evidence of pulmonary thromboembolism. 2. Right pleural effusion. POS: EAA
--- NOTE | 2020-11-01 20:03 | CT ---
CT ABDOMEN AND PELVIS WITH CONTRAST: 11/20/20 COMPARISON: 01/04/20 HISTORY: Midline abdominal pain. TECHNIQUE: Multiple contiguous axial images were obtained in a CT of the abdomen and pelvis with contrast. Sagit rosemary and coronal reformats were performed. FINDINGS: There appears to be a calcified gallstone in the gallbladder neck. The liver, kidneys, adrenal glands , spleen, and pancreas are unremarkable. No free air, free fluid, or stranding changes are seen in th e abdomen and pelvis. There are scattered diverticula in the colon. The reproductive organs are unremarkable. the small bow el is normal in caliber. The appendix is normal. Atherosclerotic calcifications are seen in the aorta. No abdominal or pelvic lymphadenopathy is appre ciated. Degenerative changes are seen in the spine. The visualized inferior thorax and abdominal wall soft ti ssues are unremarkable. IMPRESSION: 1. No evidence of acute intra-abdominal/pelvic abnormality. 2. Diverticulosis. POS: EAA
[2020-11-01] MEDS ORDERED: Lidocaine 1% (PF) 30 ML VIAL ONE (20:28)
[2020-11-01 21:51] LABS: Troponin I 0.052 ng/mL (< 0.028)
[2020-11-01 22:34] LABS: SARS-CoV-2 MS2 Positive; SARS-CoV-2 N Gene Negative; SARS-CoV-2 S Gene Negative; SARS-CoV-2 by NAA Not Detected (NotDetected); SARS-CoV-2 orf1ab Negative
--- NOTE | 2020-11-02 01:25 | HP ---
REASON FOR ADMISSION: Shortness of breath. HISTORY OF PRESENT ILLNESS: This is a 59-year-old female patient, who is presenting with shortness of breath history going back to approximately three weeks from her presentation. She has been progressively getting more short of breath day-by-day. The shortness of breath is worsened with lying flat on her back for the past three days. She has been not able to sleep. When she walks to the bathroom, she gets out of breath. She has some congestion but is not coughing much, not producing much phlegm. She denies having any chest pain. Denies fevers, denies chills. She is a smoker, but is currently trying to quit and has a nicotine patch. She also is known to have nonischemic cardiomyopathy with low ejection fraction. She was admitted in January for dysphagia and also congestive heart failure. She was seen by Cardiology. She was supposed to be on a LifeVest after her discharge. It seems that she has not been taking her prescribed medication and recently ran out of her neb treatments, which usually helps her with her shortness of breath. She attributes her noncompliance with her medication to the fact that she is unable to access her primary care physician due to COVID-19 outbreak. PAST MEDICAL HISTORY: 1. COPD. 2. High cholesterol. 3. Congestive heart failure, EF of 25% to 30%. 4. Chronic kidney disease, stage 2. 5. Elevated liver enzymes, likely due to passive congestion. 6. Severe mitral regurgitation with moderate aortic regurgitation. 7. Diverticulosis. 8. Severe lumbar stenosis and chronic back pain. 9. Atrial fibrillation. SOCIAL HISTORY: She does not drink alcohol. She is trying to quit smoking and she does use a nicotine patch. FAMILY HISTORY: Her grandmother was diabetic. ALLERGIES: NO NOTE OF ANY DRUG ALLERGIES. REVIEW OF SYSTEMS: All systems reviewed except the above mentioned, found to be negative. PHYSICAL EXAMINATION: GENERAL: She is awake, alert, oriented, does not appear in distress. VITAL SIGNS: Her blood pressure is 121/83, heart rate of 110, temperature is 98.2, saturating 100% room air. HEAD: Nontraumatic, normocephalic. Pupils equal, reactive. Extraocular movements are intact. Nonicteric sclerae. Well injected conjunctivae. Oral mucosa normal. Nasal mucosa normal. NECK: Supple. No adenopathy. No murmur. Thyroid is not palpable. Trachea is midline. No supraclavicular adenopathy. HEART: S1, S2. Regular. No murmur. No gallop. No friction rubs. No displacement of PMI. LUNGS: Good air entry bilaterally. No wheezes. No rhonchi or crackles. ABDOMEN: Bowel sounds are positive. Nontender abdomen. No hepatosplenomegaly. EXTREMITIES: No lower extremity edema. No cyanosis noted. NEUROLOGIC: Cranial nerves 2 through 12 within normal limits. Normal motor function. Normal sensory function. Normal reflexes. LABORATORY DATA: Blood work shows a WBC of 16.8, hemoglobin of 13.2, platelets of 513, neutrophil count 8.3%, lymphocyte count 4.9%. D-dimer 1.86. Sodium 133, potassium 4.2, bicarb of 19, BUN of 33, creatinine 1.12, AST 270, ALT 455, alkaline phosphatase 337. Troponin 0.045. BNP 3086. CT of the abdomen and pelvis shows no evidence of intracranial/pelvic abnormality, diverticulosis. CT of the chest shows no evidence of PE, right pleural effusion, emphysematous changes. EKG shows sinus tachycardia, QTc of 490. ASSESSMENT/PLAN: This is a 59-year-old female patient presenting with shortness of breath secondary to her emphysema, possibly due to fluid overload. She has been noncompliant with her medication. She does have history of congestive heart failure with low EF. Pulmonary: The patient has COPD. She will be on neb treatments on IV Solu-Medrol. She did receive IV Levaquin in the ER. I believe that this is more of COPD exacerbation without an infectious process. For that reason, would not continue with covering her with IV antibiotics. Cardiac: The patient has history of low EF and possibly has some element of fluid overload. We will have her on IV Lasix. We will consult Cardiology. Her QTc is slightly prolonged. We will check a magnesium level in a.m. and we will continue cycling her troponin. She did receive a dose of aspirin in the ER. Her abnormal troponin, could be due to demand ischemia. For DVT prophylaxis, she will be on heparin subcutaneously. Renal system: Electrolytes in regard of her kidney function, her creatinine is slightly above her baseline. We will monitor on a daily basis. I did discuss with her code status. She wishes to be full code. Job ID: [id number]
[2020-11-02] MEDS: HYDROcodone/Acetaminophen 5/325 mg Tablet PO PRN ×4 (01:41→23:05)
[2020-11-02] MEDS: Nicotine 14 MG PATCH TD SCH ×2 (01:42→23:05)
[2020-11-02 04:46] LABS: #Lymphocytes 1.5 thou/uL (1.20-3.40); #Monocytes 0.2 thou/uL (0.11-0.59); #Neutrophils 6.5 thou/uL (1.40-6.50); %Basophils 0.3 % (0.0-1.0); %Eosinophils 0.1 % (0.0-10.0); %Lymphocytes 17.8 % (21.0-51.0); %Monocytes 2.1 % (0.0-10.0); %Neutrophils 79.7 % (42.0-75.0); Hemoglobin 12.7 g/dL (12.0-16.0); Mean Corpuscular HGB CONC 31.7 g/dL (32.0-36.0); Mean Corpuscular Hemoglobin 29.3 pg (27.0-31.0); Mean Corpuscular Volume 92.4 fL (78.0-98.0); Mean Platelet Volume 7.5 fL (7.4-10.4); Platelet Count 491 thou/uL (130-400); RBC Distribution Width 14.2 % (11.5-14.5); Red Blood Cell (RBC) Count 4.33 mill/uL (4.20-5.40); White Blood Cell (WBC) Count 8.2 thou/uL (4.8-10.8)
[2020-11-02 05:15] LABS: Anion Gap 18 mmol/L (10-20); BUN (Urea Nitrogen) 35 mg/dL (9.8-20.1); Calc. Creatinine Clearance 46 mL/min (70-130); Calcium 8.7 mg/dL (7.8-10.44); Carbon Dioxide 22 mmol/L (22-29); Chloride 101 mmol/L (98-107); Glucose 167 mg/dL (70-105); Magnesium 1.9 mg/dL (1.6-2.6); Sodium 137 mmol/L (136-145)
[2020-11-02] MEDS ORDERED: Furosemide 40 MG/4 ML VIAL SLOW IVP SCH (09:00)
[2020-11-02] MEDS: Heparin 5,000 UNITS/ML VIAL SC SCH ×3 (09:46→20:46)
[2020-11-02] MEDS: methylPREDNISolone Sod Succ/PF 125 MG/2 ML VIAL IVP SCH ×3 (09:46→20:46)
--- NOTE | 2020-11-02 13:46 | PDOC.HOSPP ---
- Subjective Encounter Date: 11/02/20 Encounter Time: 13:45 Subjective: Ms. Bishop is a 59-year-old woman whose medical history includes COPD, CHF with decreased ejection fraction, ongoing tobacco dependence, history of being noncompliant with medications was admitted to the hospital with worsening dyspnea. She was felt to be in COPD exacerbation complicated by CHF exacerbation. She is getting bronchodilators. She is getting IV furosemide. - Objective Vital Signs & Weight: Vital Signs (12 hours) Temp Pulse Resp BP Pulse Ox 11/02/20 12:11 107 H 20 91 L 11/02/20 11:40 97.4 F L 105 H 18 132/85 98 11/02/20 09:00 97 11/02/20 08:23 98.1 F 98 20 126/81 93 L 11/02/20 08:00 97 11/02/20 06:46 102 H 20 94 L 11/02/20 05:15 99 11/02/20 04:00 97.4 F L 109 H 18 119/71 98 Weight Weight 143 lb Result Diagrams: 11/02/20 04:26 11/02/20 04:26 Radiology Reviewed by me: Yes EKG Reviewed by me: Yes Hospitalist ROS - Review of Systems Constitutional: reports: weakness, malaise Respiratory: reports: cough, shortness of breath, SOB with excertion Cardiovascular: reports: edema - Medication Medications: Active Medications Generic Name Dose Route Start Last Admin Trade Name Freq PRN Reason Stop Dose Admin Hydrocodone Bitart/Acetaminophen 1 tab 11/01/20 22:00 11/02/20 09:47 Hydrocodone/Acetaminophen 5/325 Mg Tablet PO 1 tab Q4H PRN Administration Pain Albuterol/Ipratropium 3 ml 11/02/20 01:00 11/02/20 12:11 Ipratropium/Albuterol Sulfate 3 Ml Neb NEB 3 ml [id number] FRANNY Administration Furosemide 40 mg 11/02/20 09:00 11/02/20 09:46 Furosemide 40 Mg/4 Ml Vial SLOW IVP 40 mg BID FRANNY Administration Heparin Sodium (Porcine) 5,000 units 11/02/20 09:00 11/02/20 09:46 Heparin 5,000 Units/Ml Vial SC 5,000 units TID FRANNY Administration Methylprednisolone Sodium Succinate 40 mg 11/02/20 09:00 11/02/20 09:46 Methylprednisolone Sod Succ/Pf 125 Mg/2 Ml Vial IVP 40 mg TID FRANNY Administration Metoprolol Succinate 12.5 mg 11/02/20 09:00 11/02/20 09:48 Metoprolol Succinate Xl 25 Mg Tab PO 12.5 mg BID FRANNY Administration Nicotine 14 mg 11/01/20 22:00 11/02/20 01:42 Nicotine 14 Mg Patch TD 14 mg Q24HR FRANNY Administration - Exam General Appearance: NAD, awake alert, ill appearing Eye: PERRL, anicteric sclera, scleral icterus ENT: normocephalic atraumatic, no oropharyngeal lesions, moist mucosa Neck: supple, no JVD, no thyromegaly Heart: RRR, no murmur, no gallops, no rubs, normal peripheral pulses Respiratory: CTAB, no wheezes, no rales, no ronchi Gastrointestinal: soft, non-tender, non-distended, normal bowel sounds Extremities: 1+ LE edema Neurological: cranial nerve grossly intact, normal sensation to touch Musculoskeletal: normal tone, normal strength, no muscle wasting Psychiatric: normal behavior, A&O x 3, flat affect Hosp A/P - Plan old records reviewed/req, plan discussed w/ family, PT/OT, respiratory therapy, incentive spirometry #1. COPD exacerbation. Continue bronchodilators and steroids. Consider empiric antibiotics. 2. CHF exacerbation I agree with diuresis. Follow-up on echocardiogram report. 3. Tobacco dependence. Patient is in desperate need of tobacco cessation. 4. Type II non-OH elevation in troponin. This is likely secondary to type II from COPD exacerbation. She denies any chest pain. No further cardiac work-up planned.
[2020-11-02] MEDS: Potassium Chloride 10 MEQ TAB PO SCH (16:50)
[2020-11-02] MEDS: Carvedilol 6.25 MG TAB PO SCH (16:50)
--- NOTE | 2020-11-02 19:57 | CON ---
DATE OF CONSULTATION: 11/02/2020 REASON FOR CONSULTATION: Congestive heart failure. PRIMARY CURRENCY MACHINE OPERATOR: Dr. Damion Benjamin. HISTORY OF PRESENT ILLNESS: Ms. Anguiano is a pleasant 59-year-old woman with previous history of nonischemic cardiomyopathy with mild nonobstructive coronary artery disease. She was admitted to the hospital in the past with congestive heart failure and improved. However, she said she was unable to afford the medications at 500 dollars a month, so I suspect it may have been Entresto. She said she could not afford the medicines and she could not afford followups, so therefore she has not been back in the office since "COVID hit." She is taking no medicines. She finally came to the hospital with refractory difficulty breathing and congestive heart failure. No chest pain. SOCIAL HISTORY: No tobacco. REVIEW OF SYSTEMS: CONSTITUTIONAL: No significant weight gain or loss. Vision, no changes. Hearing, no changes. PULMONARY: No cough or wheezing. GASTROINTESTINAL: No nausea, vomiting, or diarrhea. SKIN: No rashes. NEUROLOGIC: No unilateral weakness or numbness. PSYCHIATRIC: No unusual depression or anxiety. HEMATOLOGIC: No unusual bruising. GENITOURINARY: No burning with urination. PHYSICAL EXAMINATION: GENERAL: This is a pleasant 59-year-old woman, in no distress. VITAL SIGNS: Blood pressure 130/80, pulse 107 and regular. LUNGS: Clear. CARDIAC: Normal S1, normal S2. ABDOMEN: Soft, nontender. EXTREMITIES: No edema. LABORATORY DATA: Creatinine went from 1.12 to 1.33, potassium is 4.0. Troponin 0.060. Liver function tests are increased, probably hepatic congestion. ASSESSMENT: 1. Nonischemic cardiomyopathy. 2. Noncompliance with followup. 3. Renal insufficiency with diuresis. PLAN: 1. We will change from metoprolol to carvedilol. 2. Decrease diuretic at this time, does not appear to be volume overloaded. 3. Start CHAPARRO inhibitor tomorrow morning if the creatinine is stable. 4. Dr. Benjamin will see the patient tomorrow. Job ID: [id number] MTDD
[2020-11-03 05:25] LABS: #Lymphocytes 1.8 thou/uL (1.20-3.40); #Monocytes 0.5 thou/uL (0.11-0.59); %Basophils 0.1 % (0.0-1.0); %Eosinophils 0.1 % (0.0-10.0); %Lymphocytes 11.2 % (21.0-51.0); %Monocytes 2.7 % (0.0-10.0); %Neutrophils 85.9 % (42.0-75.0); Hemoglobin 12.7 g/dL (12.0-16.0); Mean Corpuscular HGB CONC 31.8 g/dL (32.0-36.0); Mean Corpuscular Hemoglobin 29.8 pg (27.0-31.0); Mean Corpuscular Volume 93.6 fL (78.0-98.0); Mean Platelet Volume 7.5 fL (7.4-10.4); Platelet Count 477 thou/uL (130-400); RBC Distribution Width 14.2 % (11.5-14.5); Red Blood Cell (RBC) Count 4.27 mill/uL (4.20-5.40); White Blood Cell (WBC) Count 16.3 thou/uL (4.8-10.8)
[2020-11-03 05:46] LABS: ALT (SGPT) 262 U/L (8-55); AST (SGOT) 78 U/L (5-34); Albumin 3.6 g/dL (3.5-5.0); Alkaline Phosphatase 320 U/L (40-110); Anion Gap 16 mmol/L (10-20); BUN (Urea Nitrogen) 39 mg/dL (9.8-20.1); Bilirubin, Total 0.8 mg/dL (0.2-1.2); Calc. Creatinine Clearance 49 mL/min (70-130); Calcium 8.8 mg/dL (7.8-10.44); Carbon Dioxide 24 mmol/L (22-29); Chloride 99 mmol/L (98-107); Globulin 3.3 g/dL (2.4-3.5); Glucose 153 mg/dL (70-105); Potassium 4.4 mmol/L (3.5-5.1); Protein, Total 6.9 g/dL (6.0-8.3); Sodium 135 mmol/L (136-145)
--- NOTE | 2020-11-03 07:55 | ULT ---
RIGHT UPPER QUADRANT ULTRASOUND CLINICAL HISTORY: Elevated LFTs, nausea, constipation and concern for gallstones. COMPARISON: Prior CT abdomen pelvis dated November 01, 2020 FINDINGS: Liver:There is diffuse fatty liver Intrahepatic bile ducts: No intrahepatic or extrahepatic biliary dilation.; Common bile duct: 3.5 mm. Gallbladder: Mildly contracted with multiple stones Sapp's sign:None Main portal vein:Patent with hepatopedal flow. Pancreas:Visualized pancreas appears normal. Right kidney: Right kidney measures 9.2 x 3.8 x 3.8 cm. No focal renal lesion or hydronephrosis. Additional findings: None. IMPRESSION: 1. Fatty liver. 2. Cholelithiasis without sonographic evidence of acute cholecystitis.
[2020-11-03] MEDS ORDERED: Lisinopril 2.5 MG TAB PO SCH (09:00)
[2020-11-03] MEDS: methylPREDNISolone Sod Succ/PF 125 MG/2 ML VIAL IVP SCH ×3 (09:37→21:22)
[2020-11-03] MEDS: HYDROcodone/Acetaminophen 5/325 mg Tablet PO PRN ×3 (09:38→21:23)
[2020-11-03] MEDS: Potassium Chloride 10 MEQ TAB PO SCH (09:38)
[2020-11-03] MEDS: Carvedilol 6.25 MG TAB PO SCH ×2 (09:39→16:37)
[2020-11-03] MEDS: Furosemide 20 MG TAB PO SCH ×2 (09:39→14:42)
[2020-11-03] MEDS: Heparin 5,000 UNITS/ML VIAL SC SCH ×3 (09:39→21:23)
[2020-11-03] MEDS ORDERED: Spironolactone 25 MG TAB PO SCH (10:15)
--- NOTE | 2020-11-03 14:00 | PDOC.HOSPP ---
- Subjective Encounter Date: 11/03/20 Encounter Time: 13:58 Subjective: Ms. Bishop is a 59-year-old female who was admitted to the hospital for worsening shortness of breath. She has medical history significant for COPD, congestive heart failure with decreased ejection fraction, nonischemic c ardiomyopathy, ongoing tobacco dependence. She was admitted due to COPD and CHF exacerbation. She is getting bronchodilators and also some Lasix. Clinically she is improved but not quite at her baseline. She has been noncompliant due to has not been able to afford her medications. She also has not been seen by a doctor due to the Covid virus she claims. At any rate she continues to improve clinically and she probably should be medically optimized for discharge hopefully in the next 24 to 48 hours. - Objective Vital Signs & Weight: Vital Signs (12 hours) Temp Pulse Resp BP Pulse Ox 11/03/20 13:32 95 18 92 L 11/03/20 12:17 98.2 F 95 20 128/85 97 11/03/20 09:38 93 11/03/20 08:00 97.8 F 93 20 98/64 100 11/03/20 07:23 99 18 91 L 11/03/20 03:33 97.8 F 91 16 105/81 92 L Weight Weight 148 lb 11.2 oz I&O: 11/02/20 11/03/20 11/04/20 06:59 06:59 06:59 Intake Total 1909 600 Output Total 1650 Balance 259 600 Result Diagrams: 11/03/20 05:05 11/03/20 05:05 Radiology Reviewed by me: Yes EKG Reviewed by me: Yes Hospitalist ROS - Review of Systems Constitutional: reports: weakness, malaise Respiratory: reports: shortness of breath, wheezing - Medication Medications: Active Medications Generic Name Dose Route Start Last Admin Trade Name Freq PRN Reason Stop Dose Admin Hydrocodone Bitart/Acetaminophen 1 tab 11/01/20 22:00 11/03/20 09:38 Hydrocodone/Acetaminophen 5/325 Mg Tablet PO 1 tab Q4H PRN Administration Pain Albuterol/Ipratropium 3 ml 11/02/20 01:00 11/03/20 13:32 Ipratropium/Albuterol Sulfate 3 Ml Neb NEB 3 ml [id number] FRANNY Administration Carvedilol 6.25 mg 11/02/20 17:00 11/03/20 09:39 Carvedilol 6.25 Mg Tab PO 6.25 mg [id number] FRANNY Administration Furosemide 20 mg 11/03/20 09:00 11/03/20 09:39 Furosemide 20 Mg Tab PO 20 mg 0900,1400 FRANNY Administration Heparin Sodium (Porcine) 5,000 units 11/02/20 09:00 12 09:39 Heparin 5,000 Units/Ml Vial SC 5,000 units TID FRANNY Administration Methylprednisolone Sodium Succinate 40 mg 11/02/20 09:00 11/03/20 09:37 Methylprednisolone Sod Succ/Pf 125 Mg/2 Ml Vial IVP 40 mg TID FRANNY Administration Nicotine 14 mg 11/01/20 22:00 11/02/20 23:05 Nicotine 14 Mg Patch TD 14 mg Q24HR FRANNY Administration - Exam General Appearance: NAD, awake alert, ill appearing Eye: PERRL, anicteric sclera ENT: normocephalic atraumatic, no oropharyngeal lesions Neck: supple, symmetric, no JVD, no thyromegaly Heart: RRR, no murmur, no gallops, no rubs, normal peripheral pulses Respiratory: tachypneic, wheezes Gastrointestinal: soft, non-tender, non-distended, normal bowel sounds, no palpable masses Extremities: 1+ LE edema Neurological: cranial nerve grossly intact, normal sensation to touch Psychiatric: normal affect, normal behavior, A&O x 3 Hosp A/P - Plan #1. COPD exacerbation. Continue bronchodilators and steroids. Consider empiric antibiotics. 11/03/2020. We will go ahead and start her on cefepime she is producing purulent sputum. I have ordered for urine Legionella and Streptococcus antigens. The antibiotic can be deescalated as deemed appropriate. 2. CHF exacerbation I agree with diuresis. Follow-up on echocardiogram report. 11/03/2020. She is being followed by cardiology who changed her to Lasix 20 mg twice daily. 3. Tobacco dependence. Patient is in desperate need of tobacco cessation. 4. Type II non-AL elevation in troponin. This is likely secondary to type II from COPD exacerbation. She denies any chest pain. No further cardiac work-up planned. #5. Nonischemic cardiomyopathy. Patient has been known to have a decreased EF. Repeat echo has been ordered and will follow up on the results.
[2020-11-03] MEDS: Cefepime 1 GM in Sodium Chloride 0.9% 100 ML IVPB SCH (15:04)
[2020-11-03 16:14] LABS: Legionella Urinary Ag Negative (Negative); Strep pneumo Urine Ag NEGATIVE (NEGATIVE)
--- NOTE | 2020-11-03 18:16 | CON ---
DATE OF CONSULTATION: 11/03/2020 HISTORY OF PRESENT ILLNESS: I am seeing Ms. Anguiano at our [facility] telemetry for Electrophysiology consultation. Her problems are; 1. Chronic systolic congestive heart failure with nonischemic cardiomyopathy. a. 2D echo from December 27, 2019, reveals LVEF 25% to 30%, moderate TR, moderate AI, mildly elevated pressures. 2. Financial noncompliance. 3. History of COPD. 4. Valvular heart disease with moderate AI, severe MR, moderate TR. 5. Chronic kidney disease. 6. Hypertension. ALLERGIES: NONE NOTED. MEDICATIONS: Prior to admit was none due to financial noncompliance. SUBJECTIVE: Ms. Anguiano came in on 11/01/2020 with progressive dyspnea, unable to lie flat for past 3 days and not able to sleep. Denies having any chest pain. Denies fever or chills. Tried to quit smoking with nicotine patch. She has weight gain and she felt that she is developing heart failure exacerbation. Due to financial noncompliance, she could not afford the prescribed medications. In the past, she was seen in December and January of this year when the reduced LVEF was noted. She was given a LifeVest, which she could not wear. She does not pass out. No stroke-like symptoms. No neurological deficit. Denies angina-like discomfort. REVIEW OF SYSTEMS: Rest of 12-point review of system otherwise unremarkable. PAST HISTORY: As above. She has history of COPD, high cholesterol, CHF with LVEF 25% to 30%, chronic kidney disease, elevated liver enzymes possibly due to liver congestion, history of severe MR, moderate AI and TR, diverticulosis. Atrial fibrillation was also noted in the history. The patient has been following with Dr. Benjamin, and due to financial constraints, has not been seeing him very recently. Also could not afford medications, ran out number of months ago. She did have a coronary artery evaluation with 30% proximal stenosis in the right coronary artery, 20% mid stenosis, otherwise it was clear from occlusive coronary artery disease. Past history as above. SOCIAL HISTORY: The patient is smoker, trying to quit. Denies EtOH or drug abuse. She is , lives in independently. FAMILY HISTORY: Not contributory. PHYSICAL EXAMINATION: VITAL SIGNS: Blood pressure is 128/85, heart rate 95, respiratory rate is 20, temperature 98.2 degrees Fahrenheit. GENERAL: Reveals an alert and oriented woman, in no apparent distress. NECK: Supple. Jugular veins slightly distended. CHEST: Coarse. I do not hear crackles. CARDIAC: Heart sounds are regular to rate and rhythm. No murmur or gallop. ABDOMEN: Benign. Bowel sounds positive. EXTREMITIES: Lower extremities without edema, clubbing, or cyanosis. Pulses are adequate. NEUROLOGIC: The patient is nonfocal. MUSCULOSKELETAL: Without joint swelling or deformities. SKIN: Without rash. DATABASE: EKG is reviewed, on November 01, reveals sinus tachycardia, rate of 111 beats per minute, narrow QRS is seen. QTc is 490 milliseconds. Subsequent telemetry strips reveal sinus tachycardia. Short PAT runs are noted on occasion. No ventricular tachyarrhythmia of significance. LABORATORY DATA: White cell count 16.3, hemoglobin 12.7, platelet count is 477. Sodium 135, potassium 4.4, BUN is 39, creatinine 1.29. Troponin-I 0.045, 0.052, and 0.06 consecutively. The BNP was 3086 on presentation. AST and ALT are 78 and 262 on the 4th and 270 and 455 on admission. Total bilirubin was also elevated at that time, currently normal at 0.8. Chest CT from 11/01/2020, reveals no pulmonary embolism, right pleural effusion, cardiomegaly is noted. Abdominal CT shows no acute intraabdominal or pelvic abnormality. Presence of diverticulosis is noted. Abdominal ultrasound shows fatty liver and cholelithiasis without evidence of cholecystitis. ASSESSMENT AND PLAN: Ms. Anguiano is a pleasant 59-year-old woman with prior history of nonischemic cardiomyopathy, insignificant coronary artery disease only. She has had severely reduced LVEF back in December and has had some issues with compliance due to financial constraints. She has not been able to see Dr. Benjamin regularly and could not afford the prescribed medications. Also, she declined LifeVest, which was placed for her on last hospitalization in January. She states she cannot wear that. We discussed the risk of future ventricular arrhythmias. She clearly is at significant risk, especially with the LVEF continues to be reduced. 2D echocardiogram is pending, but I suspect it will likely be still in the reduced range, hence the lack of compliance with medication. We also discussed the potential option of ICD implantation, although clearly medical therapy should be instituted to assess her response to that, unfortunately, I doubt further compliance on an outpatient with the medication regimen. We have discussed the potential option of early ICD implant, but at this point, she is not interested in that. She will consider it in 3 months' time. She understands the interim risk of potentially lethal malignant ventricular arrhythmias. Congestive heart failure, as per Dr. Benjamin, likely should be based on guideline dictated medical therapy with lowest possible cost. History of atrial fibrillation, currently in sinus rhythm. PAT runs are noted. For now, aspirin for anticoagulation. I have to see this lady back after three months followup echocardiogram is complete to assess her for benefit from ICD implant. Job ID: [id number]
[2020-11-03] MEDS ORDERED: Atorvastatin Calcium 20 MG TAB PO SCH (21:00)
[2020-11-03] MEDS: Magnesium Oxide 400 MG TAB PO SCH (21:22)
[2020-11-03] MEDS: Nicotine 14 MG PATCH TD SCH (21:35)
[2020-11-03] MEDS: Valsartan 80 MG TAB PO SCH (22:30)
[2020-11-04] MEDS: HYDROcodone/Acetaminophen 5/325 mg Tablet PO PRN ×3 (04:25→18:48)
[2020-11-04] MEDS: Cefepime 1 GM in Sodium Chloride 0.9% 100 ML IVPB SCH ×2 (04:26→14:29)
[2020-11-04 04:57] LABS: #Basophils 0.1 thou/uL (0.0-0.2); #Lymphocytes 1.1 thou/uL (1.20-3.40); #Monocytes 0.4 thou/uL (0.11-0.59); #Neutrophils 13.4 thou/uL (1.40-6.50); %Basophils 0.3 % (0.0-1.0); %Eosinophils 0.1 % (0.0-10.0); %Lymphocytes 7.4 % (21.0-51.0); %Monocytes 2.3 % (0.0-10.0); %Neutrophils 89.8 % (42.0-75.0); Hemoglobin 12.3 g/dL (12.0-16.0); Mean Corpuscular HGB CONC 31.2 g/dL (32.0-36.0); Mean Corpuscular Hemoglobin 29.3 pg (27.0-31.0); Mean Platelet Volume 7.6 fL (7.4-10.4); Platelet Count 476 thou/uL (130-400); RBC Distribution Width 14.2 % (11.5-14.5); Red Blood Cell (RBC) Count 4.18 mill/uL (4.20-5.40); White Blood Cell (WBC) Count 14.9 thou/uL (4.8-10.8)
[2020-11-04 05:28] LABS: ALT (SGPT) 176 U/L (8-55); AST (SGOT) 36 U/L (5-34); Albumin 3.4 g/dL (3.5-5.0); Alkaline Phosphatase 251 U/L (40-110); Anion Gap 16 mmol/L (10-20); BUN (Urea Nitrogen) 45 mg/dL (9.8-20.1); Bilirubin, Total 0.6 mg/dL (0.2-1.2); Calc. Creatinine Clearance 57 mL/min (70-130); Calcium 8.3 mg/dL (7.8-10.44); Carbon Dioxide 25 mmol/L (22-29); Chloride 97 mmol/L (98-107); Globulin 2.9 g/dL (2.4-3.5); Glucose 186 mg/dL (70-105); Potassium 4.1 mmol/L (3.5-5.1); Protein, Total 6.3 g/dL (6.0-8.3); Sodium 134 mmol/L (136-145)
[2020-11-04] MEDS: Furosemide 20 MG/2 ML VIAL SLOW IVP SCH ×2 (06:45→14:32)
--- NOTE | 2020-11-04 07:05 | CON ---
DATE OF CONSULTATION: 11/03/2020 SERVICE: Advanced Heart Failure Cardiology Consulting Service. REASON FOR CONSULTATION: Management of wtiam-ie-eegkurp heart failure. HISTORY OF PRESENT ILLNESS: Ms. Sophia nAguiano is a 59-year-old lady with known heart failure with reduced ejection fraction, was admitted for combination of shortness of breath and weakness. She first went into heart failure episode in 2018. Catheterization at that time did not reveal any significant coronary artery disease. She was treated medically. Apparently, Entresto was started. She said that medicine costs too much. She said one medicine costs 500 dollars a month. Because of that, she stopped taking almost all medicines altogether. She has been seen by different physicians and different regimen of non-Entresto heart failure medication might have been tried. As late as in 2018, she was able to walk her dog, which is a Labrador. She said that as long as she does not have fluid buildup, she can walk her dog. She was admitted for hypoxia and heart failure like symptoms twice this year already in January. She was doing fairly well until more recently. She said she had 3 weeks of progressive shortness of breath and fatigue. Now, barely any movement will cause severe shortness of breath. She only can take a few steps instead of walking her dog. She only can walk about 5 to 10 yards. She has great difficulty going to sleep. She is very uncomfortable. After she falls asleep, she will wake up feeling short of breath and need to sit up. This has been going on for about 3 weeks now. So at least she has PND every night. The shortness of breath is progressive. Eventually, the shortness of breath caused her to come into the hospital. She also has been a smoker. She said that she quit smoking about 3 weeks ago with start of nicotine patch. Since admission, she says she is feeling better. However, she has strongly stated that she does not want any surgery and does not want to consider advanced heart failure treatment. On the other hand, she would consider a defibrillator or GLUE SPREADER-D if needed. PAST MEDICAL HISTORY: 1. Heart failure with reduced ejection fraction, EF about 20%. 2. Nonischemic cardiomyopathy. 3. History of severe mitral regurgitation. 4. COPD. 5. Some history of hypertension. SOCIAL HISTORY: 1. She smoked for over 40 years, but stopped smoking 3 weeks ago. 2. She denies any alcohol use. 3. She denies any illicit drug use. 4. She lives with her of 45 years. FAMILY HISTORY: She does not know her father. She does not know her father Her mother at age 60 of complications of back surgery. REVIEW OF SYSTEMS: GENERAL: She is fatigued, but there is no fever, chills, or productive cough. HEENT: There is no change in vision, hearing, or swallowing. PULMONARY: Please see HPI. CARDIAC: Please see HPI. GI: She does feel full that she does not want to eat. She also has early satiety. : She can still urinate on her own. MUSCULOSKELETAL: There are no complaints of joint pains or muscle pains. INTEGUMENT: There are no complaints of new skin breakdown. NEUROLOGIC: There are no new focal deficits or weaknesses. CURRENT MEDICATIONS: 1. Albuterol/ipratropium nebs q.6 hours. 2. Aspirin 81 mg daily. 3. Carvedilol 6.25 mg b.i.d. 4. Cefepime 1 g daily. 5. Furosemide 20 mg p.o. twice a day. 6. Heparin 5000 units subcutaneous 3 times a day. 7. Solu-Medrol 40 mg IV t.i.d. 8. Nicotine patch 14 mg transdermal q.24 hours. 9. Spironolactone 25 mg p.o. daily. PHYSICAL EXAMINATION: The telemetry shows the patient is majority in sinus rhythm. There are some PVCs. There are also PACs. VITAL SIGNS: Her latest vitals are heart rate 88, blood pressure 106/76. GENERAL: She appears fatigued lying in an inclined bed. She can talk in short sentences. After that, she is short of breath. HEENT: Show EOMI. Oropharynx is benign with moist mucosa. NECK: Her JVP is about 9 cm with positive hepatojugular reflux. PULMONARY: There is presently good air movement bilaterally, may be slight crackle at the right base. CARDIAC: Regular rate and rhythm with normal S1 and S2. There is 2/6 holosystolic murmur at the apex with radiation to the left axilla. There is also 1/6 diastolic murmur at the right base. Consequently, she has murmurs of mitral regurgitation and aortic regurgitation. LABORATORY STUDIES: White cell count 16.3, hemoglobin 12.7, platelets of 477. Her chemistry showed sodium 135, potassium 4.4, BUN 39, creatinine at 1.29. This is slight improvement from yesterday. However, her AST is elevated at 78, ALT is also elevated at 262, and alkaline phosphatase is elevated at 320. Echocardiogram was reviewed. 1. She has a dilated left ventricle with left ventricle inner diameter about 6 cm. The LVIDd that appeared in a report is incorrect. 2. LV ejection fraction visually estimated at 20%. 3. There is presence of moderate mitral regurgitation. 4. There is presence of moderate aortic regurgitation. 5. Left atrium is dilated. 6. Right ventricle is moderately dilated with mildly depressed function. 7. The right atrium also is moderately dilated. 8. There is severe tricuspid regurgitation. Chest x-ray was also reviewed. Chest x-ray showed cardiomegaly, pulmonary vessels with Aldair B lines. ASSESSMENT: A 59-year-old female who has hypoxia due to combination of iythe-[id number]-[id number] heart failure and possibly chronic obstructive pulmonary disease exacerbation. She resides in [place] Heart Association stage C and also [place] Heart Association class 4 heart failure with reduced ejection fraction. It is a nonischemic cardiomyopathy. It has both systolic and diastolic components. She is slightly volume overloaded. She is not compensated. Fatigue and shortness of breath are results of insufficient cardiac output. Since she has not been on medication for a significant amount of time, restarting medication should help. She is adamantly opposed to advanced heart failure therapy. Furthermore, her past noncompliance behavior essentially excludes her from consideration for advanced heart failure therapy. Thus, the best thing we can do is medical treatment and plus arrhythmia protection with potential AICD implant. She is receptive to an AICD implant. Please see the following for my recommendations. RECOMMENDATIONS: 1. Change from carvedilol to Toprol-XL. The rationale is decreased bronchoconstriction caused by the beta-2 antagonist of carvedilol. She may need this actually to help her breathe. Change from Lasix 20 mg p.o. to Lasix 20 mg IV b.i.d. that would give her a little bit more diuresis. 2. Start valsartan 40 mg p.o. b.i.d. This is to help her to be ready for Entresto. Please do complete metabolic panel and magnesium tomorrow. If her liver enzymes still climbing, that means her RV dysfunction is significant. If we cannot decongest her liver, then she might need inotropic support. However, her behavior does not support long-term inotropic infusion, so consequently we have to do best we can with oral medications. 3. Please consult Electrophysiology. Please also do ECG to look at her QRS. The ideal is GLUE SPREADER-D, if not a dual-chamber AICD. It has been a pleasure taking care of . Sophia Anguiano. If any questions, please give me a call. This visitation took about 70 minutes. They include personally performing history and physical, reading echocardiogram, reading chest x-ray, counseling and explaining informing workable plan with the patient. Job ID: [id number] MTDD
--- NOTE | 2020-11-04 08:09 | PDOC.HOSPP ---
- Subjective Encounter Date: 11/04/20 Encounter Time: 08:09 Subjective: Patient was seen and examined in bed. She feels generally better. She denies any chest pain or shortness of breath. - Objective Vital Signs & Weight: Vital Signs (12 hours) Temp Pulse Resp BP Pulse Ox 11/04/20 07:30 97.5 F L 89 20 105/78 96 11/04/20 06:44 81 98/70 11/04/20 03:26 97.6 F 84 16 85/59 L 98 11/04/20 01:18 93 L 11/03/20 23:34 97.7 F 85 16 104/74 95 11/03/20 21:19 86 91/71 11/03/20 21:15 98 11/03/20 20:13 93 L Weight Weight 148 lb 1.6 oz I&O: 11/03/20 11/04/20 11/05/20 06:59 06:59 06:59 Intake Total 1909 2593 Output Total 1650 600 Balance 259 1993 Result Diagrams: 11/04/20 04:06 11/04/20 04:06 Hospitalist ROS - Medication Medications: Active Medications Generic Name Dose Route Start Last Admin Trade Name Freq PRN Reason Stop Dose Admin Hydrocodone Bitart/Acetaminophen 1 tab 11/01/20 22:00 11/04/20 04:25 Hydrocodone/Acetaminophen 5/325 Mg Tablet PO 1 tab Q4H PRN Administration Pain Albuterol/Ipratropium 3 ml 11/02/20 01:00 11/04/20 01:18 Ipratropium/Albuterol Sulfate 3 Ml Neb NEB 3 ml [id number] FRANNY Administration Furosemide 20 mg 11/04/20 06:00 11/04/20 06:45 Furosemide 20 Mg/2 Ml Vial SLOW IVP Not Given 0600,1400 FRANNY Heparin Sodium (Porcine) 5,000 units 11/02/20 09:00 11/03/20 21:23 Heparin 5,000 Units/Ml Vial SC 5,000 units TID FRANNY Administration Cefepime HCl 1 gm/ Sodium 100 mls @ 200 mls/hr 11/03/20 15:00 11/04/20 04:26 Chloride IVPB 100 mls 0300,1500 FRANNY Administration Magnesium Oxide 400 mg 11/03/20 21:00 11/03/20 21:22 Magnesium Oxide 400 Mg Tab PO 400 mg BID FRANNY Administration Methylprednisolone Sodium Succinate 40 mg 11/02/20 09:00 11/03/20 21:22 Methylprednisolone Sod Succ/Pf 125 Mg/2 Ml Vial IVP 40 mg TID FRANNY Administration Nicotine 14 mg 11/01/20 22:00 11/03/20 21:35 Nicotine 14 Mg Patch TD 14 mg Q24HR FRANNY Administration Valsartan 40 mg 11/03/20 21:00 11/03/20 22:30 Valsartan 80 Mg Tab PO Not Given Q12HR FRANNY - Exam General Appearance: awake alert Neck: supple, symmetric, no JVD Heart: RRR, no murmur, no rubs, normal peripheral pulses Respiratory: CTAB, no wheezes, no rales, no ronchi Gastrointestinal: soft, non-tender, non-distended, normal bowel sounds Extremities: no cyanosis, no clubbing, no edema Neurological: cranial nerve grossly intact Psychiatric: normal affect, A&O x 3 Hosp A/P - Plan This is a 59-year-old female patient with stage C heart failure with reduced ejection fraction. She was admitted on account of shortness of breath concerns for COPD and CHF exacerbation. Symptoms have generally improved. COPD exacerbation Continue bronchodilators and steroids Also on cefepimewe will de-escalate to ceftriaxone Heart failure exacerbation Continue Lasix Continue heart failure medications as per heart failure consultation Valsartan will be discontinued tomorrow associate manager input in acquiring Entresto in a.m. Continue monitoring. Type II ND No further cardiac work-up at the moment. Nonischemic cardiomyopathy EF decreased Continue monitoring. VT prophylaxisHeparin CODE STATUSfull code
[2020-11-04] MEDS: Magnesium Oxide 400 MG TAB PO SCH ×2 (08:46→20:21)
[2020-11-04] MEDS: Aspirin 81 mg Enteric Coated Tablet PO SCH (08:46)
[2020-11-04] MEDS: Valsartan 80 MG TAB PO SCH ×2 (08:47→20:21)
[2020-11-04] MEDS: methylPREDNISolone Sod Succ/PF 125 MG/2 ML VIAL IVP SCH (08:48)
[2020-11-04] MEDS: Spironolactone 25 MG TAB PO SCH (08:48)
[2020-11-04] MEDS: Heparin 5,000 UNITS/ML VIAL SC SCH ×3 (08:49→20:20)
[2020-11-04] MEDS: methylPREDNISolone Sod Succ 40 MG VIAL IVP SCH (08:50)
--- NOTE | 2020-11-04 11:26 | EKG ---
Test Reason : Blood Pressure : / mmHG Vent. Rate : 111 BPM Atrial Rate : 111 BPM P-R Int : 148 ms QRS Dur : 080 ms QT Int : 364 ms P-R-T Axes : 065 026 037 degrees QTc Int : 495 ms Sinus tachycardia Possible Left atrial enlargement Nonspecific T wave abnormality Abnormal ECG Confirmed by DEYVI MORAES ([id number]), online editor SHIRA FRENCH ([id number]) on 11/04/2020 11:25:42 AM Referred By: Confirmed By:DEYVI MORAES
--- NOTE | 2020-11-04 15:35 | PRG ---
DATE OF SERVICE: 11/04/2020 SERVICE: Advanced Heart Failure Cardiology Consulting Service. SUBJECTIVE: Mrs. Sophia Anguiano had a good day. She was able to sleep well last night. She feels much stronger, breathing easier, more energetic. She has agreed to take a walk. There are no new complaints. REVIEW OF SYSTEMS: GENERAL: There are no fever, chills, or productive cough. HEENT: There is no change in vision, hearing, or swallowing. PULMONARY: There is no shortness of breath at rest today. CARDIAC: There are no complaints of chest pain, palpitations, or syncope. GI: There is no nausea, vomiting, or diarrhea. : She is urinating on her own. MUSCULOSKELETAL: There are no muscle pains and joint pains. INTEGUMENT: There are no new skin breakdowns. NEUROLOGIC: There are no focal deficits or weaknesses. CURRENT MEDICATIONS: Include; 1. Albuterol and ipratropium nebs q.6 hours, administered by RT. 2. Aspirin 81 mg daily. 3. Cefepime 1 g daily. 4. Furosemide 20 mg IV b.i.d. 5. Heparin 5000 units t.i.d. 6. Magnesium oxide 400 mg b.i.d. 7. Methylprednisolone at 40 mg IV daily. 8. Toprol-XL, currently at 25 mg p.o. daily. 9. Spironolactone 25 mg p.o. daily. 10. Valsartan at 40 mg q.12 hours. Her telemetry was reviewed. She is in sinus rhythm with occasional PACs. PHYSICAL EXAMINATION: VITAL SIGNS: Her latest vitals are sinus rhythm with rate about 82, blood pressure 107/58. GENERAL: She woke up from her sleep. She is alert and conversational, relaxed without any distress. HEENT: Show EOMI. Oropharynx is benign with moist mucosa. NECK: Her JVP is about 10 cm. PULMONARY: There is good air movement bilaterally. Clear to auscultation bilaterally. CARDIAC: Regular rate and rhythm with normal S1, S2. There is 2/6 holosystolic murmur at the apex with radiation to the left axilla. There is also 1/6 diastolic murmur at the right sternal base. She has murmurs of mitral regurgitation and also aortic regurgitation. LABORATORY DATA: Her laboratory values today; sodium 134, potassium 4.1, BUN of 45, creatinine 1.11. ASSESSMENT: 59-year-old female, who currently resides in [place] Heart Association stage C, [place] heart Association class 3B heart failure with reduced ejection fraction. She has both systolic and diastolic dysfunctions. She also has significant mitral regurgitation and also aortic regurgitation. Today, she is better compensated and she can use now sustained diuresis. With over 36 hours of not having any CHAPARRO inhibitor, Entresto can be started tomorrow morning. We can also switch back on carvedilol for better treatment for heart failure in terms of beta-blockers. Please see the following for my detailed recommendations. RECOMMENDATIONS: 1. Discontinue valsartan after today. 2. Start Entresto at , half tablet p.o. q.12 hours tomorrow morning 3. Please ask Case Management and assist the patient applying for [employer] patient assistance. She will most likely qualify. When she is qualified, then she can get the Entresto free from the company. She also needs to apply for Medicaid. Medicaid will provide 100% funding for Entresto. 4. Stop Toprol-XL today. 5. Restart carvedilol 6.25 mg p.o. q.12 hours tomorrow 6. If she is starting to have asthma or reactive airway disease because of carvedilol, then we will need to switch back to Toprol-xl at that point. 7. Mrs. Dwyer is not a candidate for advanced heart failure therapy. She has refused to consider left ventricular assist device or heart transplant. She has also been a smoker until three weeks ago. Thus, heart transplant evaluation is not an option for her. Her strong objection to left ventricular assist device also excludes her from that consideration. We will need to continue to treat her medically. It has been a pleasure taking care of Mrs. Anguiano. If any questions, please give me a call. The total time for this visit is about 35 minutes. Job ID: [id number] MTDD
[2020-11-04] MEDS: Nicotine 14 MG PATCH TD SCH (20:20)
[2020-11-04] MEDS: cefTRIAXone\\ROCEPHIN 1 GM in Sodium Chloride 0.9% 100 ML IVPB SCH (20:43)
[2020-11-05] MEDS: HYDROcodone/Acetaminophen 5/325 mg Tablet PO PRN ×5 (01:00→20:43)
[2020-11-05] MEDS: Furosemide 20 MG/2 ML VIAL SLOW IVP SCH ×2 (05:09→13:57)
[2020-11-05 06:24] LABS: #Basophils 0.1 thou/uL (0.0-0.2); #Lymphocytes 2.6 thou/uL (1.20-3.40); #Monocytes 1.1 thou/uL (0.11-0.59); #Neutrophils 13.8 thou/uL (1.40-6.50); %Basophils 0.4 % (0.0-1.0); %Eosinophils 0.1 % (0.0-10.0); %Monocytes 6.2 % (0.0-10.0); %Neutrophils 78.3 % (42.0-75.0); Hemoglobin 13.1 g/dL (12.0-16.0); Mean Corpuscular HGB CONC 31.7 g/dL (32.0-36.0); Mean Corpuscular Hemoglobin 29.6 pg (27.0-31.0); Mean Corpuscular Volume 93.1 fL (78.0-98.0); Mean Platelet Volume 7.7 fL (7.4-10.4); Platelet Count 522 thou/uL (130-400); RBC Distribution Width 14.5 % (11.5-14.5); Red Blood Cell (RBC) Count 4.43 mill/uL (4.20-5.40); White Blood Cell (WBC) Count 17.6 thou/uL (4.8-10.8)
[2020-11-05 06:47] LABS: Anion Gap 16 mmol/L (10-20); BUN (Urea Nitrogen) 40 mg/dL (9.8-20.1); Calc. Creatinine Clearance 59 mL/min (70-130); Calcium 8.4 mg/dL (7.8-10.44); Carbon Dioxide 23 mmol/L (22-29); Chloride 98 mmol/L (98-107); Glucose 181 mg/dL (70-105); Potassium 4.4 mmol/L (3.5-5.1); Sodium 133 mmol/L (136-145)
[2020-11-05] MEDS: Spironolactone 25 MG TAB PO SCH (09:18)
[2020-11-05] MEDS: Magnesium Oxide 400 MG TAB PO SCH ×2 (09:18→20:44)
[2020-11-05] MEDS: Aspirin 81 mg Enteric Coated Tablet PO SCH (09:18)
[2020-11-05] MEDS: Heparin 5,000 UNITS/ML VIAL SC SCH ×3 (09:18→20:44)
[2020-11-05] MEDS: methylPREDNISolone Sod Succ 40 MG VIAL IVP SCH (09:18)
[2020-11-05] MEDS: Carvedilol 6.25 MG TAB PO SCH ×2 (09:49→20:44)
--- NOTE | 2020-11-05 13:46 | PRG ---
DATE OF SERVICE: 11/05/2020 SERVICE: Advanced Heart Failure Cardiology Consulting Service. SUBJECTIVE: Ms. Sophia Anguiano says she feels well. She is breathing easy. She able to sleep without PND. She has increasing energy level. She believes she is getting a little bit better every day. REVIEW OF SYSTEMS: GENERAL: There is no fever, chills, or productive cough. HEENT: There is no change in vision, hearing, or swallowing. PULMONARY: Please see HPI. CARDIAC: There is no complaint of chest pain, palpitations, or syncope. GI: There is no nausea, vomiting, diarrhea. : She is urinating on her own. MUSCULOSKELETAL: There are no complaints of muscle pains or joint pains. INTEGUMENT: There are no new breakdowns. NEUROLOGIC: There are no new focal deficits or weaknesses. CURRENT MEDICATIONS: 1. Albuterol and ipratropium nebs every 6 hours. 2. Aspirin 81 mg daily. 3. Carvedilol 6.25 mg q.12 hours. 4. Ceftriaxone 1 g daily. 5. Furosemide 20 mg IV b.i.d. 6. Heparin 5000 units 3 times a day subcutaneous. 7. Magnesium oxide 400 mg b.i.d. 8. Solu-Medrol 40 mg IV daily. 9. Nicotine patch currently at 14 mg. 10. Entresto 24/26 mg half tablet q.12 hours. 11. Spironolactone 25 mg daily. DIAGNOSTIC STUDIES: Telemetry was reviewed, she is in sinus rhythm. PHYSICAL EXAMINATION: VITAL SIGNS: Heart rate at 90, blood pressure 96/80, she is saturating 96% on room air. GENERAL: Ms. Anguiano looks sleepy, but relax, reclining in bed. She is in no acute distress. She is not short of breath, able to talk well today. HEENT: Shows EOMI. Oropharynx is benign with moist mucosa. NECK: JVP is 10 cm with positive hepatojugular reflux PULMONARY: There is good air movement bilaterally. There are no crackles. CARDIAC: Regular rate and rhythm with occasional irregularity. There is 2/6 holosystolic murmur near the apex with radiation to the left axilla. There is 2/6 holosystolic murmur at left upper sternal border. ABDOMEN: Soft, nontender. Positive bowel sounds. EXTREMITIES: Lower extremities have minimal edema. LABORATORY DATA: Her chemistry showed sodium 133, potassium 4.4, chloride 98, bicarb 23, BUN of 40, and creatinine at 0.09. Thus, her kidney function is improving. ASSESSMENT: 59-year-old lady resides in [place] Heart Association stage C, [place] Heart Association class III heart failure with reduced ejection fraction. It is likely a nonischemic cardiomyopathy. She is recovering from acute on chronic decompensated heart failure. Carvedilol, Entresto, spironolactone, and diuretics have been working. She is scheduled to have an ICD implanted. This will be helpful in this case. Due to combination of her past noncompliance and her strongly desire of no major surgery, she is not a candidate for advanced heart failure therapy. So, she will have to be managed medically for long-term. Please see the following for my recommendations: RECOMMENDATIONS: 1. Proceed with AICD implantation as planned. 2. May switch from Lasix 20 mg IV b.i.d. to Bumex at 1 mg p.o. b.i.d. 3. Continue carvedilol at 6.25 mg q.12 hours. 4. Continue Entresto at 24/26 combination half tablet twice a day. This may be titrated up in the future. Right now, this is what her blood pressure will allow. 5. Continue with spironolactone 25 mg daily. If her blood pressure drops towards low 90s, spironolactone can be stopped. The reason why is that Entresto will likely have more efficacy than spironolactone. She will always need some level of loop diuretics to keep her volume even. 6. She may continue with Bumex 1 mg twice a day. In the future, she may need more. 7. Please consult Case Management for help her to obtain medication. She can apply for [employer] Patient Assistance Program. The qualification usually takes about 1 to 2 weeks. Once she is qualified [employer] Patient Assistance Program, [employer] will send her Entresto at no cost to her. She will also need to apply for Medicaid. The Medicaid will pay for cardiac medications. This will be much longer process. It has been a pleasure taking care of Ms. Anguiano. If you have any questions, please give me a call. I will be rotating off service today to return to [place] [facility] Teaching [facility] Researching job. Thus, I will sign off for now. Visitation time is 35 minutes. Job ID: [id number] MTDD
--- NOTE | 2020-11-05 14:45 | PDOC.HOSPP ---
- Subjective Encounter Date: 11/05/20 Encounter Time: 07:00 Subjective: Patient was seen and examined in bed. She had a generally good night with no issues. She denied any chest pain cough or shortness of breath. No significant overnight events - Objective Vital Signs & Weight: Vital Signs (12 hours) Temp Pulse Resp BP Pulse Ox 11/05/20 12:28 94 16 95 11/05/20 11:34 97.6 F 90 20 96/80 96 11/05/20 07:26 97.3 F L 92 16 97/56 L 96 11/05/20 06:24 94 16 94 L 11/05/20 04:00 97.4 F L 95 16 106/76 97 Weight Weight 150 lb 3.2 oz I&O: 11/04/20 11/05/20 11/06/20 06:59 06:59 06:59 Intake Total 2593 1780 480 Output Total 600 1800 Balance 1992 - 480 Result Diagrams: 11/05/20 06:16 11/05/20 06:16 Hospitalist ROS - Medication Medications: Active Medications Generic Name Dose Route Start Last Admin Trade Name Freq PRN Reason Stop Dose Admin Hydrocodone Bitart/Acetaminophen 1 tab 11/01/20 22:00 11/05/20 13:56 Hydrocodone/Acetaminophen 5/325 Mg Tablet PO 1 tab Q4H PRN Administration Pain Albuterol/Ipratropium 3 ml 11/02/20 01:00 11/05/20 12:28 Ipratropium/Albuterol Sulfate 3 Ml Neb NEB 3 ml [id number] FRANNY Administration Aspirin 81 mg 11/04/20 09:00 11/05/20 09:18 Aspirin 81 Mg Enteric Coated Tablet PO 81 mg DAILY FRANNY Administration Carvedilol 6.25 mg 11/05/20 09:00 11/05/20 09:49 Carvedilol 6.25 Mg Tab PO Not Given Q12HR FRANNY Furosemide 20 mg 11/04/20 06:00 11/05/20 13:57 Furosemide 20 Mg/2 Ml Vial SLOW IVP 11/05/20 22:00 20 mg 0600,1400 FRANNY Administration Heparin Sodium (Porcine) 5,000 units 11/02/20 09:00 11/05/20 14:02 Heparin 5,000 Units/Ml Vial SC 5,000 units TID FRANNY Administration Ceftriaxone Sodium 1 gm/ 100 mls @ 200 mls/hr 11/04/20 21:00 11/04/20 20:43 Sodium Chloride IVPB 100 mls 2100 FRANNY Administration Magnesium Oxide 400 mg 11/03/20 21:00 11/05/20 09:18 Magnesium Oxide 400 Mg Tab PO 400 mg BID FRANNY Administration Methylprednisolone Sodium Succinate 40 mg 11/04/20 09:00 11/05/20 09:18 Methylprednisolone Sod Succ 40 Mg Vial IVP 40 mg DAILY FRANNY Administration Nicotine 14 mg 11/01/20 22:00 11/04/20 20:20 Nicotine 14 Mg Patch TD 14 mg Q24HR FRANNY Administration Sacubitril/Valsartan 0.5 tab 11/05/20 09:00 11/05/20 09:19 Sacubitril 24mg/Valsartan 26mg Tab PO 0.5 tab Q12HR FRANNY Administration Spironolactone 25 mg 11/04/20 08:00 11/05/20 09:18 Spironolactone 25 Mg Tab PO 25 mg QAM-WM FRANNY Administration - Exam General Appearance: awake alert Neck: supple, symmetric, no JVD Heart: RRR, no murmur, no gallops, no rubs Respiratory: CTAB, no wheezes, no rales, no ronchi Gastrointestinal: soft, non-tender, non-distended, normal bowel sounds Extremities: no cyanosis, no clubbing, no edema Neurological: cranial nerve grossly intact, no weakness Psychiatric: normal affect, normal behavior, A&O x 3 Hosp A/P - Plan This is a 59-year-old female patient with stage C heart failure with reduced ejection fraction. She was admitted on account of shortness of breath concerns for COPD and CHF exacerbation. Given her significantly reduced EF plan is to keep her admitted and arrange for AICD placement COPD exacerbation Significantly improved Continue bronchodilators and steroids Continue ceftriaxone Continue oxygen monitoring Heart failure exacerbation DC Lasixstart Bumex Continue heart failure medications as per heart failure consultation Valsartan discontinued. Starting Entresto today Plan for ICD placement. Continue monitoring. Type II NM No further cardiac work-up at the moment. Nonischemic cardiomyopathy EF decreased Continue monitoring. VT prophylaxisHeparin CODE STATUSfull code
[2020-11-05] MEDS: cefTRIAXone\\ROCEPHIN 1 GM in Sodium Chloride 0.9% 100 ML IVPB SCH (20:42)
[2020-11-05] MEDS: Nicotine 14 MG PATCH TD SCH (20:42)
[2020-11-06] MEDS: HYDROcodone/Acetaminophen 5/325 mg Tablet PO PRN ×5 (00:42→20:55)
[2020-11-06 05:37] VITALS: BMI 28.4
[2020-11-06] MEDS: Heparin 5,000 UNITS/ML VIAL SC SCH ×3 (09:47→20:57)
[2020-11-06] MEDS: Carvedilol 6.25 MG TAB PO SCH (09:47)
[2020-11-06] MEDS: Spironolactone 25 MG TAB PO SCH (09:48)
[2020-11-06] MEDS: methylPREDNISolone Sod Succ 40 MG VIAL IVP SCH (09:50)
[2020-11-06] MEDS: Magnesium Oxide 400 MG TAB PO SCH ×2 (09:50→20:55)
[2020-11-06] MEDS: Bumetanide 1 MG TAB PO SCH ×2 (13:52→19:45)
[2020-11-06] MEDS ORDERED: CEFAZOLIN 1 GM VIAL ONE (16:08)
[2020-11-06] MEDS ORDERED: Gentamicin 80 MG/2 ML VIAL ONE (16:08)
--- NOTE | 2020-11-06 16:43 | PDOC.EP ---
- Subjective Date: 11/06/20 Time: 16:40 Interval History: CHF. ICD postponed due to anesthesia concerns regarding her CHF/breathing and elevated WBC. - Review of Systems Constitutional: reports: weakness. denies: chills, fever, malaise, sweats, other Respiratory: reports: shortness of breath, SOB with excertion, other. denies: cough, dry, hemoptysis, pleuritic pain, sputum, wheezing Cardiology: denies: chest pain, edema, heart racing, light headedness, orthopnea, paroxysmal noc. dyspnea, palpitations, passing out, pleuritic pain, pressure, swelling Gastrointestinal: denies: abdominal pain, constipation, nausea, vomitting - Objective Allergies/Adverse Reactions: Allergies Allergy/AdvReac Type Severity Reaction Status Date / Time No Known Allergies Allergy Verified 11/02/20 04:38 Current Medications Hydrocodone Bitart/Acetaminophen (Hydrocodone/Acetaminophen 5/325 Mg Tablet) 1 tab PO Q4H PRN PRN Reason: Pain Last Admin: 11/06/20 15:00 Dose: 1 tab Documented by: Albuterol/Ipratropium (Ipratropium/Albuterol Sulfate 3 Ml Neb) 3 ml NEB [id number] PRN PRN Reason: SOB &/or Wheezing Albuterol/Ipratropium (Ipratropium/Albuterol Sulfate 3 Ml Neb) 3 ml NEB [id number] [facility] Last Admin: 11/06/20 12:34 Dose: 3 ml Documented by: Aspirin (Aspirin 81 Mg Enteric Coated Tablet) 81 mg PO DAILY [facility] Last Admin: 11/05/20 09:18 Dose: 81 mg Documented by: Bumetanide (Bumetanide 1 Mg Tab) 1 mg PO BID-AC [facility] Last Admin: 11/06/20 13:52 Dose: Not Given Documented by: Carvedilol (Carvedilol 6.25 Mg Tab) 6.25 mg PO Q12HR [facility] Last Admin: 11/06/20 09:47 Dose: 6.25 mg Documented by: Heparin Sodium (Porcine) (Heparin 5,000 Units/Ml Vial) 5,000 units SC TID [facility] Last Admin: 11/06/20 15:44 Dose: Not Given Documented by: Ceftriaxone Sodium 1 gm/ (Sodium Chloride) 100 mls @ 200 mls/hr IVPB 2100 [facility] Last Admin: 11/05/20 20:42 Dose: 100 mls Documented by: Magnesium Oxide (Magnesium Oxide 400 Mg Tab) 400 mg PO BID [facility] Last Admin: 11/06/20 09:50 Dose: 400 mg Documented by: Methylprednisolone Sodium Succinate (Methylprednisolone Sod Succ 40 Mg Vial) 40 mg IVP DAILY [facility] Last Admin: 11/06/20 09:50 Dose: 40 mg Documented by: Nicotine (Nicotine 14 Mg Patch) 14 mg TD Q24HR [facility] Last Admin: 11/05/20 20:42 Dose: 14 mg Documented by: Sacubitril/Valsartan (Sacubitril 24mg/Valsartan 26mg Tab) 0.5 tab PO Q12HR [facility] Last Admin: 11/06/20 09:51 Dose: 0.5 tab Documented by: Sodium Chloride (Flush - Normal Saline 10 Ml Syringe) 10 ml IVF Q12HR [facility] Last Admin: 11/06/20 09:45 Dose: 10 ml Documented by: Sodium Chloride (Flush - Normal Saline 10 Ml Syringe) 10 ml IVF PRN PRN PRN Reason: Saline Flush Spironolactone (Spironolactone 25 Mg Tab) 25 mg PO QAM-WM [facility] Last Admin: 11/06/20 09:48 Dose: 25 mg Documented by: Vital Signs & Weight: Vital Signs Temp Pulse Resp BP Pulse Ox 11/06/20 15:12 96.0 F L 82 16 102/60 95 11/06/20 12:34 82 20 98 11/06/20 11:20 96.6 F L 95 16 102/72 94 L 11/06/20 07:18 84 18 100 11/06/20 07:13 96.5 F L 91 19 105/70 95 Weight 145 lb 8 oz I/O: I/O 11/05/20 11/06/20 11/07/20 06:59 06:59 06:59 Intake Total 1780 720 Output Total 1800 1050 Balance -20 -330 - Physical Exam General: alert & oriented x3, appears well, no apparent distress, speech clear, affect appropriate HEENT: mucus membranes moist, normocephaly Neck: supple neck, midline trachea, no JVD/HJR, no masses, no bruit, no lymphadenopathy, no thromegaly Cardiology: regular rate and rhythm, no murmur, regular rate, regular rhythm, PMI nondisplaced Lungs: no wheezes, no rhonchi, bibasilar rales Neurology: cranial nerve 2-12 intact, grossly intact, no lateralizing findings - Labs Result Diagrams: 11/05/20 06:16 11/05/20 06:16 - EKG Interpretation EKG Method: Telemetry EKG shows: Sinus rhythm - Assessment/Plan Assessment/Plan: 1. Chronic systolic congestive heart failure with nonischemic cardiomyopathy. a. 2D echo from December 27, 2019, reveals LVEF 25% to 30%, moderate TR, moderate AI, mildly elevated pressures. 2. Financial noncompliance. 3. History of COPD. 4. Valvular heart disease with moderate AI, severe MR, moderate TR. 5. Chronic kidney disease. 6. Hypertension. Anesthesia had concerns regarding her CHF and ability to tolerated lying flat for ICD implant. Will allow for CHF optimization and postpone ICD implant for now. Also has some leukocytosis, likely related to recent steroid initiation.
--- NOTE | 2020-11-06 16:55 | PDOC.HOSPP ---
- Subjective Encounter Date: 11/06/20 Encounter Time: 17:01 Subjective: Patient was seen and examined in bed. She was taken off ICD placement which was unsuccessful. On the time of my evaluation she denied any chest pain or shortness of breath. She never had dyspnea at the time of the procedure. - Objective Vital Signs & Weight: Vital Signs (12 hours) Temp Pulse Resp BP Pulse Ox 11/06/20 16:35 97.6 F 89 20 104/68 93 L 11/06/20 15:12 96.0 F L 82 16 102/60 95 11/06/20 12:34 82 20 98 11/06/20 11:20 96.6 F L 95 16 102/72 94 L 11/06/20 07:18 84 18 100 11/06/20 07:13 96.5 F L 91 19 105/70 95 Weight Weight 145 lb 8 oz I&O: 11/05/20 11/06/20 11/07/20 06:59 06:59 06:59 Intake Total 1780 720 Output Total 1800 1050 Balance -20 -330 Result Diagrams: 11/05/20 06:16 11/05/20 06:16 Hospitalist ROS - Medication Medications: Active Medications Generic Name Dose Route Start Last Admin Trade Name Freq PRN Reason Stop Dose Admin Hydrocodone Bitart/Acetaminophen 1 tab 11/01/20 22:00 11/06/20 15:00 Hydrocodone/Acetaminophen 5/325 Mg Tablet PO 1 tab Q4H PRN Administration Pain Albuterol/Ipratropium 3 ml 11/02/20 01:00 11/06/20 12:34 Ipratropium/Albuterol Sulfate 3 Ml Neb NEB 3 ml [id number] FRANNY Administration Aspirin 81 mg 11/04/20 09:00 11/05/20 09:18 Aspirin 81 Mg Enteric Coated Tablet PO 81 mg DAILY FRANNY Administration Bumetanide 1 mg 11/06/20 07:30 11/06/20 13:52 Bumetanide 1 Mg Tab PO Not Given BID-AC FRANNY Carvedilol 6.25 mg 11/05/20 09:00 11/06/20 09:47 Carvedilol 6.25 Mg Tab PO 6.25 mg Q12HR FRANNY Administration Heparin Sodium (Porcine) 5,000 units 11/02/20 09:00 11/06/20 15:44 Heparin 5,000 Units/Ml Vial SC Not Given TID FRANNY Ceftriaxone Sodium 1 gm/ 100 mls @ 200 mls/hr 11/04/20 21:00 11/05/20 20:42 Sodium Chloride IVPB 100 mls 2100 FRANNY Administration Magnesium Oxide 400 mg 11/03/20 21:00 11/06/20 09:50 Magnesium Oxide 400 Mg Tab PO 400 mg BID FRANNY Administration Methylprednisolone Sodium Succinate 40 mg 11/04/20 09:00 11/06/20 09:50 Methylprednisolone Sod Succ 40 Mg Vial IVP 40 mg DAILY FRANNY Administration Nicotine 14 mg 11/01/20 22:00 11/05/20 20:42 Nicotine 14 Mg Patch TD 14 mg Q24HR FRANNY Administration Sacubitril/Valsartan 0.5 tab 11/05/20 09:00 11/06/20 09:51 Sacubitril 24mg/Valsartan 26mg Tab PO 0.5 tab Q12HR FRANNY Administration Sodium Chloride 10 ml 11/05/20 21:00 11/06/20 09:45 Flush - Normal Saline 10 Ml Syringe IVF 10 ml Q12HR FRANNY Administration Spironolactone 25 mg 11/04/20 08:00 11/06/20 09:48 Spironolactone 25 Mg Tab PO 25 mg QAM-WM FRANNY Administration - Exam General Appearance: awake alert Neck: supple, symmetric, no JVD, no thyromegaly Heart: RRR, no murmur, no gallops, no rubs Respiratory: CTAB, no wheezes, no rales, no ronchi Gastrointestinal: soft, non-tender, non-distended, normal bowel sounds Extremities: no cyanosis, no clubbing, no edema Neurological: cranial nerve grossly intact, no focal deficits Psychiatric: normal affect, A&O x 3 Hosp A/P - Plan This is a 59-year-old female patient with stage C heart failure with reduced ejection fraction. She was admitted on account of shortness of breath concerns for COPD and CHF exacerbation. AICD placement attempted today but was unsuccessful due to dyspnea and concerns by anesthesiologist COPD exacerbation Significantly improved Continue bronchodilators and steroids Continue ceftriaxone Continue oxygen monitoring Heart failure exacerbation DC Lasixstart Bumex Continue heart failure medications as per heart failure consultation Valsartan discontinued. Starting Entresto today Failed AICD placement Reevaluated consider repeating Cardiology following Type II IN No further cardiac work-up at the moment. Nonischemic cardiomyopathy EF decreased Continue monitoring. VT prophylaxisHeparin CODE STATUSfull code
[2020-11-06] MEDS: Aspirin 81 mg Enteric Coated Tablet PO SCH (19:44)
[2020-11-06] MEDS: cefTRIAXone\\ROCEPHIN 1 GM in Sodium Chloride 0.9% 100 ML IVPB SCH (20:56)
[2020-11-06] MEDS: Nicotine 14 MG PATCH TD SCH (21:25)
[2020-11-07] MEDS: Carvedilol 6.25 MG TAB PO SCH ×2 (00:18→09:21)
[2020-11-07] MEDS: HYDROcodone/Acetaminophen 5/325 mg Tablet PO PRN ×4 (01:35→16:02)
[2020-11-07] MEDS: Aspirin 81 mg Enteric Coated Tablet PO SCH (09:21)
[2020-11-07] MEDS: Heparin 5,000 UNITS/ML VIAL SC SCH ×2 (09:21→14:49)
[2020-11-07] MEDS: Spironolactone 25 MG TAB PO SCH (09:21)
[2020-11-07] MEDS: Magnesium Oxide 400 MG TAB PO SCH (09:21)
[2020-11-07] MEDS: methylPREDNISolone Sod Succ 40 MG VIAL IVP SCH (09:22)
[2020-11-07] MEDS: Bumetanide 1 MG TAB PO SCH ×2 (09:23→15:59)
--- NOTE | 2020-11-07 09:30 | PDOC.EP ---
- Subjective Date: 11/07/20 Time: 09:28 Interval History: No new events. Wants to DC home - Review of Systems Constitutional: denies: chills, fever, malaise, sweats, weakness, other Respiratory: reports: cough, shortness of breath (mild). denies: dry, hemoptysis, pleuritic pain, SOB with excertion, sputum, wheezing, other Cardiology: denies: chest pain, edema, heart racing, light headedness, paroxysmal noc. dyspnea, orthopnea, palpitations, passing out, pleuritic pain, pressure, swelling, other Gastrointestinal: denies: abdominal pain, constipation, diarrhea, hematochezia, melena, nausea, vomitting, other Musculoskeletal: denies: unstable gait, falls, neck pain, shoulder pain, arm pain, hand pain, leg pain, foot pain, other - Objective Allergies/Adverse Reactions: Allergies Allergy/AdvReac Type Severity Reaction Status Date / Time No Known Allergies Allergy Verified 11/02/20 04:38 Current Medications Hydrocodone Bitart/Acetaminophen (Hydrocodone/Acetaminophen 5/325 Mg Tablet) 1 tab PO Q4H PRN PRN Reason: Pain Last Admin: 11/07/20 05:54 Dose: 1 tab Documented by: Albuterol/Ipratropium (Ipratropium/Albuterol Sulfate 3 Ml Neb) 3 ml NEB [id number] PRN PRN Reason: SOB &/or Wheezing Albuterol/Ipratropium (Ipratropium/Albuterol Sulfate 3 Ml Neb) 3 ml NEB [id number] FRANNY Last Admin: 11/07/20 07:21 Dose: 3 ml Documented by: Aspirin (Aspirin 81 Mg Enteric Coated Tablet) 81 mg PO DAILY [facility] Last Admin: 11/06/20 19:44 Dose: Not Given Documented by: Bumetanide (Bumetanide 1 Mg Tab) 1 mg PO BID-AC [facility] Last Admin: 11/06/20 19:45 Dose: Not Given Documented by: Carvedilol (Carvedilol 6.25 Mg Tab) 6.25 mg PO Q12HR [facility] Last Admin: 11/07/20 00:18 Dose: 6.25 mg Documented by: Heparin Sodium (Porcine) (Heparin 5,000 Units/Ml Vial) 5,000 units SC TID [facility] Last Admin: 11/06/20 20:57 Dose: 5,000 units Documented by: Ceftriaxone Sodium 1 gm/ (Sodium Chloride) 100 mls @ 200 mls/hr IVPB 2100 [facility] Last Admin: 11/06/20 20:56 Dose: 100 mls Documented by: Magnesium Oxide (Magnesium Oxide 400 Mg Tab) 400 mg PO BID [facility] Last Admin: 11/06/20 20:55 Dose: 400 mg Documented by: Methylprednisolone Sodium Succinate (Methylprednisolone Sod Succ 40 Mg Vial) 40 mg IVP DAILY [facility] Last Admin: 11/06/20 09:50 Dose: 40 mg Documented by: Nicotine (Nicotine 14 Mg Patch) 14 mg TD Q24HR [facility] Last Admin: 11/06/20 21:25 Dose: 14 mg Documented by: Sacubitril/Valsartan (Sacubitril 24mg/Valsartan 26mg Tab) 0.5 tab PO Q12HR [facility] Last Admin: 11/06/20 20:55 Dose: 0.5 tab Documented by: Sodium Chloride (Flush - Normal Saline 10 Ml Syringe) 10 ml IVF Q12HR [facility] Last Admin: 11/06/20 21:25 Dose: 10 ml Documented by: Sodium Chloride (Flush - Normal Saline 10 Ml Syringe) 10 ml IVF PRN PRN PRN Reason: Saline Flush Spironolactone (Spironolactone 25 Mg Tab) 25 mg PO QAM-WM [facility] Last Admin: 11/06/20 09:48 Dose: 25 mg Documented by: Vital Signs & Weight: Vital Signs Temp Pulse Resp BP BP Pulse Ox 11/07/20 07:21 87 14 95 11/07/20 07:10 96.8 F L 87 20 107/64 95 11/07/20 04:00 98.5 F 87 17 105/55 L 96 11/07/20 01:35 98/52 L 11/07/20 00:18 104/57 L 11/06/20 23:54 87 12 11/06/20 23:52 97.7 F 90 18 104/57 L 97 Weight 145 lb 8 oz I/O: I/O 11/06/20 11/07/20 11/08/20 06:59 06:59 06:59 Intake Total 720 1061 Output Total 1050 450 Balance -330 611 - Physical Exam General: alert & oriented x3, appears well, no apparent distress, speech clear, affect appropriate HEENT: mucus membranes moist, normocephaly Neck: supple neck, midline trachea, no JVD/HJR, no masses, no bruit, no lymphadenopathy, no thromegaly Cardiology: regular rate and rhythm, no murmur, regular rate, regular rhythm, PMI nondisplaced Lungs: clear to auscultation, normal breath sounds, no wheeze, rales, rhonchi Neurology: cranial nerve 2-12 intact, grossly intact, no lateralizing findings Abdomen: unremarkable, active bowel sounds, no pulsations/bruits - Labs Result Diagrams: 11/05/20 06:16 11/05/20 06:16 - EKG Interpretation EKG Method: Telemetry EKG shows: Sinus rhythm - Assessment/Plan Assessment/Plan: 1. Chronic systolic congestive heart failure with nonischemic cardiomyopathy. a. 2D echo from December 27, 2019, reveals LVEF 25% to 30%, moderate TR, moderate AI, mildly elevated pressures. 2. Financial noncompliance. 3. History of COPD. 4. Valvular heart disease with moderate AI, severe MR, moderate TR. 5. Chronic kidney disease. 6. Hypertension. Ok to DC home by EP. She declines a lifevest, understanding the risk for sudden cardiac . Will follow with cardiology for GDMT with cardiomyopathy. Repeat echo in 3 months. If </=35% return for follow up to arrange/discuss ICD implant.
[2020-11-07 09:34] LABS: Hemoglobin 14.3 g/dL (12.0-16.0); Mean Corpuscular HGB CONC 30.3 g/dL (32.0-36.0); Mean Corpuscular Hemoglobin 28.8 pg (27.0-31.0); Platelet Count 570 thou/uL (130-400); RBC Distribution Width 14.6 % (11.5-14.5); Red Blood Cell (RBC) Count 4.98 mill/uL (4.20-5.40); White Blood Cell (WBC) Count 19.4 thou/uL (4.8-10.8)
[2020-11-07 09:49] LABS: Anion Gap 15 mmol/L (10-20); BUN (Urea Nitrogen) 42 mg/dL (9.8-20.1); Calc. Creatinine Clearance 66 mL/min (70-130); Calcium 8.3 mg/dL (7.8-10.44); Carbon Dioxide 27 mmol/L (22-29); Chloride 98 mmol/L (98-107); Glucose 116 mg/dL (70-105); Potassium 4.9 mmol/L (3.5-5.1); Sodium 135 mmol/L (136-145)
[2020-11-07 11:07] LABS: Band 1 % (5-11); Lymphocytes 35 % (21-51); MDiff Complete? YES; Monocytes 4 % (0-10); Neutrophil 48 % (42-75); RBC Morphology Normal; Reactive Lymphocytes 12 % (0-10)
[2020-11-07 11:41] VITALS: TEMP 96
[2020-11-07 15:39] VITALS: BP 115/52
--- NOTE | 2020-11-08 19:39 | PDOC.DS.DS ---
Provider - Provider Date of Admission: 11/01/20 20:36 Date of Discharge: 11/08/20 Admitting Provider: Cornelius Welch MD Primary Care Physician: STEPHENIE HURST MD Course - Hospital Course Hospital Course: This is a 59-year-old female patient with a history of COPD, CHF , and A. fib who presented with worsening shortness of breath for about 3 weeks duration. She had significant fatigability and orthopnea. Evaluation was concerning for significantly reduced EF between 15 and 20 down from 25-30 previously. Heart failure team was consulted with significant adjustment of her medications included addition of Entresto. Patient refused previously and on this admission to wear LifeVest CHF especially was consulted and plan was to have AICD placed. On the day of surgery however she was having significant orthopnea and dyspnea on the operating boardthe procedure was discontinued. Plan is to optimize therapeutic management and follow-up for AICD placement on outpatient basis. Patient was discharged to follow-up with if his Resuscitation Status: 11/01/20 21:42 Resuscitation Status Routine Resuscitation Status: FULL: Full Resuscitation - Labs Lab Results: 11/07/20 09:22 11/07/20 09:22 Abnormal Lab Results - Last 48 hrs 11/07/20 09:22: Sodium 135 L, BUN 42 H 11/07/20 09:22: WBC 19.4 H, Hct 47.2 H, MCHC 30.3 L, RDW 14.6 H, Plt Count 570 H, MPV 7.0 L, Band Neuts % (Manual) 1 L, Reactive Lymphs % 12 H Microbiology - Entire Visit 11/01/20 17:11 Nasal swab Influenza Types A,B Direct EIA - Final - Physical Exam Vitals: Weight Weight 150 lb 4.8 oz Physical Exam: The patient was seen and examined on the day of discharge. General: In no acute distress. CVS: S1-S2 present and normal no murmurs gallops or rubs. Respiratory system: Air entry adequate bilaterally. Abdomen: Benign Extremities: Trace edema bilaterally Problem - Discharge Plan Assessment: Heart failure with reduced ejection fraction Discharged on goal-directed medical therapy on Entresto Follow EP for AICD placement. COPD Possible examination Received breathing treatments and empiric antibiotics. Plan - Discharge Medications Prescriptions: Carvedilol [Coreg] 6.25 mg PO Q12HR #60 tab Sacubitril/Valsartan [Entresto 24 mg-26 mg Tablet] 0.5 tab PO Q12HR #60 tab Spironolactone [Aldactone] 25 mg PO QAM-WM #30 tab Bumetanide [Bumex] 1 mg PO BID-AC #60 tab Aspirin [Ecotrin Low Strength] 81 mg PO DAILY #30 tab Magnesium Oxide 400 mg PO BID #60 tab Home Medications: Medication Instructions Recorded Confirmed Type Aspirin [Ecotrin Low Strength] 81 mg PO DAILY #30 tab 11/07/20 Rx Bumetanide [Bumex] 1 mg PO BID-AC #60 tab 11/07/20 Rx Carvedilol [Coreg] 6.25 mg PO Q12HR #60 tab 11/07/20 Rx Magnesium Oxide 400 mg PO BID #60 tab 11/07/20 Rx Sacubitril/Valsartan [Entresto 24 0.5 tab PO Q12HR #60 tab 11/07/20 Rx mg-26 mg Tablet] Spironolactone [Aldactone] 25 mg PO QAM-WM #30 tab 11/07/20 Rx Allergies: No Known Allergies Allergy (Verified 11/02/20 04:38) per pt - Discharge Instructions Activity:: Activity as Tolerated Nourishment:: Heart Healthy Diet, Low Sodium Diet - Follow up Plan Referrals: Cardiac Rehab - [facility] [Outside] - 7 Days (Your doctor has ordered outpatient cardiac rehab for you to begin within 1-2 weeks after you go home from the hospital. The location nearest to you is the [facility]. We will call you in 3-5 days to get you scheduled for your evaluation. If you do not receive a call, please reach out to them at [phone] and request an appointment.) Damion Benjamin MD [Active] - 12/07/20 11:45 am (11:45 am in office appointment made.) Santiago Jacob MD [Affiliate] - 11/21/20 2:15 pm (This is your hospital follow up appt.) Chaim Byrd MD [[employer]] - Disposition: HOME Quality - Care Measures CORE MEASURES:: HF - Stroke/TIA Did you prescribe antithrombotic therapy?: Yes Did you prescribe anticoagulant for A Fib/Flutter?: No Specify reason for no DC anticoagulant: Treatment not indicated Did you prescribe a statin medication?: No Specify reason for no DC statin medication: Treatment not indicated
== END 2020-11-07 18:42 | disposition home or self-care (01) | DRG 280 ==
LOC: ERS 15:49 → 2SE 20:36
PROVIDERS: ADMIT Internal Medicine; ATTEND Hospitalist
DX: I13.0 Hypertensive heart and chronic kidney disease with heart failure and stage 1 through stage 4 chronic kidney disease, or unspecified chronic kidney disease (principal); I50.23 Acute on chronic systolic (congestive) heart failure; I21.A1 Myocardial infarction type 2; J43.9 Emphysema, unspecified; Z20.828 Contact with and (suspected) exposure to other viral communicable diseases; F17.210 Nicotine dependence, cigarettes, uncomplicated; E78.00 Pure hypercholesterolemia, unspecified; N18.2 Chronic kidney disease, stage 2 (mild); I08.0 Rheumatic disorders of both mitral and aortic valves; M48.061 Spinal stenosis, lumbar region without neurogenic claudication; G89.29 Other chronic pain; I48.91 Unspecified atrial fibrillation; I42.8 Other cardiomyopathies; Z11.4 Encounter for screening for human immunodeficiency virus [HIV]
CPT/HCPCS: 36415; 71046; 71275; 74177; 76705; 80048; 80053; 82553; 83690; 83735; 83880; 84484; 85025; 85379; 87449; 87635; 87804; 87899; 93005; 93306; 93798; 94640; 96365; 96366; 96375; J0690; J0692; J0696; J1580; J1644; J1940; J1956; J2001; J2920; J2930; J3490; J7620; Q9967; U0003

== ENCOUNTER 2023-03-15 10:57 | Emergency (ER) | payer MEDICARE, OTHER ==
[2023-03-15] MEDS ORDERED: HYDROcodone/Acetaminophen 10/325 mg Tablet ONE (11:37)
== END 2023-03-15 12:40 | disposition home or self-care (01) ==
LOC: ERS 10:57
DX: M62.830 Muscle spasm of back (principal); I50.9 Heart failure, unspecified; J44.9 Chronic obstructive pulmonary disease, unspecified; F17.210 Nicotine dependence, cigarettes, uncomplicated
CPT/HCPCS: 99283

== ENCOUNTER 2023-08-10 23:27 | Emergency (ER) | payer OTHER, MEDICARE ==
[2023-08-11] MEDS ORDERED: HYDROcodone/Acetaminophen 5/325 mg Tablet ONE (01:34)
== END 2023-08-11 03:39 | disposition home or self-care (01) ==
LOC: ERS 23:27
DX: S00.93XA Contusion of unspecified part of head, initial encounter (principal); J44.9 Chronic obstructive pulmonary disease, unspecified; I50.9 Heart failure, unspecified; F17.210 Nicotine dependence, cigarettes, uncomplicated; W01.0XXA Fall on same level from slipping, tripping and stumbling without subsequent striking against object, initial encounter
CPT/HCPCS: 70450; 72131

== ENCOUNTER 2024-01-27 21:51 | Emergency (ER) | payer MEDICARE ==
[2024-01-27] MEDS ORDERED: Ketorolac Tromethamine 30 MG (1 mL) VIAL ONE (23:16)
[2024-01-28] MEDS ORDERED: traMADol HCl 50 MG TAB ONE (00:42)
== END 2024-01-28 00:59 | disposition home or self-care (01) ==
LOC: ERS 21:51
DX: S91.112A Laceration without foreign body of left great toe without damage to nail, initial encounter (principal); I50.9 Heart failure, unspecified; F17.210 Nicotine dependence, cigarettes, uncomplicated; W55.09XA Other contact with cat, initial encounter
CPT/HCPCS: 12001; 96372; J1885

== ENCOUNTER 2024-11-07 19:03 | Inpatient (IN) | payer MEDICARE ==
[~2024-11-07 19:03] MED LIST changes: -Iopamidol-370 76% 500 ML 1 ML ONE; +Iopamidol-370 76% 500 ML MDV (1 ML CHARGE) ONE
[2024-11-07] MEDS ORDERED: Morphine 4 MG/ML VIAL ONE (19:26)
[2024-11-07 19:46] LABS: #Basophils 0.07 10x3/uL (0.0-0.2); %Basophils 0.4 % (0.0-1.0); %Eosinophils 0.2 % (0.0-10.0); %Lymphocytes 19.3 % (21.0-51.0); %Monocytes 4.2 % (0.0-10.0); %Neutrophils 75.5 % (42.0-75.0); Hematocrit 43.9 % (36.0-47.0); Hemoglobin 14.2 g/dL (12.0-16.0); Mean Corpuscular HGB CONC 32.3 g/dL (32.0-36.0); Mean Corpuscular Volume 89.6 fL (78.0-98.0); Platelet Count 595 10x3/uL (130-400); RBC Distribution Width 15.3 % (11.5-14.5)
[2024-11-07 20:06] LABS: ALT (SGPT) 507 U/L (8-55); AST (SGOT) 597 U/L (5-34); Albumin 3.7 g/dL (3.4-4.8); Alkaline Phosphatase 370 U/L (40-110); Anion Gap 20 mmol/L (10-20); BUN (Urea Nitrogen) 28 mg/dL (9.8-20.1); Bilirubin, Total 1.7 mg/dL (0.2-1.2); Calc. Creatinine Clearance 0 mL/min (70-130); Calcium 9.4 mg/dL (7.8-10.44); Carbon Dioxide 18 mmol/L (23-31); Chloride 101 mmol/L (98-107); Estimated GFR 34; Glucose 120 mg/dL (80-115); Lipase 27 U/L (8-78); Potassium 3.3 mmol/L (3.5-5.1); Protein, Total 7.7 g/dL (5.8-8.1); Sodium 136 mmol/L (136-145)
[2024-11-07 20:11] LABS: Troponin I 0.054 ng/mL (< 0.028)
[2024-11-07] MEDS ORDERED: Sodium Chloride 0.9% 100 ML ONE (20:17)
[2024-11-07] MEDS ORDERED: Ondansetron PF 4 MG/2 ML Vial ONE (20:17)
[2024-11-07] MEDS ORDERED: Piperacillin/Tazobactam 3.375 GM VIAL ONE (20:18)
[2024-11-07] MEDS ORDERED: Furosemide 40 MG (4 mL) VIAL ONE (20:42)
[2024-11-07] MEDS ORDERED: HYDROmorphone 0.5 MG/0.5 ML SYRINGE ONE (21:55)
[2024-11-07 22:04] LABS: Bacteria/HPF None Seen HPF (None Seen); Bilirubin Negative (Negative); Blood, Urine Negative (Negative); CAUTI Indications for Culture Pelvic or flank pain; Clarity Clear (Clear); Glucose, Urine (Dipstick) Normal (Negative); Ketone, Urine Negative (Negative); Leukocyte Negative Leu/uL (Negative); Nitrite Negative (Negative); Protein, Urine (Dipstick) 20 mg/dL (Neg-Trace); RBC/HPF 0-3 HPF (0-3); Specific Gravity, Urine 1.021 (1.002-1.036); Squamous Epithelial 0-3 HPF (0-3); Urobilinogen Normal mg/dL (Less than 2); WBC/HPF 0-3 HPF (0-3); pH, Urine 5.5 (5.0-9.0)
[2024-11-07 22:08] LABS: Urine Culture Reflex No No
[2024-11-07 22:50] LABS: Lactic Acid 3.09 mmol/L (0.5-2.2)
[2024-11-07] MEDS: Vancomycin (BATCH) 1.5 GM in Premix 1 BAG IVPB SCH (23:53)
[2024-11-08] MEDS ORDERED: Acetaminophen 650 MG Suppository PR PRN (00:10)
[2024-11-08] MEDS ORDERED: Ipratropium/Albuterol 3 ML NEB NEB PRN (00:43)
[2024-11-08] MEDS: Ondansetron PF 4 MG/2 ML Vial IVP PRN (01:03)
[2024-11-08] MEDS: Acetaminophen 325 MG TAB PO SCH ×2 (02:03→04:55)
[2024-11-08] MEDS: Piperacillin/Tazobactam 3.375 GM in Sodium Chloride 0.9% 100 ML IVPB SCH ×2 (02:14→21:17)
[2024-11-08 03:24] LABS: Troponin I 0.039 ng/mL (< 0.028)
[2024-11-08] MEDS: Lactated Ringer's 500 ML IV SCH (03:52)
[2024-11-08] MEDS: Morphine 2 MG/ML VIAL SLOW IVP SCH (04:49)
[2024-11-08] MEDS: Furosemide 40 MG (4 mL) VIAL SLOW IVP SCH (04:54)
[2024-11-08 05:45] LABS: #Basophils 0.06 10x3/uL (0.0-0.2); #Eosinophils Less than 0.03 10x3/uL (0.0-0.7); %Basophils 0.3 % (0.0-1.0); %Lymphocytes 13.5 % (21.0-51.0); %Monocytes 8.9 % (0.0-10.0); %Neutrophils 76.6 % (42.0-75.0); Hematocrit 38.7 % (36.0-47.0); Hemoglobin 11.9 g/dL (12.0-16.0); Mean Corpuscular HGB CONC 30.7 g/dL (32.0-36.0); Mean Corpuscular Hemoglobin 28.5 pg (27.0-31.0); Mean Corpuscular Volume 92.8 fL (78.0-98.0); Mean Platelet Volume 10.3 fL (7.4-10.4); Platelet Count 470 10x3/uL (130-400); RBC Distribution Width 15.8 % (11.5-14.5); Red Blood Cell (RBC) Count 4.17 mill/uL (4.20-5.40)
[2024-11-08 06:03] LABS: Troponin I 0.033 ng/mL (< 0.028)
[2024-11-08 06:07] VITALS: BMI 30.9
[2024-11-08 07:32] LABS: AST (SGOT) 668 U/L (5-34); Alkaline Phosphatase 292 U/L (40-110); BUN (Urea Nitrogen) 29 mg/dL (9.8-20.1); Bilirubin, Total 1.3 mg/dL (0.2-1.2); Calc. Creatinine Clearance 41 mL/min (70-130); Calcium 8.2 mg/dL (7.8-10.44); Estimated GFR 38; Protein, Total 6.3 g/dL (5.8-8.1)
[2024-11-08] MEDS: Atorvastatin Calcium 20 MG TAB PO SCH (08:40)
[2024-11-08] MEDS: Famotidine 20 MG TAB PO SCH (08:41)
[2024-11-08] MEDS: Famotidine/PF 20 mg/2ml Vial SLOW IVP SCH (08:54)
[2024-11-08 09:55] LABS: ALT (SGPT) 478 U/L (8-55); Albumin 2.8 g/dL (3.4-4.8); Anion Gap 18 mmol/L (10-20); Carbon Dioxide 14 mmol/L (23-31); Chloride 103 mmol/L (98-107); Globulin 2.9 g/dL (2.4-3.5); Glucose 143 mg/dL (80-115); Potassium 3.5 mmol/L (3.5-5.1); Sodium 131 mmol/L (136-145)
[2024-11-08] MEDS ORDERED: Promethazine HCl 12.5 MG in Sodium Chloride 0.9% 50 ML IVPB PRN (11:01)
[2024-11-08 12:32] LABS: Bilirubin Negative (Negative); Blood, Urine Negative (Negative); CAUTI Indications for Culture Fever or rigors; Clarity Turbid (Clear); Glucose, Urine (Dipstick) Normal (Negative); Ketone, Urine Negative (Negative); Leukocyte Negative Leu/uL (Negative); Nitrite Negative (Negative); Protein, Urine (Dipstick) Negative (Neg-Trace); RBC/HPF 0-3 HPF (0-3); Specific Gravity, Urine 1.006 (1.002-1.036); Urobilinogen Normal mg/dL (Less than 2); WBC/HPF 0-3 HPF (0-3)
[2024-11-08 12:34] LABS: Bacteria/HPF 1+ HPF (None Seen); Urine Culture Reflex No No
[2024-11-08] MEDS ORDERED: Sodium Chloride 0.9% 100 ML ONE (13:19)
[2024-11-08] MEDS ORDERED: Piperacillin/Tazobactam 3.375 GM VIAL ONE (13:19)
[2024-11-08] MEDS ORDERED: EPINEPHrine 1 MG/ML VIAL ONE (14:31)
[2024-11-08] MEDS ORDERED: Bupivacaine PF 0.5% 30 ML VIAL ONE (14:31)
[2024-11-08] MEDS ORDERED: Iopamidol 30 ML ONE (14:31)
[2024-11-08] MEDS ORDERED: fentaNYL PF 100 MCG/2 ML SYRINGE ONE (14:32)
[2024-11-08] MEDS ORDERED: Midazolam HCl 2 mg/2 ml Vial ONE (14:32)
[2024-11-08] MEDS ORDERED: PROPOFOL 0 ML ONE (14:32)
[2024-11-08] MEDS ORDERED: Rocuronium Bromide 10 MG/ML (10ML VIAL) ONE (14:32)
[2024-11-08] MEDS ORDERED: Lidocaine 1% PF 5 ML VIAL ONE (14:32)
[2024-11-08] MEDS ORDERED: Etomidate 40 MG (20 mL) VIAL ONE (14:49)
[2024-11-08] MEDS ORDERED: Dexamethasone 20 MG/5 ML VIAL ONE (15:04)
[2024-11-08] MEDS ORDERED: PHENYLEPHRINE-NS 100 MCG/ML 10 ML SYRINGE ONE (15:04)
[2024-11-08] MEDS ORDERED: Metoprolol Tartrate 5 MG (5 mL) VIAL ONE (15:04)
[2024-11-08] MEDS ORDERED: Albuterol HFA (OR) 200 PUFF INH ONE ×2 (15:04→15:36)
[2024-11-08] MEDS ORDERED: Glucagon 1 MG/ML KIT ONE (15:21)
[2024-11-08] MEDS ORDERED: SUGAMMADEX SODIUM 200 MG/2 ML VIAL ONE (15:52)
[2024-11-08] MEDS ORDERED: fentaNYL 50 mcg/mL 1 mL Vial ONE (16:51)
[2024-11-08] MEDS ORDERED: Ondansetron PF 4 MG/2 ML Vial ONE (16:53)
[2024-11-08] MEDS: Acetaminophen 500 MG TAB PO SCH (17:38)
[2024-11-08] MEDS: Scopolamine 1 mg/72 hour Patch TD SCH (17:38)
[2024-11-08] MEDS: traMADol HCl 50 MG TAB PO PRN (21:22)
[2024-11-08] MEDS: Ondansetron ODT 4 MG TAB PO PRN (22:46)
[2024-11-09 04:39] LABS: #Basophils Less than 0.03 10x3/uL (0.0-0.2); #Eosinophils Less than 0.03 10x3/uL (0.0-0.7); %Basophils 0.1 % (0.0-1.0); %Eosinophils 0.1 % (0.0-10.0); %Lymphocytes 9.1 % (21.0-51.0); %Monocytes 1.4 % (0.0-10.0); %Neutrophils 88.8 % (42.0-75.0); Hematocrit 35.5 % (36.0-47.0); Hemoglobin 11.4 g/dL (12.0-16.0); Mean Corpuscular HGB CONC 32.1 g/dL (32.0-36.0); Mean Corpuscular Hemoglobin 28.4 pg (27.0-31.0); Mean Corpuscular Volume 88.3 fL (78.0-98.0); Platelet Count 461 10x3/uL (130-400); RBC Distribution Width 15.4 % (11.5-14.5); Red Blood Cell (RBC) Count 4.02 mill/uL (4.20-5.40)
[2024-11-09 04:52] LABS: ALT (SGPT) 559 U/L (8-55); AST (SGOT) 547 U/L (5-34); Albumin 2.8 g/dL (3.4-4.8); Alkaline Phosphatase 257 U/L (40-110); Anion Gap 17 mmol/L (10-20); BUN (Urea Nitrogen) 31 mg/dL (9.8-20.1); Bilirubin, Total 1.7 mg/dL (0.2-1.2); Calc. Creatinine Clearance 38 mL/min (70-130); Calcium 7.7 mg/dL (7.8-10.44); Carbon Dioxide 17 mmol/L (23-31); Chloride 102 mmol/L (98-107); Estimated GFR 34; Globulin 2.8 g/dL (2.4-3.5); Glucose 151 mg/dL (80-115); Potassium 3.2 mmol/L (3.5-5.1); Protein, Total 5.6 g/dL (5.8-8.1); Sodium 133 mmol/L (136-145)
[2024-11-09] MEDS: Famotidine 20 MG TAB PO SCH (08:06)
[2024-11-09] MEDS ORDERED: Famotidine/PF 20 mg/2ml Vial SLOW IVP SCH (09:00)
[2024-11-09] MEDS: Nicotine 21 MG PATCH TD SCH (17:22)
[2024-11-09] MEDS: CALCIUM GLUC 1 GM/NS 50 ML 1 GM in Premix 1 BAG IVPB SCH (20:25)
[2024-11-09] MEDS: Magnesium 2 GM/50 ML(in water) 2 GM in Premix 1 BAG IVPB SCH (21:00)
[2024-11-09] MEDS: Potassium Chloride 20 MEQ TAB PO SCH (21:03)
[2024-11-09] MEDS: DOBUTamine 500 mg/250 ml 500 MG in Premix 1 BAG IVPB SCH (21:05)
[2024-11-10] MEDS: Morphine 2 MG/ML VIAL SLOW IVP PRN (00:53)
[2024-11-10 05:23] LABS: #Basophils Less than 0.03 10x3/uL (0.0-0.2); #Eosinophils Less than 0.03 10x3/uL (0.0-0.7); %Basophils 0.1 % (0.0-1.0); %Monocytes 4.9 % (0.0-10.0); %Neutrophils 84.3 % (42.0-75.0); Hematocrit 36.7 % (36.0-47.0); Hemoglobin 11.8 g/dL (12.0-16.0); Mean Corpuscular HGB CONC 32.2 g/dL (32.0-36.0); Mean Corpuscular Hemoglobin 28.8 pg (27.0-31.0); Mean Corpuscular Volume 89.5 fL (78.0-98.0); Mean Platelet Volume 10.3 fL (7.4-10.4); Platelet Count 441 10x3/uL (130-400); RBC Distribution Width 15.8 % (11.5-14.5)
[2024-11-10 05:50] LABS: ALT (SGPT) 538 U/L (8-55); AST (SGOT) 383 U/L (5-34); Albumin 2.8 g/dL (3.4-4.8); Alkaline Phosphatase 249 U/L (40-110); Anion Gap 21 mmol/L (10-20); BUN (Urea Nitrogen) 47 mg/dL (9.8-20.1); Bilirubin, Total 1.5 mg/dL (0.2-1.2); Calc. Creatinine Clearance 25 mL/min (70-130); Calcium 8.1 mg/dL (7.8-10.44); Carbon Dioxide 15 mmol/L (23-31); Chloride 100 mmol/L (98-107); Estimated GFR 21; Glucose 77 mg/dL (80-115); Magnesium 2.7 mg/dL (1.6-2.6); Potassium 3.1 mmol/L (3.5-5.1); Protein, Total 5.8 g/dL (5.8-8.1); Sodium 133 mmol/L (136-145)
[2024-11-10] MEDS: Potassium Chloride 20 MEQ TAB PO SCH (12:50)
[2024-11-10] MEDS: metroNIDAZOLE 500 MG TAB PO SCH (12:50)
[2024-11-10] MEDS: Amoxicillin/Potassium Clav 875 MG TAB PO SCH ×2 (15:02→22:51)
[2024-11-10] MEDS: Sodium Bicarbonate Tab 325 MG TAB PO SCH (15:02)
[2024-11-10 16:24] LABS: Albumin 3.1 g/dL (3.4-4.8); Anion Gap 23 mmol/L (10-20); BUN (Urea Nitrogen) 54 mg/dL (9.8-20.1); BUN/Creatinine Ratio 18.56; Calc. Creatinine Clearance 21 mL/min (70-130); Calcium 8.5 mg/dL (7.8-10.44); Carbon Dioxide 14 mmol/L (23-31); Chloride 100 mmol/L (98-107); Estimated GFR 17; Glucose 95 mg/dL (80-115); Phosphorus 6.5 mg/dL (2.3-4.7); Potassium 4.7 mmol/L (3.5-5.1); Sodium 132 mmol/L (136-145)
[2024-11-10] MEDS: Lactated Ringer's 1,000 ML IV SCH (17:23)
[2024-11-10 23:38] LABS: Base Excess (BEa) -17.2 mEq/L (-2.0 to +3.0); Calcium, Ionized (arterial) 1.09 mmol/L (1.12-1.30); Carboxyhemoglobin (COHb) 0.8 gm% (0.0-3.0); Hematocrit-ABG 40 % (36.0-47.0); Hemoglobin (Hb) 13.6 g/dL (12.0-16.0); O2 Tension (PaO2), arterial 88.7 mmHg (> 80.0); Potassium - ABG Lab 5.51 mmol/L (3.70-5.30); pH, Arterial 7.251 (7.35-7.45)
[2024-11-10 23:40] LABS: Puncture Site Right Brachial art
[2024-11-11] MEDS: Sodium Bicarb 50 MEQ/50 ML Abboject 8.4% SYRINGE ONE ×2 (00:11→00:15)
[2024-11-11] MEDS: DOBUTamine 500 mg/250 ml 250 ML ONE (00:17)
[2024-11-11] MEDS: Sodium Bicarb 50 MEQ/50 ML Abboject 8.4% SYRINGE IVP SCH (00:25)
[2024-11-11 00:49] LABS: Hemoglobin 11.1 g/dL (12.0-16.0); Mean Corpuscular HGB CONC 32.6 g/dL (32.0-36.0); Mean Corpuscular Hemoglobin 28.5 pg (27.0-31.0); Mean Corpuscular Volume 87.2 fL (78.0-98.0); Mean Platelet Volume 10.3 fL (7.4-10.4); Platelet Count 455 10x3/uL (130-400); RBC Distribution Width 15.7 % (11.5-14.5)
[2024-11-11 01:04] LABS: ALT (SGPT) 409 U/L (8-55); AST (SGOT) 247 U/L (5-34); Albumin 2.4 g/dL (3.4-4.8); Alkaline Phosphatase 201 U/L (40-110); Anion Gap 32 mmol/L (10-20); BUN (Urea Nitrogen) 61 mg/dL (9.8-20.1); Bilirubin, Total 1.7 mg/dL (0.2-1.2); Calc. Creatinine Clearance 18 mL/min (70-130); Calcium 7.6 mg/dL (7.8-10.44); Carbon Dioxide 19 mmol/L (23-31); Chloride 96 mmol/L (98-107); Estimated GFR 15; Globulin 2.4 g/dL (2.4-3.5); Glucose 38 mg/dL (80-115); Lactic Acid 11.76 mmol/L (0.5-2.2); Potassium 5.7 mmol/L (3.5-5.1); Protein, Total 4.8 g/dL (5.8-8.1); Sodium 141 mmol/L (136-145)
[2024-11-11] MEDS: Dextrose 50% Abboject 50 ML SYRINGE ONE ×2 (01:11→02:20)
[2024-11-11 01:14] LABS: Anisocytosis SLIGHT = 6-15 cells HPF (0-5); Band 10 % (5-11); Eosinophils 1 % (0-10); Hypochromia SLIGHT = 6-15 cells HPF (0-5); Lymphocytes 6 % (21-51); Monocytes 11 % (0-10); Neutrophil 73 % (42-75); Nucleated RBC (Manual Ct) 9 % (0); Platelet Adequacy Comment Platelets Increased; Poikilocytosis SLIGHT = 6-15 cells HPF (0-5); Polychromasia SLIGHT = 2-3 cells HPF (0-2); Target Cells MODERATE= 6-15 cells HPF (0-1)
[2024-11-11] MEDS: Sodium Bicarbonate 150 MEQ in Dextrose 5% in Water 1,000 ML IV SCH ×2 (01:33→02:45)
[2024-11-11] MEDS: Haloperidol Lactate 5 MG/ML VIAL IM SCH (03:17)
[2024-11-11 04:08] LABS: Hematocrit 33.3 % (36.0-47.0); Mean Corpuscular Hemoglobin 28.7 pg (27.0-31.0); Mean Corpuscular Volume 86.9 fL (78.0-98.0); Mean Platelet Volume 10.4 fL (7.4-10.4); Platelet Count 399 10x3/uL (130-400); RBC Distribution Width 15.5 % (11.5-14.5); Red Blood Cell (RBC) Count 3.83 mill/uL (4.20-5.40)
[2024-11-11 04:20] LABS: Lactic Acid 6.45 mmol/L (0.5-2.2)
[2024-11-11 04:21] LABS: ALT (SGPT) 450 U/L (8-55); AST (SGOT) 284 U/L (5-34); Albumin 2.6 g/dL (3.4-4.8); Alkaline Phosphatase 216 U/L (40-110); Anion Gap 25 mmol/L (10-20); BUN (Urea Nitrogen) 69 mg/dL (9.8-20.1); Bilirubin, Total 2.2 mg/dL (0.2-1.2); Calc. Creatinine Clearance 18 mL/min (70-130); Calcium 7.7 mg/dL (7.8-10.44); Carbon Dioxide 18 mmol/L (23-31); Chloride 99 mmol/L (98-107); Estimated GFR 15; Globulin 2.6 g/dL (2.4-3.5); Glucose 276 mg/dL (80-115); Magnesium 2.6 mg/dL (1.6-2.6); Potassium 3.8 mmol/L (3.5-5.1); Protein, Total 5.2 g/dL (5.8-8.1); Sodium 138 mmol/L (136-145)
[2024-11-11 04:31] LABS: Band 1 % (5-11); Hypochromia SLIGHT = 6-15 cells HPF (0-5); Lymphocytes 5 % (21-51); Monocytes 2 % (0-10); Neutrophil 92 % (42-75); Platelet Adequacy Comment Platelets Normal; Polychromasia SLIGHT = 2-3 cells HPF (0-2); Target Cells SLIGHT = 2-5 cells HPF (0-1)
[2024-11-11 05:39] LABS: Creatinine, Urine 68.79 mg/dL (47-110)
[2024-11-11 08:29] LABS: ALT (SGPT) 477 U/L (8-55); AST (SGOT) 296 U/L (5-34); Albumin 2.9 g/dL (3.4-4.8); Alkaline Phosphatase 223 U/L (40-110); Anion Gap 24 mmol/L (10-20); BUN (Urea Nitrogen) 68 mg/dL (9.8-20.1); CK (CPK) 1016 U/L (29-168); Calc. Creatinine Clearance 20 mL/min (70-130); Calcium 7.7 mg/dL (7.8-10.44); Carbon Dioxide 20 mmol/L (23-31); Chloride 99 mmol/L (98-107); Estimated GFR 15; Globulin 2.6 g/dL (2.4-3.5); Glucose 113 mg/dL (80-115); Protein, Total 5.5 g/dL (5.8-8.1); Sodium 139 mmol/L (136-145)
[2024-11-11 08:36] LABS: Lactic Acid 4.96 mmol/L (0.5-2.2)
[2024-11-11] MEDS: DOPamine 400 MG/D5W 250 ML 250 ML IVPB SCH (13:18)
[2024-11-11] MEDS: Sodium Bicarbonate 150 MEQ in Sterile Water 1,000 ML IV SCH (16:46)
[2024-11-11 17:19] LABS: Albumin 2.8 g/dL (3.4-4.8); Anion Gap 18 mmol/L (10-20); BUN (Urea Nitrogen) 69 mg/dL (9.8-20.1); BUN/Creatinine Ratio 20.35; CK (CPK) 914 U/L (29-168); Calc. Creatinine Clearance 19 mL/min (70-130); Calcium 7.5 mg/dL (7.8-10.44); Carbon Dioxide 28 mmol/L (23-31); Chloride 94 mmol/L (98-107); Estimated GFR 15; Glucose 132 mg/dL (80-115); Phosphorus 4.8 mg/dL (2.3-4.7); Potassium 3.9 mmol/L (3.5-5.1); Sodium 136 mmol/L (136-145)
[2024-11-11] MEDS: Piperacillin/Tazobactam 3.375 GM in Sodium Chloride 0.9% 100 ML IVPB SCH ×2 (18:15→22:03)
[2024-11-11] MEDS ORDERED: Amoxicillin/Potassium Clav 500 MG TAB PO SCH (21:00)
[2024-11-11] MEDS: Piperacillin/Tazobactam 3.375 GM VIAL ONE (21:20)
[2024-11-11] MEDS: QUEtiapine 25 MG TAB PO SCH (21:23)
[2024-11-11] MEDS ORDERED: Sterile Water 10 ML VIAL FS PRN (22:30)
[2024-11-11] MEDS: Ziprasidone 20 MG VIAL IM SCH (22:40)
[2024-11-12 01:28] LABS: Lactic Acid 1.38 mmol/L (0.5-2.2)
[2024-11-12] MEDS: Albumin 5% 12.5 GM (250 mL) BOT IVPB SCH (01:55)
[2024-11-12] MEDS ORDERED: NOREPINEPHRINE 8 MG/250 ML-D5W 250 ML IVPB SCH (04:15)
[2024-11-12 06:30] LABS: #Basophils 0.03 10x3/uL (0.0-0.2); #Eosinophils Less than 0.03 10x3/uL (0.0-0.7); %Basophils 0.2 % (0.0-1.0); %Lymphocytes 8.4 % (21.0-51.0); %Monocytes 3.5 % (0.0-10.0); %Neutrophils 87.4 % (42.0-75.0); Hematocrit 31.4 % (36.0-47.0); Hemoglobin 10.5 g/dL (12.0-16.0); Mean Corpuscular HGB CONC 33.4 g/dL (32.0-36.0); Mean Corpuscular Hemoglobin 28.3 pg (27.0-31.0); Mean Corpuscular Volume 84.6 fL (78.0-98.0); Mean Platelet Volume 9.9 fL (7.4-10.4); Platelet Count 366 10x3/uL (130-400); Red Blood Cell (RBC) Count 3.71 mill/uL (4.20-5.40)
[2024-11-12 06:48] LABS: ALT (SGPT) 358 U/L (8-55); AST (SGOT) 194 U/L (5-34); Albumin 2.9 g/dL (3.4-4.8); Alkaline Phosphatase 189 U/L (40-110); Anion Gap 18 mmol/L (10-20); BUN (Urea Nitrogen) 68 mg/dL (9.8-20.1); Bilirubin, Total 2.4 mg/dL (0.2-1.2); CK (CPK) 670 U/L (29-168); Calc. Creatinine Clearance 21 mL/min (70-130); Calcium 7.3 mg/dL (7.8-10.44); Carbon Dioxide 30 mmol/L (23-31); Chloride 92 mmol/L (98-107); Estimated GFR 16; Globulin 2.4 g/dL (2.4-3.5); Glucose 104 mg/dL (80-115); Iron 17 ug/dL (50-170); Iron Binding Capacity, Total 259 mcg/dL (265-497); Magnesium 2.4 mg/dL (1.6-2.6); Potassium 3.3 mmol/L (3.5-5.1); Protein, Total 5.3 g/dL (5.8-8.1); Sodium 137 mmol/L (136-145)
[2024-11-12] MEDS: Potassium Chloride 20 MEQ TAB PO SCH (09:05)
[2024-11-12] MEDS: Lactated Ringer's 1,000 ML IV SCH (09:55)
[2024-11-12] MEDS: Sodium Ferric Gluconate 250 MG in Sodium Chloride 0.9% 250 ML 250 ML IVPB SCH ×2 (09:55→22:26)
[2024-11-12] MEDS: Potassium Chloride 20 MEQ in Premix 1 BAG IVPB SCH (09:56)
[2024-11-12] MEDS: Albumin 25% 25 GM (100 mL) BOT IVPB SCH ×2 (09:56→17:23)
[2024-11-12] MEDS ORDERED: Dexmedetomidine In 0.9 % NaCl 100 ML IV SCH (15:00)
[2024-11-13] MEDS: Albumin 25% 25 GM (100 mL) BOT IVPB SCH (03:15)
[2024-11-13 03:48] LABS: #Basophils Less than 0.03 10x3/uL (0.0-0.2); #Eosinophils Less than 0.03 10x3/uL (0.0-0.7); %Basophils 0.1 % (0.0-1.0); %Lymphocytes 11.5 % (21.0-51.0); %Monocytes 4.4 % (0.0-10.0); %Neutrophils 82.1 % (42.0-75.0); Hematocrit 30.2 % (36.0-47.0); Hemoglobin 10.2 g/dL (12.0-16.0); Mean Corpuscular HGB CONC 33.8 g/dL (32.0-36.0); Mean Corpuscular Hemoglobin 28.6 pg (27.0-31.0); Mean Corpuscular Volume 84.6 fL (78.0-98.0); Mean Platelet Volume 9.8 fL (7.4-10.4); Platelet Count 296 10x3/uL (130-400); RBC Distribution Width 15.1 % (11.5-14.5); Red Blood Cell (RBC) Count 3.57 mill/uL (4.20-5.40)
[2024-11-13 04:12] LABS: ALT (SGPT) 256 U/L (8-55); AST (SGOT) 111 U/L (5-34); Albumin 2.9 g/dL (3.4-4.8); Alkaline Phosphatase 172 U/L (40-110); Anion Gap 15 mmol/L (10-20); BUN (Urea Nitrogen) 50 mg/dL (9.8-20.1); CK (CPK) 400 U/L (29-168); Calc. Creatinine Clearance 26 mL/min (70-130); Calcium 7.6 mg/dL (7.8-10.44); Carbon Dioxide 29 mmol/L (23-31); Chloride 95 mmol/L (98-107); Estimated GFR 22; Globulin 2.2 g/dL (2.4-3.5); Glucose 98 mg/dL (80-115); Magnesium 2.2 mg/dL (1.6-2.6); Potassium 3.2 mmol/L (3.5-5.1); Protein, Total 5.1 g/dL (5.8-8.1); Sodium 136 mmol/L (136-145)
[2024-11-13] MEDS: Piperacillin/Tazobactam 3.375 GM in Sodium Chloride 0.9% 100 ML IVPB SCH (05:23)
[2024-11-13 05:53] LABS: Bacteria/HPF None Seen HPF (None Seen); Bilirubin Negative (Negative); Blood, Urine Trace (Negative); CAUTI Indications for Culture Alt mental st,lethar; Clarity Clear (Clear); Glucose, Urine (Dipstick) Normal (Negative); Ketone, Urine Negative (Negative); Leukocyte Negative Leu/uL (Negative); Nitrite Negative (Negative); Protein, Urine (Dipstick) 20 mg/dL (Neg-Trace); RBC/HPF 0-3 HPF (0-3); Specific Gravity, Urine 1.012 (1.002-1.036); Squamous Epithelial 0-3 HPF (0-3); Transitional Epithelial 0-3 HPF (None Seen); Urobilinogen Normal mg/dL (Less than 2); WBC/HPF 0-3 HPF (0-3); pH, Urine 8.5 (5.0-9.0)
[2024-11-13] MEDS ORDERED: Potassium Chloride 20 MEQ in Premix 1 BAG IVPB SCH (06:15)
[2024-11-13 06:30] LABS: Urine Culture Reflex No No
[2024-11-13] MEDS: Potassium Chloride 20 MEQ TAB PO SCH (06:33)
[2024-11-13] MEDS: Fludrocortisone Acetate 0.1 MG TAB PO SCH (10:09)
[2024-11-13] MEDS: CALCIUM GLUC 1 GM/NS 50 ML 1 GM in Premix 1 BAG IVPB SCH (10:09)
[2024-11-13] MEDS: Potassium Chloride 20 MEQ in Premix 1 BAG IVPB SCH (11:14)
[2024-11-13] MEDS: Sodium Ferric Gluconate 250 MG in Sodium Chloride 0.9% 250 ML 250 ML IVPB SCH (11:16)
[2024-11-13] MEDS: Potassium Chloride 10 MEQ in Premix 1 BAG IVPB SCH (11:18)
[2024-11-14 08:13] LABS: ALT (SGPT) 155 U/L (8-55); AST (SGOT) 63 U/L (5-34); Albumin 3.8 g/dL (3.4-4.8); Alkaline Phosphatase 132 U/L (40-110); Anion Gap 16 mmol/L (10-20); BUN (Urea Nitrogen) 28 mg/dL (9.8-20.1); Calc. Creatinine Clearance 40 mL/min (70-130); Calcium 8.7 mg/dL (7.8-10.44); Carbon Dioxide 21 mmol/L (23-31); Chloride 102 mmol/L (98-107); Estimated GFR 37; Glucose 79 mg/dL (80-115); Hematocrit 31.1 % (36.0-47.0); Hemoglobin 10.2 g/dL (12.0-16.0); Mean Corpuscular HGB CONC 32.8 g/dL (32.0-36.0); Mean Corpuscular Hemoglobin 28.7 pg (27.0-31.0); Mean Corpuscular Volume 87.4 fL (78.0-98.0); Platelet Count 290 10x3/uL (130-400); Potassium 4.4 mmol/L (3.5-5.1); Protein, Total 5.8 g/dL (5.8-8.1); RBC Distribution Width 15.7 % (11.5-14.5); Red Blood Cell (RBC) Count 3.56 mill/uL (4.20-5.40); Sodium 135 mmol/L (136-145)
[2024-11-14 08:37] LABS: Anisocytosis MARKED = >30 cells HPF (0-5); Band 2 % (5-11); Burr Cells SLIGHT = 2-5 cells HPF (0-1); Elliptocytes SLIGHT = 2-5 cells HPF (0-1); Eosinophils 1 % (0-10); Lymphocytes 13 % (21-51); Macrocytosis MODERATE=16-30 cells HPF (0-5); Monocytes 5 % (0-10); Neutrophil 77 % (42-75); Nucleated RBC (Manual Ct) 4 % (0); Platelet Adequacy Comment Platelets Normal; Polychromasia SLIGHT = 2-3 cells HPF (0-2); Reactive Lymphocytes 1 % (0-10); Target Cells SLIGHT = 2-5 cells HPF (0-1)
[2024-11-14] MEDS: Piperacillin/Tazobactam 3.375 GM in Sodium Chloride 0.9% 100 ML IVPB SCH (12:35)
[2024-11-15 04:17] LABS: Hemoglobin 10.2 g/dL (12.0-16.0); Mean Corpuscular HGB CONC 32.9 g/dL (32.0-36.0); Mean Corpuscular Hemoglobin 28.5 pg (27.0-31.0); Mean Corpuscular Volume 86.6 fL (78.0-98.0); Mean Platelet Volume 9.6 fL (7.4-10.4); Platelet Count 307 10x3/uL (130-400); RBC Distribution Width 15.9 % (11.5-14.5); Red Blood Cell (RBC) Count 3.58 mill/uL (4.20-5.40)
[2024-11-15 05:04] LABS: Eosinophils 1 % (0-10); Hypochromia SLIGHT = 6-15 cells HPF (0-5); Lymphocytes 14 % (21-51); Monocytes 4 % (0-10); Neutrophil 80 % (42-75); Nucleated RBC (Manual Ct) 6 % (0); Platelet Adequacy Comment Platelets Normal; Polychromasia SLIGHT = 2-3 cells HPF (0-2); Smudge Cells 7.8 %
[2024-11-15 08:27] LABS: ALT (SGPT) 132 U/L (8-55); AST (SGOT) 41 U/L (5-34); Albumin 3.4 g/dL (3.4-4.8); Alkaline Phosphatase 140 U/L (40-110); Anion Gap 17 mmol/L (10-20); BUN (Urea Nitrogen) 19 mg/dL (9.8-20.1); Bilirubin, Total 1.9 mg/dL (0.2-1.2); Calc. Creatinine Clearance 0 mL/min (70-130); Calcium 8.7 mg/dL (7.8-10.44); Carbon Dioxide 21 mmol/L (23-31); Chloride 104 mmol/L (98-107); Estimated GFR 38; Glucose 86 mg/dL (80-115); Magnesium 1.8 mg/dL (1.6-2.6); Potassium 3.3 mmol/L (3.5-5.1); Protein, Total 5.4 g/dL (5.8-8.1); Sodium 139 mmol/L (136-145)
[2024-11-15] MEDS: Piperacillin/Tazobactam 3.375 GM in Sodium Chloride 0.9% 100 ML IVPB SCH (13:05)
[2024-11-16 05:17] LABS: #Basophils 0.04 10x3/uL (0.0-0.2); %Basophils 0.3 % (0.0-1.0); %Eosinophils 1.7 % (0.0-10.0); %Lymphocytes 14.9 % (21.0-51.0); %Monocytes 7.8 % (0.0-10.0); %Neutrophils 73.2 % (42.0-75.0); Hematocrit 30.2 % (36.0-47.0); Hemoglobin 9.8 g/dL (12.0-16.0); Mean Corpuscular HGB CONC 32.5 g/dL (32.0-36.0); Mean Corpuscular Volume 86.3 fL (78.0-98.0); Mean Platelet Volume 10.3 fL (7.4-10.4); Platelet Count 315 10x3/uL (130-400); RBC Distribution Width 16.5 % (11.5-14.5)
[2024-11-16 07:02] LABS: ALT (SGPT) 101 U/L (8-55); AST (SGOT) 28 U/L (5-34); Alkaline Phosphatase 132 U/L (40-110); Anion Gap 14 mmol/L (10-20); BUN (Urea Nitrogen) 13 mg/dL (9.8-20.1); Bilirubin, Total 1.7 mg/dL (0.2-1.2); Calc. Creatinine Clearance 56 mL/min (70-130); Calcium 8.2 mg/dL (7.8-10.44); Carbon Dioxide 22 mmol/L (23-31); Chloride 106 mmol/L (98-107); Estimated GFR 55; Globulin 2.1 g/dL (2.4-3.5); Glucose 79 mg/dL (80-115); Magnesium 1.6 mg/dL (1.6-2.6); Potassium 3.1 mmol/L (3.5-5.1); Protein, Total 5.1 g/dL (5.8-8.1); Sodium 139 mmol/L (136-145)
[2024-11-16 08:53] LABS: Phosphorus 2.1 mg/dL (2.3-4.7)
[2024-11-16] MEDS: Lactated Ringer's 1,000 ML IV SCH (09:00)
[2024-11-16] MEDS: Potassium Chloride 20 MEQ TAB PO SCH ×2 (09:14→09:58)
[2024-11-16] MEDS: Magnesium Sulfate In Water 4 GM in Premix 1 BAG IVPB SCH (09:15)
[2024-11-16] MEDS: Magnesium 2 GM/50 ML(in water) 2 GM in Premix 1 BAG IVPB SCH (09:56)
[2024-11-16] MEDS: Potassium Chloride 10 MEQ in Premix 1 BAG IVPB SCH (10:31)
[2024-11-16] MEDS: Potassium Phosphate 30 MMOL in Sodium Chloride 0.9% 250 ML 250 ML IVPB SCH (10:32)
[2024-11-17 05:13] LABS: Hematocrit 32.9 % (36.0-47.0); Mean Corpuscular HGB CONC 33.4 g/dL (32.0-36.0); Mean Corpuscular Hemoglobin 28.7 pg (27.0-31.0); Mean Corpuscular Volume 85.9 fL (78.0-98.0); Platelet Count 335 10x3/uL (130-400); RBC Distribution Width 17.5 % (11.5-14.5); Red Blood Cell (RBC) Count 3.83 mill/uL (4.20-5.40)
[2024-11-17 06:15] LABS: Anisocytosis SLIGHT = 6-15 cells HPF (0-5); Band 5 % (5-11); Burr Cells SLIGHT = 2-5 cells HPF (0-1); Hypochromia SLIGHT = 6-15 cells HPF (0-5); Lymphocytes 34 % (21-51); Monocytes 7 % (0-10); Myelocyte 2 % (0-0); Neutrophil 52 % (42-75); Platelet Adequacy Comment Platelets Normal; Polychromasia SLIGHT = 2-3 cells HPF (0-2); Smudge Cells 7.9 %
[2024-11-17 07:00] LABS: ALT (SGPT) 86 U/L (8-55); AST (SGOT) 45 U/L (5-34); Albumin 2.9 g/dL (3.4-4.8); Alkaline Phosphatase 130 U/L (40-110); Anion Gap 17 mmol/L (10-20); BUN (Urea Nitrogen) 12 mg/dL (9.8-20.1); Bilirubin, Total 1.5 mg/dL (0.2-1.2); Calc. Creatinine Clearance 54 mL/min (70-130); Calcium 8.3 mg/dL (7.8-10.44); Carbon Dioxide 20 mmol/L (23-31); Chloride 107 mmol/L (98-107); Estimated GFR 54; Globulin 2.7 g/dL (2.4-3.5); Glucose 82 mg/dL (80-115); Magnesium 2.3 mg/dL (1.6-2.6); Potassium 4.9 mmol/L (3.5-5.1); Protein, Total 5.6 g/dL (5.8-8.1); Sodium 139 mmol/L (136-145)
[2024-11-17] MEDS: Sodium Bicarbonate Tab 325 MG TAB PO SCH (08:47)
[2024-11-17] MEDS: oxyCODONE 5 MG TAB PO PRN (10:23)
[2024-11-17 11:37] LABS: Actual Bicarbonate (HCO3a) 7.6 mEq/L (22-28); CO2 Tension 17.8 mmHg (35.0-45.0)
[2024-11-17 11:53] LABS: Anion Gap 14 mmol/L (10-20); BUN (Urea Nitrogen) 11 mg/dL (9.8-20.1); Calc. Creatinine Clearance 56 mL/min (70-130); Calcium 8.5 mg/dL (7.8-10.44); Carbon Dioxide 22 mmol/L (23-31); Chloride 107 mmol/L (98-107); Estimated GFR 57; Glucose 80 mg/dL (80-115); Potassium 3.9 mmol/L (3.5-5.1); Sodium 139 mmol/L (136-145)
[2024-11-17] MEDS: Enoxaparin 40 MG (0.4 mL) SYRINGE SC SCH (14:30)
[2024-11-18 04:01] LABS: ALT (SGPT) 72 U/L (8-55); AST (SGOT) 26 U/L (5-34); Albumin 2.9 g/dL (3.4-4.8); Alkaline Phosphatase 147 U/L (40-110); Anion Gap 13 mmol/L (10-20); BUN (Urea Nitrogen) 11 mg/dL (9.8-20.1); Bilirubin, Total 1.2 mg/dL (0.2-1.2); Calc. Creatinine Clearance 62 mL/min (70-130); Calcium 8.6 mg/dL (7.8-10.44); Carbon Dioxide 20 mmol/L (23-31); Chloride 110 mmol/L (98-107); Estimated GFR 64; Globulin 2.5 g/dL (2.4-3.5); Glucose 135 mg/dL (80-115); Magnesium 2.1 mg/dL (1.6-2.6); Potassium 3.9 mmol/L (3.5-5.1); Protein, Total 5.4 g/dL (5.8-8.1); Sodium 139 mmol/L (136-145)
[2024-11-18 04:40] LABS: Hematocrit 32.7 % (36.0-47.0); Hemoglobin 10.5 g/dL (12.0-16.0); Mean Corpuscular HGB CONC 32.1 g/dL (32.0-36.0); Mean Corpuscular Hemoglobin 28.5 pg (27.0-31.0); Mean Corpuscular Volume 88.6 fL (78.0-98.0); Mean Platelet Volume 9.3 fL (7.4-10.4); Platelet Count 338 10x3/uL (130-400); RBC Distribution Width 17.7 % (11.5-14.5); Red Blood Cell (RBC) Count 3.69 mill/uL (4.20-5.40)
[2024-11-18 06:21] LABS: Anisocytosis MODERATE=16-30 cells HPF (0-5); Band 17 % (5-11); Eosinophils 1 % (0-10); Hypochromia SLIGHT = 6-15 cells HPF (0-5); Lymphocytes 24 % (21-51); Macrocytosis SLIGHT = 6-15 cells HPF (0-5); Monocytes 12 % (0-10); Neutrophil 45 % (42-75); Platelet Adequacy Comment Platelets Normal; Poikilocytosis SLIGHT = 6-15 cells HPF (0-5); Polychromasia SLIGHT = 2-3 cells HPF (0-2); Reactive Lymphocytes 1 % (0-10); Smudge Cells 7.9 %
[2024-11-18] MEDS: Spironolactone 25 MG TAB PO SCH (09:57)
[2024-11-18] MEDS: Enoxaparin 40 MG (0.4 mL) SYRINGE SC SCH (09:57)
[2024-11-18] MEDS: Sacubitril 24MG/Valsartan 26 MG TAB PO SCH ×2 (11:25→21:29)
[2024-11-18] MEDS: Torsemide 10 MG TAB PO SCH (13:25)
[2024-11-18 15:07] LABS: Amphetamine Detected (NotDetected); Barbiturates Screen Not Detected (NotDetected); Benzodiazepine Screen Not Detected (NotDetected); Cocaine Metabolite Screen Not Detected (NotDetected); Methadone Not Detected (NotDetected); Methamphetamine Detected (NotDetected); Opiate Screen Detected (NotDetected); Oxycodone Screen Detected (NotDetected); Phencyclidine (PCP) Not Detected (NotDetected); THC/Cannabinoid Screen Not Detected (NotDetected); Tricyclic Screen Detected (NotDetected)
[2024-11-18 15:50] VITALS: BMI 28.0
[2024-11-19 04:41] LABS: Hematocrit 32.1 % (36.0-47.0); Hemoglobin 10.3 g/dL (12.0-16.0); Mean Corpuscular HGB CONC 32.1 g/dL (32.0-36.0); Mean Corpuscular Hemoglobin 28.1 pg (27.0-31.0); Mean Corpuscular Volume 87.5 fL (78.0-98.0); Mean Platelet Volume 9.6 fL (7.4-10.4); Platelet Count 373 10x3/uL (130-400); RBC Distribution Width 18.6 % (11.5-14.5); Red Blood Cell (RBC) Count 3.67 mill/uL (4.20-5.40)
[2024-11-19 04:54] LABS: ALT (SGPT) 59 U/L (8-55); AST (SGOT) 20 U/L (5-34); Alkaline Phosphatase 145 U/L (40-110); Anion Gap 14 mmol/L (10-20); BUN (Urea Nitrogen) 17 mg/dL (9.8-20.1); Calc. Creatinine Clearance 52 mL/min (70-130); Calcium 8.4 mg/dL (7.8-10.44); Carbon Dioxide 23 mmol/L (23-31); Chloride 107 mmol/L (98-107); Estimated GFR 56; Globulin 2.6 g/dL (2.4-3.5); Glucose 104 mg/dL (80-115); Magnesium 1.9 mg/dL (1.6-2.6); Potassium 3.6 mmol/L (3.5-5.1); Protein, Total 5.6 g/dL (5.8-8.1); Sodium 140 mmol/L (136-145)
[2024-11-19 05:12] LABS: Anisocytosis SLIGHT = 6-15 cells HPF (0-5); Band 18 % (5-11); Elliptocytes SLIGHT = 2-5 cells HPF (0-1); Hypochromia SLIGHT = 6-15 cells HPF (0-5); Lymphocytes 34 % (21-51); Monocytes 6 % (0-10); Neutrophil 40 % (42-75); Platelet Adequacy Comment Platelets Normal; Polychromasia MODERATE = 3-4 cells HPF (0-2); Reactive Lymphocytes 3 % (0-10); Target Cells SLIGHT = 2-5 cells HPF (0-1)
[2024-11-19 08:04] VITALS: TEMP 97.8
[2024-11-19] MEDS: Torsemide 20 MG TAB PO SCH (08:38)
[2024-11-19] MEDS: Sertraline 25 MG TAB PO SCH (08:38)
[2024-11-19 08:45] LABS: Phosphorus 2.7 mg/dL (2.3-4.7)
[2024-11-19] MEDS ORDERED: Dapagliflozin Propanediol 10 MG TAB PO SCH (09:00)
[2024-11-19] MEDS: Valsartan 80 MG TAB PO SCH (09:50)
[2024-11-19] MEDS: Magnesium Oxide 400 MG TAB PO SCH (09:51)
[2024-11-19] MEDS: Spironolactone 25 MG TAB PO SCH ×2 (09:51→10:16)
[2024-11-19] MEDS: Dapagliflozin Propanediol 10 MG TAB PO SCH (09:51)
[2024-11-19 14:01] VITALS: BP 127/81
== END 2024-11-19 16:00 | disposition home or self-care (01) | DRG 853 ==
LOC: ERS 19:03 → OBS 22:33 → IMCU/EMU 11-11 00:06 → CCU 11-12 04:26 → IMCU/EMU 11-12 07:10
PROVIDERS: ADMIT Student in an Organized Health Care Education/Training Program; ATTEND Hospitalist
PROC: 0FT44ZZ Resection of Gallbladder, Percutaneous Endoscopic Approach (ICD-10-PCS; principal; 2024-11-07)
PROC: BF532Z0 Other Imaging of Gallbladder and Bile Ducts using Fluorescing Agent, Intraoperative (ICD-10-PCS; 2024-11-07)
PROC: 30233J0 Transfusion of Autologous Serum Albumin into Peripheral Vein, Percutaneous Approach (ICD-10-PCS; 2024-11-07)
PROC: 3E033XZ Introduction of Vasopressor into Peripheral Vein, Percutaneous Approach (ICD-10-PCS; 2024-11-07)
DX: A41.9 Sepsis, unspecified organism (principal); G93.41 Metabolic encephalopathy; I50.23 Acute on chronic systolic (congestive) heart failure; J96.21 Acute and chronic respiratory failure with hypoxia; R57.0 Cardiogenic shock; R65.21 Severe sepsis with septic shock; I21.A1 Myocardial infarction type 2; K81.0 Acute cholecystitis; I13.0 Hypertensive heart and chronic kidney disease with heart failure and stage 1 through stage 4 chronic kidney disease, or unspecified chronic kidney disease; I47.19 Other supraventricular tachycardia; N17.9 Acute kidney failure, unspecified; I42.8 Other cardiomyopathies; E87.21 Acute metabolic acidosis; M62.82 Rhabdomyolysis; B18.1 Chronic viral hepatitis B without delta-agent; I08.1 Rheumatic disorders of both mitral and tricuspid valves; E80.6 Other disorders of bilirubin metabolism; G89.29 Other chronic pain; R41.0 Disorientation, unspecified; R74.01 Elevation of levels of liver transaminase levels; E86.0 Dehydration; B19.20 Unspecified viral hepatitis C without hepatic coma; I95.9 Hypotension, unspecified; I48.0 Paroxysmal atrial fibrillation; J44.89 Other specified chronic obstructive pulmonary disease; F15.10 Other stimulant abuse, uncomplicated; E83.42 Hypomagnesemia; E83.39 Other disorders of phosphorus metabolism; E78.5 Hyperlipidemia, unspecified; F17.210 Nicotine dependence, cigarettes, uncomplicated; I25.10 Atherosclerotic heart disease of native coronary artery without angina pectoris; N18.30 Chronic kidney disease, stage 3 unspecified; E87.6 Hypokalemia; D63.1 Anemia in chronic kidney disease; Z53.29 Procedure and treatment not carried out because of patient's decision for other reasons; Z79.899 Other long term (current) drug therapy; Z90.49 Acquired absence of other specified parts of digestive tract; Z79.51 Long term (current) use of inhaled steroids
CPT/HCPCS: 36415; 36416; 36600; 47532; 71045; 71046; 71275; 74176; 74177; 76705; 78226; 80053; 80306; 81001; 82306; 82550; 82570; 82728; 82805; 83540; 83550; 83605; 83690; 83735; 83880; 84100; 84145; 84156; 84300; 84443; 84484; 84540; 85025; 86141; 87040; 87428; 88304; 93005; 93306; 93798; 94760; 96361; 96365; 96367; 96375; A4217; A9537; C1889; J0171; J0613; J0665; J1100; J1171; J1250; J1265; J1611; J1630; J1650; J1940; J2250; J2272; J2405; J2543; J2704; J2916; J3010; J3370; J3475; J3480; J3486; J3490; J7050; J7070; J7120; J7999; P9045; P9047; Q0162; Q9967

== ENCOUNTER 2025-10-01 00:56 | Emergency (ER) | payer MEDICARE ==
[2025-10-01] MEDS ORDERED: Acetaminophen 325 MG TAB ONE (02:04)
== END 2025-10-01 03:05 | disposition home or self-care (01) ==
LOC: ERS 00:56
DX: S00.03XA Contusion of scalp, initial encounter (principal); I50.9 Heart failure, unspecified; E78.5 Hyperlipidemia, unspecified; F17.210 Nicotine dependence, cigarettes, uncomplicated; Z79.899 Other long term (current) drug therapy; W22.8XXA Striking against or struck by other objects, initial encounter
CPT/HCPCS: 70450; 72125; J2270; 96372